=== PATIENT | male | born 1970 | race Two or more races ===

== ENCOUNTER 2018-10-17 11:40 | Inpatient (IN) | payer OTHER ==
[2018-10-17] VITALS (7 sets, daily range): BP systolic 90–131; BP diastolic 59–84
[~2018-10-17] VITALS: Ht 172.7 cm; Wt 62.2 kg
[2018-10-17] MEDS ORDERED: Cefepime HCl 2 GM in NS 110 ML IV SCH (11:45)
[2018-10-17] MEDS ORDERED: Vancomycin 1 GM in NS 275 ML IV ONE (11:45)
--- NOTE | 2018-10-17 11:46 | NUR ---
ED Nurse Note: Pt from home and was brought in by EMS due to SOB x 3 days. Hx of CHF and pt states he stopped taking his lasix for a week now. Pt is AAO x4, non ambulatory with SOB upon exertion. Noted LLE pitting edema +3 and RLE edema +1. Pt has colostomy in place.
--- NOTE | 2018-10-17 11:55 | Emergency Room Report ---
History of Present Illness General Chief Complaint: Dyspnea/Respdistress Source: Patient, Medical Record Present Illness HPI 47-year-old male history of metastatic colon cancer presents with shortness of breath that started 4 days while he denies any aggravating or relieving factors severity is severe, patient states that he has trouble getting a good breath in , he endorses a little chest tightness, no nausea no vomiting, no fever no chills, he does endorse a cough, patient denies any dysuria, patient is currently undergoing chemotherapy. He is full code Allergies: Coded Allergies: No Known Allergies (Unverified , 10/17/18) Patient History Past Medical History: see triage record Reviewed Nursing Documentation: PMH: Agreed; PSxH: Agreed Nursing Documentation-PMH Past Medical History: No History, Except For Hx Cardiac Problems: Yes - CHF Hx Cancer: Yes - Rectum Review of Systems All Other Systems: negative except mentioned in HPI Physical Exam Vital Signs Date Time Temp Pulse Resp B/P (MAP) Pulse Ox O2 Delivery O2 Flow Rate FiO2 10/17/18 11:36 97.5 85 20 89/59 (69) 94 Room Air Sp02 EP Interpretation: reviewed, normal General Appearance: alert, moderate distress, cachetic Head: normocephalic, atraumatic Eyes: bilateral eye PERRL, bilateral eye EOMI ENT: uvula midline, dry mucus membranes Neck: supple, thyroid normal, supple/symm/no masses Respiratory: respiratory distress, decreased breath sounds - left side, accessory muscle use Cardiovascular #1: normal peripheral pulses, regular rate, rhythm, no edema, no gallop, no murmur Gastrointestinal: non tender, soft, no guarding, no rebound, other - Ostomy bag present Musculoskeletal: normal inspection Neurologic: alert, oriented x3 Psychiatric: mood/affect normal Skin: warm/dry, other - Sacral ulcer stage I Procedures Critical Care Time Critical Care Time Given the critical condition in which the patient arrived, the patient was immediately assessed by myself and the nurse, and cardiac monitoring initiated due to the potential for rapid decompensation of the patient's clinical condition. During the course of the patient's stay, I spent a considerable amount of time at the bedside performing serial re-evaluations of the patient's hemodynamic and clinical status because of the recognized potential threat to life or limb in this condition. I then had a chance to review not only all of the available current laboratory and radiographic studies obtained today, but I also reviewed old records available to me at the time. Additionally, any ancillary information available including botany teacher records were reviewed. Sequential vital signs were obtained. Critical Care time of 34 minutes was performed exclusive of billable procedures. Patient at risk of respiratory compromise Medical Decision Making Diagnostic Impression: Primary Impression: Respiratory distress Additional Impressions: Pneumonia involving left lung Qualified Codes: J18.9 - Pneumonia, unspecified organism Sepsis Qualified Codes: A41.9 - Sepsis, unspecified organism ER Course 47-year-old male presents with acute shortness of breath, dyspnea, hypoxia, patient most likely septic. Possible pneumonia Emergently evaluated, patient given breathing treatments, bolus, antibiotics, sepsis work-up was started, Reeval 1:58 PM, patient required BiPAP due to desaturation and hypoxia Reevaluation 2:15 PM, patient improving with BiPAP Given 2 L of normal saline, with improvement in blood pressure from low 90s to low 100s, patient may go to stepdown Patient admitted to Dr. Rivera. Laboratory Tests Test 10/17/18 11:45 10/17/18 12:00 10/17/18 12:14 10/17/18 12:25 Prothrombin Time 13.4 SEC (9.30-11.50) H Prothrombin Time INR 1.3 (0.9-1.1) H PTT 31 SEC (23-33) Sodium Level 130 MMOL/L (136-145) L Potassium Level 4.0 MMOL/L (3.5-5.1) Chloride Level 96 MMOL/L (98-107) L Carbon Dioxide Level 28 MMOL/L (21-32) Anion Gap 6 mmol/L (5-15) Blood Urea Nitrogen 26 mg/dL (7-18) H Creatinine 0.9 MG/DL (0.55-1.30) Estimate Glomerular Filtration Rate > 60 mL/min (>60) Glucose Level 97 MG/DL (74-106) Lactic Acid Level 1.80 mmol/L (0.4-2.0) Calcium Level 9.4 MG/DL (8.5-10.1) Phosphorus Level 3.7 MG/DL (2.5-4.9) Magnesium Level 1.8 MG/DL (1.8-2.4) Total Bilirubin 0.9 MG/DL (0.2-1.0) Aspartate Amino Transferase (AST) 31 U/L (15-37) Alanine Aminotransferase (ALT) 14 U/L (12-78) Alkaline Phosphatase 324 U/L (46-116) H Total Creatine Kinase 34 U/L (26-308) Creatine Kinase MB 1.7 NG/ML (0.0-3.6) Creatine Kinase MB Relative Index 5.0 Troponin I 0.047 ng/mL (0.000-0.056) Pro-B-Type Natriuretic Peptide 48960 pg/mL (0-125) H Total Protein 6.5 G/DL (6.4-8.2) Albumin 2.3 G/DL (3.4-5.0) L Globulin 4.2 g/dL Albumin/Globulin Ratio 0.5 (1.0-2.7) L Lipase 41 U/L (73-393) L White Blood Count 13.9 K/UL (4.8-10.8) H Red Blood Count 2.44 M/UL (4.70-6.10) L Hemoglobin 7.2 G/DL (14.2-18.0) L Hematocrit 22.5 % (42.0-52.0) L Mean Corpuscular Volume 92 FL (80-99) Mean Corpuscular Hemoglobin 29.4 PG (27.0-31.0) Mean Corpuscular Hemoglobin Concent 31.9 G/DL (32.0-36.0) L Red Cell Distribution Width 18.3 % (11.6-14.8) H Platelet Count 18 K/UL (150-450) L Mean Platelet Volume 8.0 FL (6.5-10.1) Neutrophils (%) (Auto) % (45.0-75.0) Lymphocytes (%) (Auto) % (20.0-45.0) Monocytes (%) (Auto) % (1.0-10.0) Eosinophils (%) (Auto) % (0.0-3.0) Basophils (%) (Auto) % (0.0-2.0) Differential Total Cells Counted 100 Neutrophils % (Manual) 92 % (45-75) H Lymphocytes % (Manual) 3 % (20-45) L Monocytes % (Manual) 5 % (1-10) Eosinophils % (Manual) 0 % (0-3) Basophils % (Manual) 0 % (0-2) Band Neutrophils 0 % (0-8) Platelet Estimate Decreased L Platelet Morphology Normal Hypochromasia 2+ Anisocytosis 1+ Arterial Blood pH 7.479 (7.350-7.450) Arterial Blood Partial Pressure CO2 32.0 mmHg (35.0-45.0) L Arterial Blood Partial Pressure O2 198.9 mmHg (75.0-100.0) H Arterial Blood HCO3 23.2 mmol/L (22.0-26.0) Arterial Blood Oxygen Saturation 99.1 % (95-100) Arterial Blood Base Excess -0.1 (-2-2) William Test Positive Urine Color Yellow Urine Appearance Clear Urine pH 6 (4.5-8.0) Urine Specific [employer] [place] [employer] [place] 1.015 (1.005-1.035) Urine Protein Negative (NEGATIVE) Urine Glucose (UA) Negative (NEGATIVE) Urine Ketones Negative (NEGATIVE) Urine Blood 1+ (NEGATIVE) H Urine Nitrite Negative (NEGATIVE) Urine Bilirubin Negative (NEGATIVE) Urine Urobilinogen Normal MG/DL (0.0-1.0) Urine Leukocyte Esterase Negative (NEGATIVE) Urine RBC 0-2 /HPF (0 - 0) H Urine WBC 0 /HPF (0 - 0) Urine Squamous Epithelial Cells Occasional /LPF Urine Bacteria Occasional /HPF (NONE) EKG Diagnostic Results EKG Time: 11:54 EP Interpretation: NSR, rate 89, QTc 438, no acute ST elevations, normal axis Rate: normal Rhythm: NSR ST Segments: no acute changes Rhythm Strip Diag. Results Rhythm Strip Time: 13:17 EP Interpretation: yes Rate: 80 Rhythm: NSR, no PVC's Chest X-Ray Diagnostic Results Chest X-Ray Diagnostic Results : Chest X-Ray Ordered: Yes # of Views/Limited/Complete: 1 View Indication: Shortness of Breath Interpretation: other - Left lobe pneumonia Impression: Other - Left lobe pneumonia Electronically Signed by: Selvin Bustamante MD CT/MRI/US Diagnostic Results CT/MRI/US Diagnostic Results #1: Impression Procedure: CTA Chest w Contrast CTA CHEST With Contrast: No PE. Limited at the left lung base due to motion. Prominent main pulmonary artery may be pulmonary arterial hypertension. Small bilateral pleural effusions, greater on the left. Pleural effusion along the right major fissure. Septal thickening of the left lung and right lower lung. Hazy lung opacities of the left lung in a mosaic pattern, may be edema or infiltrate, consider alveolar proteinosis. Mild honeycombing of the lung and right lung peripheral opacities. Maybe fibrosis, consider eosinophilic pneumonia. Numerous small nodules of the right lung. Right anterior rib 4 permeative lesion with pathologic fracture may be subacute. Ascites in the upper abdomen. Hepatomegaly. Cachectic. Anasarca. Small mediastinal and left hilar lymphadenopathy. Dictated By: MICHELLE OCHOA M.D. Electronically Signed By: Signed Date/Time CT/MRI/US Diagnostic Results #2: Impression Procedure: CT Head no Contrast CT HEAD Without Contrast: Hypoattenuation in the right frontoparietal lobe white matter, may be subacute to old focus of ischemia, cannot exclude demyelinating or other white matter process. No acute intracranial hemorrhage. No mass effect or midline shift. Visualized paranasal sinuses and mastoid air cells are clear. Dictated By: MICHELLE OCHOA M.D. Electronically Signed By: Signed Date/Time CC: Last Vital Signs Date Time Temp Pulse Resp B/P (MAP) Pulse Ox O2 Delivery O2 Flow Rate FiO2 10/17/18 11:36 97.5 85 20 89/59 (69) 94 Room Air Disposition: ADMITTED INPATIENT Condition: Stable Selvin Bustamante MD Oct 17, 2018 11:55
[2018-10-17] MEDS ORDERED: Albuterol ud Inhalation HHN ONE (12:00)
[2018-10-17] MEDS ORDERED: Ipratropium 0.02% Inh Soln 2.5ml UD HHN ONE (12:00)
--- NOTE | 2018-10-17 12:10 | NUR ---
ED Nurse Note: RT at the bed side for breathing treatment.
[2018-10-17 12:14] LABS: HEMATOCRIT 22.5 % (42.0-52.0); HEMOGLOBIN 7.2 G/DL (14.2-18.0); MEAN CORPUSCULAR VOLUME 92 FL (80-99); PLATELET COUNT 18 K/UL (150-450); RED BLOOD COUNT 2.44 M/UL (4.70-6.10); RED CELL DISTRIBUTION WIDTH 18.3 % (11.6-14.8); WHITE BLOOD COUNT 13.9 K/UL (4.8-10.8)
[2018-10-17] MEDS ORDERED: Isovue-370 150ml vial INJ PRN (12:15)
--- NOTE | 2018-10-17 12:15 | Diagnostic Imaging Report ---
EXAM: XR Chest, 1 View CLINICAL HISTORY: DYSPNEA TECHNIQUE: Frontal view of the chest. COMPARISON: No relevant prior studies available. FINDINGS: Lungs: Infiltrative changes in the left lung. Hyperinflation of the right lung and some volume loss in the left. Pleural space: Blunting of the left costophrenic angle that could be from pleural effusion or pleural thickening. No pneumothorax. Heart: And probable mild cardiomegaly. Mediastinum: Unremarkable. Bones/joints: No acute fracture. IMPRESSION: Infiltrative changes in the left lung. Could be from pneumonia. Underlying lesion not excluded.
[2018-10-17 12:21] LABS: INR 1.3 (0.9-1.1)
[2018-10-17 12:29] LABS: ANION GAP 6 mmol/L (5-15); BLOOD UREA NITROGEN 26 mg/dL (7-18); CALCIUM 9.4 MG/DL (8.5-10.1); CARBON DIOXIDE 28 MMOL/L (21-32); CHLORIDE 96 MMOL/L (98-107); CREATININE 0.9 MG/DL (0.55-1.30); SODIUM 130 MMOL/L (136-145)
[2018-10-17 12:43] LABS: ALANINE AMINOTRANSFERASE 14 U/L (12-78); ALBUMIN 2.3 G/DL (3.4-5.0); ALBUMIN/GLOBULIN RATIO 0.5 (1.0-2.7); ALKALINE PHOSPHATASE 324 U/L (46-116); ASPARTATE AMINO TRANSFERASE 31 U/L (15-37); BILIRUBIN,TOTAL 0.9 MG/DL (0.2-1.0); CKMB 1.7 NG/ML (0.0-3.6); CREATINE KINASE 34 U/L (26-308); PHOSPHORUS 3.7 MG/DL (2.5-4.9)
[2018-10-17 13:06] LABS: APPEARANCE,URINE CLEAR; BILIRUBIN, URINE NEGATIVE (NEGATIVE); GLUCOSE, URINE (UA) NEGATIVE (NEGATIVE); KETONES,URINE NEGATIVE (NEGATIVE); LEUKOCYTE ESTERASE ,URINE NEGATIVE (NEGATIVE); NITRITE,URINE NEGATIVE (NEGATIVE); PH,URINE 6 (4.5-8.0); PROTEIN,URINE NEGATIVE (NEGATIVE); UROBILINOGEN,URINE NORMAL MG/DL (0.0-1.0)
[2018-10-17 13:12] LABS: COLOR,URINE YELLOW
--- NOTE | 2018-10-17 13:45 | NUR ---
ED Nurse Note: Pt o2 sat drops to 85 % ocassionally. Dr Bustamante notified.
--- NOTE | 2018-10-17 14:30 | NUR ---
ED Nurse Note: Pt consented for blood transfusion.
--- NOTE | 2018-10-17 14:40 | NUR ---
ED Nurse Note: RN and transporter assisted pt to come down to CT. VSS.
--- NOTE | 2018-10-17 14:51 | NUR ---
ED Nurse Note: Pt came back from CT.
--- NOTE | 2018-10-17 15:35 | Diagnostic Imaging Report ---
Indication: Headache Technique: Contiguous 5 mm thick transaxial imaging of the head obtained in a Siemens Sensation [address] scanner. Soft tissue and bone windows generated. Automatic Exposure Control was utilized. Total Dose length Product (DLP): 1410.[address] Dose Index Volume (CTDIvol): 70.38 mGy Comparison: none Findings: Somewhat ill-defined area of low attenuation measuring 1.3 x 1.1 cm noted in the right frontal de la garza radiata. This is consistent with a white matter infarct and may be subacute to chronic. Correlate clinically. Generalized atrophy of the cerebrum and cerebellum demonstrated. The basal cisterns and ventricles are symmetric and normal. There is no evidence of an acute intracranial bleed, subdural hematoma or other extra axial collections. There is an age-indeterminate fracture of the nasal bone. 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 Generalized atrophy of the brain Chronic small vessel disease involving periventricular white matter. Paranasal fracture may be old. Correlate clinically [facility] has communicated the preliminary results to the Emergency Department. Their findings are largely concordant with this report. The CT scanner at [facility] is accredited by the [employer] and the scans are performed using dose optimization techniques as appropriate to a performed exam including Automatic Exposure control.
--- NOTE | 2018-10-17 15:46 | Diagnostic Imaging Report ---
Indication: Chest pain Technique: Continuous helical transaxial imaging of the chest was obtained from the thoracic inlet to the upper abdomen during rapid intravenous contrast administration. Arterial phase of enhancement obtained. Coronal 2-D reformats were also obtained and maximum intensity projection images in multiple planes. Study obtained in a Siemens sensation [address] Automatic Exposure Control was utilized. Total Dose length Product (DLP): 778.[address] Dose Index Volume (CTDIvol): 20.91 mGy Comparison: None Findings: The pulmonary artery is well opacified and shows no definite filling defects. There is no aortic dissection or aneurysm identified within the chest. Aorta is ectatic and mildly calcified consistent with atherosclerotic disease. There is extensive groundglass opacification of the left upper lobe and part of the left lower lobe. Patchy reticular densities also demonstrated bilaterally nonspecific. The heart is enlarged. There is a small left pleural effusion. There are areas of pleural thickening and/or fluid in portions of the right major fissure. There is suggestion of confluent adenopathy in the mediastinum. The visualized part of the upper abdomen shows some mild ascites. There is an apparent fracture of the right fourth rib. Please correlate clinically. The fracture may be acute to subacute in age. IMPRESSION: No evidence of pulmonary embolus, aortic dissection or aneurysm. Mild atherosclerotic disease noted. Extensive pulmonary infiltrates with left groundglass opacification and patchy reticular densities bilaterally. Correlate for pneumonia. Small left pleural effusion. Ascites. Acute to subacute fracture of the right fourth rib. Suggestion of confluent adenopathy in the mediastinum. Consider follow-up CT chest with contrast. [facility] has communicated the preliminary results to the Emergency Department. Their findings are largely concordant with this report. The CT scanner at [facility] is accredited by the [employer] and the scans are performed using dose optimization techniques as appropriate to a performed exam including Automatic Exposure control.
--- NOTE | 2018-10-17 15:50 | NUR ---
ED Nurse Note: [phone] Sunshine pts sister.
--- NOTE | 2018-10-17 17:00 | Consultation ---
History of Present Illness General Date patient seen: Oct 17, 2018 Chief Complaint: Dyspnea/Respdistress Present Illness HPI 47 y/o M with hx of metastatic colon on chemotherapy, CHF presented to ED on 10/17 with 4 days of SOB, chest tightness, cough Denied nausea, vomiting, f/c, dysuria. Allergies: Coded Allergies: No Known Allergies (Unverified , 10/17/18) Patient History Healthcare decision maker Resuscitation status Advanced Directive on File Patient History Narrative Pmhx: as above Shx: reviewed Fhx: non contributory Review of Systems All Other Systems: negative except mentioned in HPI Physical Exam Physical Exam Narrative General Appearance: alert, moderate distress, cachetic Head: normocephalic, atraumatic Eyes: bilateral eye PERRL, bilateral eye EOMI ENT: uvula midline, dry mucus membranes Neck: supple, thyroid normal, supple/symm/no masses Respiratory: respiratory distress, decreased breath sounds - left side, accessory muscle use Cardiovascular #1: normal peripheral pulses, regular rate, rhythm, no edema, no gallop, no murmur Gastrointestinal: non tender, soft, no guarding, no rebound, other - Ostomy bag present Musculoskeletal: normal inspection Neurologic: alert, oriented x3 Psychiatric: mood/affect normal Skin: warm/dry, other - Sacral ulcer stage I Last 24 Hour Vital Signs Date Time Temp Pulse Resp B/P (MAP) Pulse Ox O2 Delivery O2 Flow Rate FiO2 10/17/18 14:58 107 26 97 Facial 30 10/17/18 14:00 98.0 110 26 102/65 100 Bi-pap 30 10/17/18 14:00 30 10/17/18 13:50 102 24 100 Facial 30 10/17/18 12:21 84 20 98 Room Air 21 10/17/18 12:05 83 20 93 Room Air 21 10/17/18 12:05 83 20 93 Room Air 21 10/17/18 12:00 97.5 78 20 90/59 94 Room Air 10/17/18 11:46 86 17 Room Air 10/17/18 11:36 97.5 85 20 89/59 (69) 94 Room Air Laboratory Tests Test 10/17/18 11:45 10/17/18 12:00 10/17/18 12:14 10/17/18 12:25 Prothrombin Time 13.4 SEC (9.30-11.50) H Prothromb Time International Ratio 1.3 (0.9-1.1) H Activated Partial Thromboplast Time 31 SEC (23-33) Sodium Level 130 MMOL/L (136-145) L Potassium Level 4.0 MMOL/L (3.5-5.1) Chloride Level 96 MMOL/L (98-107) L Carbon Dioxide Level 28 MMOL/L (21-32) Anion Gap 6 mmol/L (5-15) Blood Urea Nitrogen 26 mg/dL (7-18) H Creatinine 0.9 MG/DL (0.55-1.30) Estimat Glomerular Filtration Rate > 60 mL/min (>60) Glucose Level 97 MG/DL (74-106) Lactic Acid Level 1.80 mmol/L (0.4-2.0) Calcium Level 9.4 MG/DL (8.5-10.1) Phosphorus Level 3.7 MG/DL (2.5-4.9) Magnesium Level 1.8 MG/DL (1.8-2.4) Total Bilirubin 0.9 MG/DL (0.2-1.0) Aspartate Amino Transf (AST/SGOT) 31 U/L (15-37) Alanine Aminotransferase (ALT/SGPT) 14 U/L (12-78) Alkaline Phosphatase 324 U/L (46-116) H Total Creatine Kinase 34 U/L (26-308) Creatine Kinase MB 1.7 NG/ML (0.0-3.6) Creatine Kinase MB Relative Index 5.0 Troponin I 0.047 ng/mL (0.000-0.056) Pro-B-Type Natriuretic Peptide 50036 pg/mL (0-125) H Total Protein 6.5 G/DL (6.4-8.2) Albumin 2.3 G/DL (3.4-5.0) L Globulin 4.2 g/dL Albumin/Globulin Ratio 0.5 (1.0-2.7) L Lipase 41 U/L (73-393) L White Blood Count 13.9 K/UL (4.8-10.8) H Red Blood Count 2.44 M/UL (4.70-6.10) L Hemoglobin 7.2 G/DL (14.2-18.0) L Hematocrit 22.5 % (42.0-52.0) L Mean Corpuscular Volume 92 FL (80-99) Mean Corpuscular Hemoglobin 29.4 PG (27.0-31.0) Mean Corpuscular Hemoglobin Concent 31.9 G/DL (32.0-36.0) L Red Cell Distribution Width 18.3 % (11.6-14.8) H Platelet Count 18 K/UL (150-450) L Mean Platelet Volume 8.0 FL (6.5-10.1) Neutrophils (%) (Auto) % (45.0-75.0) Lymphocytes (%) (Auto) % (20.0-45.0) Monocytes (%) (Auto) % (1.0-10.0) Eosinophils (%) (Auto) % (0.0-3.0) Basophils (%) (Auto) % (0.0-2.0) Differential Total Cells Counted 100 Neutrophils % (Manual) 92 % (45-75) H Lymphocytes % (Manual) 3 % (20-45) L Monocytes % (Manual) 5 % (1-10) Eosinophils % (Manual) 0 % (0-3) Basophils % (Manual) 0 % (0-2) Band Neutrophils 0 % (0-8) Platelet Estimate Decreased L Platelet Morphology Normal Hypochromasia 2+ Anisocytosis 1+ Arterial Blood pH 7.479 (7.350-7.450) Arterial Blood Partial Pressure CO2 32.0 mmHg (35.0-45.0) L Arterial Blood Partial Pressure O2 198.9 mmHg (75.0-100.0) H Arterial Blood HCO3 23.2 mmol/L (22.0-26.0) Arterial Blood Oxygen Saturation 99.1 % (95-100) Arterial Blood Base Excess -0.1 (-2-2) William Test Positive Urine Color Yellow Urine Appearance Clear Urine pH 6 (4.5-8.0) Urine Specific [place] 1.015 (1.005-1.035) Urine Protein Negative (NEGATIVE) Urine Glucose (UA) Negative (NEGATIVE) Urine Ketones Negative (NEGATIVE) Urine Blood 1+ (NEGATIVE) H Urine Nitrite Negative (NEGATIVE) Urine Bilirubin Negative (NEGATIVE) Urine Urobilinogen Normal MG/DL (0.0-1.0) Urine Leukocyte Esterase Negative (NEGATIVE) Urine RBC 0-2 /HPF (0 - 0) H Urine WBC 0 /HPF (0 - 0) Urine Squamous Epithelial Cells Occasional /LPF Urine Bacteria Occasional /HPF (NONE) Height (Feet): 5 Height (Inches): 8.00 Weight (Pounds): 120 Medications Current Medications Medications (Trade) Dose Ordered Sig/Onelia Route PRN Reason Start Time Stop Time Status Last Admin Dose Admin Cefepime HCl 2 gm/ Sodium Chloride 110 ml @ 220 mls/hr Q12H IV 10/17/18 11:45 10/18/18 11:44 10/17/18 12:16 Iopamidol (Isovue-370 150ml) 150 ml NOW PRN INJ Radiology Procedure 10/17/18 12:15 10/19/18 12:04 Assessment/Plan Assessment/Plan: Abx: IV Vancomycin x1 10/17 Cefepime 10/17- Assessment: Sepsis - 2ry to PNA- r/o fungal, atypical Dyspnea-r/o interstitial lung disease -CTA chest: No PE. Limited at the left lung base due to motion. Prominent main pulmonary artery may be pulmonary arterial hypertension. Small bilateral pleural effusions, greater on the left. Pleural effusion along the right major fissure. Septal thickening of the left lung and right lower lung. Hazy lung opacities of the left lung in a mosaic pattern, may be edema or infiltrate, consider alveolar proteinosis. Mild honeycombing of the lung and right lung peripheral opacities. Maybe fibrosis, consider eosinophilic pneumonia. Numerous small nodules of the right lung. Right anterior rib 4 permeative lesion with pathologic fracture may be subacute. -CXR: Infiltrative changes in the left lung. Could be from pneumonia. Underlying lesion not excluded. Afebrile Mild leukocytosis metastatic colon on chemotherapy CHF Plan: -Continue empiric CEfepime #1 and IV Vancomycin #1 -Add azithromycin for atypicals -f/u cx -Monitor CBC/BMP, temperatures -sp cx, legionella ag urine -HIV ab, Cocci ab, CrAg am -EKG am- monitor qtc -aspiration precautions Thank you for this consultation. Will continue to follow along with you. Discussed with Kaye Mckeon M.D. Oct 17, 2018 17:00
--- NOTE | 2018-10-17 17:38 | NUR ---
ED Nurse Note: Report given to Yannick PUENTES of SDU.
[2018-10-17] MEDS ORDERED: Morphine Sulfate 2mg/ml Inj(IV/IM USE ONLY) IVP PRN (17:45)
[2018-10-17] MEDS ORDERED: Miralax 17gm pkt ORAL PRN (17:45)
--- NOTE | 2018-10-17 18:02 | NUR ---
CASE MANAGEMENT: REVIEW 47Y/M BIBA FROM HOME CC: SOB X3DAYS . HX METASTATIC COLON CA ON CHEMOTHERAPY SI: HYPOXIA . CHEST PAIN T 97.5 HR 110 RR 26 BP 90/59 SAT 97% BIPAP FIO2 30 WBC 13.9 H/H 7.2/22.[address] 19 NA 130 BNP 20182 IS: NS IVF BOLUS X1 CEFEPIME IV Q12HR VANCO IV X1 ATROVENT HHN X1 ALBUTEROL HHN X1 PATIENT ADMITTED TO STEP DOWN UNIT 10/17/2018 DCP: PATIENT IS FROM HOME
[2018-10-17] MEDS: Azithromycin 250mg tab ORAL SCH (19:00)
--- NOTE | 2018-10-17 19:00 | NUR ---
NURSE NOTES: Patient received from Yannick PUENTES, Patient is AAOX4, VSS, no acute distress. Patient is on Bipap saturating at 94%. IV patent, and skin issues noted. Bed at its lowest position, call light in reach and X3 bed rails are up.
[2018-10-17] MEDS ORDERED: Heparin 5000 units/ml inj SUBQ SCH (21:00)
[2018-10-17] MEDS: Cefepime HCl 2 GM in D5W 110 ML IV SCH (22:22)
[2018-10-17] MEDS: Albuterol/Ipratropium 3ml neb HHN PRN (22:30)
[2018-10-17] MEDS ORDERED: Vancomycin 1 GM in D5W 275 ML IV SCH (23:00)
[2018-10-18] VITALS (19 sets, daily range): BP systolic 80–125; BP diastolic 56–89
[2018-10-18] MEDS ORDERED: Vancomycin 750mg/D5W 275ml IVPB SCH ×2 (00:30)
[2018-10-18] MEDS: Albuterol/Ipratropium 3ml neb HHN PRN (05:06)
[2018-10-18 05:23] LABS: HEMATOCRIT 24.7 % (42.0-52.0); HEMOGLOBIN 7.8 G/DL (14.2-18.0); MEAN CORPUSCULAR VOLUME 95 FL (80-99); PLATELET COUNT 11 K/UL (150-450); RED CELL DISTRIBUTION WIDTH 17.1 % (11.6-14.8); WHITE BLOOD COUNT 11.6 K/UL (4.8-10.8)
[2018-10-18 05:33] LABS: ANION GAP 8 mmol/L (5-15); BLOOD UREA NITROGEN 33 mg/dL (7-18); CALCIUM 8.8 MG/DL (8.5-10.1); CARBON DIOXIDE 26 MMOL/L (21-32); CHLORIDE 98 MMOL/L (98-107); CREATININE 0.8 MG/DL (0.55-1.30); PHOSPHORUS 5.9 MG/DL (2.5-4.9); POTASSIUM 4.7 MMOL/L (3.5-5.1); SODIUM 132 MMOL/L (136-145)
--- NOTE | 2018-10-18 07:01 | NUR ---
NURSE NOTES: Left a message with Dr Victor at 0000 regarding diet and again at 0650. No reply yet. Left a message about medications to continue as well. No reply as of yet.
--- NOTE | 2018-10-18 07:22 | NUR ---
HAND-OFF: Report given to Binta Uribe RN.
[2018-10-18] MEDS: Cefepime HCl 2 GM in D5W 110 ML IV SCH ×2 (08:25→20:57)
[2018-10-18] MEDS: Azithromycin 250mg tab ORAL SCH (09:00)
--- NOTE | 2018-10-18 09:00 | NUR ---
NURSE NOTES: ABG done,ph 6.979, po2 87.4, pco2 136.6, bicarb 31.4, dr. KAUFMAN notified, at 0850 pt intubated as ordered by ER doctor Deric, and transferred to ICU.
--- NOTE | 2018-10-18 09:00 | Emergency Room Report ---
History of Present Illness General Chief Complaint: Dyspnea/Respdistress Source: Patient, Medical Record Present Illness Allergies: Coded Allergies: No Known Allergies (Unverified , 10/17/18) Nursing Documentation-[facility] Past Medical History: No History, Except For Hx Cardiac Problems: Yes - CHF Hx Cancer: Yes - Rectum Physical Exam Vital Signs Date Time Temp Pulse Resp B/P (MAP) Pulse Ox O2 Delivery O2 Flow Rate FiO2 10/17/18 11:36 97.5 85 20 89/59 (69) 94 Room Air 10/17/18 12:05 21 Procedures Intubation Intubation : Consent: Emergent Time of Intubation: 08:53 Medications: Etomidate, Rocuronium Breath Sounds after Intubation: equal Intubation Complications: no complications Post Intubation Xray: Yes Attempts: One Patient Tolerated: Well Complications: None Progress I was called to evaluate patient for respiratory failure. Patient was noted to have been on BiPAP. Patient was noted to be more tachypneic. He had arterial blood gas which showed elevated PCO2. Patient was intubated with MAC 4 blade direct laryngoscopy x1 ET tube at 24 cm. Patient be transferred to ICU. Medical Decision Making Diagnostic Impression: Primary Impression: Respiratory distress Additional Impressions: Pneumonia involving left lung Sepsis Last Vital Signs Date Time Temp Pulse Resp B/P (MAP) Pulse Ox O2 Delivery O2 Flow Rate FiO2 10/18/18 08:34 81 23 92 Facial 100 10/18/18 08:00 98.0 100/56 (71) Disposition: ADMITTED INPATIENT Condition: Stable Referrals: [facility],REFERRING (PCP) Mikal Leos MD Oct 18, 2018 09:00
--- NOTE | 2018-10-18 09:06 | NUR ---
NURSE NOTES: received pt in the bed, unresponsive, on Bipap 15/5, FIo2 30%, no co pain, vital signs stable, colostomy, condom , multiple decub, dressing dry and intact, NPO, hep lock on left wrist, patten, bed in low position, HOB elevated, dr. Elam saw pt, HGB 7.8, Plat 11, dr. Coon aware.
--- NOTE | 2018-10-18 09:07 | NUR ---
NURSE NOTES: Arrived pt to bed C via hospital bed. Report received from Lucas Judd RN. Pt was orally intubated and on ventilator right before transfer. ETT 8.0/24cm at right lip line. Post intubation ABG and CXR ordered. A-fib on cardiac exercise physiologist with HR 70's. Pt is still sedated from intubation. Colostomy and condom catheter in place and draining to gravity. Left FA G22 patent and asymptomatic. Bed in lowest position. Side rails up x3. Bed in lowest position. Side rails up xx3. Will resume plan of care.
--- NOTE | 2018-10-18 09:08 | NUR ---
NURSE NOTES: Small amount of bloody secretion from ETT noted. Sanctioned pt by RT. Dr Elam aware of low Platelet and Hgb. No new orders as per Binta Zavala RN. Will continue to monitor.
[2018-10-18] MEDS ORDERED: Miralax 17gm pkt ORAL PRN (09:30)
[2018-10-18] MEDS ORDERED: Morphine Sulfate 2mg/ml Inj(IV/IM USE ONLY) IVP PRN ×2 (09:45→20:00)
[2018-10-18] MEDS ORDERED: Albuterol/Ipratropium 3ml neb HHN PRN (09:45)
--- NOTE | 2018-10-18 10:41 | NUR ---
RD ASSESSMENT & RECOMMENDATIONS SEE CARE ACTIVITY FOR COMPLETE ASSESSMENT DAILY ESTIMATED NEEDS: Needs based on Critical care, mets ca, underweight 54kg 25-35 kcals/kg 9956-3157 total kcals 1.25-2 g protein/kg 68-108 g total protein 25-30 mL/kg 7932-1489 total fluid mLs NUTRITION DIAGNOSIS: 1) Increased kcal and pro needs r/t wound healing and underweight status as evidenced by pt w/ sacral/ groin wounds advanced per photo, eval pending, w/ mets colon cancer on chemo, pt is est 78% of [place] Body Weight, generalized moderate to severe wasting. 2) Swallowing difficulty r/t respiratory failure as evidenced by pt now intubated, NPO, ICU status. ENTERAL NUTRITION RECOMMENDATIONS: VITAL AF 1.2 GOAL OF 50ml/hr x24 hrs to provide 1200ml, 1440 kcal, 90g pro, 973ml free H2O - If pt remains hemodynamically stable, rec temporary non oral feeds - Obtain GI access, start Vital 1.2 @20ml for 6 hrs. Advance as tolerated 10ml/hr q4-6 hrs to goal. - Flush per MD/ HOB over 30 degrees - TF @goal meets 100% est needs-->> *If tolerated @50ml/hr, may advance to 60ml/hr to better meet est needs.* -------- ADDITIONAL RECOMMENDATIONS: 1) Maintain calibrated bed scale wts 2) TF recs as above if part of POC 3) Check lytes daily (phos 5.9, monitor need for formula change) 4) WOUND CARE: WITH GI ACCESS, rec GEREMIAS BID + VIT C 250mg daily F/up w/ WC eval
[2018-10-18] MEDS ORDERED: Morphine Sulfate 4mg/ml Inj (IV USE ONLY) IVP PRN ×2 (10:45→20:00)
[2018-10-18] MEDS ORDERED: LORazepam Inj 2mg/ml 1ml IV PRN (10:45)
--- NOTE | 2018-10-18 10:47 | NUR ---
NURSE NOTES: OGT placed as per order. CXR and KUB done at bedside. Dr Victor here to see the patient. Notified him regarding ABG and CXR result. Will continue to monitor.
--- NOTE | 2018-10-18 10:52 | NUR ---
*-* NO INSURANCE INFROMATION IN THE BAR UNABLE TO SEND CLINICALS OR REVIEWS *-*
--- NOTE | 2018-10-18 10:53 | Pulmonolgy Critical Care Note ---
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 Infectious Disease: check cultures Gastrointestinal: hold feedings Endocrine: monitor blood sugar, check TSH Hematologic: monitor H/H, transfuse if hgb<8.5 Neurologic: PRN Morphine, keep patient comfortable Affect: PRN ativan Time Spent (Minutes): 30 Notes Reviewed: human factors engineer, renal Discussed with: nurses, consultants, human services case managerstrategic planning manager - Objective Last 24 Hour Vital Signs Date Time Temp Pulse Resp B/P (MAP) Pulse Ox O2 Delivery O2 Flow Rate FiO2 10/18/18 10:00 86 21 124/89 (101) 100 10/18/18 09:00 Mechanical Ventilator 10/18/18 09:00 86 15 106/87 (93) 100 10/18/18 09:00 100 10/18/18 08:57 86 10/18/18 08:34 81 23 92 Facial 100 10/18/18 08:01 30 10/18/18 08:00 98.0 59 19 100/56 (71) 93 84 10/18/18 08:00 76 10/18/18 08:00 Bi-pap 10/18/18 07:15 76 25 92 Facial 100 10/18/18 05:14 56 26 93 Bi-Pap 100 10/18/18 05:10 100 10/18/18 05:06 73 23 90 Facial 100 10/18/18 05:06 73 18 90 Bi-Pap 100 10/18/18 04:00 Bi-pap 10/18/18 04:00 84 26 115/83 (94) 92 84 10/18/18 04:00 30 10/18/18 04:00 69 10/18/18 03:12 85 28 95 Facial 80 10/18/18 02:00 95.2 60 22 106/69 (81) 91 10/18/18 01:01 70 30 91 Facial 80 10/18/18 00:00 66 10/18/18 00:00 30 10/18/18 00:00 Bi-pap 10/18/18 00:00 92.8 55 22 125/76 (92) 95 10/17/18 22:48 61 31 95 Bi-Pap 60 10/17/18 22:39 57 32 90 Facial 60 10/17/18 22:37 60 10/17/18 22:30 63 18 90 Bi-Pap 60 10/17/18 22:00 97.2 95 27 122/80 (94) 93 10/17/18 21:07 71 29 94 Facial 60 10/17/18 20:00 72 27 96 Facial 60 10/17/18 20:00 30 10/17/18 20:00 Bi-pap 10/17/18 20:00 72 27 96 Bi-Pap 60 10/17/18 20:00 71 10/17/18 19:00 95.6 105 24 108/70 (83) 98 10/17/18 19:00 Bi-pap 10/17/18 18:42 77 10/17/18 18:20 95.9 76 20 131/73 (92) 95 10/17/18 18:15 97.6 110 20 135/76 100 60 10/17/18 17:59 98.0 105 17 123/70 100 60 10/17/18 17:39 60 10/17/18 17:22 102 24 99 Facial 60 10/17/18 17:15 97.7 107 20 10/17/18 17:00 96.5 119 17 10/17/18 16:00 98.0 102 20 125/84 98 Bi-pap 30 10/17/18 14:58 107 26 97 Facial 30 10/17/18 14:00 98.0 110 26 102/65 100 Bi-pap 30 10/17/18 14:00 30 10/17/18 13:50 102 24 100 Facial 30 10/17/18 12:21 84 20 98 Room Air 10/17/18 12:05 83 20 93 Room Air 21 10/17/18 12:05 83 20 93 Room Air 10/17/18 12:00 97.5 78 20 90/59 94 Room Air 10/17/18 11:46 86 17 Room Air 10/17/18 11:36 97.5 85 20 89/59 (69) 94 Room Air Status: awake Condition: critical Neck: full ROM Heart: HR/BP stable Abdomen: soft Extremities: no C/C/E Decubiti: location Critical Care - Subjective ROS Limited/Unobtainable: No Interval Events: 47 year old male with metastatic colon cancer, presented to [facility] with Dyspnea. Was diagnosed to have severe pneumonia. Condition: critical EKG Rhythm: Sinus Rhythm FI02: 100 Vent Support Breath Rate: 18 Vent Support Mode: AC Vent Tidal Volume: 400 Sputum Amount: None PEEP: 5.0 I&O: Intake and Output 10/17/18 10/18/18 18:59 06:59 Intake Total 2293.3 ml 385.333 ml Output Total 450 ml Balance 2293.3 ml -64.667 ml IV Total 2293.3 ml 385.333 ml Output Urine Total 350 ml Stool Total 100 ml # Voids 1 # Bowel Movements 4 CXR: extensive bilateral infiltrate ET-Tube: 8.0 ET Position: 24 Labs: Laboratory Tests Test 10/17/18 11:45 10/17/18 12:00 10/17/18 12:14 10/17/18 12:25 Prothrombin Time 13.4 SEC (9.30-11.50) H Prothromb Time International Ratio 1.3 (0.9-1.1) H Activated Partial Thromboplast Time 31 SEC (23-33) Sodium Level 130 MMOL/L (136-145) L Potassium Level 4.0 MMOL/L (3.5-5.1) Chloride Level 96 MMOL/L (98-107) L Carbon Dioxide Level 28 MMOL/L (21-32) Anion Gap 6 mmol/L (5-15) Blood Urea Nitrogen 26 mg/dL (7-18) H Creatinine 0.9 MG/DL (0.55-1.30) Estimat Glomerular Filtration Rate > 60 mL/min (>60) Glucose Level 97 MG/DL (74-106) Lactic Acid Level 1.80 mmol/L (0.4-2.0) Calcium Level 9.4 MG/DL (8.5-10.1) Phosphorus Level 3.7 MG/DL (2.5-4.9) Magnesium Level 1.8 MG/DL (1.8-2.4) Total Bilirubin 0.9 MG/DL (0.2-1.0) Aspartate Amino Transf (AST/SGOT) 31 U/L (15-37) Alanine Aminotransferase (ALT/SGPT) 14 U/L (12-78) Alkaline Phosphatase 324 U/L (46-116) H Total Creatine Kinase 34 U/L (26-308) Creatine Kinase MB 1.7 NG/ML (0.0-3.6) Creatine Kinase MB Relative Index 5.0 Troponin I 0.047 ng/mL (0.000-0.056) Pro-B-Type Natriuretic Peptide 23122 pg/mL (0-125) H Total Protein 6.5 G/DL (6.4-8.2) Albumin 2.3 G/DL (3.4-5.0) L Globulin 4.2 g/dL Albumin/Globulin Ratio 0.5 (1.0-2.7) L Lipase 41 U/L (73-393) L White Blood Count 13.9 K/UL (4.8-10.8) H Red Blood Count 2.44 M/UL (4.70-6.10) L Hemoglobin 7.2 G/DL (14.2-18.0) L Hematocrit 22.5 % (42.0-52.0) L Mean Corpuscular Volume 92 FL (80-99) Mean Corpuscular Hemoglobin 29.4 PG (27.0-31.0) Mean Corpuscular Hemoglobin Concent 31.9 G/DL (32.0-36.0) L Red Cell Distribution Width 18.3 % (11.6-14.8) H Platelet Count 18 K/UL (150-450) L Mean Platelet Volume 8.0 FL (6.5-10.1) Neutrophils (%) (Auto) % (45.0-75.0) Lymphocytes (%) (Auto) % (20.0-45.0) Monocytes (%) (Auto) % (1.0-10.0) Eosinophils (%) (Auto) % (0.0-3.0) Basophils (%) (Auto) % (0.0-2.0) Differential Total Cells Counted 100 Neutrophils % (Manual) 92 % (45-75) H Lymphocytes % (Manual) 3 % (20-45) L Monocytes % (Manual) 5 % (1-10) Eosinophils % (Manual) 0 % (0-3) Basophils % (Manual) 0 % (0-2) Band Neutrophils 0 % (0-8) Platelet Estimate Decreased L Platelet Morphology Normal Hypochromasia 2+ Anisocytosis 1+ Arterial Blood pH 7.479 (7.350-7.450) Arterial Blood Partial Pressure CO2 32.0 mmHg (35.0-45.0) L Arterial Blood Partial Pressure O2 198.9 mmHg (75.0-100.0) H Arterial Blood HCO3 23.2 mmol/L (22.0-26.0) Arterial Blood Oxygen Saturation 99.1 % (95-100) Arterial Blood Base Excess -0.1 (-2-2) William Test Positive Urine Color Yellow Urine Appearance Clear Urine pH 6 (4.5-8.0) Urine Specific [place] 1.015 (1.005-1.035) Urine Protein Negative (NEGATIVE) Urine Glucose (UA) Negative (NEGATIVE) Urine Ketones Negative (NEGATIVE) Urine Blood 1+ (NEGATIVE) H Urine Nitrite Negative (NEGATIVE) Urine Bilirubin Negative (NEGATIVE) Urine Urobilinogen Normal MG/DL (0.0-1.0) Urine Leukocyte Esterase Negative (NEGATIVE) Urine RBC 0-2 /HPF (0 - 0) H Urine WBC 0 /HPF (0 - 0) Urine Squamous Epithelial Cells Occasional /LPF Urine Bacteria Occasional /HPF (NONE) Urine Legionella Antigen Pending Test 10/18/18 03:00 10/18/18 08:14 10/18/18 10:17 White Blood Count 11.6 K/UL (4.8-10.8) H Red Blood Count 2.60 M/UL (4.70-6.10) L Hemoglobin 7.8 G/DL (14.2-18.0) L Hematocrit 24.7 % (42.0-52.0) L Mean Corpuscular Volume 95 FL (80-99) Mean Corpuscular Hemoglobin 30.0 PG (27.0-31.0) Mean Corpuscular Hemoglobin Concent 31.6 G/DL (32.0-36.0) L Red Cell Distribution Width 17.1 % (11.6-14.8) H Platelet Count 11 K/UL (150-450) L Mean Platelet Volume 7.8 FL (6.5-10.1) Neutrophils (%) (Auto) % (45.0-75.0) Lymphocytes (%) (Auto) % (20.0-45.0) Monocytes (%) (Auto) % (1.0-10.0) Eosinophils (%) (Auto) % (0.0-3.0) Basophils (%) (Auto) % (0.0-2.0) Sodium Level 132 MMOL/L (136-145) L Potassium Level 4.7 MMOL/L (3.5-5.1) Chloride Level 98 MMOL/L (98-107) Carbon Dioxide Level 26 MMOL/L (21-32) Anion Gap 8 mmol/L (5-15) Blood Urea Nitrogen 33 mg/dL (7-18) H Creatinine 0.8 MG/DL (0.55-1.30) Estimat Glomerular Filtration Rate > 60 mL/min (>60) Glucose Level 119 MG/DL (74-106) H Calcium Level 8.8 MG/DL (8.5-10.1) Phosphorus Level 5.9 MG/DL (2.5-4.9) H Albumin 2.0 G/DL (3.4-5.0) L Coccidioides Antibody (Comp Fix) Pending HIV (1&2) Antibody Rapid Negative (NEGATIVE) Arterial Blood pH 6.979 (7.350-7.450) 7.136 (7.350-7.450) Arterial Blood Partial Pressure CO2 136.6 mmHg (35.0-45.0) *H 74.9 mmHg (35.0-45.0) *H Arterial Blood Partial Pressure O2 87.4 mmHg (75.0-100.0) 115.9 mmHg (75.0-100.0) H Arterial Blood HCO3 31.4 mmol/L (22.0-26.0) H 24.7 mmol/L (22.0-26.0) Arterial Blood Oxygen Saturation 89.6 % (95-100) *L 96.9 % (95-100) Arterial Blood Base Excess -1.7 (-2-2) -4.8 (-2-2) L William Test Positive Positive Sasha Victor MD Oct 18, 2018 10:52
--- NOTE | 2018-10-18 11:29 | NUR ---
RADIOLOGY DEPT, CHEST AND ABDOMEN X-RAYS COMPLETED.-P.DYE
--- NOTE | 2018-10-18 12:00 | NUR ---
NURSE NOTES: Pt awake and a bit restless. Reoriented pt that pt is now intubated and insisted that he should note pull pull out ETT. Will closely monitor pt.
--- NOTE | 2018-10-18 12:11 | NUR ---
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 98.0 HR 56 RR 25 B/P 100/86 BIPAP FIO2 100% PH 7.13 PCO2 74.9 PO2 115.9 HCO3 24.7 O2 SAT 96.9 WBC 11.6 H/H 7.8/24.7 NA 132 BUN 32 IS: CEFEPIME IV VANCO IV ZITHROMAX NGT ALB INH ICU STATUS
--- NOTE | 2018-10-18 12:14 | Diagnostic Imaging Report ---
Indication: NG tube placement. Comparison: None Single view of the abdomen obtained Findings: NG tube tip is projected over the stomach in good position. Bowel gas pattern is nonspecific. The bladder is distended. IMPRESSION: NG tube in good position.
[2018-10-18] MEDS ORDERED: Isovue-370 150ml vial INJ PRN (12:15)
--- NOTE | 2018-10-18 12:15 | Diagnostic Imaging Report ---
Indication: Intubation Comparison: 10/17/2018 A single view chest radiograph was obtained. Findings: Endotracheal tube is in good position about 4 cm above the izabel. NG tube is also good position. Extensive bilateral infiltrate demonstrated now with worsening disease in the right lung. Heart size remains borderline enlarged. IMPRESSION: Endotracheal tube and nasogastric tube in good position. Worsening bilateral infiltrates currently extensive
--- NOTE | 2018-10-18 12:17 | Cardiology Report ---
APPROVED REPORT EKG Measurement Heart [id number] Sinus rhythm with 1st degree AV block Possible Left atrial enlargement Nonspecific T wave abnormality Abnormal ECG
[2018-10-18] MEDS: Vancomycin 750 MG in D5W 275 ML IVPB SCH (12:25)
--- NOTE | 2018-10-18 12:49 | GI Initial Consult Note ---
History of Present Illness General Date patient seen: Oct 18, 2018 Time patient seen: 12:44 Reason for Hospitalization: Dyspnea/Respdistress Referring physician: CHRISTINE DAVE Reason for Consultation: COLON CA Present Illness HPI 47-year-old male history of metastatic colon cancer presents with shortness of breath that started 4 days while he denies any aggravating or relieving factors severity is severe, patient states that he has trouble getting a good breath in , he endorses a little chest tightness, no nausea no vomiting, no fever no chills, he does endorse a cough, patient denies any dysuria, patient is currently undergoing chemotherapy. He is full code GI consulted for reported colon CA. ROS limited, patient intubated in ICU after having SOB. All information obtained from medical record. Patient presents today with WBC 11.6, Hgb 7.8. No known history of endoscopy or colonoscopy at this time. Med list reviewed/reconciled: Yes Allergies: Coded Allergies: No Known Allergies (Unverified , 10/17/18) Patient History Limited by: medical condition History Provided By: Medical Record PMH Narrative Past Medical History: see triage record Reviewed Nursing Documentation: PMH: Agreed; PSxH: Agreed Nursing Documentation-PMH Past Medical History: No History, Except For Hx Cardiac Problems: Yes - CHF Hx Cancer: Yes - Rectum Social History: Denies: smoking, alcohol use, drug use, other Review of Systems All Other Systems: limited Physical Exam Vital Signs Date Time Temp Pulse Resp B/P (MAP) Pulse Ox O2 Delivery O2 Flow Rate FiO2 10/17/18 11:36 97.5 85 20 89/59 (69) 94 Room Air 10/17/18 12:05 21 Labs Laboratory Tests Test 10/18/18 03:00 10/18/18 08:14 10/18/18 10:17 White Blood Count 11.6 K/UL (4.8-10.8) H Red Blood Count 2.60 M/UL (4.70-6.10) L Hemoglobin 7.8 G/DL (14.2-18.0) L Hematocrit 24.7 % (42.0-52.0) L Mean Corpuscular Volume 95 FL (80-99) Mean Corpuscular Hemoglobin 30.0 PG (27.0-31.0) Mean Corpuscular Hemoglobin Concent 31.6 G/DL (32.0-36.0) L Red Cell Distribution Width 17.1 % (11.6-14.8) H Platelet Count 11 K/UL (150-450) L Mean Platelet Volume 7.8 FL (6.5-10.1) Neutrophils (%) (Auto) % (45.0-75.0) Lymphocytes (%) (Auto) % (20.0-45.0) Monocytes (%) (Auto) % (1.0-10.0) Eosinophils (%) (Auto) % (0.0-3.0) Basophils (%) (Auto) % (0.0-2.0) Sodium Level 132 MMOL/L (136-145) L Potassium Level 4.7 MMOL/L (3.5-5.1) Chloride Level 98 MMOL/L (98-107) Carbon Dioxide Level 26 MMOL/L (21-32) Anion Gap 8 mmol/L (5-15) Blood Urea Nitrogen 33 mg/dL (7-18) H Creatinine 0.8 MG/DL (0.55-1.30) Estimat Glomerular Filtration Rate > 60 mL/min (>60) Glucose Level 119 MG/DL (74-106) H Calcium Level 8.8 MG/DL (8.5-10.1) Phosphorus Level 5.9 MG/DL (2.5-4.9) H Albumin 2.0 G/DL (3.4-5.0) L Coccidioides Antibody (Comp Fix) Pending HIV (1&2) Antibody Rapid Negative (NEGATIVE) Arterial Blood pH 6.979 (7.350-7.450) 7.136 (7.350-7.450) Arterial Blood Partial Pressure CO2 136.6 mmHg (35.0-45.0) *H 74.9 mmHg (35.0-45.0) *H Arterial Blood Partial Pressure O2 87.4 mmHg (75.0-100.0) 115.9 mmHg (75.0-100.0) H Arterial Blood HCO3 31.4 mmol/L (22.0-26.0) H 24.7 mmol/L (22.0-26.0) Arterial Blood Oxygen Saturation 89.6 % (95-100) *L 96.9 % (95-100) Arterial Blood Base Excess -1.7 (-2-2) -4.8 (-2-2) L William Test Positive Positive General Appearance: no apparent distress Head: normocephalic EENT: normal ENT inspection Neck: supple Respiratory: normal breath sounds, no respiratory distress, other - mech vent Gastrointestinal: ngt Current Medications Current Medications Medications (Trade) Dose Ordered Sig/Onelia Route PRN Reason Start Time Stop Time Status Last Admin Dose Admin Acetaminophen (Tylenol) 650 mg Q4H PRN ORAL FEVER 10/18/18 09:45 11/16/18 17:44 Albuterol/ Ipratropium (Albuterol/ Ipratropium) 3 ml Q4H PRN HHN Shortness of Breath 10/18/18 09:45 10/22/18 17:44 Azithromycin (Zithromax) 500 mg DAILY ORAL 10/19/18 09:00 10/24/18 16:59 Cefepime HCl 2 gm/ Dextrose 110 ml @ 220 mls/hr EVERY 12 HOURS IV 10/18/18 21:00 10/24/18 20:59 Dextrose (Dextrose 50%) 25 ml Q30M PRN IV Hypoglycemia 10/18/18 09:45 11/16/18 17:44 Dextrose (Dextrose 50%) 50 ml Q30M PRN IV Hypoglycemia 10/18/18 09:45 11/16/18 17:44 Lorazepam (Ativan 2mg/ml 1ml) 2 mg Q4H PRN IV For Anxiety 10/18/18 10:45 10/25/18 10:44 Morphine Sulfate (Morphine Sulfate) 2 mg Q4H PRN IVP Severe Pain (Pain Scale 7-10) 10/18/18 09:45 10/24/18 17:44 10/18/18 11:25 Morphine Sulfate (Morphine Sulfate) 4 mg Q4H PRN IVP For Pain 10/18/18 10:45 10/25/18 10:44 Ondansetron HCl (Zofran) 4 mg Q6H PRN IVP Nausea & Vomiting 10/18/18 09:45 11/16/18 09:44 Pantoprazole (Protonix) 40 mg DAILY IV 10/19/18 09:00 11/18/18 08:59 Polyethylene Glycol (Miralax) 17 gm DAILYPRN PRN ORAL Constipation 10/18/18 09:30 11/16/18 09:29 Vancomycin HCl (Vanco rx to dose) 1 ea DAILY PRN MISC Per rx protocol 10/19/18 09:00 11/16/18 16:59 Vancomycin HCl 750 mg/Dextrose 275 ml @ 183.333 mls/hr Q12H IVPB 10/18/18 12:30 10/23/18 00:29 10/18/18 12:25 GI: Plan Problems: (1) Metastatic cancer (2) Respiratory distress (3) Pneumonia involving left lung (4) Chest pain Plan maintain NPO + IVFs respiratory support obtain AP CT anemia work up OB stool r/o GI bleed monitor H&H, prn transfusions bowel regimen ppi fu labs needs oncology/surgical consults Discussed with Dr. Arellano. Thank you for this patient referral, we will follow. The patient was seen and examined at bedside and all new and available data was reviewed in the patients chart. I agree with the above findings, impression and plan. (Patient seen earlier today. Signature stamp does not reflect patient encounter time.). - MD Maureen CottrellHonorhealth [facility] [employer] [employer] Oct 18, 2018 12:49
[2018-10-18] MEDS ORDERED: Isovue-300 100ml vial INJ PRN (13:00)
[2018-10-18] MEDS ORDERED: Gastrograffin 30ml RECTAL PRN (13:00)
--- NOTE | 2018-10-18 13:45 | Infectious Diseases Prog Note ---
Assessment/Plan Assessment/Plan Abx: IV Vancomycin x1 10/17 Cefepime 10/17- Assessment: Acute hypercapnic respiratory failure s/p intubation 10/18 Sepsis - 2ry to PNA- r/o fungal, atypical Dyspnea-r/o interstitial lung disease -10/18 CXR; Endotracheal tube and nasogastric tube in good position.Worsening bilateral infiltrates currently extensive -CTA chest: No PE. Limited at the left lung base due to motion. Prominent main pulmonary artery may be pulmonary arterial hypertension. Small bilateral pleural effusions, greater on the left. Pleural effusion along the right major fissure. Septal thickening of the left lung and right lower lung. Hazy lung opacities of the left lung in a mosaic pattern, may be edema or infiltrate, consider alveolar proteinosis. Mild honeycombing of the lung and right lung peripheral opacities. Maybe fibrosis, consider eosinophilic pneumonia. Numerous small nodules of the right lung. Right anterior rib 4 permeative lesion with pathologic fracture may be subacute. -CXR: Infiltrative changes in the left lung. Could be from pneumonia. Underlying lesion not excluded. 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 Generalized atrophy of the brain. Chronic small vessel disease involving periventricular white matter. Paranasal fracture may be old. Correlate clinically -HIV ab screen neg metastatic colon on chemotherapy CHF Plan: -Continue empiric CEfepime #2 and IV Vancomycin #2 -Cont azithromycin #2 for atypicals -Add Voriconazole for fungal coverage -monitor Qtc, Lfts -f/u cx -Monitor CBC/BMP, temperatures -f/u sp cx, legionella ag urine, Cocci ab, CrAg am -Aspergillus ag serum -aspiration precautions Thank you for this consultation. Will continue to follow along with you. Discussed with RN. Subjective Allergies: Coded Allergies: No Known Allergies (Unverified , 10/17/18) Subjective unresponsive this am pCO2 in the 100s on bipap- patient was intubated and transferred to ICU afebrile leukocytosis improving cx p worsening CXR Objective Vital Signs Last 24 Hour Vital Signs Date Time Temp Pulse Resp B/P (MAP) Pulse Ox O2 Delivery O2 Flow Rate FiO2 10/18/18 12:40 86 30 65 10/18/18 12:00 82 28 98/74 (82) 93 10/18/18 12:00 82 10/18/18 11:02 72 30 65 10/18/18 11:00 85 27 107/83 (91) 94 10/18/18 10:00 86 21 124/89 (101) 100 10/18/18 09:05 69 18 100 10/18/18 09:00 Mechanical Ventilator 10/18/18 09:00 86 15 106/87 (93) 100 10/18/18 09:00 100 10/18/18 08:57 86 10/18/18 08:34 81 23 92 Facial 100 10/18/18 08:01 30 10/18/18 08:00 98.0 59 19 100/56 (71) 93 84 10/18/18 08:00 76 10/18/18 08:00 Bi-pap 10/18/18 07:15 76 25 92 Facial 100 10/18/18 05:14 56 26 93 Bi-Pap 100 10/18/18 05:10 100 10/18/18 05:06 73 23 90 Facial 100 10/18/18 05:06 73 18 90 Bi-Pap 100 10/18/18 04:00 Bi-pap 10/18/18 04:00 84 26 115/83 (94) 92 84 10/18/18 04:00 30 10/18/18 04:00 69 10/18/18 03:12 85 28 95 Facial 80 10/18/18 02:00 95.2 60 22 106/69 (81) 91 10/18/18 01:01 70 30 91 Facial 80 10/18/18 00:00 66 10/18/18 00:00 30 10/18/18 00:00 Bi-pap 10/18/18 00:00 92.8 55 22 125/76 (92) 95 10/17/18 22:48 61 31 95 Bi-Pap 60 10/17/18 22:39 57 32 90 Facial 60 10/17/18 22:37 60 10/17/18 22:30 63 18 90 Bi-Pap 60 10/17/18 22:00 97.2 95 27 122/80 (94) 93 10/17/18 21:07 71 29 94 Facial 60 10/17/18 20:00 72 27 96 Facial 60 10/17/18 20:00 30 10/17/18 20:00 Bi-pap 10/17/18 20:00 72 27 96 Bi-Pap 60 10/17/18 20:00 71 10/17/18 19:00 95.6 105 24 108/70 (83) 98 10/17/18 19:00 Bi-pap 10/17/18 18:42 77 10/17/18 18:20 95.9 76 20 131/73 (92) 95 10/17/18 18:15 97.6 110 20 135/76 100 60 10/17/18 17:59 98.0 105 17 123/70 100 60 10/17/18 17:39 60 10/17/18 17:22 102 24 99 Facial 60 10/17/18 17:15 97.7 107 20 10/17/18 17:00 96.5 119 17 10/17/18 16:00 98.0 102 20 125/84 98 Bi-pap 30 10/17/18 14:58 107 26 97 Facial 30 10/17/18 14:00 98.0 110 26 102/65 100 Bi-pap 30 10/17/18 14:00 30 10/17/18 13:50 102 24 100 Facial 30 Height (Feet): 5 Height (Inches): 8.00 Weight (Pounds): 120 Objective General Appearance: alert, moderate distress, cachetic Head: normocephalic, atraumatic Eyes: bilateral eye PERRL, bilateral eye EOMI ENT: uvula midline, dry mucus membranes Neck: supple, thyroid normal, supple/symm/no masses Respiratory: respiratory distress, decreased breath sounds - left side, accessory muscle use Cardiovascular #1: normal peripheral pulses, regular rate, rhythm, no edema, no gallop, no murmur Gastrointestinal: non tender, soft, no guarding, no rebound, other - Ostomy bag present Musculoskeletal: normal inspection Neurologic: alert, oriented x3 Psychiatric: mood/affect normal Skin: warm/dry, other - Sacral ulcer stage I Laboratory Tests Test 10/18/18 03:00 10/18/18 08:14 10/18/18 10:17 White Blood Count 11.6 K/UL (4.8-10.8) H Red Blood Count 2.60 M/UL (4.70-6.10) L Hemoglobin 7.8 G/DL (14.2-18.0) L Hematocrit 24.7 % (42.0-52.0) L Mean Corpuscular Volume 95 FL (80-99) Mean Corpuscular Hemoglobin 30.0 PG (27.0-31.0) Mean Corpuscular Hemoglobin Concent 31.6 G/DL (32.0-36.0) L Red Cell Distribution Width 17.1 % (11.6-14.8) H Platelet Count 11 K/UL (150-450) L Mean Platelet Volume 7.8 FL (6.5-10.1) Neutrophils (%) (Auto) % (45.0-75.0) Lymphocytes (%) (Auto) % (20.0-45.0) Monocytes (%) (Auto) % (1.0-10.0) Eosinophils (%) (Auto) % (0.0-3.0) Basophils (%) (Auto) % (0.0-2.0) Sodium Level 132 MMOL/L (136-145) L Potassium Level 4.7 MMOL/L (3.5-5.1) Chloride Level 98 MMOL/L (98-107) Carbon Dioxide Level 26 MMOL/L (21-32) Anion Gap 8 mmol/L (5-15) Blood Urea Nitrogen 33 mg/dL (7-18) H Creatinine 0.8 MG/DL (0.55-1.30) Estimat Glomerular Filtration Rate > 60 mL/min (>60) Glucose Level 119 MG/DL (74-106) H Calcium Level 8.8 MG/DL (8.5-10.1) Phosphorus Level 5.9 MG/DL (2.5-4.9) H Albumin 2.0 G/DL (3.4-5.0) L Coccidioides Antibody (Comp Fix) Pending HIV (1&2) Antibody Rapid Negative (NEGATIVE) Arterial Blood pH 6.979 (7.350-7.450) 7.136 (7.350-7.450) Arterial Blood Partial Pressure CO2 136.6 mmHg (35.0-45.0) *H 74.9 mmHg (35.0-45.0) *H Arterial Blood Partial Pressure O2 87.4 mmHg (75.0-100.0) 115.9 mmHg (75.0-100.0) H Arterial Blood HCO3 31.4 mmol/L (22.0-26.0) H 24.7 mmol/L (22.0-26.0) Arterial Blood Oxygen Saturation 89.6 % (95-100) *L 96.9 % (95-100) Arterial Blood Base Excess -1.7 (-2-2) -4.8 (-2-2) L William Test Positive Positive Current Medications Medications (Trade) Dose Ordered Sig/Onelia Route PRN Reason Start Time Stop Time Status Last Admin Dose Admin Acetaminophen (Tylenol) 650 mg Q4H PRN ORAL FEVER 10/18/18 09:45 11/16/18 17:44 Albuterol/ Ipratropium (Albuterol/ Ipratropium) 3 ml Q4H PRN HHN Shortness of Breath 10/18/18 09:45 10/22/18 17:44 Azithromycin (Zithromax) 500 mg DAILY ORAL 10/19/18 09:00 10/24/18 16:59 Cefepime HCl 2 gm/ Dextrose 110 ml @ 220 mls/hr EVERY 12 HOURS IV 10/18/18 21:00 10/24/18 20:59 Dextrose (Dextrose 50%) 25 ml Q30M PRN IV Hypoglycemia 10/18/18 09:45 11/16/18 17:44 Dextrose (Dextrose 50%) 50 ml Q30M PRN IV Hypoglycemia 10/18/18 09:45 11/16/18 17:44 Diatrizoate Meglum/ Diatrizoate Sod (Gastrografin) 60 ml NOW PRN RECTAL Radiology Procedure 10/18/18 13:00 10/20/18 12:49 Iopamidol (Isovue-300 100ml) 100 ml NOW PRN INJ Radiology Procedure 10/18/18 13:00 10/20/18 12:59 Lorazepam (Ativan 2mg/ml 1ml) 2 mg Q4H PRN IV For Anxiety 10/18/18 10:45 10/25/18 10:44 Morphine Sulfate (Morphine Sulfate) 2 mg Q4H PRN IVP Severe Pain (Pain Scale 7-10) 10/18/18 09:45 10/24/18 17:44 10/18/18 11:25 Morphine Sulfate (Morphine Sulfate) 4 mg Q4H PRN IVP For Pain 10/18/18 10:45 10/25/18 10:44 Ondansetron HCl (Zofran) 4 mg Q6H PRN IVP Nausea & Vomiting 10/18/18 09:45 11/16/18 09:44 Pantoprazole (Protonix) 40 mg DAILY IV 10/19/18 09:00 11/18/18 08:59 Polyethylene Glycol (Miralax) 17 gm DAILYPRN PRN ORAL Constipation 10/18/18 09:30 11/16/18 09:29 Vancomycin HCl (Vanco rx to dose) 1 ea DAILY PRN MISC Per rx protocol 10/19/18 09:00 11/16/18 16:59 Vancomycin HCl 750 mg/Dextrose 275 ml @ 183.333 mls/hr Q12H IVPB 10/18/18 12:30 10/23/18 00:29 10/18/18 12:25 Kaye Butcher M.D. Oct 18, 2018 13:45
--- NOTE | 2018-10-18 14:45 | NUR ---
NURSE NOTES: Dr Medeiros here assessed the wound. Order received and noted. Addendum: 10/18/18 at 1502 by MORIAH OWENS RN RN NURSE NOTES: Dr Medeiros here assessed the wound. Order received and noted. Sister at bedside. Dr Medeiros spoke with sister at bedside.
[2018-10-18] MEDS ORDERED: Etomidate 40mg/20ml Inj IV ONE (15:19)
--- NOTE | 2018-10-18 15:28 | Consultation ---
History of Present Illness General Date patient seen: Oct 18, 2018 Reason for Hospitalization: Dyspnea/Respdistress Present Illness HPI This is a very unfortunate 47-year-old male with history of metastatic colorectal cancer that has had chemotherapy and radiation in the past but per report unsuccessful with progressive tumor burden that presented to the emergency department [facility] complaining of worsening shortness of breath. Patient at home and caregiver/nurse identified patient is being short of breath as he complained of and called EMS which brought him to [facility] for evaluation. As per family patient's majority of his care has been performed [facility]. Patient severely hypoxic requiring intubation and intensive care unit admission. Patient identified to have abnormal wound on his buttock area as well as abdominal distention and tenderness. Surgery called to evaluate and assist with care. Patient seen, patient evaluate, chart reviewed. Patient's family at bedside. Allergies: Coded Allergies: No Known Allergies (Unverified , 10/17/18) Patient History Limited by: medical condition History Provided By: Medical Record, PMD Healthcare decision maker Resuscitation status Full Code Advanced Directive on File Past Medical/Surgical History Past Medical/Surgical History: (1) Chest pain (2) Pneumonia involving left lung (3) Respiratory distress (4) Sepsis (5) Acute respiratory failure (6) Metastatic cancer Review of Systems Review of Symptoms General ROS: no weight loss or fever Psychological ROS: no depression or mood changes, no memory loss Ophthalmic ROS: no visual changes or eye irritation ENT ROS: no nasal congestion, hearing loss, dizziness Allergy and Immunology ROS: no allergic symptoms or urticaria Hematological and Lymphatic ROS: no swollen glands, unusual bleeding or bruising Endocrine ROS: no polyuria, polydipsia, weight changes, temperature intolerance Respiratory ROS: no cough, shortness of breath, or wheezing Cardiovascular ROS: no chest pain or dyspnea on exertion Gastrointestinal ROS: denies abdominal pain,no bright red blood in stool. Musculoskeletal ROS: no myalgias or arthralgias Neurological ROS: no TIA or stroke symptoms Dermatological ROS: no new or changing skin lesions, rashes or pruritis Physical Exam Physical Exam General appearance: alert, cooperative, no distress, appears stated age Head: Normocephalic, without obvious abnormality, atraumatic Eyes: conjunctivae/corneas clear. PERRL, EOM's intact. Fundi benign Throat: Lips, mucosa, and tongue normal. Teeth and gums normal Neck: supple, symmetrical, trachea midline, no adenopathy, thyroid: not enlarged, symmetric, no tenderness/mass/nodules, no carotid bruit and no JVD Lungs: clear to auscultation bilaterally Heart: regular rate and rhythm, S1, S2 normal, no murmur, click, rub or gallop Abdomen: soft, non-tender. Bowel sounds normal. No masses, no organomegaly Extremities: extremities normal, atraumatic, no cyanosis or edema Pulses: 2+ and symmetric Skin: Skin color, texture, turgor normal. tumor burden in perirectal area Neurologic: Grossly normal Last 24 Hour Vital Signs Date Time Temp Pulse Resp B/P (MAP) Pulse Ox O2 Delivery O2 Flow Rate FiO2 10/18/18 15:19 94 37 65 10/18/18 14:01 89 31 92/60 (71) 88 10/18/18 13:00 93.5 87 33 83/69 (74) 91 10/18/18 12:40 86 30 65 10/18/18 12:00 82 28 98/74 (82) 93 10/18/18 12:00 Mechanical Ventilator 10/18/18 12:00 82 10/18/18 11:02 72 30 65 10/18/18 11:00 85 27 107/83 (91) 94 10/18/18 10:00 86 21 124/89 (101) 100 10/18/18 09:05 69 18 100 10/18/18 09:00 Mechanical Ventilator 10/18/18 09:00 86 15 106/87 (93) 100 10/18/18 09:00 100 10/18/18 08:57 86 10/18/18 08:34 81 23 92 Facial 100 10/18/18 08:01 30 10/18/18 08:00 98.0 59 19 100/56 (71) 93 84 10/18/18 08:00 76 10/18/18 08:00 Bi-pap 10/18/18 07:15 76 25 92 Facial 100 10/18/18 05:14 56 26 93 Bi-Pap 100 10/18/18 05:10 100 10/18/18 05:06 73 23 90 Facial 100 10/18/18 05:06 73 18 90 Bi-Pap 100 10/18/18 04:00 Bi-pap 10/18/18 04:00 84 26 115/83 (94) 92 84 10/18/18 04:00 30 10/18/18 04:00 69 10/18/18 03:12 85 28 95 Facial 80 10/18/18 02:00 95.2 60 22 106/69 (81) 91 10/18/18 01:01 70 30 91 Facial 80 10/18/18 00:00 66 10/18/18 00:00 30 10/18/18 00:00 Bi-pap 10/18/18 00:00 92.8 55 22 125/76 (92) 95 10/17/18 22:48 61 31 95 Bi-Pap 60 10/17/18 22:39 57 32 90 Facial 60 10/17/18 22:37 60 10/17/18 22:30 63 18 90 Bi-Pap 60 10/17/18 22:00 97.2 95 27 122/80 (94) 93 10/17/18 21:07 71 29 94 Facial 60 10/17/18 20:00 72 27 96 Facial 60 10/17/18 20:00 30 10/17/18 20:00 Bi-pap 10/17/18 20:00 72 27 96 Bi-Pap 60 10/17/18 20:00 71 10/17/18 19:00 95.6 105 24 108/70 (83) 98 10/17/18 19:00 Bi-pap 10/17/18 18:42 77 10/17/18 18:20 95.9 76 20 131/73 (92) 95 10/17/18 18:15 97.6 110 20 135/76 100 60 10/17/18 17:59 98.0 105 17 123/70 100 60 10/17/18 17:39 60 10/17/18 17:22 102 24 99 Facial 60 10/17/18 17:15 97.7 107 20 10/17/18 17:00 96.5 119 17 10/17/18 16:00 98.0 102 20 125/84 98 Bi-pap 30 Intake and Output 10/17/18 10/18/18 18:59 06:59 Intake Total 2293.3 ml 385.333 ml Output Total 450 ml Balance 2293.3 ml -64.667 ml IV Total 2293.3 ml 385.333 ml Output Urine Total 350 ml Stool Total 100 ml # Voids 1 # Bowel Movements 4 Laboratory Tests Test 10/18/18 03:00 10/18/18 08:14 10/18/18 10:17 White Blood Count 11.6 K/UL (4.8-10.8) H Red Blood Count 2.60 M/UL (4.70-6.10) L Hemoglobin 7.8 G/DL (14.2-18.0) L Hematocrit 24.7 % (42.0-52.0) L Mean Corpuscular Volume 95 FL (80-99) Mean Corpuscular Hemoglobin 30.0 PG (27.0-31.0) Mean Corpuscular Hemoglobin Concent 31.6 G/DL (32.0-36.0) L Red Cell Distribution Width 17.1 % (11.6-14.8) H Platelet Count 11 K/UL (150-450) L Mean Platelet Volume 7.8 FL (6.5-10.1) Neutrophils (%) (Auto) % (45.0-75.0) Lymphocytes (%) (Auto) % (20.0-45.0) Monocytes (%) (Auto) % (1.0-10.0) Eosinophils (%) (Auto) % (0.0-3.0) Basophils (%) (Auto) % (0.0-2.0) Sodium Level 132 MMOL/L (136-145) L Potassium Level 4.7 MMOL/L (3.5-5.1) Chloride Level 98 MMOL/L (98-107) Carbon Dioxide Level 26 MMOL/L (21-32) Anion Gap 8 mmol/L (5-15) Blood Urea Nitrogen 33 mg/dL (7-18) H Creatinine 0.8 MG/DL (0.55-1.30) Estimat Glomerular Filtration Rate > 60 mL/min (>60) Glucose Level 119 MG/DL (74-106) H Calcium Level 8.8 MG/DL (8.5-10.1) Phosphorus Level 5.9 MG/DL (2.5-4.9) H Albumin 2.0 G/DL (3.4-5.0) L Coccidioides Antibody (Comp Fix) Pending HIV (1&2) Antibody Rapid Negative (NEGATIVE) Arterial Blood pH 6.979 (7.350-7.450) 7.136 (7.350-7.450) Arterial Blood Partial Pressure CO2 136.6 mmHg (35.0-45.0) *H 74.9 mmHg (35.0-45.0) *H Arterial Blood Partial Pressure O2 87.4 mmHg (75.0-100.0) 115.9 mmHg (75.0-100.0) H Arterial Blood HCO3 31.4 mmol/L (22.0-26.0) H 24.7 mmol/L (22.0-26.0) Arterial Blood Oxygen Saturation 89.6 % (95-100) *L 96.9 % (95-100) Arterial Blood Base Excess -1.7 (-2-2) -4.8 (-2-2) L William Test Positive Positive Height (Feet): 5 Height (Inches): 8.00 Weight (Pounds): 120 Medications Current Medications Medications (Trade) Dose Ordered Sig/Onelia Route PRN Reason Start Time Stop Time Status Last Admin Dose Admin Acetaminophen (Tylenol) 650 mg Q4H PRN ORAL FEVER 10/18/18 09:45 11/16/18 17:44 Albuterol/ Ipratropium (Albuterol/ Ipratropium) 3 ml Q4H PRN HHN Shortness of Breath 10/18/18 09:45 10/22/18 17:44 Azithromycin (Zithromax) 500 mg DAILY ORAL 10/19/18 09:00 10/24/18 16:59 Cefepime HCl 2 gm/ Dextrose 110 ml @ 220 mls/hr EVERY 12 HOURS IV 10/18/18 21:00 10/24/18 20:59 Dextrose (Dextrose 50%) 25 ml Q30M PRN IV Hypoglycemia 10/18/18 09:45 11/16/18 17:44 Dextrose (Dextrose 50%) 50 ml Q30M PRN IV Hypoglycemia 10/18/18 09:45 11/16/18 17:44 Diatrizoate Meglum/ Diatrizoate Sod (Gastrografin) 60 ml NOW PRN RECTAL Radiology Procedure 10/18/18 13:00 10/20/18 12:49 Iopamidol (Isovue-300 100ml) 100 ml NOW PRN INJ Radiology Procedure 10/18/18 13:00 10/20/18 12:59 Lorazepam (Ativan 2mg/ml 1ml) 2 mg Q4H PRN IV For Anxiety 10/18/18 10:45 10/25/18 10:44 Morphine Sulfate (Morphine Sulfate) 2 mg Q4H PRN IVP Severe Pain (Pain Scale 7-10) 10/18/18 09:45 10/24/18 17:44 10/18/18 11:25 Morphine Sulfate (Morphine Sulfate) 4 mg Q4H PRN IVP For Pain 10/18/18 10:45 10/25/18 10:44 Ondansetron HCl (Zofran) 4 mg Q6H PRN IVP Nausea & Vomiting 10/18/18 09:45 11/16/18 09:44 Pantoprazole (Protonix) 40 mg DAILY IV 10/19/18 09:00 11/18/18 08:59 Polyethylene Glycol (Miralax) 17 gm DAILYPRN PRN ORAL Constipation 10/18/18 09:30 11/16/18 09:29 Vancomycin HCl (Vanco rx to dose) 1 ea DAILY PRN MISC Per rx protocol 10/19/18 09:00 11/16/18 16:59 Vancomycin HCl 750 mg/Dextrose 275 ml @ 183.333 mls/hr Q12H IVPB 10/18/18 12:30 10/23/18 00:29 10/18/18 12:25 Voriconazole (Vfend) 200 mg EVERY 12 HOURS ORAL 10/18/18 13:45 10/25/18 13:44 10/18/18 15:22 Assessment/Plan Problem List: (1) Chest pain ICD Codes: R07.9 - Chest pain, unspecified SNOMED: 96536767 (2) Pneumonia involving left lung ICD Codes: J18.9 - Pneumonia, unspecified organism SNOMED: 318569000 Qualifiers: Qualified Codes: J18.9 - Pneumonia, unspecified organism (3) Respiratory distress ICD Codes: R06.03 - Acute respiratory distress SNOMED: 361327374 (4) Sepsis Assessment & Plan: This is a cachectic unfortunate 47-year-old male with metastatic colorectal cancer who presented with shortness of breath. Patient noted to have a leukocytosis, abnormal labs, dehydration, respiratory distress. Patient currently intubated in intensive care unit. Patient alert awake and responsive. States that pain improved but still with respiratory discomfort on ventilatory support. Labs noted. Abdominal exam with fullness in the lower abdomen pelvic region and soft in the upper regions. The fullness that appears to be tumor burden. Patient has a diverting colostomy on the left side of his abdomen which appears to be a loop colostomy. There is gas and stool in the colostomy bag. No acute surgical intervention recommended at this time. NG tube is been placed. Okay to start feeds via NG tube patient is very cachectic and requires significant nutritional improvement. Continue with IV fluid resuscitation. Antibiotics as per infectious disease. Trend labs. Follow-up will follow with serial examinations and recommendations. Thank you for allowing me to participate in patient's care ICD Codes: A41.9 - Sepsis, unspecified organism SNOMED: 03644310 Qualifiers: Qualified Codes: A41.9 - Sepsis, unspecified organism (5) Acute respiratory failure ICD Codes: J96.00 - Acute respiratory failure, unspecified whether with hypoxia or hypercapnia SNOMED: 75271974 (6) Metastatic cancer Assessment & Plan: Patient with metastatic colorectal cancer. Patient identified to have abnormal wounds in the perirectal area. On examination was identified to be tumor burden is the tumors extending from the colorectal region out. Multiple open areas with tumor burden but no active infection identified. Patient has diverting colostomy. Will continue with local wound care Xeroform and ABD dressing for now. ICD Codes: C79.9 - Secondary malignant neoplasm of unspecified site SNOMED: 762374037 Brent Medeiros Oct 18, 2018 15:27
--- NOTE | 2018-10-18 16:25 | Consultation ---
History of Present Illness General Chief Complaint: Dyspnea/Respdistress Referring physician: CHRISTINE DAVE Reason for Consultation: COLON CA Present Illness Allergies: Coded Allergies: No Known Allergies (Unverified , 10/17/18) Patient History Healthcare decision maker Resuscitation status Full Code Advanced Directive on File Physical Exam Last 24 Hour Vital Signs Date Time Temp Pulse Resp B/P (MAP) Pulse Ox O2 Delivery O2 Flow Rate FiO2 10/18/18 15:19 94 37 65 10/18/18 15:00 96.5 93 32 83/61 (68) 92 10/18/18 14:01 89 31 92/60 (71) 88 10/18/18 13:00 93.5 87 33 83/69 (74) 91 10/18/18 12:40 86 30 65 10/18/18 12:00 82 28 98/74 (82) 93 10/18/18 12:00 Mechanical Ventilator 10/18/18 12:00 82 10/18/18 11:02 72 30 65 10/18/18 11:00 85 27 107/83 (91) 94 10/18/18 10:00 86 21 124/89 (101) 100 10/18/18 09:05 69 18 100 10/18/18 09:00 Mechanical Ventilator 10/18/18 09:00 86 15 106/87 (93) 100 10/18/18 09:00 100 10/18/18 08:57 86 10/18/18 08:34 81 23 92 Facial 100 10/18/18 08:01 30 10/18/18 08:00 98.0 59 19 100/56 (71) 93 84 10/18/18 08:00 76 10/18/18 08:00 Bi-pap 10/18/18 07:15 76 25 92 Facial 100 10/18/18 05:14 56 26 93 Bi-Pap 100 10/18/18 05:10 100 10/18/18 05:06 73 23 90 Facial 100 10/18/18 05:06 73 18 90 Bi-Pap 100 10/18/18 04:00 Bi-pap 10/18/18 04:00 84 26 115/83 (94) 92 84 10/18/18 04:00 30 10/18/18 04:00 69 10/18/18 03:12 85 28 95 Facial 80 10/18/18 02:00 95.2 60 22 106/69 (81) 91 10/18/18 01:01 70 30 91 Facial 80 10/18/18 00:00 66 10/18/18 00:00 30 10/18/18 00:00 Bi-pap 10/18/18 00:00 92.8 55 22 125/76 (92) 95 10/17/18 22:48 61 31 95 Bi-Pap 60 10/17/18 22:39 57 32 90 Facial 60 10/17/18 22:37 60 10/17/18 22:30 63 18 90 Bi-Pap 60 10/17/18 22:00 97.2 95 27 122/80 (94) 93 10/17/18 21:07 71 29 94 Facial 60 10/17/18 20:00 72 27 96 Facial 60 10/17/18 20:00 30 10/17/18 20:00 Bi-pap 10/17/18 20:00 72 27 96 Bi-Pap 60 10/17/18 20:00 71 10/17/18 19:00 95.6 105 24 108/70 (83) 98 10/17/18 19:00 Bi-pap 10/17/18 18:42 77 10/17/18 18:20 95.9 76 20 131/73 (92) 95 10/17/18 18:15 97.6 110 20 135/76 100 60 10/17/18 17:59 98.0 105 17 123/70 100 60 10/17/18 17:39 60 10/17/18 17:22 102 24 99 Facial 60 10/17/18 17:15 97.7 107 20 10/17/18 17:00 96.5 119 17 Intake and Output 10/17/18 10/18/18 19:00 07:00 Intake Total 2293.3 ml 385.333 ml Output Total 450 ml Balance 2293.3 ml -64.667 ml IV Total 2293.3 ml 385.333 ml Output Urine Total 350 ml Stool Total 100 ml # Voids 1 # Bowel Movements 1 3 Laboratory Tests Test 10/18/18 03:00 10/18/18 08:14 10/18/18 10:17 White Blood Count 11.6 K/UL (4.8-10.8) H Red Blood Count 2.60 M/UL (4.70-6.10) L Hemoglobin 7.8 G/DL (14.2-18.0) L Hematocrit 24.7 % (42.0-52.0) L Mean Corpuscular Volume 95 FL (80-99) Mean Corpuscular Hemoglobin 30.0 PG (27.0-31.0) Mean Corpuscular Hemoglobin Concent 31.6 G/DL (32.0-36.0) L Red Cell Distribution Width 17.1 % (11.6-14.8) H Platelet Count 11 K/UL (150-450) L Mean Platelet Volume 7.8 FL (6.5-10.1) Neutrophils (%) (Auto) % (45.0-75.0) Lymphocytes (%) (Auto) % (20.0-45.0) Monocytes (%) (Auto) % (1.0-10.0) Eosinophils (%) (Auto) % (0.0-3.0) Basophils (%) (Auto) % (0.0-2.0) Sodium Level 132 MMOL/L (136-145) L Potassium Level 4.7 MMOL/L (3.5-5.1) Chloride Level 98 MMOL/L (98-107) Carbon Dioxide Level 26 MMOL/L (21-32) Anion Gap 8 mmol/L (5-15) Blood Urea Nitrogen 33 mg/dL (7-18) H Creatinine 0.8 MG/DL (0.55-1.30) Estimat Glomerular Filtration Rate > 60 mL/min (>60) Glucose Level 119 MG/DL (74-106) H Calcium Level 8.8 MG/DL (8.5-10.1) Phosphorus Level 5.9 MG/DL (2.5-4.9) H Albumin 2.0 G/DL (3.4-5.0) L Coccidioides Antibody (Comp Fix) Pending HIV (1&2) Antibody Rapid Negative (NEGATIVE) Arterial Blood pH 6.979 (7.350-7.450) 7.136 (7.350-7.450) Arterial Blood Partial Pressure CO2 136.6 mmHg (35.0-45.0) *H 74.9 mmHg (35.0-45.0) *H Arterial Blood Partial Pressure O2 87.4 mmHg (75.0-100.0) 115.9 mmHg (75.0-100.0) H Arterial Blood HCO3 31.4 mmol/L (22.0-26.0) H 24.7 mmol/L (22.0-26.0) Arterial Blood Oxygen Saturation 89.6 % (95-100) *L 96.9 % (95-100) Arterial Blood Base Excess -1.7 (-2-2) -4.8 (-2-2) L William Test Positive Positive Height (Feet): 5 Height (Inches): 8.00 Weight (Pounds): 120 Medications Current Medications Medications (Trade) Dose Ordered Sig/Onelia Route PRN Reason Start Time Stop Time Status Last Admin Dose Admin Acetaminophen (Tylenol) 650 mg Q4H PRN ORAL FEVER 10/18/18 09:45 11/16/18 17:44 Albuterol/ Ipratropium (Albuterol/ Ipratropium) 3 ml Q4H PRN HHN Shortness of Breath 10/18/18 09:45 10/22/18 17:44 Azithromycin (Zithromax) 500 mg DAILY ORAL 10/19/18 09:00 10/24/18 16:59 Cefepime HCl 2 gm/ Dextrose 110 ml @ 220 mls/hr EVERY 12 HOURS IV 10/18/18 21:00 10/24/18 20:59 Dextrose (Dextrose 50%) 25 ml Q30M PRN IV Hypoglycemia 10/18/18 09:45 11/16/18 17:44 Dextrose (Dextrose 50%) 50 ml Q30M PRN IV Hypoglycemia 10/18/18 09:45 11/16/18 17:44 Diatrizoate Meglum/ Diatrizoate Sod (Gastrografin) 60 ml NOW PRN RECTAL Radiology Procedure 10/18/18 13:00 10/20/18 12:49 Iopamidol (Isovue-300 100ml) 100 ml NOW PRN INJ Radiology Procedure 10/18/18 13:00 10/20/18 12:59 Lorazepam (Ativan 2mg/ml 1ml) 2 mg Q4H PRN IV For Anxiety 10/18/18 10:45 10/25/18 10:44 Morphine Sulfate (Morphine Sulfate) 2 mg Q4H PRN IVP Severe Pain (Pain Scale 7-10) 10/18/18 09:45 10/24/18 17:44 10/18/18 11:25 Morphine Sulfate (Morphine Sulfate) 4 mg Q4H PRN IVP For Pain 10/18/18 10:45 10/25/18 10:44 Ondansetron HCl (Zofran) 4 mg Q6H PRN IVP Nausea & Vomiting 10/18/18 09:45 11/16/18 09:44 Pantoprazole (Protonix) 40 mg DAILY IV 10/19/18 09:00 11/18/18 08:59 Polyethylene Glycol (Miralax) 17 gm DAILYPRN PRN ORAL Constipation 10/18/18 09:30 11/16/18 09:29 Vancomycin HCl (Vanco rx to dose) 1 ea DAILY PRN MISC Per rx protocol 10/19/18 09:00 11/16/18 16:59 Vancomycin HCl 750 mg/Dextrose 275 ml @ 183.333 mls/hr Q12H IVPB 10/18/18 12:30 10/23/18 00:29 10/18/18 12:25 Voriconazole (Vfend) 200 mg EVERY 12 HOURS ORAL 10/18/18 13:45 10/25/18 13:44 10/18/18 15:22 Assessment/Plan Assessment/Plan: Oncology Consultation Date patient seen: Oct 18, 2018 Reason for Hospitalization: Dyspnea/Respdistress Referring physician: CHRISTINE DAVE Reason for Consultation: COLON CA ID This is a very unfortunate 47-year-old male with history of metastatic colorectal cancer that has had chemotherapy and radiation in the past but per report unsuccessful with progressive tumor burden that presented to the emergency department [facility] complaining of worsening shortness of breath. Patient at home and caregiver/nurse identified patient is being short of breath as he complained of and called EMS which brought him to [facility] for evaluation. As per family patient's majority of his care has been performed [facility]. Patient severely hypoxic requiring intubation and intensive care unit admission. Patient identified to have abnormal wound on his buttock area as well as abdominal distention and tenderness. Surgery called to evaluate and assist with care. Patient seen, patient evaluate, chart reviewed. I did see him this am, there was no family by bedside and I talked to Binta, the Rn. Allergies: nkda Med list reviewed/reconciled: Yes Patient History Limited by: medical condition History Provided By: Medical Record PMH Narrative Past Medical History: see triage record Reviewed Nursing Documentation: PMH: Agreed; PSxH: Agreed Nursing Documentation-PMH Past Medical History: No History, Except For Hx Cardiac Problems: Yes - CHF Hx Cancer: Yes - Rectum Social History: Denies: smoking, alcohol use, drug use, other Review of Systems limited Physical Exam Vital Signs reviewed General: no apparent distress Head: normocephalic HEENT: normal ENT inspection Respiratory: normal breath sounds, no respiratory distress, other - mech vent Gastrointestinal: ngt Meds: reviewed Labs: noted Assessment and Recs: # Metastatic colon cancer - per initial record review, has been getting in the past radiation and now [place] [facility] will obtain records, appears tumor has been getting worse with worsening burden --> imaging was reviewed on admission Ct shows mediastinal adenopathy, with extensive pulmonary infiltrate, with left groundglass opacification, and patchy reticular densities bilaterally --> gi and surgery have both evaluated him --> will dw family in regards to plan of care, but if malignant effusion or severe pulm involvement, would be difficult to treat, discuss goals of care # Thrombocytopenia - potential causes multifactorial, in this case is most likely related to the use of chemotherapeutic agents --> Hep panel and HIV ordered --> US abd to evaluate for cirrhosis and hsm ordered --> Peripheral smear ordered to evaluate for blasts /schistocytes --> abx and other meds have been reviewed --> ok for ppx if plt >50k w/ either heparin or lovenox --> Transfuse if Plt < 20k and fever, or if Plt < 10k without fever --> plt trend 18k-->11k # Respiratory distress with severe tumor burden --> is s/p intubation on 10/18 --> per pulm/cc recs # Pneumonia involving left lung --> on abx iv # Chest pain due to malignancy and reps failure --> trop neg The timing of this note does not necessarily reflect the time of the patient was seen. GREATLY APPRECIATE CONSULTATION. Robert Elam MD Oct 18, 2018 16:25
--- NOTE | 2018-10-18 16:48 | NUR ---
NURSE NOTES: Notified Dr Victor that sister is coming to speak with him tomorrow AM around 10AM to discuss code status and terminal extubation. Corinne, family preservation caseworker and pt himself will be in that meeting as well as per Maribell.
--- NOTE | 2018-10-18 18:17 | NUR ---
NURSE NOTES: US abdomen done at bedside. BP 86/62. Will hold Morphine for now.
--- NOTE | 2018-10-18 19:20 | NUR ---
HAND-OFF: Report given to DELORIS Webb.
--- NOTE | 2018-10-18 19:21 | NUR ---
NURSE NOTES: Endorsement received from Kay Tripp RN. Patient opens eyes spontaneously, follows commands. Able to communicate needs per writing on a paper. Orally intubated with ET 8.0, 24 lipline. AC 16, 500, PEEP 5, 60% FiO2. With OGT on NPO. Right abdomen colostomy, no output noted at this time. Left forearm g 22, right wrist g 22. Head of bed elevated. Bed locked and in low position. Bed alarm on. Call light within reach. Reminded to use call light.
--- NOTE | 2018-10-18 21:15 | History and Physical Report ---
DATE OF ADMISSION: 10/17/2018 CONSULTANTS: 1. Sasha Victor M.D. 2. Oleg Carson M.D. 3. Indio Reis M.D. 4. Dr. Elam. 5. Brent Medeiros M.D. 6. Myles Arellano M.D. CHIEF COMPLAINT: Shortness of breath, respiratory failure, metastatic colon cancer, pneumonia, sepsis, and decubitus ulcer. BRIEF HISTORY: This is a 47-year-old male with history of metastatic colon cancer presented yesterday, was really short of breath shortly after, he was intubated and admitted to ICU. Currently, intubated, sedated, and lethargic in ICU. REVIEW OF SYSTEMS: Unavailable. PAST MEDICAL HISTORY: Metastatic colon cancer and decubitus ulcers. PAST SURGICAL HISTORY: Unknown. MEDICATIONS: Include azithromycin, vancomycin, pantoprazole, cefepime, lorazepam, morphine, Tylenol, IV fluids, albuterol, and Zofran. ALLERGIES: Denies. SOCIAL HISTORY: Unable to obtain secondary to the patient's condition. OBJECTIVE: GENERAL: Intubated, sedated, lethargic in bed, and nonverbal. VITAL SIGNS: Temperature is not given, pulse 72, respirations 30, and blood pressure 107/83. CARDIOVASCULAR: No murmurs. LUNGS: Poor air exchange. ABDOMEN: Bowel sounds distant. EXTREMITIES: Show no cyanosis, clubbing, or edema. NEUROLOGIC: The patient moves extremities, but very weak. LABORATORY AND DIAGNOSTIC DATA: Labs at this time, show white count 11.6, H and H are 10.8 and 24, and platelets 11,000, thrombocytopenia. INR is 1.3. PTT is 31. BMP shows sodium 132, BUN 33, and glucose 119. Albumin 2.0. Urinalysis is negative. ASSESSMENT: 1. Respiratory failure. 2. Pneumonia. 3. Sepsis. 4. Metastatic colon cancer. 5. Shock. 6. Decubitus ulcer. 7. Anemia. 8. Thrombocytopenia. 9. Malnutrition. PLAN: 1. Vent per Pulmonary. 2. Antibiotics per Infectious Disease. 3. Blood pressure control. 4. Dietary followup. 5. Pain control. 6. Wound care. 7. CBC and BMP in the morning. Hans Rivera D.O. DR: NEVA JOB#: [id number] CC:
[2018-10-18] MEDS: HYDROcodone/Acetamin 10/325 tab ORAL PRN (22:28)
--- NOTE | 2018-10-18 22:30 | NUR ---
NURSE NOTES: MONTRELL bernal given. As per patient, he doesn't want to be woken up later for sponge bath. Offered patient to do sponge bath before he sleep, patient also refused. As per him he just want to rest for now. Patient's wish respected.
--- NOTE | 2018-10-18 23:00 | NUR ---
NURSE NOTES: Placed patient on P200 mattress.
--- NOTE | 2018-10-18 23:30 | NUR ---
NURSE NOTES: Television Engineering Teacher at bedside for [facility].
[2018-10-19] VITALS (25 sets, daily range): BP systolic 81–100; BP diastolic 48–64
--- NOTE | 2018-10-19 | NUR ---
NURSE NOTES: Received a call from Maritza. As per her to continue same dose of vancomycin
[2018-10-19] MEDS: Vancomycin 750 MG in D5W 275 ML IVPB SCH ×2 (00:21→12:04)
--- NOTE | 2018-10-19 02:00 | NUR ---
NURSE NOTES: Patient calm and comfortable at this time.
--- NOTE | 2018-10-19 04:30 | NUR ---
NURSE NOTES: Patient awake. Offered again for sponge bath and change of dressing, informed him that a male nurse will help during the care. Patient agreed.
--- NOTE | 2018-10-19 05:00 | NUR ---
NURSE NOTES: Bed bath, change of linens, change of dressings done.
[2018-10-19 05:07] LABS: INR 1.7 (0.9-1.1)
[2018-10-19 05:11] LABS: MEAN CORPUSCULAR VOLUME 93 FL (80-99); PLATELET COUNT 11 K/UL (150-450); RED BLOOD COUNT 2.15 M/UL (4.70-6.10); RED CELL DISTRIBUTION WIDTH 17.4 % (11.6-14.8)
[2018-10-19 05:41] LABS: HEMOGLOBIN 6.4 G/DL (14.2-18.0)
[2018-10-19] MEDS: HYDROcodone/Acetamin 10/325 tab ORAL PRN (05:41)
[2018-10-19 05:54] LABS: % IRON SATURATION 19 % (15-50); IRON 21 ug/dL (50-175); TOTAL IRON BINDING CAPACITY 109 ug/dL (250-450)
--- NOTE | 2018-10-19 06:00 | NUR ---
NURSE NOTES: Hgb 6.4, Hct 20, platelet still 11. Informed Dr. Elam, received new order for 2 PRBC and 1 unit Platelet.
[2018-10-19 06:01] LABS: ALANINE AMINOTRANSFERASE 74 U/L (12-78); ALBUMIN 1.9 G/DL (3.4-5.0); ALBUMIN/GLOBULIN RATIO 0.5 (1.0-2.7); ALKALINE PHOSPHATASE 255 U/L (46-116); ANION GAP 7 mmol/L (5-15); ASPARTATE AMINO TRANSFERASE 158 U/L (15-37); BLOOD UREA NITROGEN 52 mg/dL (7-18); CALCIUM 8.2 MG/DL (8.5-10.1); CARBON DIOXIDE 25 MMOL/L (21-32); CHLORIDE 99 MMOL/L (98-107); CREATININE 1.1 MG/DL (0.55-1.30); FERRITIN 1254 NG/ML (8-388); PHOSPHORUS 4.9 MG/DL (2.5-4.9); POTASSIUM 5.1 MMOL/L (3.5-5.1); SODIUM 131 MMOL/L (136-145)
--- NOTE | 2018-10-19 07:00 | NUR ---
RESPIRATORY NOTES: Received patient on ACVC RR 16, VT 500, FIO2 60%, PEEP +5. Intubated with 8.0 ETT at 24cm at the lip, secured with anchorfast. Bilateral breath sounds reveal rhonchi. Suctioned minimal amount of gaines secretions through the ETT and thin clear secretions orally. Patient is currently sleeping. Alarms are on and audible. Vent plugged into red outlet. Will continue to monitor throughout the day.
--- NOTE | 2018-10-19 07:04 | NUR ---
HAND-OFF: Report given to Kay Swan RN
--- NOTE | 2018-10-19 07:05 | NUR ---
NURSE NOTES: Report received from DELORIS Webb. Pt is sleeping in bed. Alert and oriented x4. Sinus rhythm with 1 AVB on metal flow coordinator. ETT 8.0/24cm at right lip line. AC16, AC 16, TV 500, FiO 60%. O2 sat 99%. No respiratory distress noted. OGT in place and clamped. Colostomy in place. Left FA G22 and right wrist G22 patent and asymptomatic. Bed in lowest position. Side rails up x3. Bed in lowest position. Side rails up x3. Call light within reach. Will resume plan of care. Addendum: 10/19/18 at 0728 by MORIAH OWENS RN RN NURSE NOTES: Report received from DELORIS Webb. Pt is sleeping in bed. Alert and oriented x4. Sinus rhythm with 1 AVB on metal flow coordinator. ETT 8.0/24cm at right lip line. AC16, AC 16, TV 500, FiO 60%. O2 sat 99%. No respiratory distress noted. OGT in place and clamped. Colostomy in place. Abdominal to perineal area full and hard to touch. Left FA G22 and right wrist G22 patent and asymptomatic. Bed in lowest position. Side rails up x3. Bed in lowest position. Side rails up x3. Call light within reach. Will resume plan of care.
--- NOTE | 2018-10-19 08:14 | NUR ---
RADIOLOGY DEPT., CHEST X-RAY DONE.-P.DYE
--- NOTE | 2018-10-19 08:26 | NUR ---
NURSE NOTES: New IV G20 inserted to right FA for blood transfusion. Pt tolerated well. Dr Elam here to see the patient. Will hold blood transfusion for now as per his order. RT is drawing ABG at bedside.
--- NOTE | 2018-10-19 08:39 | NUR ---
NURSE NOTES: EKG done and shows Sinus rhythm with 1 degree AVB.
[2018-10-19] MEDS: Azithromycin 250mg tab ORAL SCH (08:47)
[2018-10-19] MEDS: Pantoprazole Inj IV SCH (08:47)
[2018-10-19] MEDS: Cefepime HCl 2 GM in D5W 110 ML IV SCH ×2 (08:47→23:25)
--- NOTE | 2018-10-19 08:58 | General Progress Note ---
Assessment/Plan Assessment/Plan: (1) Metastatic cancer (2) Respiratory failure (3) Pneumonia involving left lung (4) Chest pain (5) Anemia intubated over night pending possible terminal extubation family meeting pending for today will adjust care based of patient and family wishes Subjective ROS Limited/Unobtainable: No Allergies: Coded Allergies: No Known Allergies (Unverified , 10/17/18) Objective Last 24 Hour Vital Signs Date Time Temp Pulse Resp B/P (MAP) Pulse Ox O2 Delivery O2 Flow Rate FiO2 10/19/18 08:00 93 19 96/64 (75) 98 10/19/18 08:00 Mechanical Ventilator 10/19/18 08:00 60 10/19/18 07:10 91 19 60 10/19/18 07:00 90 18 89/61 (70) 99 10/19/18 06:11 97.4 10/19/18 06:00 92 19 92/59 (70) 98 10/19/18 05:29 94 25 60 65 10/19/18 05:00 95 22 100/61 (74) 96 10/19/18 04:00 60 10/19/18 04:00 Mechanical Ventilator 10/19/18 04:00 97.2 95 20 99/58 (72) 88 10/19/18 03:47 95 10/19/18 03:18 95 25 60 65 10/19/18 03:00 94 22 94/55 (68) 96 10/19/18 02:00 94 22 98/58 (71) 96 10/19/18 01:15 93 23 60 65 10/19/18 01:00 94 26 84/60 (68) 95 10/19/18 00:00 Mechanical Ventilator 10/19/18 00:00 96 10/19/18 00:00 60 10/19/18 00:00 97.3 96 27 81/64 (70) 93 10/18/18 23:18 95 33 60 65 10/18/18 23:00 96 28 89/67 (74) 94 10/18/18 22:00 96 32 90/72 (78) 94 10/18/18 21:20 98 31 60 65 10/18/18 21:00 99 33 90/68 (75) 96 10/18/18 20:00 60 10/18/18 20:00 97.5 96 33 90/68 (75) 98 10/18/18 20:00 Mechanical Ventilator 10/18/18 20:00 95 10/18/18 19:25 93 35 60 65 10/18/18 19:00 92 29 89/69 (76) 94 10/18/18 18:00 97.3 97 33 86/62 (70) 96 10/18/18 17:03 96 34 80/62 (68) 96 10/18/18 17:01 98 34 65 10/18/18 16:00 65 10/18/18 16:00 95 10/18/18 16:00 Mechanical Ventilator 10/18/18 16:00 93 32 91/65 (74) 92 10/18/18 15:19 94 37 65 10/18/18 15:00 96.5 93 32 83/61 (68) 92 10/18/18 14:01 89 31 92/60 (71) 88 10/18/18 13:00 93.5 87 33 83/69 (74) 91 10/18/18 12:40 86 30 65 10/18/18 12:00 65 10/18/18 12:00 82 28 98/74 (82) 93 10/18/18 12:00 Mechanical Ventilator 10/18/18 12:00 82 10/18/18 11:02 72 30 65 10/18/18 11:00 85 27 107/83 (91) 94 10/18/18 10:00 86 21 124/89 (101) 100 10/18/18 09:05 69 18 100 10/18/18 09:00 Mechanical Ventilator 10/18/18 09:00 86 15 106/87 (93) 100 10/18/18 09:00 100 10/18/18 08:57 86 Intake and Output 10/18/18 10/19/18 19:00 07:00 Intake Total 435.00 ml 0 ml Output Total 250 ml Balance 185.00 ml 0 ml Intake Oral 0 ml 0 ml IV Total 385.00 ml Other 50 ml Output Urine Total 250 ml Stool Total 0 ml # Voids 4 # Bowel Movements 2 Laboratory Tests 10/18/18 10:17: Arterial Blood pH 7.136*L, Arterial Blood Partial Pressure CO2 74.9*H, Arterial Blood Partial Pressure O2 115.9H, Arterial Blood HCO3 24.7, Arterial Blood Oxygen Saturation 96.9, Arterial Blood Base Excess -4.8L, William Test Positive 10/18/18 23:30: Vancomycin Level Trough 18.7H 10/19/18 04:20: White Blood Count 5.0#, Red Blood Count 2.15L, Hemoglobin 6.4*L, Hematocrit 20.0L, Mean Corpuscular Volume 93, Mean Corpuscular Hemoglobin 29.8, Mean Corpuscular Hemoglobin Concent 32.0, Red Cell Distribution Width 17.4H, Platelet Count 11L, Mean Platelet Volume 10.4H, Neutrophils (%) (Auto) , Lymphocytes (%) (Auto) , Monocytes (%) (Auto) , Eosinophils (%) (Auto) , Basophils (%) (Auto) , Differential Total Cells Counted 100, Neutrophils % ( Manual) 84H, Lymphocytes % (Manual) 4L, Monocytes % (Manual) 3, Eosinophils % ( Manual) 1, Basophils % (Manual) 0, Band Neutrophils 8, Nucleated Red Blood Cells 1, Platelet Estimate DecreasedL, Platelet Morphology Normal, Hypochromasia 4+, Anisocytosis 1+, Reticulocyte Count 4.4H, Prothrombin Time 17.2H, Prothromb Time International Ratio 1.7H, Activated Partial Thromboplast Time 35H, Sodium Level 131L, Potassium Level 5.1, Chloride Level 99, Carbon Dioxide Level 25, Anion Gap 7, Blood Urea Nitrogen 52H, Creatinine 1.1, Estimat Glomerular Filtration Rate > 60, Glucose Level 75, Calcium Level 8.2L, Phosphorus Level 4.9, Magnesium Level 1.7L, Iron Level 21L, Total Iron Binding Capacity 109L, Percent Iron Saturation 19, Unsaturated Iron Binding 88L, Ferritin 1254H, Total Bilirubin 1.0, Aspartate Amino Transf (AST/SGOT) 158H, Alanine Aminotransferase (ALT/SGPT) 74, Alkaline Phosphatase 255H, Total Protein 5.5L, Albumin 1.9L, Globulin 3.6, Albumin/Globulin Ratio 0.5L, Vitamin B12 Level > 2000H, Folate 17.8, Thyroid Stimulating Hormone (TSH) 76.987H, Free Thyroxine 0.30L, Aspergillus flavus Antibody [Pending], Aspergillus fumigatus Antibody [Pending], Aspergillus niger Antibody [Pending] 10/19/18 08:40: Arterial Blood pH 7.288L, Arterial Blood Partial Pressure CO2 49.2H, Arterial Blood Partial Pressure O2 76.0, Arterial Blood HCO3 23.0, Arterial Blood Oxygen Saturation 91.1L, Arterial Blood Base Excess -3.4L, William Test Positive Height (Feet): 5 Height (Inches): 8.00 Weight (Pounds): 120 General Appearance: alert EENT: normal ENT inspection Neck: normal alignment Cardiovascular: normal rate Respiratory/Chest: decreased breath sounds Abdomen: normal bowel sounds, non tender, soft Extremities: non-tender Myles Arellano MD Oct 19, 2018 08:58
--- NOTE | 2018-10-19 10:17 | Surgery Progress Note ---
Surgery Progress Note Subjective Additional Comments no acute events awake, alert, on vent support responsive and nods he is okay labs noted discussed with family at length yesterday about care plan, quality of life, and goals possible comfort measures will await family decision Objective Last 24 Hour Vital Signs Date Time Temp Pulse Resp B/P (MAP) Pulse Ox O2 Delivery O2 Flow Rate FiO2 10/19/18 08:58 93 18 60 10/19/18 08:00 93 19 96/64 (75) 98 10/19/18 08:00 Mechanical Ventilator 10/19/18 08:00 60 10/19/18 07:10 91 19 60 10/19/18 07:00 90 18 89/61 (70) 99 10/19/18 06:11 97.4 10/19/18 06:00 92 19 92/59 (70) 98 10/19/18 05:29 94 25 60 65 10/19/18 05:00 95 22 100/61 (74) 96 10/19/18 04:00 60 10/19/18 04:00 Mechanical Ventilator 10/19/18 04:00 97.2 95 20 99/58 (72) 88 10/19/18 03:47 95 10/19/18 03:18 95 25 60 65 10/19/18 03:00 94 22 94/55 (68) 96 10/19/18 02:00 94 22 98/58 (71) 96 10/19/18 01:15 93 23 60 65 10/19/18 01:00 94 26 84/60 (68) 95 10/19/18 00:00 Mechanical Ventilator 10/19/18 00:00 96 10/19/18 00:00 60 10/19/18 00:00 97.3 96 27 81/64 (70) 93 10/18/18 23:18 95 33 60 65 10/18/18 23:00 96 28 89/67 (74) 94 10/18/18 22:00 96 32 90/72 (78) 94 10/18/18 21:20 98 31 60 65 10/18/18 21:00 99 33 90/68 (75) 96 10/18/18 20:00 60 10/18/18 20:00 97.5 96 33 90/68 (75) 98 10/18/18 20:00 Mechanical Ventilator 10/18/18 20:00 95 10/18/18 19:25 93 35 60 65 10/18/18 19:00 92 29 89/69 (76) 94 10/18/18 18:00 97.3 97 33 86/62 (70) 96 10/18/18 17:03 96 34 80/62 (68) 96 10/18/18 17:01 98 34 65 10/18/18 16:00 65 10/18/18 16:00 95 10/18/18 16:00 Mechanical Ventilator 10/18/18 16:00 93 32 91/65 (74) 92 10/18/18 15:19 94 37 65 10/18/18 15:00 96.5 93 32 83/61 (68) 92 10/18/18 14:01 89 31 92/60 (71) 88 10/18/18 13:00 93.5 87 33 83/69 (74) 91 10/18/18 12:40 86 30 65 10/18/18 12:00 65 10/18/18 12:00 82 28 98/74 (82) 93 10/18/18 12:00 Mechanical Ventilator 10/18/18 12:00 82 10/18/18 11:02 72 30 65 10/18/18 11:00 85 27 107/83 (91) 94 I&O Intake and Output 10/18/18 10/19/18 19:00 07:00 Intake Total 435.00 ml 0 ml Output Total 250 ml Balance 185.00 ml 0 ml Intake Oral 0 ml 0 ml IV Total 385.00 ml Other 50 ml Output Urine Total 250 ml Stool Total 0 ml # Voids 4 # Bowel Movements 2 Laboratory Tests Test 10/18/18 10:17 10/18/18 23:30 10/19/18 04:20 10/19/18 08:40 Arterial Blood pH 7.136 (7.350-7.450) 7.288 (7.350-7.450) Arterial Blood Partial Pressure CO2 74.9 mmHg (35.0-45.0) *H 49.2 mmHg (35.0-45.0) H Arterial Blood Partial Pressure O2 115.9 mmHg (75.0-100.0) H 76.0 mmHg (75.0-100.0) Arterial Blood HCO3 24.7 mmol/L (22.0-26.0) 23.0 mmol/L (22.0-26.0) Arterial Blood Oxygen Saturation 96.9 % (95-100) 91.1 % (95-100) L Arterial Blood Base Excess -4.8 (-2-2) L -3.4 (-2-2) L William Test Positive Positive Vancomycin Level Trough 18.7 ug/mL (5.0-12.0) H White Blood Count 5.0 K/UL (4.8-10.8) # Red Blood Count 2.15 M/UL (4.70-6.10) L Hemoglobin 6.4 G/DL (14.2-18.0) *L Hematocrit 20.0 % (42.0-52.0) L Mean Corpuscular Volume 93 FL (80-99) Mean Corpuscular Hemoglobin 29.8 PG (27.0-31.0) Mean Corpuscular Hemoglobin Concent 32.0 G/DL (32.0-36.0) Red Cell Distribution Width 17.4 % (11.6-14.8) H Platelet Count 11 K/UL (150-450) L Mean Platelet Volume 10.4 FL (6.5-10.1) H Neutrophils (%) (Auto) % (45.0-75.0) Lymphocytes (%) (Auto) % (20.0-45.0) Monocytes (%) (Auto) % (1.0-10.0) Eosinophils (%) (Auto) % (0.0-3.0) Basophils (%) (Auto) % (0.0-2.0) Differential Total Cells Counted 100 Neutrophils % (Manual) 84 % (45-75) H Lymphocytes % (Manual) 4 % (20-45) L Monocytes % (Manual) 3 % (1-10) Eosinophils % (Manual) 1 % (0-3) Basophils % (Manual) 0 % (0-2) Band Neutrophils 8 % (0-8) Nucleated Red Blood Cells 1 /100 WBC Platelet Estimate Decreased L Platelet Morphology Normal Hypochromasia 4+ Anisocytosis 1+ Reticulocyte Count 4.4 % (0.5-2.0) H Prothrombin Time 17.2 SEC (9.30-11.50) H Prothromb Time International Ratio 1.7 (0.9-1.1) H Activated Partial Thromboplast Time 35 SEC (23-33) H Sodium Level 131 MMOL/L (136-145) L Potassium Level 5.1 MMOL/L (3.5-5.1) Chloride Level 99 MMOL/L (98-107) Carbon Dioxide Level 25 MMOL/L (21-32) Anion Gap 7 mmol/L (5-15) Blood Urea Nitrogen 52 mg/dL (7-18) H Creatinine 1.1 MG/DL (0.55-1.30) Estimat Glomerular Filtration Rate > 60 mL/min (>60) Glucose Level 75 MG/DL (74-106) Calcium Level 8.2 MG/DL (8.5-10.1) L Phosphorus Level 4.9 MG/DL (2.5-4.9) Magnesium Level 1.7 MG/DL (1.8-2.4) L Iron Level 21 ug/dL (50-175) L Total Iron Binding Capacity 109 ug/dL (250-450) L Percent Iron Saturation 19 % (15-50) Unsaturated Iron Binding 88 ug/dL (112-346) L Ferritin 1254 NG/ML (8-388) H Total Bilirubin 1.0 MG/DL (0.2-1.0) Aspartate Amino Transf (AST/SGOT) 158 U/L (15-37) H Alanine Aminotransferase (ALT/SGPT) 74 U/L (12-78) Alkaline Phosphatase 255 U/L (46-116) H Total Protein 5.5 G/DL (6.4-8.2) L Albumin 1.9 G/DL (3.4-5.0) L Globulin 3.6 g/dL Albumin/Globulin Ratio 0.5 (1.0-2.7) L Vitamin B12 Level > 2000 PG/ML (193-986) H Folate 17.8 NG/ML (8.6-58.9) Thyroid Stimulating Hormone (TSH) 76.987 uiU/mL (0.358-3.740) Free Thyroxine 0.30 NG/DL (0.76-1.46) L Aspergillus flavus Antibody Pending Aspergillus fumigatus Antibody Pending Aspergillus niger Antibody Pending Plan Problems: (1) Chest pain (2) Pneumonia involving left lung (3) Respiratory distress (4) Sepsis Assessment & Plan: This is a cachectic unfortunate 47-year-old male with metastatic colorectal cancer who presented with shortness of breath. Patient noted to have a leukocytosis, abnormal labs, dehydration, respiratory distress. Patient currently intubated in intensive care unit. Patient alert awake and responsive. States that pain improved but still with respiratory discomfort on ventilatory support. Labs noted. Abdominal exam with fullness in the lower abdomen pelvic region and soft in the upper regions. The fullness that appears to be tumor burden. Patient has a diverting colostomy on the left side of his abdomen which appears to be a loop colostomy. There is gas and stool in the colostomy bag. No acute surgical intervention recommended at this time. NG tube is been placed. Okay to start feeds via NG tube patient is very cachectic and requires significant nutritional improvement. Continue with IV fluid resuscitation. Antibiotics as per infectious disease. Trend labs. Follow-up will follow with serial examinations and recommendations. Thank you for allowing me to participate in patient's care (5) Acute respiratory failure (6) Metastatic cancer Assessment & Plan: Patient with metastatic colorectal cancer. Patient identified to have abnormal wounds in the perirectal area. On examination was identified to be tumor burden is the tumors extending from the colorectal region out. Multiple open areas with tumor burden but no active infection identified. Patient has diverting colostomy. Will continue with local wound care Xeroform and ABD dressing for now. Brent Medeiros Oct 19, 2018 10:17
--- NOTE | 2018-10-19 10:45 | Diagnostic Imaging Report ---
Indication: Dyspnea Comparison: 10/18/2018 A single view chest radiograph was obtained. Findings: Patchy consolidation demonstrated within the lungs bilaterally. No significant change appreciated accounting for differences in technique. Heart size is within normal limits. Endotracheal tube and nasogastric tube appear stable. IMPRESSION: Heterogeneous extensive consolidative opacities bilaterally presumably due to pneumonia. Correlate clinically
--- NOTE | 2018-10-19 10:47 | Pulmonolgy Critical Care Note ---
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 Discussed with: nurses, consultants, other Critical Care - Objective Last 24 Hour Vital Signs Date Time Temp Pulse Resp B/P (MAP) Pulse Ox O2 Delivery O2 Flow Rate FiO2 10/19/18 10:00 92 19 84/48 (60) 94 10/19/18 09:00 96.0 93 18 82/53 (63) 97 10/19/18 08:58 93 18 60 10/19/18 08:00 93 19 96/64 (75) 98 10/19/18 08:00 Mechanical Ventilator 10/19/18 08:00 60 10/19/18 07:10 91 19 60 10/19/18 07:00 90 18 89/61 (70) 99 10/19/18 06:11 97.4 10/19/18 06:00 92 19 92/59 (70) 98 10/19/18 05:29 94 25 60 65 10/19/18 05:00 95 22 100/61 (74) 96 10/19/18 04:00 60 10/19/18 04:00 Mechanical Ventilator 10/19/18 04:00 97.2 95 20 99/58 (72) 88 10/19/18 03:47 95 10/19/18 03:18 95 25 60 65 10/19/18 03:00 94 22 94/55 (68) 96 10/19/18 02:00 94 22 98/58 (71) 96 10/19/18 01:15 93 23 60 65 10/19/18 01:00 94 26 84/60 (68) 95 10/19/18 00:00 Mechanical Ventilator 10/19/18 00:00 96 10/19/18 00:00 60 10/19/18 00:00 97.3 96 27 81/64 (70) 93 10/18/18 23:18 95 33 60 65 10/18/18 23:00 96 28 89/67 (74) 94 10/18/18 22:00 96 32 90/72 (78) 94 10/18/18 21:20 98 31 60 65 10/18/18 21:00 99 33 90/68 (75) 96 10/18/18 20:00 60 10/18/18 20:00 97.5 96 33 90/68 (75) 98 10/18/18 20:00 Mechanical Ventilator 10/18/18 20:00 95 10/18/18 19:25 93 35 60 65 10/18/18 19:00 92 29 89/69 (76) 94 10/18/18 18:00 97.3 97 33 86/62 (70) 96 10/18/18 17:03 96 34 80/62 (68) 96 10/18/18 17:01 98 34 65 10/18/18 16:00 65 10/18/18 16:00 95 10/18/18 16:00 Mechanical Ventilator 10/18/18 16:00 93 32 91/65 (74) 92 10/18/18 15:19 94 37 65 10/18/18 15:00 96.5 93 32 83/61 (68) 92 10/18/18 14:01 89 31 92/60 (71) 88 10/18/18 13:00 93.5 87 33 83/69 (74) 91 10/18/18 12:40 86 30 65 10/18/18 12:00 65 10/18/18 12:00 82 28 98/74 (82) 93 10/18/18 12:00 Mechanical Ventilator 10/18/18 12:00 82 10/18/18 11:02 72 30 65 10/18/18 11:00 85 27 107/83 (91) 94 Status: awake Condition: critical Neck: full ROM Heart: HR/BP stable, HR/BP unstable Abdomen: non-tender Extremities: no C/C/E Decubiti: location, stage Micro: Microbiology Date/Time Source Procedure Growth Status 10/17/18 11:55 Blood Blood Culture - Preliminary NO GROWTH AFTER 24 HOURS Resulted 10/17/18 11:40 Blood Blood Culture - Preliminary NO GROWTH AFTER 24 HOURS Resulted Critical Care - Subjective ROS Limited/Unobtainable: Yes Condition: critical EKG Rhythm: Sinus Rhythm FI02: 60 Vent Support Breath Rate: 16 Vent Support Mode: AC Vent Tidal Volume: 500 Sputum Amount: Scant PEEP: 5.0 PIP: 19 I&O: Intake and Output 10/18/18 10/19/18 19:00 07:00 Intake Total 435.00 ml 0 ml Output Total 250 ml Balance 185.00 ml 0 ml Intake Oral 0 ml 0 ml IV Total 385.00 ml Other 50 ml Output Urine Total 250 ml Stool Total 0 ml # Voids 4 # Bowel Movements 2 ET-Tube: 8.0 ET Position: 24 Labs: Laboratory Tests Test 10/18/18 23:30 10/19/18 04:20 10/19/18 08:40 Vancomycin Level Trough 18.7 ug/mL (5.0-12.0) H White Blood Count 5.0 K/UL (4.8-10.8) # Red Blood Count 2.15 M/UL (4.70-6.10) L Hemoglobin 6.4 G/DL (14.2-18.0) *L Hematocrit 20.0 % (42.0-52.0) L Mean Corpuscular Volume 93 FL (80-99) Mean Corpuscular Hemoglobin 29.8 PG (27.0-31.0) Mean Corpuscular Hemoglobin Concent 32.0 G/DL (32.0-36.0) Red Cell Distribution Width 17.4 % (11.6-14.8) H Platelet Count 11 K/UL (150-450) L Mean Platelet Volume 10.4 FL (6.5-10.1) H Neutrophils (%) (Auto) % (45.0-75.0) Lymphocytes (%) (Auto) % (20.0-45.0) Monocytes (%) (Auto) % (1.0-10.0) Eosinophils (%) (Auto) % (0.0-3.0) Basophils (%) (Auto) % (0.0-2.0) Differential Total Cells Counted 100 Neutrophils % (Manual) 84 % (45-75) H Lymphocytes % (Manual) 4 % (20-45) L Monocytes % (Manual) 3 % (1-10) Eosinophils % (Manual) 1 % (0-3) Basophils % (Manual) 0 % (0-2) Band Neutrophils 8 % (0-8) Nucleated Red Blood Cells 1 /100 WBC Platelet Estimate Decreased L Platelet Morphology Normal Hypochromasia 4+ Anisocytosis 1+ Reticulocyte Count 4.4 % (0.5-2.0) H Prothrombin Time 17.2 SEC (9.30-11.50) H Prothromb Time International Ratio 1.7 (0.9-1.1) H Activated Partial Thromboplast Time 35 SEC (23-33) H Sodium Level 131 MMOL/L (136-145) L Potassium Level 5.1 MMOL/L (3.5-5.1) Chloride Level 99 MMOL/L (98-107) Carbon Dioxide Level 25 MMOL/L (21-32) Anion Gap 7 mmol/L (5-15) Blood Urea Nitrogen 52 mg/dL (7-18) H Creatinine 1.1 MG/DL (0.55-1.30) Estimat Glomerular Filtration Rate > 60 mL/min (>60) Glucose Level 75 MG/DL (74-106) Calcium Level 8.2 MG/DL (8.5-10.1) L Phosphorus Level 4.9 MG/DL (2.5-4.9) Magnesium Level 1.7 MG/DL (1.8-2.4) L Iron Level 21 ug/dL (50-175) L Total Iron Binding Capacity 109 ug/dL (250-450) L Percent Iron Saturation 19 % (15-50) Unsaturated Iron Binding 88 ug/dL (112-346) L Ferritin 1254 NG/ML (8-388) H Total Bilirubin 1.0 MG/DL (0.2-1.0) Aspartate Amino Transf (AST/SGOT) 158 U/L (15-37) H Alanine Aminotransferase (ALT/SGPT) 74 U/L (12-78) Alkaline Phosphatase 255 U/L (46-116) H Total Protein 5.5 G/DL (6.4-8.2) L Albumin 1.9 G/DL (3.4-5.0) L Globulin 3.6 g/dL Albumin/Globulin Ratio 0.5 (1.0-2.7) L Vitamin B12 Level > 2000 PG/ML (193-986) H Folate 17.8 NG/ML (8.6-58.9) Thyroid Stimulating Hormone (TSH) 76.987 uiU/mL (0.358-3.740) Free Thyroxine 0.30 NG/DL (0.76-1.46) L Aspergillus flavus Antibody Pending Aspergillus fumigatus Antibody Pending Aspergillus niger Antibody Pending Arterial Blood pH 7.288 (7.350-7.450) Arterial Blood Partial Pressure CO2 49.2 mmHg (35.0-45.0) H Arterial Blood Partial Pressure O2 76.0 mmHg (75.0-100.0) Arterial Blood HCO3 23.0 mmol/L (22.0-26.0) Arterial Blood Oxygen Saturation 91.1 % (95-100) L Arterial Blood Base Excess -3.4 (-2-2) L William Test Positive Sasha Victor MD Oct 19, 2018 10:47
--- NOTE | 2018-10-19 10:59 | Diagnostic Imaging Report ---
Indication: Elevated liver function tests. Elevated BUN/creatinine Technique: Grayscale and duplex Doppler imaging of the abdomen performed. Comparison: None Findings: Liver is echogenic consistent with fatty infiltration. There is a echogenic lesion in the dome of the left lobe measuring approximately 1.8 x 1.2 cm. This may be a hemangioma. Other possibilities are not excluded. Aorta is calcified. There is mild ascites. Trace bilateral pleural effusions are present. The portal vein is patent by Doppler examination. Both kidneys are echogenic with minimal pelvocaliectasis. Demonstrated part of the pancreas is unremarkable. Shadowing focus adjacent to the spleen may be part of the splenic flexure of the colon, not well evaluated on this exam. The CBD is 3.5 mm. There is no intrahepatic biliary ductal dilatation. Spleen is normal in size. IMPRESSION: Echogenic liver consistent with fatty infiltration. Mild ascites. Probable hemangioma in the left lobe of the liver. Suggest follow-up and/or contrast CT evaluation. Medical renal disease. Small bilateral pleural effusions. IMPRESSION: No acute findings identified.
--- NOTE | 2018-10-19 11:00 | NUR ---
NURSE NOTES: Dr Victor here to speak with Family members and the patient. Sister in the [facility] also on the phone, talking to Dr Victor regarding pt's current condition. They decided to wait for the sister to come from the [facility] on and to keep the patient in ICU meanwhile.
--- NOTE | 2018-10-19 12:19 | NUR ---
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 96.0 HR 92 RR 18 B/P 82/53 AC 12 TV 500 FIO2 60% PEEP 5 H/H 6.4/20.0 RETIC 4.4 NA 131 BUN 52 IS: CEFEPIME IV VANCO IV ALB INLINE TX ICU STATUS
--- NOTE | 2018-10-19 12:30 | Cardiac Electrophysiology PN ---
Subjective Subjective [id number] Objective Last 24 Hour Vital Signs Date Time Temp Pulse Resp B/P (MAP) Pulse Ox O2 Delivery O2 Flow Rate FiO2 10/19/18 12:00 91 10/19/18 12:00 60 10/19/18 11:12 93 18 60 10/19/18 11:00 92 19 84/48 (60) 94 10/19/18 11:00 92 19 85/52 (63) 92 10/19/18 10:00 92 19 84/48 (60) 94 10/19/18 09:00 96.0 93 18 82/53 (63) 97 10/19/18 08:58 93 18 60 10/19/18 08:00 93 19 96/64 (75) 98 10/19/18 08:00 Mechanical Ventilator 10/19/18 08:00 60 10/19/18 07:51 83 10/19/18 07:10 91 19 60 10/19/18 07:00 90 18 89/61 (70) 99 10/19/18 06:11 97.4 10/19/18 06:00 92 19 92/59 (70) 98 10/19/18 05:29 94 25 60 65 10/19/18 05:00 95 22 100/61 (74) 96 10/19/18 04:00 60 10/19/18 04:00 Mechanical Ventilator 10/19/18 04:00 97.2 95 20 99/58 (72) 88 10/19/18 03:47 95 10/19/18 03:18 95 25 60 65 10/19/18 03:00 94 22 94/55 (68) 96 10/19/18 02:00 94 22 98/58 (71) 96 10/19/18 01:15 93 23 60 65 10/19/18 01:00 94 26 84/60 (68) 95 10/19/18 00:00 Mechanical Ventilator 10/19/18 00:00 96 10/19/18 00:00 60 10/19/18 00:00 97.3 96 27 81/64 (70) 93 10/18/18 23:18 95 33 60 65 10/18/18 23:00 96 28 89/67 (74) 94 10/18/18 22:00 96 32 90/72 (78) 94 10/18/18 21:20 98 31 60 65 10/18/18 21:00 99 33 90/68 (75) 96 10/18/18 20:00 60 10/18/18 20:00 97.5 96 33 90/68 (75) 98 10/18/18 20:00 Mechanical Ventilator 10/18/18 20:00 95 10/18/18 19:25 93 35 60 65 10/18/18 19:00 92 29 89/69 (76) 94 10/18/18 18:00 97.3 97 33 86/62 (70) 96 10/18/18 17:03 96 34 80/62 (68) 96 10/18/18 17:01 98 34 65 10/18/18 16:00 65 10/18/18 16:00 95 10/18/18 16:00 Mechanical Ventilator 10/18/18 16:00 93 32 91/65 (74) 92 10/18/18 15:19 94 37 65 10/18/18 15:00 96.5 93 32 83/61 (68) 92 10/18/18 14:01 89 31 92/60 (71) 88 10/18/18 13:00 93.5 87 33 83/69 (74) 91 10/18/18 12:40 86 30 65 Intake and Output 10/18/18 10/19/18 19:00 07:00 Intake Total 435.00 ml 0 ml Output Total 250 ml Balance 185.00 ml 0 ml Intake Oral 0 ml 0 ml IV Total 385.00 ml Other 50 ml Output Urine Total 250 ml Stool Total 0 ml # Voids 4 # Bowel Movements 2 Laboratory Tests Test 10/18/18 23:30 10/19/18 04:20 10/19/18 08:40 Vancomycin Level Trough 18.7 ug/mL (5.0-12.0) H White Blood Count 5.0 K/UL (4.8-10.8) # Red Blood Count 2.15 M/UL (4.70-6.10) L Hemoglobin 6.4 G/DL (14.2-18.0) *L Hematocrit 20.0 % (42.0-52.0) L Mean Corpuscular Volume 93 FL (80-99) Mean Corpuscular Hemoglobin 29.8 PG (27.0-31.0) Mean Corpuscular Hemoglobin Concent 32.0 G/DL (32.0-36.0) Red Cell Distribution Width 17.4 % (11.6-14.8) H Platelet Count 11 K/UL (150-450) L Mean Platelet Volume 10.4 FL (6.5-10.1) H Neutrophils (%) (Auto) % (45.0-75.0) Lymphocytes (%) (Auto) % (20.0-45.0) Monocytes (%) (Auto) % (1.0-10.0) Eosinophils (%) (Auto) % (0.0-3.0) Basophils (%) (Auto) % (0.0-2.0) Differential Total Cells Counted 100 Neutrophils % (Manual) 84 % (45-75) H Lymphocytes % (Manual) 4 % (20-45) L Monocytes % (Manual) 3 % (1-10) Eosinophils % (Manual) 1 % (0-3) Basophils % (Manual) 0 % (0-2) Band Neutrophils 8 % (0-8) Nucleated Red Blood Cells 1 /100 WBC Platelet Estimate Decreased L Platelet Morphology Normal Hypochromasia 4+ Anisocytosis 1+ Reticulocyte Count 4.4 % (0.5-2.0) H Prothrombin Time 17.2 SEC (9.30-11.50) H Prothromb Time International Ratio 1.7 (0.9-1.1) H Activated Partial Thromboplast Time 35 SEC (23-33) H Sodium Level 131 MMOL/L (136-145) L Potassium Level 5.1 MMOL/L (3.5-5.1) Chloride Level 99 MMOL/L (98-107) Carbon Dioxide Level 25 MMOL/L (21-32) Anion Gap 7 mmol/L (5-15) Blood Urea Nitrogen 52 mg/dL (7-18) H Creatinine 1.1 MG/DL (0.55-1.30) Estimat Glomerular Filtration Rate > 60 mL/min (>60) Glucose Level 75 MG/DL (74-106) Calcium Level 8.2 MG/DL (8.5-10.1) L Phosphorus Level 4.9 MG/DL (2.5-4.9) Magnesium Level 1.7 MG/DL (1.8-2.4) L Iron Level 21 ug/dL (50-175) L Total Iron Binding Capacity 109 ug/dL (250-450) L Percent Iron Saturation 19 % (15-50) Unsaturated Iron Binding 88 ug/dL (112-346) L Ferritin 1254 NG/ML (8-388) H Total Bilirubin 1.0 MG/DL (0.2-1.0) Aspartate Amino Transf (AST/SGOT) 158 U/L (15-37) H Alanine Aminotransferase (ALT/SGPT) 74 U/L (12-78) Alkaline Phosphatase 255 U/L (46-116) H Total Protein 5.5 G/DL (6.4-8.2) L Albumin 1.9 G/DL (3.4-5.0) L Globulin 3.6 g/dL Albumin/Globulin Ratio 0.5 (1.0-2.7) L Vitamin B12 Level > 2000 PG/ML (193-986) H Folate 17.8 NG/ML (8.6-58.9) Thyroid Stimulating Hormone (TSH) 76.987 uiU/mL (0.358-3.740) Free Thyroxine 0.30 NG/DL (0.76-1.46) L Aspergillus flavus Antibody Pending Aspergillus fumigatus Antibody Pending Aspergillus niger Antibody Pending Arterial Blood pH 7.288 (7.350-7.450) Arterial Blood Partial Pressure CO2 49.2 mmHg (35.0-45.0) H Arterial Blood Partial Pressure O2 76.0 mmHg (75.0-100.0) Arterial Blood HCO3 23.0 mmol/L (22.0-26.0) Arterial Blood Oxygen Saturation 91.1 % (95-100) L Arterial Blood Base Excess -3.4 (-2-2) L William Test Positive Microbiology Date/Time Source Procedure Growth Status 10/17/18 11:55 Blood Blood Culture - Preliminary NO GROWTH AFTER 24 HOURS Resulted 10/17/18 11:40 Blood Blood Culture - Preliminary NO GROWTH AFTER 24 HOURS Resulted Indio Reis MD Oct 19, 2018 12:30
--- NOTE | 2018-10-19 13:09 | General Progress Note ---
Assessment/Plan Problem List: (1) Malnutrition ICD Codes: E46 - Unspecified protein-calorie malnutrition SNOMED: 04834779 (2) Decubital ulcer ICD Codes: L89.90 - Pressure ulcer of unspecified site, unspecified stage SNOMED: 458164903 (3) Anemia ICD Codes: D64.9 - Anemia, unspecified SNOMED: 876252792 (4) Acute respiratory failure ICD Codes: J96.00 - Acute respiratory failure, unspecified whether with hypoxia or hypercapnia SNOMED: 83389192 (5) Sepsis ICD Codes: A41.9 - Sepsis, unspecified organism SNOMED: 48361712 Qualifiers: Qualified Codes: A41.9 - Sepsis, unspecified organism (6) Pneumonia involving left lung ICD Codes: J18.9 - Pneumonia, unspecified organism SNOMED: 694565997 Qualifiers: Qualified Codes: J18.9 - Pneumonia, unspecified organism (7) Metastatic cancer ICD Codes: C79.9 - Secondary malignant neoplasm of unspecified site SNOMED: 107376690 Status: unchanged Assessment/Plan: vent abx pain control cbc bmp am Subjective Constitutional: Reports: weakness Allergies: Coded Allergies: No Known Allergies (Unverified , 10/17/18) All Systems: reviewed and negative except above Subjective intubated awake in icu Objective Last 24 Hour Vital Signs Date Time Temp Pulse Resp B/P (MAP) Pulse Ox O2 Delivery O2 Flow Rate FiO2 10/19/18 12:00 91 10/19/18 12:00 60 10/19/18 11:12 93 18 60 10/19/18 11:00 92 19 84/48 (60) 94 10/19/18 11:00 92 19 85/52 (63) 92 10/19/18 10:00 92 19 84/48 (60) 94 10/19/18 09:00 96.0 93 18 82/53 (63) 97 10/19/18 08:58 93 18 60 10/19/18 08:00 93 19 96/64 (75) 98 10/19/18 08:00 Mechanical Ventilator 10/19/18 08:00 60 10/19/18 07:51 83 10/19/18 07:10 91 19 60 10/19/18 07:00 90 18 89/61 (70) 99 10/19/18 06:11 97.4 10/19/18 06:00 92 19 92/59 (70) 98 10/19/18 05:29 94 25 60 65 10/19/18 05:00 95 22 100/61 (74) 96 10/19/18 04:00 60 10/19/18 04:00 Mechanical Ventilator 10/19/18 04:00 97.2 95 20 99/58 (72) 88 10/19/18 03:47 95 10/19/18 03:18 95 25 60 65 10/19/18 03:00 94 22 94/55 (68) 96 10/19/18 02:00 94 22 98/58 (71) 96 10/19/18 01:15 93 23 60 65 10/19/18 01:00 94 26 84/60 (68) 95 10/19/18 00:00 Mechanical Ventilator 10/19/18 00:00 96 10/19/18 00:00 60 10/19/18 00:00 97.3 96 27 81/64 (70) 93 10/18/18 23:18 95 33 60 65 10/18/18 23:00 96 28 89/67 (74) 94 10/18/18 22:00 96 32 90/72 (78) 94 10/18/18 21:20 98 31 60 65 10/18/18 21:00 99 33 90/68 (75) 96 10/18/18 20:00 60 10/18/18 20:00 97.5 96 33 90/68 (75) 98 10/18/18 20:00 Mechanical Ventilator 10/18/18 20:00 95 10/18/18 19:25 93 35 60 65 10/18/18 19:00 92 29 89/69 (76) 94 10/18/18 18:00 97.3 97 33 86/62 (70) 96 10/18/18 17:03 96 34 80/62 (68) 96 10/18/18 17:01 98 34 65 10/18/18 16:00 65 10/18/18 16:00 95 10/18/18 16:00 Mechanical Ventilator 10/18/18 16:00 93 32 91/65 (74) 92 10/18/18 15:19 94 37 65 10/18/18 15:00 96.5 93 32 83/61 (68) 92 10/18/18 14:01 89 31 92/60 (71) 88 Intake and Output 10/18/18 10/19/18 19:00 07:00 Intake Total 435.00 ml 0 ml Output Total 250 ml Balance 185.00 ml 0 ml Intake Oral 0 ml 0 ml IV Total 385.00 ml Other 50 ml Output Urine Total 250 ml Stool Total 0 ml # Voids 4 # Bowel Movements 2 Laboratory Tests 10/18/18 23:30: Vancomycin Level Trough 18.7H 10/19/18 04:20: White Blood Count 5.0#, Red Blood Count 2.15L, Hemoglobin 6.4*L, Hematocrit 20.0L, Mean Corpuscular Volume 93, Mean Corpuscular Hemoglobin 29.8, Mean Corpuscular Hemoglobin Concent 32.0, Red Cell Distribution Width 17.4H, Platelet Count 11L, Mean Platelet Volume 10.4H, Neutrophils (%) (Auto) , Lymphocytes (%) (Auto) , Monocytes (%) (Auto) , Eosinophils (%) (Auto) , Basophils (%) (Auto) , Differential Total Cells Counted 100, Neutrophils % ( Manual) 84H, Lymphocytes % (Manual) 4L, Monocytes % (Manual) 3, Eosinophils % ( Manual) 1, Basophils % (Manual) 0, Band Neutrophils 8, Nucleated Red Blood Cells 1, Platelet Estimate DecreasedL, Platelet Morphology Normal, Hypochromasia 4+, Anisocytosis 1+, Reticulocyte Count 4.4H, Prothrombin Time 17.2H, Prothromb Time International Ratio 1.7H, Activated Partial Thromboplast Time 35H, Sodium Level 131L, Potassium Level 5.1, Chloride Level 99, Carbon Dioxide Level 25, Anion Gap 7, Blood Urea Nitrogen 52H, Creatinine 1.1, Estimat Glomerular Filtration Rate > 60, Glucose Level 75, Calcium Level 8.2L, Phosphorus Level 4.9, Magnesium Level 1.7L, Iron Level 21L, Total Iron Binding Capacity 109L, Percent Iron Saturation 19, Unsaturated Iron Binding 88L, Ferritin 1254H, Total Bilirubin 1.0, Aspartate Amino Transf (AST/SGOT) 158H, Alanine Aminotransferase (ALT/SGPT) 74, Alkaline Phosphatase 255H, Total Protein 5.5L, Albumin 1.9L, Globulin 3.6, Albumin/Globulin Ratio 0.5L, Vitamin B12 Level > 2000H, Folate 17.8, Thyroid Stimulating Hormone (TSH) 76.987H, Free Thyroxine 0.30L, Aspergillus flavus Antibody [Pending], Aspergillus fumigatus Antibody [Pending], Aspergillus niger Antibody [Pending] 10/19/18 08:40: Arterial Blood pH 7.288L, Arterial Blood Partial Pressure CO2 49.2H, Arterial Blood Partial Pressure O2 76.0, Arterial Blood HCO3 23.0, Arterial Blood Oxygen Saturation 91.1L, Arterial Blood Base Excess -3.4L, William Test Positive Height (Feet): 5 Height (Inches): 8.00 Weight (Pounds): 120 General Appearance: lethargic EENT: normal ENT inspection Neck: normal alignment Cardiovascular: normal peripheral pulses, normal rate, regular rhythm Respiratory/Chest: chest wall non-tender, lungs clear, normal breath sounds Abdomen: normal bowel sounds, non tender, soft Extremities: normal inspection Edema: no edema noted Arm (L), no edema noted Arm (R), no edema noted Leg (L), no edema noted Leg (R), no edema noted Pedal (L), no edema noted Pedal (R), no edema noted Generalized Neurologic: motor weakness Skin: normal pigmentation, warm/dry Hans Rivera DO Oct 19, 2018 13:09
--- NOTE | 2018-10-19 13:13 | Infectious Diseases Prog Note ---
Assessment/Plan Assessment/Plan Abx: IV Vancomycin x1 10/17 Cefepime 10/17- Assessment: Acute hypercapnic respiratory failure s/p intubation 10/18 Sepsis - 2ry to PNA- r/o fungal, atypical -sp cx p Dyspnea-r/o interstitial lung disease -10/19 CXR: Heterogeneous extensive consolidative opacities bilaterally presumably due to pneumonia. Correlate clinically -10/18 CXR; Endotracheal tube and nasogastric tube in good position.Worsening bilateral infiltrates currently extensive -CTA chest: No PE. Limited at the left lung base due to motion. Prominent main pulmonary artery may be pulmonary arterial hypertension. Small bilateral pleural effusions, greater on the left. Pleural effusion along the right major fissure. Septal thickening of the left lung and right lower lung. Hazy lung opacities of the left lung in a mosaic pattern, may be edema or infiltrate, consider alveolar proteinosis. Mild honeycombing of the lung and right lung peripheral opacities. Maybe fibrosis, consider eosinophilic pneumonia. Numerous small nodules of the right lung. Right anterior rib 4 permeative lesion with pathologic fracture may be subacute. -CXR: Infiltrative changes in the left lung. Could be from pneumonia. Underlying lesion not excluded. 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 Generalized atrophy of the brain. Chronic small vessel disease involving periventricular white matter. Paranasal fracture may be old. Correlate clinically -HIV ab screen neg Elevated LFts -Abd US: No acute findings identified. metastatic colon on chemotherapy CHF Plan: -Continue empiric CEfepime #3 and IV Vancomycin #3 -Cont azithromycin #3 for atypicals -Cont Voriconazole #2 for fungal coverage -monitor Qtc, Lfts -f/u cx -Monitor CBC/BMP, temperatures -f/u sp cx, legionella ag urine, Cocci ab, CrAg am, Aspergillus ag serum -aspiration precautions -fungus sp cx Thank you for this consultation. Will continue to follow along with you. Discussed with RN. Subjective Allergies: Coded Allergies: No Known Allergies (Unverified , 10/17/18) Subjective afebrile leukocytosis resolved Bcx NTD sp cx p remains intubated Objective Vital Signs Last 24 Hour Vital Signs Date Time Temp Pulse Resp B/P (MAP) Pulse Ox O2 Delivery O2 Flow Rate FiO2 10/19/18 12:00 91 10/19/18 12:00 60 10/19/18 11:12 93 18 60 10/19/18 11:00 92 19 84/48 (60) 94 10/19/18 11:00 92 19 85/52 (63) 92 10/19/18 10:00 92 19 84/48 (60) 94 10/19/18 09:00 96.0 93 18 82/53 (63) 97 10/19/18 08:58 93 18 60 10/19/18 08:00 93 19 96/64 (75) 98 10/19/18 08:00 Mechanical Ventilator 10/19/18 08:00 60 10/19/18 07:51 83 10/19/18 07:10 91 19 60 10/19/18 07:00 90 18 89/61 (70) 99 10/19/18 06:11 97.4 10/19/18 06:00 92 19 92/59 (70) 98 10/19/18 05:29 94 25 60 65 10/19/18 05:00 95 22 100/61 (74) 96 10/19/18 04:00 60 10/19/18 04:00 Mechanical Ventilator 10/19/18 04:00 97.2 95 20 99/58 (72) 88 10/19/18 03:47 95 10/19/18 03:18 95 25 60 65 10/19/18 03:00 94 22 94/55 (68) 96 10/19/18 02:00 94 22 98/58 (71) 96 10/19/18 01:15 93 23 60 65 10/19/18 01:00 94 26 84/60 (68) 95 10/19/18 00:00 Mechanical Ventilator 10/19/18 00:00 96 10/19/18 00:00 60 10/19/18 00:00 97.3 96 27 81/64 (70) 93 10/18/18 23:18 95 33 60 65 10/18/18 23:00 96 28 89/67 (74) 94 10/18/18 22:00 96 32 90/72 (78) 94 10/18/18 21:20 98 31 60 65 10/18/18 21:00 99 33 90/68 (75) 96 10/18/18 20:00 60 10/18/18 20:00 97.5 96 33 90/68 (75) 98 10/18/18 20:00 Mechanical Ventilator 10/18/18 20:00 95 10/18/18 19:25 93 35 60 65 10/18/18 19:00 92 29 89/69 (76) 94 10/18/18 18:00 97.3 97 33 86/62 (70) 96 10/18/18 17:03 96 34 80/62 (68) 96 10/18/18 17:01 98 34 65 10/18/18 16:00 65 10/18/18 16:00 95 10/18/18 16:00 Mechanical Ventilator 10/18/18 16:00 93 32 91/65 (74) 92 10/18/18 15:19 94 37 65 10/18/18 15:00 96.5 93 32 83/61 (68) 92 10/18/18 14:01 89 31 92/60 (71) 88 Height (Feet): 5 Height (Inches): 8.00 Weight (Pounds): 120 Objective General Appearance: alert, moderate distress, cachetic Head: normocephalic, atraumatic Eyes: bilateral eye PERRL, bilateral eye EOMI ENT: uvula midline, dry mucus membranes Neck: supple, thyroid normal, supple/symm/no masses Respiratory: respiratory distress, decreased breath sounds - left side, accessory muscle use Cardiovascular #1: normal peripheral pulses, regular rate, rhythm, no edema, no gallop, no murmur Gastrointestinal: non tender, soft, no guarding, no rebound, other - Ostomy bag present Musculoskeletal: normal inspection Neurologic: alert, oriented x3 Psychiatric: mood/affect normal Skin: warm/dry, other - Sacral ulcer stage I Microbiology Date/Time Source Procedure Growth Status 10/17/18 11:55 Blood Blood Culture - Preliminary NO GROWTH AFTER 24 HOURS Resulted 10/17/18 11:40 Blood Blood Culture - Preliminary NO GROWTH AFTER 24 HOURS Resulted Laboratory Tests Test 10/18/18 23:30 10/19/18 04:20 10/19/18 08:40 Vancomycin Level Trough 18.7 ug/mL (5.0-12.0) H White Blood Count 5.0 K/UL (4.8-10.8) # Red Blood Count 2.15 M/UL (4.70-6.10) L Hemoglobin 6.4 G/DL (14.2-18.0) *L Hematocrit 20.0 % (42.0-52.0) L Mean Corpuscular Volume 93 FL (80-99) Mean Corpuscular Hemoglobin 29.8 PG (27.0-31.0) Mean Corpuscular Hemoglobin Concent 32.0 G/DL (32.0-36.0) Red Cell Distribution Width 17.4 % (11.6-14.8) H Platelet Count 11 K/UL (150-450) L Mean Platelet Volume 10.4 FL (6.5-10.1) H Neutrophils (%) (Auto) % (45.0-75.0) Lymphocytes (%) (Auto) % (20.0-45.0) Monocytes (%) (Auto) % (1.0-10.0) Eosinophils (%) (Auto) % (0.0-3.0) Basophils (%) (Auto) % (0.0-2.0) Differential Total Cells Counted 100 Neutrophils % (Manual) 84 % (45-75) H Lymphocytes % (Manual) 4 % (20-45) L Monocytes % (Manual) 3 % (1-10) Eosinophils % (Manual) 1 % (0-3) Basophils % (Manual) 0 % (0-2) Band Neutrophils 8 % (0-8) Nucleated Red Blood Cells 1 /100 WBC Platelet Estimate Decreased L Platelet Morphology Normal Hypochromasia 4+ Anisocytosis 1+ Reticulocyte Count 4.4 % (0.5-2.0) H Prothrombin Time 17.2 SEC (9.30-11.50) H Prothromb Time International Ratio 1.7 (0.9-1.1) H Activated Partial Thromboplast Time 35 SEC (23-33) H Sodium Level 131 MMOL/L (136-145) L Potassium Level 5.1 MMOL/L (3.5-5.1) Chloride Level 99 MMOL/L (98-107) Carbon Dioxide Level 25 MMOL/L (21-32) Anion Gap 7 mmol/L (5-15) Blood Urea Nitrogen 52 mg/dL (7-18) H Creatinine 1.1 MG/DL (0.55-1.30) Estimat Glomerular Filtration Rate > 60 mL/min (>60) Glucose Level 75 MG/DL (74-106) Calcium Level 8.2 MG/DL (8.5-10.1) L Phosphorus Level 4.9 MG/DL (2.5-4.9) Magnesium Level 1.7 MG/DL (1.8-2.4) L Iron Level 21 ug/dL (50-175) L Total Iron Binding Capacity 109 ug/dL (250-450) L Percent Iron Saturation 19 % (15-50) Unsaturated Iron Binding 88 ug/dL (112-346) L Ferritin 1254 NG/ML (8-388) H Total Bilirubin 1.0 MG/DL (0.2-1.0) Aspartate Amino Transf (AST/SGOT) 158 U/L (15-37) H Alanine Aminotransferase (ALT/SGPT) 74 U/L (12-78) Alkaline Phosphatase 255 U/L (46-116) H Total Protein 5.5 G/DL (6.4-8.2) L Albumin 1.9 G/DL (3.4-5.0) L Globulin 3.6 g/dL Albumin/Globulin Ratio 0.5 (1.0-2.7) L Vitamin B12 Level > 2000 PG/ML (193-986) H Folate 17.8 NG/ML (8.6-58.9) Thyroid Stimulating Hormone (TSH) 76.987 uiU/mL (0.358-3.740) Free Thyroxine 0.30 NG/DL (0.76-1.46) L Aspergillus flavus Antibody Pending Aspergillus fumigatus Antibody Pending Aspergillus niger Antibody Pending Arterial Blood pH 7.288 (7.350-7.450) Arterial Blood Partial Pressure CO2 49.2 mmHg (35.0-45.0) H Arterial Blood Partial Pressure O2 76.0 mmHg (75.0-100.0) Arterial Blood HCO3 23.0 mmol/L (22.0-26.0) Arterial Blood Oxygen Saturation 91.1 % (95-100) L Arterial Blood Base Excess -3.4 (-2-2) L William Test Positive Current Medications Medications (Trade) Dose Ordered Sig/Onelia Route PRN Reason Start Time Stop Time Status Last Admin Dose Admin Acetaminophen (Tylenol) 650 mg Q4H PRN ORAL FEVER 10/18/18 09:45 11/16/18 17:44 Acetaminophen/ Hydrocodone Bitart ([place] ) 1 tab Q6H PRN ORAL For Pain 10/18/18 19:45 10/25/18 19:44 10/19/18 05:41 Albuterol/ Ipratropium (Albuterol/ Ipratropium) 3 ml Q4H PRN HHN Shortness of Breath 10/18/18 09:45 10/22/18 17:44 Azithromycin (Zithromax) 500 mg DAILY ORAL 10/19/18 09:00 10/24/18 16:59 10/19/18 08:47 Cefepime HCl 2 gm/ Dextrose 110 ml @ 220 mls/hr EVERY 12 HOURS IV 10/18/18 21:00 10/24/18 20:59 10/19/18 08:47 Dextrose (Dextrose 50%) 25 ml Q30M PRN IV Hypoglycemia 10/18/18 09:45 11/16/18 17:44 Dextrose (Dextrose 50%) 50 ml Q30M PRN IV Hypoglycemia 10/18/18 09:45 11/16/18 17:44 Diatrizoate Meglum/ Diatrizoate Sod (Gastrografin) 60 ml NOW PRN RECTAL Radiology Procedure 10/18/18 13:00 10/20/18 12:49 Iopamidol (Isovue-300 100ml) 100 ml NOW PRN INJ Radiology Procedure 10/18/18 13:00 10/20/18 12:59 Lorazepam (Ativan 2mg/ml 1ml) 2 mg Q4H PRN IV For Anxiety 10/18/18 10:45 10/25/18 10:44 Ondansetron HCl (Zofran) 4 mg Q6H PRN IVP Nausea & Vomiting 10/18/18 09:45 11/16/18 09:44 Pantoprazole (Protonix) 40 mg DAILY IV 10/19/18 09:00 11/18/18 08:59 10/19/18 08:47 Polyethylene Glycol (Miralax) 17 gm DAILYPRN PRN ORAL Constipation 10/18/18 09:30 11/16/18 09:29 Vancomycin HCl (Vanco rx to dose) 1 ea DAILY PRN MISC Per rx protocol 10/19/18 09:00 11/16/18 16:59 Vancomycin HCl 750 mg/Dextrose 275 ml @ 183.333 mls/hr Q12H IVPB 10/18/18 12:30 10/23/18 00:29 10/19/18 12:04 Voriconazole (Vfend) 200 mg EVERY 12 HOURS ORAL 10/18/18 13:45 10/25/18 13:44 10/19/18 08:47 Kaye Butcher M.D. Oct 19, 2018 13:13
--- NOTE | 2018-10-19 13:14 | NUR ---
NURSE NOTES: Sister and family friend still at bedside. Cleaned pt for wet sheet with urine. Turned and repositioned pt. Pt helps to turn but weak. Alert and oriented x4. Dr Rivera came to assess the patient. Updated him with pt's current condition. No new orders. Will continue to monitor.
--- NOTE | 2018-10-19 13:15 | NUR ---
NURSE NOTES: Dr Elam ordered to start blood transfusion that he ordered earlier today. Will carry out the orders.
--- NOTE | 2018-10-19 14:20 | NUR ---
NURSE NOTES: Platelet transfusion started. Co-signed with Emelyn Pacheco RN. Pre-transfusion temp 96.2. BP 90/49, HR 90. Friend at bedside. Will continue to monitor.
--- NOTE | 2018-10-19 15:54 | NUR ---
Social Work This SW met with patient who is currently intubated, while also appears alert/oriented (responding with facial gestures). Friend at bedside providing support, who explains patients sister, Sunshine ([phone]), primary decision maker for patient is out of town and planning to be here by tomorrow. Patient was living alone and performed most of his own ADLs, ambulatory with cane. Patient does not drive and has support from family (sisters). Patient was receiving wound care daily with home health care (unsure which one). Pending progress; patient is currently full code, full treatment. Prognosis is poor, per reports from nursing and Physician, with comfort measures recommended. Pending progress and further recommendations at this time. Emotional support provided to patient.
--- NOTE | 2018-10-19 16:27 | NUR ---
NURSE NOTES: Platelet transfusion ended. Post transfusion temp 96.1, HR 90, BP 89/55. No adverse transfusion reaction noted. Pt is sleeping in bed.
--- NOTE | 2018-10-19 16:40 | Hematology/Onc Progress Note ---
Assessment/Plan Assessment/Plan Assessment and Recs: # Metastatic colon cancer - per initial record review, has been getting in the past radiation and now on chemo at [facility] [place] --> outside records were reviewed --> imaging was reviewed on admission Ct shows mediastinal adenopathy, with extensive pulmonary infiltrate, with left groundglass opacification, and patchy reticular densities bilaterally --> gi and surgery have both evaluated him --> poor prognosis and family is aware, pending potential extubation after family sees him # Thrombocytopenia - potential causes multifactorial, in this case is most likely related to the use of chemotherapeutic agents --> Hep panel and HIV and results is negative --> US abd does show e/o fatty liver --> Peripheral smear ordered to evaluate for blasts /schistocytes and none noted --> abx and other meds have been reviewed --> ok for ppx if plt >50k w/ either heparin or lovenox --> Transfuse if Plt < 20k and fever, or if Plt < 10k without fever --> plt trend 18k-->11k-->11k # Respiratory distress with severe tumor burden --> is s/p intubation on 10/18 --> per pulm/cc recs # Pneumonia involving left lung --> on abx iv # Chest pain due to malignancy and reps failure --> trop neg The timing of this note does not necessarily reflect the time of the patient was seen. GREATLY APPRECIATE CONSULTATION. Subjective Allergies: Coded Allergies: No Known Allergies (Unverified , 10/17/18) Subjective 10/19: intubated, awaiting arrival of sister, goals of care were dw family per rn Objective Objective Current Medications Medications (Trade) Dose Ordered Sig/Onelia Route PRN Reason Start Time Stop Time Status Last Admin Dose Admin Acetaminophen (Tylenol) 650 mg Q4H PRN ORAL FEVER 10/18/18 09:45 11/16/18 17:44 Acetaminophen/ Hydrocodone Bitart ([place] 10/325) 1 tab Q6H PRN ORAL For Pain 10/18/18 19:45 10/25/18 19:44 10/19/18 05:41 Albuterol/ Ipratropium (Albuterol/ Ipratropium) 3 ml Q4H PRN HHN Shortness of Breath 10/18/18 09:45 10/22/18 17:44 Azithromycin (Zithromax) 500 mg DAILY ORAL 10/19/18 09:00 10/24/18 16:59 10/19/18 08:47 Cefepime HCl 2 gm/ Dextrose 110 ml @ 220 mls/hr EVERY 12 HOURS IV 10/18/18 21:00 10/24/18 20:59 10/19/18 08:47 Dextrose (Dextrose 50%) 25 ml Q30M PRN IV Hypoglycemia 10/18/18 09:45 11/16/18 17:44 Dextrose (Dextrose 50%) 50 ml Q30M PRN IV Hypoglycemia 10/18/18 09:45 11/16/18 17:44 Diatrizoate Meglum/ Diatrizoate Sod (Gastrografin) 60 ml NOW PRN RECTAL Radiology Procedure 10/18/18 13:00 10/20/18 12:49 Iopamidol (Isovue-300 100ml) 100 ml NOW PRN INJ Radiology Procedure 10/18/18 13:00 10/20/18 12:59 Lorazepam (Ativan 2mg/ml 1ml) 2 mg Q4H PRN IV For Anxiety 10/18/18 10:45 10/25/18 10:44 Ondansetron HCl (Zofran) 4 mg Q6H PRN IVP Nausea & Vomiting 10/18/18 09:45 11/16/18 09:44 Pantoprazole (Protonix) 40 mg DAILY IV 10/19/18 09:00 11/18/18 08:59 10/19/18 08:47 Polyethylene Glycol (Miralax) 17 gm DAILYPRN PRN ORAL Constipation 10/18/18 09:30 11/16/18 09:29 Vancomycin HCl (Vanco rx to dose) 1 ea DAILY PRN MISC Per rx protocol 10/19/18 09:00 11/16/18 16:59 Vancomycin HCl 750 mg/Dextrose 275 ml @ 183.333 mls/hr Q12H IVPB 10/18/18 12:30 10/23/18 00:29 10/19/18 12:04 Voriconazole (Vfend) 200 mg EVERY 12 HOURS ORAL 10/18/18 13:45 10/25/18 13:44 10/19/18 08:47 Last 24 Hour Vital Signs Date Time Temp Pulse Resp B/P (MAP) Pulse Ox O2 Delivery O2 Flow Rate FiO2 10/19/18 15:07 89 20 60 10/19/18 15:00 90 20 95/54 (68) 77 10/19/18 14:00 89 19 90/49 (63) 99 10/19/18 13:02 89 21 60 10/19/18 13:00 89 17 83/53 (63) 97 10/19/18 12:00 Mechanical Ventilator 10/19/18 12:00 96.6 91 19 85/61 (69) 94 10/19/18 12:00 91 10/19/18 12:00 60 10/19/18 11:12 93 18 60 10/19/18 11:00 92 19 84/48 (60) 94 10/19/18 11:00 92 19 85/52 (63) 92 10/19/18 10:00 92 19 84/48 (60) 94 10/19/18 09:00 96.0 93 18 82/53 (63) 97 10/19/18 08:58 93 18 60 10/19/18 08:00 93 19 96/64 (75) 98 10/19/18 08:00 Mechanical Ventilator 10/19/18 08:00 60 10/19/18 07:51 83 10/19/18 07:10 91 19 60 10/19/18 07:00 90 18 89/61 (70) 99 10/19/18 06:11 97.4 10/19/18 06:00 92 19 92/59 (70) 98 10/19/18 05:29 94 25 60 65 10/19/18 05:00 95 22 100/61 (74) 96 10/19/18 04:00 60 10/19/18 04:00 Mechanical Ventilator 10/19/18 04:00 97.2 95 20 99/58 (72) 88 10/19/18 03:47 95 10/19/18 03:18 95 25 60 65 10/19/18 03:00 94 22 94/55 (68) 96 10/19/18 02:00 94 22 98/58 (71) 96 10/19/18 01:15 93 23 60 65 10/19/18 01:00 94 26 84/60 (68) 95 10/19/18 00:00 Mechanical Ventilator 10/19/18 00:00 96 10/19/18 00:00 60 10/19/18 00:00 97.3 96 27 81/64 (70) 93 10/18/18 23:18 95 33 60 65 10/18/18 23:00 96 28 89/67 (74) 94 10/18/18 22:00 96 32 90/72 (78) 94 10/18/18 21:20 98 31 60 65 10/18/18 21:00 99 33 90/68 (75) 96 10/18/18 20:00 60 10/18/18 20:00 97.5 96 33 90/68 (75) 98 10/18/18 20:00 Mechanical Ventilator 10/18/18 20:00 95 10/18/18 19:25 93 35 60 65 10/18/18 19:00 92 29 89/69 (76) 94 10/18/18 18:00 97.3 97 33 86/62 (70) 96 10/18/18 17:03 96 34 80/62 (68) 96 10/18/18 17:01 98 34 65 10/18/18 16:00 65 10/18/18 16:00 95 10/18/18 16:00 Mechanical Ventilator 10/18/18 16:00 93 32 91/65 (74) 92 10/18/18 15:19 94 37 65 10/18/18 15:00 96.5 93 32 83/61 (68) 92 10/18/18 14:01 89 31 92/60 (71) 88 10/18/18 13:00 93.5 87 33 83/69 (74) 91 10/18/18 12:40 86 30 65 10/18/18 12:00 65 10/18/18 12:00 82 28 98/74 (82) 93 10/18/18 12:00 Mechanical Ventilator 10/18/18 12:00 82 10/18/18 11:02 72 30 65 10/18/18 11:00 85 27 107/83 (91) 94 10/18/18 10:00 86 21 124/89 (101) 100 10/18/18 09:05 69 18 100 10/18/18 09:00 Mechanical Ventilator 10/18/18 09:00 86 15 106/87 (93) 100 10/18/18 09:00 100 10/18/18 08:57 86 8/5/19 08:34 81 23 92 Facial 100 10/18/18 08:01 30 10/18/18 08:00 98.0 59 19 100/56 (71) 93 84 10/18/18 08:00 76 10/18/18 08:00 Bi-pap 10/18/18 07:15 76 25 92 Facial 100 10/18/18 05:14 56 26 93 Bi-Pap 100 10/18/18 05:10 100 10/18/18 05:06 73 23 90 Facial 100 10/18/18 05:06 73 18 90 Bi-Pap 100 10/18/18 04:00 Bi-pap 10/18/18 04:00 84 26 115/83 (94) 92 84 10/18/18 04:00 30 10/18/18 04:00 69 10/18/18 03:12 85 28 95 Facial 80 10/18/18 02:00 95.2 60 22 106/69 (81) 91 10/18/18 01:01 70 30 91 Facial 80 10/18/18 00:00 66 10/18/18 00:00 30 10/18/18 00:00 Bi-pap 10/18/18 00:00 92.8 55 22 125/76 (92) 95 10/17/18 22:48 61 31 95 Bi-Pap 60 10/17/18 22:39 57 32 90 Facial 60 10/17/18 22:37 60 10/17/18 22:30 63 18 90 Bi-Pap 60 10/17/18 22:00 97.2 95 27 122/80 (94) 93 10/17/18 21:07 71 29 94 Facial 60 10/17/18 20:00 72 27 96 Facial 60 10/17/18 20:00 30 10/17/18 20:00 Bi-pap 10/17/18 20:00 72 27 96 Bi-Pap 60 10/17/18 20:00 71 10/17/18 19:00 95.6 105 24 108/70 (83) 98 10/17/18 19:00 Bi-pap 10/17/18 18:42 77 10/17/18 18:20 95.9 76 20 131/73 (92) 95 10/17/18 18:15 97.6 110 20 135/76 100 60 10/17/18 17:59 98.0 105 17 123/70 100 60 10/17/18 17:39 60 10/17/18 17:22 102 24 99 Facial 60 10/17/18 17:15 97.7 107 20 10/17/18 17:00 96.5 119 17 Intake and Output 10/18/18 10/19/18 18:59 06:59 Intake Total 435.00 ml 0 ml Output Total 250 ml 0 ml Balance 185.00 ml 0 ml Intake Oral 0 ml 0 ml IV Total 385.00 ml Other 50 ml Output Urine Total 250 ml Stool Total 0 ml # Voids 4 # Bowel Movements 2 Labs Test 10/17/18 11:45 10/17/18 12:00 10/17/18 12:14 10/17/18 12:25 Prothrombin Time 13.4 SEC (9.30-11.50) Prothromb Time International Ratio 1.3 (0.9-1.1) Activated Partial Thromboplast Time 31 SEC (23-33) Sodium Level 130 MMOL/L (136-145) Potassium Level 4.0 MMOL/L (3.5-5.1) Chloride Level 96 MMOL/L (98-107) Carbon Dioxide Level 28 MMOL/L (21-32) Anion Gap 6 mmol/L (5-15) Blood Urea Nitrogen 26 mg/dL (7-18) Creatinine 0.9 MG/DL (0.55-1.30) Estimat Glomerular Filtration Rate > 60 mL/min (>60) Glucose Level 97 MG/DL (74-106) Lactic Acid Level 1.80 mmol/L (0.4-2.0) Calcium Level 9.4 MG/DL (8.5-10.1) Phosphorus Level 3.7 MG/DL (2.5-4.9) Magnesium Level 1.8 MG/DL (1.8-2.4) Total Bilirubin 0.9 MG/DL (0.2-1.0) Aspartate Amino Transf (AST/SGOT) 31 U/L (15-37) Alanine Aminotransferase (ALT/SGPT) 14 U/L (12-78) Alkaline Phosphatase 324 U/L (46-116) Total Creatine Kinase 34 U/L (26-308) Creatine Kinase MB 1.7 NG/ML (0.0-3.6) Creatine Kinase MB Relative Index 5.0 Troponin I 0.047 ng/mL (0.000-0.056) Pro-B-Type Natriuretic Peptide 47271 pg/mL (0-125) Total Protein 6.5 G/DL (6.4-8.2) Albumin 2.3 G/DL (3.4-5.0) Globulin 4.2 g/dL Albumin/Globulin Ratio 0.5 (1.0-2.7) Lipase 41 U/L (73-393) White Blood Count 13.9 K/UL (4.8-10.8) Red Blood Count 2.44 M/UL (4.70-6.10) Hemoglobin 7.2 G/DL (14.2-18.0) Hematocrit 22.5 % (42.0-52.0) Mean Corpuscular Volume 92 FL (80-99) Mean Corpuscular Hemoglobin 29.4 PG (27.0-31.0) Mean Corpuscular Hemoglobin Concent 31.9 G/DL (32.0-36.0) Red Cell Distribution Width 18.3 % (11.6-14.8) Platelet Count 18 K/UL (150-450) Mean Platelet Volume 8.0 FL (6.5-10.1) Neutrophils (%) (Auto) % (45.0-75.0) Lymphocytes (%) (Auto) % (20.0-45.0) Monocytes (%) (Auto) % (1.0-10.0) Eosinophils (%) (Auto) % (0.0-3.0) Basophils (%) (Auto) % (0.0-2.0) Differential Total Cells Counted 100 Neutrophils % (Manual) 92 % (45-75) Lymphocytes % (Manual) 3 % (20-45) Monocytes % (Manual) 5 % (1-10) Eosinophils % (Manual) 0 % (0-3) Basophils % (Manual) 0 % (0-2) Band Neutrophils 0 % (0-8) Platelet Estimate Decreased Platelet Morphology Normal Hypochromasia 2+ Anisocytosis 1+ Arterial Blood pH 7.479 (7.350-7.450) Arterial Blood Partial Pressure CO2 32.0 mmHg (35.0-45.0) Arterial Blood Partial Pressure O2 198.9 mmHg (75.0-100.0) Arterial Blood HCO3 23.2 mmol/L (22.0-26.0) Arterial Blood Oxygen Saturation 99.1 % (95-100) Arterial Blood Base Excess -0.1 (-2-2) William Test Positive Urine Color Yellow Urine Appearance Clear Urine pH 6 (4.5-8.0) Urine Specific [place] 1.015 (1.005-1.035) Urine Protein Negative (NEGATIVE) Urine Glucose (UA) Negative (NEGATIVE) Urine Ketones Negative (NEGATIVE) Urine Blood 1+ (NEGATIVE) Urine Nitrite Negative (NEGATIVE) Urine Bilirubin Negative (NEGATIVE) Urine Urobilinogen Normal MG/DL (0.0-1.0) Urine Leukocyte Esterase Negative (NEGATIVE) Urine RBC 0-2 /HPF (0 - 0) Urine WBC 0 /HPF (0 - 0) Urine Squamous Epithelial Cells Occasional /LPF Urine Bacteria Occasional /HPF (NONE) Test 10/18/18 03:00 10/18/18 03:02 10/18/18 08:14 10/18/18 10:17 White Blood Count 11.6 K/UL (4.8-10.8) Red Blood Count 2.60 M/UL (4.70-6.10) Hemoglobin 7.8 G/DL (14.2-18.0) Hematocrit 24.7 % (42.0-52.0) Mean Corpuscular Volume 95 FL (80-99) Mean Corpuscular Hemoglobin 30.0 PG (27.0-31.0) Mean Corpuscular Hemoglobin Concent 31.6 G/DL (32.0-36.0) Red Cell Distribution Width 17.1 % (11.6-14.8) Platelet Count 11 K/UL (150-450) Mean Platelet Volume 7.8 FL (6.5-10.1) Neutrophils (%) (Auto) % (45.0-75.0) Lymphocytes (%) (Auto) % (20.0-45.0) Monocytes (%) (Auto) % (1.0-10.0) Eosinophils (%) (Auto) % (0.0-3.0) Basophils (%) (Auto) % (0.0-2.0) Sodium Level 132 MMOL/L (136-145) Potassium Level 4.7 MMOL/L (3.5-5.1) Chloride Level 98 MMOL/L (98-107) Carbon Dioxide Level 26 MMOL/L (21-32) Anion Gap 8 mmol/L (5-15) Blood Urea Nitrogen 33 mg/dL (7-18) Creatinine 0.8 MG/DL (0.55-1.30) Estimat Glomerular Filtration Rate > 60 mL/min (>60) Glucose Level 119 MG/DL (74-106) Calcium Level 8.8 MG/DL (8.5-10.1) Phosphorus Level 5.9 MG/DL (2.5-4.9) Albumin 2.0 G/DL (3.4-5.0) HIV (1&2) Antibody Rapid Negative (NEGATIVE) Hepatitis A IgM Antibody Negative (Negative) Hepatitis B Surface Antigen Negative (Negative) Hepatitis B Core IgM Antibody Negative (Negative) Hepatitis C Antibody <0.1 s/co ratio Arterial Blood pH 6.979 (7.350-7.450) 7.136 (7.350-7.450) Arterial Blood Partial Pressure CO2 136.6 mmHg (35.0-45.0) 74.9 mmHg (35.0-45.0) Arterial Blood Partial Pressure O2 87.4 mmHg (75.0-100.0) 115.9 mmHg (75.0-100.0) Arterial Blood HCO3 31.4 mmol/L (22.0-26.0) 24.7 mmol/L (22.0-26.0) Arterial Blood Oxygen Saturation 89.6 % (95-100) 96.9 % (95-100) Arterial Blood Base Excess -1.7 (-2-2) -4.8 (-2-2) William Test Positive Positive Test 10/18/18 23:30 10/19/18 04:20 10/19/18 08:40 Vancomycin Level Trough 18.7 ug/mL (5.0-12.0) White Blood Count 5.0 K/UL (4.8-10.8) Red Blood Count 2.15 M/UL (4.70-6.10) Hemoglobin 6.4 G/DL (14.2-18.0) Hematocrit 20.0 % (42.0-52.0) Mean Corpuscular Volume 93 FL (80-99) Mean Corpuscular Hemoglobin 29.8 PG (27.0-31.0) Mean Corpuscular Hemoglobin Concent 32.0 G/DL (32.0-36.0) Red Cell Distribution Width 17.4 % (11.6-14.8) Platelet Count 11 K/UL (150-450) Mean Platelet Volume 10.4 FL (6.5-10.1) Neutrophils (%) (Auto) % (45.0-75.0) Lymphocytes (%) (Auto) % (20.0-45.0) Monocytes (%) (Auto) % (1.0-10.0) Eosinophils (%) (Auto) % (0.0-3.0) Basophils (%) (Auto) % (0.0-2.0) Differential Total Cells Counted 100 Neutrophils % (Manual) 84 % (45-75) Lymphocytes % (Manual) 4 % (20-45) Monocytes % (Manual) 3 % (1-10) Eosinophils % (Manual) 1 % (0-3) Basophils % (Manual) 0 % (0-2) Band Neutrophils 8 % (0-8) Nucleated Red Blood Cells 1 /100 WBC Platelet Estimate Decreased Platelet Morphology Normal Hypochromasia 4+ Anisocytosis 1+ Reticulocyte Count 4.4 % (0.5-2.0) Prothrombin Time 17.2 SEC (9.30-11.50) Prothromb Time International Ratio 1.7 (0.9-1.1) Activated Partial Thromboplast Time 35 SEC (23-33) Sodium Level 131 MMOL/L (136-145) Potassium Level 5.1 MMOL/L (3.5-5.1) Chloride Level 99 MMOL/L (98-107) Carbon Dioxide Level 25 MMOL/L (21-32) Anion Gap 7 mmol/L (5-15) Blood Urea Nitrogen 52 mg/dL (7-18) Creatinine 1.1 MG/DL (0.55-1.30) Estimat Glomerular Filtration Rate > 60 mL/min (>60) Glucose Level 75 MG/DL (74-106) Calcium Level 8.2 MG/DL (8.5-10.1) Phosphorus Level 4.9 MG/DL (2.5-4.9) Magnesium Level 1.7 MG/DL (1.8-2.4) Iron Level 21 ug/dL (50-175) Total Iron Binding Capacity 109 ug/dL (250-450) Percent Iron Saturation 19 % (15-50) Unsaturated Iron Binding 88 ug/dL (112-346) Ferritin 1254 NG/ML (8-388) Total Bilirubin 1.0 MG/DL (0.2-1.0) Aspartate Amino Transf (AST/SGOT) 158 U/L (15-37) Alanine Aminotransferase (ALT/SGPT) 74 U/L (12-78) Alkaline Phosphatase 255 U/L (46-116) Total Protein 5.5 G/DL (6.4-8.2) Albumin 1.9 G/DL (3.4-5.0) Globulin 3.6 g/dL Albumin/Globulin Ratio 0.5 (1.0-2.7) Vitamin B12 Level > 2000 PG/ML (193-986) Folate 17.8 NG/ML (8.6-58.9) Thyroid Stimulating Hormone (TSH) 76.987 uiU/mL (0.358-3.740) Free Thyroxine 0.30 NG/DL (0.76-1.46) Arterial Blood pH 7.288 (7.350-7.450) Arterial Blood Partial Pressure CO2 49.2 mmHg (35.0-45.0) Arterial Blood Partial Pressure O2 76.0 mmHg (75.0-100.0) Arterial Blood HCO3 23.0 mmol/L (22.0-26.0) Arterial Blood Oxygen Saturation 91.1 % (95-100) Arterial Blood Base Excess -3.4 (-2-2) William Test Positive Height (Feet): 5 Height (Inches): 8.00 Weight (Pounds): 120 Objective Vital Signs reviewed General: no apparent distress Chest: intubated, normocephalic HEENT: normal ENT inspection Respiratory: on vent, decreased bss Gastrointestinal: ngt Robert Elam MD Oct 19, 2018 16:40
--- NOTE | 2018-10-19 16:50 | NUR ---
NURSE NOTES: 1st unit of pRBC started. Co-signed with DELORIS Cardenas. Pre-transfusion temp 96.1, HR 87, BP 86/53. Will continue to monitor.
--- NOTE | 2018-10-19 18:57 | Cardiology Report ---
APPROVED REPORT EXAM: Two-dimensional and M-mode echocardiogram with Doppler and color Doppler. INDICATION ATRIOVENTRICULAR BLOCK M-Mode DIMENSIONS IVSd1.2 (0.7-1.1cm)Left Atrium (MM)2.4 (1.6-4.0cm) LVDd4.6 (3.5-5.6cm)Aortic Root4.2 (2.0-3.7cm) PWd1.0 (0.7-1.1cm)Aortic Cusp Exc.2.0 (1.5-2.0cm) IVSs1.5 cm LVDs3.0 (2.5-4.0cm) PWs1.0 cm Technically difficult study due to pt's postion . Normal left ventricular chamber size, systolic function Systolic and diastolic flattening of the septum relted to RV pressure overload Left ventricular ejection fraction estimated to be 55-60%. No evidence of left ventricular hypertrophy. RV hypokinetic and dilated No evidence of pericardial effusion. All other cardiac chamber sizes are within normal limits. Aortic valve calcification with normal cusp excursion . Mildly thickened mitral valve leaflets with normal excursion. Mild mitral annulus and aortic root calcification. Pulmonic valve not well visualized. IVC at normal size without physiologic collapse. A color flow and spectral Doppler study was performed and revealed: No aortic insufficiency . Mitral inflow velocities indicates possible pseudo normalization pattern implying moderately elevated left atrial pressure (Grade II ) Trace mitral regurgitation. Mild to moderate tricuspid regurgitation. Tricuspid systolic velocities suggests peak right ventricular systolic pressure of 74mmHg,cosistent with severe pulomonary HTN . Mild pulominc regurgitation message sent to ordering physician 18:55 10/19/2018.
--- NOTE | 2018-10-19 19:05 | NUR ---
HAND-OFF: Report given to Duarte aGrcia RN.
--- NOTE | 2018-10-19 19:05 | NUR ---
RESPIRATORY NOTE: Received pt on AC 16, 500VT, 60%, PEEP +5. Pt intubated w/ ETT 8.0 @ 24cm lipline, secured by anchorfast. Pt alert/awake, follows commands. No hands restraints as pt is cooperive, knows not to touch tubings. B/S carlos eduardo. rhonchi-diminished, sxn minimal amounts of thin, bloody secretions. Vent plugged into red outlet, ambubag at bedside. Pt resting comfortably, in no apparent distress at this time. Will continue to monitor pt.
--- NOTE | 2018-10-19 19:50 | NUR ---
NURSE NOTES: PATIENT RESPONSE TO NAME, ALERT, ORIENTED, ON ETT TO VENT, AC16/ TV 500/ FIO2 60%/ PEEP 5, O2 SATURATION OVER 96% NOTED, OGT INTACT AND PATENT, KEPT NPO, ABDOMEN FLAT AND NON TENDER, COLOSTOMY TO LLQ, PERIPHERAL LINE TO LEFT FA, RIGHT FA AND RIGHT WRIST, INTACT AND PATENT, ONGOING PRBC BLOOD TRANSFUSION VIA RT FA SITE, NO SIDE REACTION NOTED, MADE LOWER BED POSITION, ON P200 BED WITH ON BED ALARM, PROVIDED CALL LIGHT WITHIN REACH, WILL CONTINUE TO MONITOR.
--- NOTE | 2018-10-19 20:03 | NUR ---
NURSE NOTES: FINISHED 2-1, 1 UNIT PRBC ([id number]) BLOOD TRANSFUSION, NO SIDE REACTION NOTED AT THIS TIME.
--- NOTE | 2018-10-19 20:20 | NUR ---
NURSE NOTES: STARTED 2-2, 1 UNIT PRBC ([id number]) BLOOD TRANSFUSION AFTER VERIFIED 2 NURSES, WILL CONTINUE TO MONITOR.
--- NOTE | 2018-10-19 20:30 | Consultation ---
DATE OF CONSULTATION: 10/19/2018 CARDIOLOGY CONSULTATION CONSULTING PHYSICIAN: Indio Reis M.D. REFERRING PHYSICIAN: Hans Rivera D.O. REASON FOR CONSULTATION: Cardiac arrhythmia in a patient with respiratory failure. HISTORY OF PRESENT ILLNESS: The patient is a very unfortunate 47-year-old gentleman with history of metastatic colorectal cancer with chemotherapy and radiation in the past without any success. It progressed to tumor burden. The patient presented to emergency room at [facility] with concern of increasing shortness of breath. The patient was brought in by paramedics and subsequently the patient was intubated and brought to intensive care unit. At the time of my evaluation, the patient is in intensive care unit. He is alert and responsive, but has had frequent arrhythmias, mostly in the form of bigeminal PACs and PVCs. REVIEW OF SYSTEMS: Cannot be obtained. PAST MEDICAL HISTORY: As mentioned above as well as congestive heart failure. FAMILY HISTORY: Noncontributory. SOCIAL HISTORY: He lives at home. Does not smoke or drink alcohol. PHYSICAL EXAMINATION: VITAL SIGNS: Blood pressure of 85/42, pulse 93, respirations 18, and he is afebrile. HEAD AND NECK: Positive JVD. He is orally intubated. LUNGS: Coarse rhonchi. CARDIOVASCULAR: Regular S1 and S2 with no gallop. ABDOMEN: Soft. EXTREMITIES: He has 1+ pitting edema. LABORATORY AND DIAGNOSTIC DATA: EKG shows sinus rhythm with frequent PACs. His labs show white count of 5, hemoglobin of 6.5, hematocrit of 20, and platelet count of only 11,000. His sodium is 131, potassium 5.1, BUN of 52, and creatinine 1.1, and glucose of 75. Troponin is negative. BNP is 26,000. ASSESSMENT AND PLAN: 1. BNP of more than 26,000 in the patient with congestive heart failure. His echocardiogram showed ejection fraction of 55% to 60%, likely due to diastolic dysfunction. The patient is already azotemic. Hold off on Lasix at this time. 2. Respiratory failure, on ventilator. 3. Sepsis and pneumonia, on IV antibiotics. 4. Metastatic colorectal cancer, status post chemotherapy and radiation at [facility]. The patient also has mediastinal adenopathy and extensive pulmonary infiltrates. 5. Pancytopenia with severe anemia, hemoglobin of 6 as well as severe thrombocytopenia, likely related to chemotherapeutic agents. Ultrasound of abdomen to evaluate for cirrhosis was performed. Further evaluation by Dr. Elam. 6. Left lung pneumonia. 7. Chest pain due to malignancy and respiratory failure. Thank you very much for allowing me to participate in the care of this critically ill man. Please do not hesitate to contact me for any questions regarding my evaluation. Indio Reis M.D. DR: Rosanna JOB#: [id number] CC:
--- NOTE | 2018-10-19 20:35 | NUR ---
NURSE NOTES: NO SIDE REACTION NOTED AT THIS TIME.
--- NOTE | 2018-10-19 23:20 | NUR ---
NURSE NOTES: FINISHED BLOOD TRANSFUSION, NO SIDE REACTION NOTED AT THIS TIME.
[2018-10-20] VITALS (24 sets, daily range): BP systolic 66–119; BP diastolic 48–84
[2018-10-20] MEDS: Vancomycin 750 MG in D5W 275 ML IVPB SCH ×2
--- NOTE | 2018-10-20 | NUR ---
NURSE NOTES: PATIENT AWOKE, WANTED PAIN MED THAT GIVEN NORCO 10/325MG VIA OGT PRN ORDERED, WILL CONTINUE TO MONITOR.
--- NOTE | 2018-10-20 01:50 | NUR ---
NURSE NOTES: PATIENT LOOKS COMFORT, SLEEPING STATUS, WILL CONTINUE TO MONITOR.
--- NOTE | 2018-10-20 04:30 | NUR ---
NURSE NOTES: MORNING CARE WAS DONE, NO BOWEL MOVEMENT STATUS, COLOSTOMY BAG INTACT STATUS.
[2018-10-20 05:00] LABS: HEMATOCRIT 27.3 % (42.0-52.0); MEAN CORPUSCULAR VOLUME 91 FL (80-99); PLATELET COUNT 56 K/UL (150-450); RED BLOOD COUNT 2.99 M/UL (4.70-6.10); RED CELL DISTRIBUTION WIDTH 15.9 % (11.6-14.8); WHITE BLOOD COUNT 7.7 K/UL (4.8-10.8)
[2018-10-20 05:11] LABS: ANION GAP 9 mmol/L (5-15); BLOOD UREA NITROGEN 64 mg/dL (7-18); CALCIUM 7.6 MG/DL (8.5-10.1); CARBON DIOXIDE 26 MMOL/L (21-32); CHLORIDE 100 MMOL/L (98-107); CREATININE 1.4 MG/DL (0.55-1.30); POTASSIUM 5.1 MMOL/L (3.5-5.1); SODIUM 134 MMOL/L (136-145)
--- NOTE | 2018-10-20 06:30 | NUR ---
NURSE NOTES: NO ACUTE DISTRESS NOTED AT THIS SHIFT.
--- NOTE | 2018-10-20 07:15 | NUR ---
HAND-OFF: Report given to DELORIS VENTURA.
--- NOTE | 2018-10-20 07:29 | NUR ---
RESPIRATORY NOTE: Received pt on AC 16, 500VT, 60%, PEEP +5. Pt orally intubated with ETT 8.0 @ 24cm lipline, secured by anchor fast. Pt alert, awake, and follows commands.Ken. rales/rhonchi-diminished breath sounds heard upon auscultation, sxn small amounts of thin brown gaines secretions. Vent plugged into red outlet, alarms are set and audible, ambu bag at bedside. Vent circuits and sxn tubing are secured and out of the way. Pt resting comfortably, in no apparent distress at this time. Will continue to monitor pt.
--- NOTE | 2018-10-20 07:53 | NUR ---
RESPIRATORY NOTE: Increased FiO2 up to 80% due to desaturation (down to 88%). Pt saturates at 90% on 80%FiO2, RN Fabricio made aware.
--- NOTE | 2018-10-20 08:15 | NUR ---
NURSE NOTES: Dr. Arellano updated on patient to remains NPO, awaiting for family to come and decide of code status,.
--- NOTE | 2018-10-20 08:31 | General Progress Note ---
Assessment/Plan Status: unchanged Assessment/Plan: (1) Metastatic cancer (2) Respiratory failure (3) Pneumonia involving left lung (4) Chest pain (5) Anemia intubated s/p blood transfusion pending possible terminal extubation NGTF on hold given above family meeting pending will adjust care based of patient and family wishes Subjective ROS Limited/Unobtainable: No Allergies: Coded Allergies: No Known Allergies (Unverified , 10/17/18) Objective Last 24 Hour Vital Signs Date Time Temp Pulse Resp B/P (MAP) Pulse Ox O2 Delivery O2 Flow Rate FiO2 10/20/18 07:53 80 10/20/18 07:29 86 23 60 10/20/18 07:00 87 20 119/69 (86) 96 10/20/18 06:00 75 20 96/56 (69) 98 10/20/18 05:06 76 16 60 10/20/18 05:00 86 19 100/54 (69) 96 10/20/18 04:00 97.2 73 23 93/57 (69) 100 10/20/18 04:00 Mechanical Ventilator 10/20/18 04:00 60 10/20/18 03:05 75 16 60 10/20/18 03:04 74 10/20/18 03:00 69 16 86/49 (61) 100 10/20/18 02:00 73 22 75/49 (58) 100 10/20/18 01:03 76 17 60 10/20/18 01:00 80 16 84/48 (60) 98 10/20/18 00:00 60 10/20/18 00:00 97.3 80 20 86/54 (65) 100 10/20/18 00:00 Mechanical Ventilator 10/19/18 23:04 87 10/19/18 23:00 86 16 95/60 (72) 99 10/19/18 22:59 88 20 60 10/19/18 22:00 86 15 88/60 (69) 98 10/19/18 21:00 86 18 88/63 (71) 99 10/19/18 20:52 86 18 60 10/19/18 20:00 Mechanical Ventilator 10/19/18 20:00 97.2 88 18 91/55 (67) 96 10/19/18 20:00 60 10/19/18 19:34 87 8/6/19 19:03 86 17 60 10/19/18 19:00 86 16 89/54 (66) 96 10/19/18 18:00 87 18 89/59 (69) 91 10/19/18 17:10 91 19 60 10/19/18 17:00 89 19 94/53 (67) 98 10/19/18 16:30 88 16 87/56 (66) 98 10/19/18 16:00 96.1 87 16 86/61 (69) 98 10/19/18 16:00 60 10/19/18 16:00 Mechanical Ventilator 10/19/18 15:45 87 10/19/18 15:07 89 20 60 10/19/18 15:00 90 20 95/54 (68) 97 10/19/18 14:00 89 19 90/49 (63) 99 10/19/18 13:02 89 21 60 10/19/18 13:00 89 17 83/53 (63) 97 10/19/18 12:00 Mechanical Ventilator 10/19/18 12:00 96.6 91 19 85/61 (69) 94 10/19/18 12:00 91 10/19/18 12:00 60 10/19/18 11:12 93 18 60 10/19/18 11:00 92 19 84/48 (60) 94 10/19/18 11:00 92 19 85/52 (63) 92 10/19/18 10:00 92 19 84/48 (60) 94 10/19/18 09:00 96.0 93 18 82/53 (63) 97 10/19/18 08:58 93 18 60 Intake and Output 10/19/18 10/20/18 19:00 07:00 Intake Total 1286.000 ml 975 ml Output Total 0 ml 0 ml Balance 1286.000 ml 975 ml Intake Oral 0 ml 0 ml IV Total 385.000 ml 385 ml Blood Product 851 ml 500 ml Other 50 ml 90 ml Stool Total 0 ml 0 ml # Voids 3 3 Laboratory Tests 10/19/18 08:40: Arterial Blood pH 7.288L, Arterial Blood Partial Pressure CO2 49.2H, Arterial Blood Partial Pressure O2 76.0, Arterial Blood HCO3 23.0, Arterial Blood Oxygen Saturation 91.1L, Arterial Blood Base Excess -3.4L, William Test Positive 10/20/18 04:10: White Blood Count 7.7#, Red Blood Count 2.99L, Hemoglobin 9.0#L, Hematocrit 27.3 #L, Mean Corpuscular Volume 91, Mean Corpuscular Hemoglobin 30.2, Mean Corpuscular Hemoglobin Concent 33.2, Red Cell Distribution Width 15.9H, Platelet Count 56#L, Mean Platelet Volume 6.8, Neutrophils (%) (Auto) , Lymphocytes (%) (Auto) , Monocytes (%) (Auto) , Eosinophils (%) (Auto) , Basophils (%) (Auto) , Differential Total Cells Counted 100, Neutrophils % ( Manual) 93H, Lymphocytes % (Manual) 5L, Monocytes % (Manual) 2, Eosinophils % ( Manual) 0, Basophils % (Manual) 0, Band Neutrophils 0, Platelet Estimate DecreasedL, Platelet Morphology Normal, Hypochromasia 1+, Anisocytosis 1+, Sodium Level 134L, Potassium Level 5.1, Chloride Level 100, Carbon Dioxide Level 26, Anion Gap 9, Blood Urea Nitrogen 64H, Creatinine 1.4H, Estimat Glomerular Filtration Rate 54.6, Glucose Level 91, Calcium Level 7.6L, Troponin I 0.113H, Cryptococcus Antigen [Pending], Aspergillus flavus Antibody [Pending] , Aspergillus fumigatus Antibody [Pending], Aspergillus niger Antibody [Pending] Height (Feet): 5 Height (Inches): 8.00 Weight (Pounds): 108 General Appearance: lethargic EENT: normal ENT inspection Neck: supple Cardiovascular: tachycardia Respiratory/Chest: decreased breath sounds Abdomen: soft, hypoactive bowel sounds Extremities: non-tender Myles Arellano MD Oct 20, 2018 08:31
[2018-10-20] MEDS: Azithromycin 250mg tab ORAL SCH (08:40)
[2018-10-20] MEDS: Cefepime HCl 2 GM in D5W 110 ML IV SCH ×2 (08:40→21:03)
[2018-10-20] MEDS: Pantoprazole Inj IV SCH ×2 (08:41→21:01)
--- NOTE | 2018-10-20 08:45 | NUR ---
NURSE NOTES: Dr. Coon updated at the bedside of patient condition and hgb of 9.0 this morning. no verbal orders given at this time.
--- NOTE | 2018-10-20 08:54 | NUR ---
RESPIRATORY NOTE: Placed pt on CPAP PS 8- peep 5- 60% FiO2 per weaning protocol to see if pt can be wean. Pt passed the weaning criteria but unable to continue weaning due to pt using abdominal muscle to breathe and still in high FiO2 ( 94% saturation on 60% FiO2). DELORIS Regalado at bedside and aware. Will continue to monitor pt.
--- NOTE | 2018-10-20 09:30 | NUR ---
NURSE NOTES: Dr. Devi updated on patient urinary status and BUN/creatinine level increasing. no verbal orders given at this time.
--- NOTE | 2018-10-20 09:58 | Pulmonolgy Critical Care Note ---
Critical Care - Asmt/Plan Problems: (1) Acute respiratory failure (2) Metastatic cancer (3) Pneumonia involving left lung Respiratory: monitor respiratory rate, adjust FIO2, CXR Cardiac: continue to monitor HR/BP Renal: F/U I&O Infectious Disease: check cultures Gastrointestinal: hold feedings Hematologic: monitor H/H Neurologic: PRN Ativan Prophylaxis: Protonix Time Spent (Minutes): 40 Notes Reviewed: cardio, renal Discussed with: consultants Critical Care - Objective Last 24 Hour Vital Signs Date Time Temp Pulse Resp B/P (MAP) Pulse Ox O2 Delivery O2 Flow Rate FiO2 10/20/18 09:00 83 17 111/66 (81) 100 10/20/18 08:45 90 23 60 10/20/18 08:00 97.1 74 18 114/62 (79) 96 10/20/18 08:00 60 10/20/18 07:53 80 10/20/18 07:29 86 23 60 10/20/18 07:00 87 20 119/69 (86) 96 10/20/18 06:00 75 20 96/56 (69) 98 10/20/18 05:06 76 16 60 10/20/18 05:00 86 19 100/54 (69) 96 10/20/18 04:00 97.2 73 23 93/57 (69) 100 10/20/18 04:00 Mechanical Ventilator 10/20/18 04:00 60 10/20/18 03:05 75 16 60 10/20/18 03:04 74 10/20/18 03:00 69 16 86/49 (61) 100 10/20/18 02:00 73 22 75/49 (58) 100 10/20/18 01:03 76 17 60 10/20/18 01:00 80 16 84/48 (60) 98 10/20/18 00:00 60 10/20/18 00:00 97.3 80 20 86/54 (65) 100 10/20/18 00:00 Mechanical Ventilator 10/19/18 23:04 87 10/19/18 23:00 86 16 95/60 (72) 99 10/19/18 22:59 88 20 60 10/19/18 22:00 86 15 88/60 (69) 98 10/19/18 21:00 86 18 88/63 (71) 99 10/19/18 20:52 86 18 60 8/6/19 20:00 Mechanical Ventilator 10/19/18 20:00 97.2 88 18 91/55 (67) 96 10/19/18 20:00 60 10/19/18 19:34 87 10/19/18 19:03 86 17 60 10/19/18 19:00 86 16 89/54 (66) 96 10/19/18 18:00 87 18 89/59 (69) 91 10/19/18 17:10 91 19 60 10/19/18 17:00 89 19 94/53 (67) 98 10/19/18 16:30 88 16 87/56 (66) 98 10/19/18 16:00 96.1 87 16 86/61 (69) 98 10/19/18 16:00 60 10/19/18 16:00 Mechanical Ventilator 10/19/18 15:45 87 10/19/18 15:07 89 20 60 10/19/18 15:00 90 20 95/54 (68) 97 10/19/18 14:00 89 19 90/49 (63) 99 10/19/18 13:02 89 21 60 10/19/18 13:00 89 17 83/53 (63) 97 10/19/18 12:00 Mechanical Ventilator 10/19/18 12:00 96.6 91 19 85/61 (69) 94 10/19/18 12:00 91 10/19/18 12:00 60 10/19/18 11:12 93 18 60 10/19/18 11:00 92 19 84/48 (60) 94 10/19/18 11:00 92 19 85/52 (63) 92 10/19/18 10:00 92 19 84/48 (60) 94 Status: awake Condition: critical Lungs: clear Heart: HR/BP stable Abdomen: active bowel sounds Micro: Microbiology Date/Time Source Procedure Growth Status 10/17/18 11:55 Blood Blood Culture - Preliminary NO GROWTH AFTER 48 HOURS Resulted 10/17/18 11:40 Blood Blood Culture - Preliminary NO GROWTH AFTER 48 HOURS Resulted Critical Care - Subjective ROS Limited/Unobtainable: No EKG Rhythm: Sinus Rhythm FI02: 60 Vent Support Breath Rate: 16 Vent Support Mode: AC Vent Tidal Volume: 500 Sputum Amount: Moderate PEEP: 5.0 PIP: 16 I&O: Intake and Output 10/19/18 10/20/18 19:00 07:00 Intake Total 1286.000 ml 975 ml Output Total 0 ml 0 ml Balance 1286.000 ml 975 ml Intake Oral 0 ml 0 ml IV Total 385.000 ml 385 ml Blood Product 851 ml 500 ml Other 50 ml 90 ml Stool Total 0 ml 0 ml # Voids 3 3 CXR: extensive infiltrate ET-Tube: 8.0 ET Position: 24 Labs: Laboratory Tests Test 10/20/18 04:10 White Blood Count 7.7 K/UL (4.8-10.8) # Red Blood Count 2.99 M/UL (4.70-6.10) L Hemoglobin 9.0 G/DL (14.2-18.0) #L Hematocrit 27.3 % (42.0-52.0) #L Mean Corpuscular Volume 91 FL (80-99) Mean Corpuscular Hemoglobin 30.2 PG (27.0-31.0) Mean Corpuscular Hemoglobin Concent 33.2 G/DL (32.0-36.0) Red Cell Distribution Width 15.9 % (11.6-14.8) H Platelet Count 56 K/UL (150-450) #L Mean Platelet Volume 6.8 FL (6.5-10.1) Neutrophils (%) (Auto) % (45.0-75.0) Lymphocytes (%) (Auto) % (20.0-45.0) Monocytes (%) (Auto) % (1.0-10.0) Eosinophils (%) (Auto) % (0.0-3.0) Basophils (%) (Auto) % (0.0-2.0) Differential Total Cells Counted 100 Neutrophils % (Manual) 93 % (45-75) H Lymphocytes % (Manual) 5 % (20-45) L Monocytes % (Manual) 2 % (1-10) Eosinophils % (Manual) 0 % (0-3) Basophils % (Manual) 0 % (0-2) Band Neutrophils 0 % (0-8) Platelet Estimate Decreased L Platelet Morphology Normal Hypochromasia 1+ Anisocytosis 1+ Sodium Level 134 MMOL/L (136-145) L Potassium Level 5.1 MMOL/L (3.5-5.1) Chloride Level 100 MMOL/L (98-107) Carbon Dioxide Level 26 MMOL/L (21-32) Anion Gap 9 mmol/L (5-15) Blood Urea Nitrogen 64 mg/dL (7-18) H Creatinine 1.4 MG/DL (0.55-1.30) H Estimat Glomerular Filtration Rate 54.6 mL/min (>60) Glucose Level 91 MG/DL (74-106) Calcium Level 7.6 MG/DL (8.5-10.1) L Troponin I 0.113 ng/mL (0.000-0.056) Cryptococcus Antigen Pending Aspergillus flavus Antibody Pending Aspergillus fumigatus Antibody Pending Aspergillus niger Antibody Pending Sasha Victor MD Oct 20, 2018 09:58
--- NOTE | 2018-10-20 10:15 | NUR ---
NURSE NOTES: Dr. Victor informed of patient is awaiting for sister to arrive to decide on code status of terminally extubation or to continue treatment, no verbal orders given at this time.
--- NOTE | 2018-10-20 10:29 | Consultation ---
Consult Note Consult Note asked to eval for rising Cr and electrolyte imbalance and fluid management 47-year-old male history of metastatic colon cancer presents with shortness of breath that started 4 days while he denies any aggravating or relieving factors severity is severe, patient states that he has trouble getting a good breath in , he endorses a little chest tightness, no nausea no vomiting, no fever no chills, he does endorse a cough, patient denies any dysuria, patient is currently undergoing chemotherapy. He is full code Allergies: Coded Allergies: No Known Allergies (Unverified , 10/17/18) in ICU Intubated Examined Data reviewed Assessment/Plan Acute respiratory Failure Renal failure- Cr up 1.4 HypoNatremia HypoThyroid: TSH 76 Anemia Metastatic Ca Pneumonia left lung Severe Malnutrition rising troponin I IV fluid- IV Synthroid Keep lytes and bP in check Avoid Nephrotoxics monitor LFTs per orders Jamar Byrd MD Oct 20, 2018 10:29
--- NOTE | 2018-10-20 11:45 | NUR ---
[employer] INST[employer]ER SI: RESP FAILURE ETT/VENT SUPPORT T. 97.1 HR 74 RR 23 B/P 100/60 AC 16 TV 500 FIO2 60% PEEP 5 IS: IVF D5NS @ 75ML/HR CEFEPIME IV PROTONIX IV VORICONAZOLE NGT ICU STATUS
[2018-10-20] MEDS: D5NS 1,000 ML IV SCH ×2 (12:05→23:41)
--- NOTE | 2018-10-20 12:11 | Surgery Progress Note ---
Surgery Progress Note Subjective Additional Comments still tachypneic on vent labs noted. h/h responded cr elevated US noted not able to wean exam unchanged ill appearing in ICU Objective Last 24 Hour Vital Signs Date Time Temp Pulse Resp B/P (MAP) Pulse Ox O2 Delivery O2 Flow Rate FiO2 10/20/18 12:00 60 10/20/18 11:00 75 18 114/84 (94) 97 10/20/18 10:37 86 16 60 10/20/18 10:00 70 17 100/60 (73) 99 10/20/18 09:00 83 17 111/66 (81) 100 10/20/18 08:45 90 23 60 10/20/18 08:00 97.1 74 18 114/62 (79) 96 10/20/18 08:00 60 10/20/18 08:00 86 10/20/18 08:00 Mechanical Ventilator 10/20/18 07:53 80 10/20/18 07:29 86 23 60 10/20/18 07:00 87 20 119/69 (86) 96 10/20/18 06:00 75 20 96/56 (69) 98 10/20/18 05:06 76 16 60 10/20/18 05:00 86 19 100/54 (69) 96 10/20/18 04:00 97.2 73 23 93/57 (69) 100 10/20/18 04:00 Mechanical Ventilator 10/20/18 04:00 60 10/20/18 03:05 75 16 60 10/20/18 03:04 74 10/20/18 03:00 69 16 86/49 (61) 100 10/20/18 02:00 73 22 75/49 (58) 100 10/20/18 01:03 76 17 60 10/20/18 01:00 80 16 84/48 (60) 98 10/20/18 00:00 60 10/20/18 00:00 97.3 80 20 86/54 (65) 100 10/20/18 00:00 Mechanical Ventilator 10/19/18 23:04 87 10/19/18 23:00 86 16 95/60 (72) 99 10/19/18 22:59 88 20 60 10/19/18 22:00 86 15 88/60 (69) 98 10/19/18 21:00 86 18 88/63 (71) 99 10/19/18 20:52 86 18 60 10/19/18 20:00 Mechanical Ventilator 10/19/18 20:00 97.2 88 18 91/55 (67) 96 10/19/18 20:00 60 10/19/18 19:34 87 10/19/18 19:03 86 17 60 10/19/18 19:00 86 16 89/54 (66) 96 10/19/18 18:00 87 18 89/59 (69) 91 10/19/18 17:10 91 19 60 10/19/18 17:00 89 19 94/53 (67) 98 10/19/18 16:30 88 16 87/56 (66) 98 10/19/18 16:00 96.1 87 16 86/61 (69) 98 10/19/18 16:00 60 10/19/18 16:00 Mechanical Ventilator 10/19/18 15:45 87 10/19/18 15:07 89 20 60 10/19/18 15:00 90 20 95/54 (68) 97 10/19/18 14:00 89 19 90/49 (63) 99 10/19/18 13:02 89 21 60 10/19/18 13:00 89 17 83/53 (63) 97 I&O Intake and Output 10/19/18 10/20/18 19:00 07:00 Intake Total 1286.000 ml 975 ml Output Total 0 ml 0 ml Balance 1286.000 ml 975 ml Intake Oral 0 ml 0 ml IV Total 385.000 ml 385 ml Blood Product 851 ml 500 ml Other 50 ml 90 ml Stool Total 0 ml 0 ml # Voids 3 3 Dressing: saturated Wound: clean, other Cardiovascular: RSR Respiratory: clear Abdomen: soft, flat, present bowel sounds Extremities: no tenderness, no cyanosis Laboratory Tests Test 10/20/18 04:10 10/20/18 11:55 White Blood Count 7.7 K/UL (4.8-10.8) # Red Blood Count 2.99 M/UL (4.70-6.10) L Hemoglobin 9.0 G/DL (14.2-18.0) #L Hematocrit 27.3 % (42.0-52.0) #L Mean Corpuscular Volume 91 FL (80-99) Mean Corpuscular Hemoglobin 30.2 PG (27.0-31.0) Mean Corpuscular Hemoglobin Concent 33.2 G/DL (32.0-36.0) Red Cell Distribution Width 15.9 % (11.6-14.8) H Platelet Count 56 K/UL (150-450) #L Mean Platelet Volume 6.8 FL (6.5-10.1) Neutrophils (%) (Auto) % (45.0-75.0) Lymphocytes (%) (Auto) % (20.0-45.0) Monocytes (%) (Auto) % (1.0-10.0) Eosinophils (%) (Auto) % (0.0-3.0) Basophils (%) (Auto) % (0.0-2.0) Differential Total Cells Counted 100 Neutrophils % (Manual) 93 % (45-75) H Lymphocytes % (Manual) 5 % (20-45) L Monocytes % (Manual) 2 % (1-10) Eosinophils % (Manual) 0 % (0-3) Basophils % (Manual) 0 % (0-2) Band Neutrophils 0 % (0-8) Platelet Estimate Decreased L Platelet Morphology Normal Hypochromasia 1+ Anisocytosis 1+ Sodium Level 134 MMOL/L (136-145) L Potassium Level 5.1 MMOL/L (3.5-5.1) Chloride Level 100 MMOL/L (98-107) Carbon Dioxide Level 26 MMOL/L (21-32) Anion Gap 9 mmol/L (5-15) Blood Urea Nitrogen 64 mg/dL (7-18) H Creatinine 1.4 MG/DL (0.55-1.30) H Estimat Glomerular Filtration Rate 54.6 mL/min (>60) Glucose Level 91 MG/DL (74-106) Calcium Level 7.6 MG/DL (8.5-10.1) L Troponin I 0.113 ng/mL (0.000-0.056) Cryptococcus Antigen Pending Aspergillus flavus Antibody Pending Aspergillus fumigatus Antibody Pending Aspergillus niger Antibody Pending Vancomycin Level Trough Pending Plan Problems: (1) Chest pain (2) Pneumonia involving left lung (3) Respiratory distress (4) Sepsis Assessment & Plan: This is a cachectic unfortunate 47-year-old male with metastatic colorectal cancer who presented with shortness of breath. Patient noted to have a leukocytosis, abnormal labs, dehydration, respiratory distress. Patient currently intubated in intensive care unit. Patient alert awake and responsive. States that pain improved but still with respiratory discomfort on ventilatory support. Labs noted. Abdominal exam with fullness in the lower abdomen pelvic region and soft in the upper regions. The fullness that appears to be tumor burden. Patient has a diverting colostomy on the left side of his abdomen which appears to be a loop colostomy. There is gas and stool in the colostomy bag. No acute surgical intervention recommended at this time. NG tube is been placed. Okay to start feeds via NG tube patient is very cachectic and requires significant nutritional improvement. Continue with IV fluid resuscitation. Antibiotics as per infectious disease. Trend labs. Follow-up will follow with serial examinations and recommendations. Thank you for allowing me to participate in patient's care (5) Acute respiratory failure (6) Metastatic cancer Assessment & Plan: Patient with metastatic colorectal cancer. Patient identified to have abnormal wounds in the perirectal area. On examination was identified to be tumor burden is the tumors extending from the colorectal region out. Multiple open areas with tumor burden but no active infection identified. Patient has diverting colostomy. Will continue with local wound care Xeroform and ABD dressing for now. Brent Medeiros Oct 20, 2018 12:11
--- NOTE | 2018-10-20 12:15 | Cardiac Electrophysiology PN ---
Assessment/Plan Assessment/Plan 1. BNP of more than 26,000 in the patient with congestive heart failure. His echocardiogram showed ejection fraction of 55% to 60%, likely due to diastolic dysfunction. The patient is already azotemic. Hold off on Lasix at this time. 2. Respiratory failure, on ventilator. 3. Sepsis and pneumonia, on IV antibiotics. 4. Metastatic colorectal cancer, status post chemotherapy and radiation at [facility]. The patient also has mediastinal adenopathy and extensive pulmonary infiltrates. 5. Pancytopenia with severe anemia, hemoglobin of 6 as well as severe thrombocytopenia, likely related to chemotherapeutic agents. Ultrasound of abdomen to evaluate for cirrhosis was performed. Further evaluation by Dr. Elam. 6. Left lung pneumonia. 7. Chest pain due to malignancy and respiratory failure. ALEXIS RN Subjective Subjective In ICU alert on the vent. Objective Last 24 Hour Vital Signs Date Time Temp Pulse Resp B/P (MAP) Pulse Ox O2 Delivery O2 Flow Rate FiO2 10/20/18 12:00 60 10/20/18 11:00 75 18 114/84 (94) 97 10/20/18 10:37 86 16 60 10/20/18 10:00 70 17 100/60 (73) 99 10/20/18 09:00 83 17 111/66 (81) 100 10/20/18 08:45 90 23 60 10/20/18 08:00 97.1 74 18 114/62 (79) 96 10/20/18 08:00 60 10/20/18 08:00 86 10/20/18 08:00 Mechanical Ventilator 10/20/18 07:53 80 10/20/18 07:29 86 23 60 10/20/18 07:00 87 20 119/69 (86) 96 10/20/18 06:00 75 20 96/56 (69) 98 10/20/18 05:06 76 16 60 10/20/18 05:00 86 19 100/54 (69) 96 10/20/18 04:00 97.2 73 23 93/57 (69) 100 10/20/18 04:00 Mechanical Ventilator 10/20/18 04:00 60 10/20/18 03:05 75 16 60 10/20/18 03:04 74 10/20/18 03:00 69 16 86/49 (61) 100 10/20/18 02:00 73 22 75/49 (58) 100 10/20/18 01:03 76 17 60 10/20/18 01:00 80 16 84/48 (60) 98 10/20/18 00:00 60 10/20/18 00:00 97.3 80 20 86/54 (65) 100 10/20/18 00:00 Mechanical Ventilator 10/19/18 23:04 87 10/19/18 23:00 86 16 95/60 (72) 99 10/19/18 22:59 88 20 60 10/19/18 22:00 86 15 88/60 (69) 98 10/19/18 21:00 86 18 88/63 (71) 99 10/19/18 20:52 86 18 60 10/19/18 20:00 Mechanical Ventilator 10/19/18 20:00 97.2 88 18 91/55 (67) 96 10/19/18 20:00 60 10/19/18 19:34 87 10/19/18 19:03 86 17 60 10/19/18 19:00 86 16 89/54 (66) 96 10/19/18 18:00 87 18 89/59 (69) 91 10/19/18 17:10 91 19 60 10/19/18 17:00 89 19 94/53 (67) 98 10/19/18 16:30 88 16 87/56 (66) 98 10/19/18 16:00 96.1 87 16 86/61 (69) 98 10/19/18 16:00 60 10/19/18 16:00 Mechanical Ventilator 10/19/18 15:45 87 10/19/18 15:07 89 20 60 10/19/18 15:00 90 20 95/54 (68) 97 10/19/18 14:00 89 19 90/49 (63) 99 10/19/18 13:02 89 21 60 10/19/18 13:00 89 17 83/53 (63) 97 Intake and Output 10/19/18 10/20/18 19:00 07:00 Intake Total 1286.000 ml 975 ml Output Total 0 ml 0 ml Balance 1286.000 ml 975 ml Intake Oral 0 ml 0 ml IV Total 385.000 ml 385 ml Blood Product 851 ml 500 ml Other 50 ml 90 ml Stool Total 0 ml 0 ml # Voids 3 3 Laboratory Tests Test 10/20/18 04:10 10/20/18 11:55 White Blood Count 7.7 K/UL (4.8-10.8) # Red Blood Count 2.99 M/UL (4.70-6.10) L Hemoglobin 9.0 G/DL (14.2-18.0) #L Hematocrit 27.3 % (42.0-52.0) #L Mean Corpuscular Volume 91 FL (80-99) Mean Corpuscular Hemoglobin 30.2 PG (27.0-31.0) Mean Corpuscular Hemoglobin Concent 33.2 G/DL (32.0-36.0) Red Cell Distribution Width 15.9 % (11.6-14.8) H Platelet Count 56 K/UL (150-450) #L Mean Platelet Volume 6.8 FL (6.5-10.1) Neutrophils (%) (Auto) % (45.0-75.0) Lymphocytes (%) (Auto) % (20.0-45.0) Monocytes (%) (Auto) % (1.0-10.0) Eosinophils (%) (Auto) % (0.0-3.0) Basophils (%) (Auto) % (0.0-2.0) Differential Total Cells Counted 100 Neutrophils % (Manual) 93 % (45-75) H Lymphocytes % (Manual) 5 % (20-45) L Monocytes % (Manual) 2 % (1-10) Eosinophils % (Manual) 0 % (0-3) Basophils % (Manual) 0 % (0-2) Band Neutrophils 0 % (0-8) Platelet Estimate Decreased L Platelet Morphology Normal Hypochromasia 1+ Anisocytosis 1+ Sodium Level 134 MMOL/L (136-145) L Potassium Level 5.1 MMOL/L (3.5-5.1) Chloride Level 100 MMOL/L (98-107) Carbon Dioxide Level 26 MMOL/L (21-32) Anion Gap 9 mmol/L (5-15) Blood Urea Nitrogen 64 mg/dL (7-18) H Creatinine 1.4 MG/DL (0.55-1.30) H Estimat Glomerular Filtration Rate 54.6 mL/min (>60) Glucose Level 91 MG/DL (74-106) Calcium Level 7.6 MG/DL (8.5-10.1) L Troponin I 0.113 ng/mL (0.000-0.056) Cryptococcus Antigen Pending Aspergillus flavus Antibody Pending Aspergillus fumigatus Antibody Pending Aspergillus niger Antibody Pending Vancomycin Level Trough Pending Objective HEAD AND NECK: Positive JVD. He is orally intubated. LUNGS: Coarse rhonchi. CARDIOVASCULAR: Regular S1 and S2 with no gallop. ABDOMEN: Soft. EXTREMITIES: He has 1+ pitting edema. Indio Reis MD Oct 20, 2018 12:15
--- NOTE | 2018-10-20 12:30 | NUR ---
NURSE NOTES: Dr. Reis updated on patient cardiac status and remains at sinus rhythm with 1st avb with no arrhythmias, no verbal orders given at this time.
[2018-10-20] MEDS: HYDROcodone/Acetamin 10/325 tab ORAL PRN ×3 (13:11→21:01)
--- NOTE | 2018-10-20 13:41 | Diagnostic Imaging Report ---
APPROVED REPORT CPT Code: 14768 Present Symptoms Comments: BILATERAL LEGS PAIN. BILATERAL: Imaging reveals a patent deep venous system bilaterally. There is no evidence of thrombus within the femoral, popliteal or tibial segments. The greater saphenous veins are also within normal limits. Doppler indicates normal spontaneous flow within these segments.
--- NOTE | 2018-10-20 14:36 | General Progress Note ---
Assessment/Plan Problem List: (1) Malnutrition ICD Codes: E46 - Unspecified protein-calorie malnutrition SNOMED: 38136864 (2) Decubital ulcer ICD Codes: L89.90 - Pressure ulcer of unspecified site, unspecified stage SNOMED: 653282214 (3) Anemia ICD Codes: D64.9 - Anemia, unspecified SNOMED: 949427179 (4) Acute respiratory failure ICD Codes: J96.00 - Acute respiratory failure, unspecified whether with hypoxia or hypercapnia SNOMED: 66392075 (5) Sepsis ICD Codes: A41.9 - Sepsis, unspecified organism SNOMED: 56180143 Qualifiers: Qualified Codes: A41.9 - Sepsis, unspecified organism (6) Pneumonia involving left lung ICD Codes: J18.9 - Pneumonia, unspecified organism SNOMED: 456619101 Qualifiers: Qualified Codes: J18.9 - Pneumonia, unspecified organism (7) Metastatic cancer ICD Codes: C79.9 - Secondary malignant neoplasm of unspecified site SNOMED: 494944898 Status: stable, progressing, unchanged Assessment/Plan: vent abx pain control cbc bmp am Subjective Allergies: Coded Allergies: No Known Allergies (Unverified , 10/17/18) All Systems: reviewed and negative except above Subjective intubated sedated in icu Objective Last 24 Hour Vital Signs Date Time Temp Pulse Resp B/P (MAP) Pulse Ox O2 Delivery O2 Flow Rate FiO2 10/20/18 13:08 81 20 60 10/20/18 12:00 60 10/20/18 12:00 97.0 76 17 104/63 (77) 99 10/20/18 11:00 75 18 114/84 (94) 97 10/20/18 10:37 86 16 60 10/20/18 10:00 70 17 100/60 (73) 99 10/20/18 09:00 83 17 111/66 (81) 100 10/20/18 08:45 90 23 60 10/20/18 08:00 97.1 74 18 114/62 (79) 96 10/20/18 08:00 60 10/20/18 08:00 86 10/20/18 08:00 Mechanical Ventilator 10/20/18 07:53 80 10/20/18 07:29 86 23 60 10/20/18 07:00 87 20 119/69 (86) 96 10/20/18 06:00 75 20 96/56 (69) 98 10/20/18 05:06 76 16 60 10/20/18 05:00 86 19 100/54 (69) 96 10/20/18 04:00 97.2 73 23 93/57 (69) 100 10/20/18 04:00 Mechanical Ventilator 10/20/18 04:00 60 10/20/18 03:05 75 16 60 10/20/18 03:04 74 10/20/18 03:00 69 16 86/49 (61) 100 10/20/18 02:00 73 22 75/49 (58) 100 10/20/18 01:03 76 17 60 10/20/18 01:00 80 16 84/48 (60) 98 10/20/18 00:00 60 10/20/18 00:00 97.3 80 20 86/54 (65) 100 10/20/18 00:00 Mechanical Ventilator 10/19/18 23:04 87 10/19/18 23:00 86 16 95/60 (72) 99 10/19/18 22:59 88 20 60 10/19/18 22:00 86 15 88/60 (69) 98 10/19/18 21:00 86 18 88/63 (71) 99 10/19/18 20:52 86 18 60 10/19/18 20:00 Mechanical Ventilator 10/19/18 20:00 97.2 88 18 91/55 (67) 96 10/19/18 20:00 60 10/19/18 19:34 87 10/19/18 19:03 86 17 60 10/19/18 19:00 86 16 89/54 (66) 96 10/19/18 18:00 87 18 89/59 (69) 91 10/19/18 17:10 91 19 60 10/19/18 17:00 89 19 94/53 (67) 98 10/19/18 16:30 88 16 87/56 (66) 98 10/19/18 16:00 96.1 87 16 86/61 (69) 98 10/19/18 16:00 60 10/19/18 16:00 Mechanical Ventilator 10/19/18 15:45 87 10/19/18 15:07 89 20 60 10/19/18 15:00 90 20 95/54 (68) 97 Intake and Output 10/19/18 10/20/18 18:59 06:59 Intake Total 1286.000 ml 975 ml Output Total 0 ml 0 ml Balance 1286.000 ml 975 ml Intake Oral 0 ml 0 ml IV Total 385.000 ml 385 ml Blood Product 851 ml 500 ml Other 50 ml 90 ml Stool Total 0 ml 0 ml # Voids 2 4 Laboratory Tests 10/20/18 04:10: White Blood Count 7.7#, Red Blood Count 2.99L, Hemoglobin 9.0#L, Hematocrit 27.3 #L, Mean Corpuscular Volume 91, Mean Corpuscular Hemoglobin 30.2, Mean Corpuscular Hemoglobin Concent 33.2, Red Cell Distribution Width 15.9H, Platelet Count 56#L, Mean Platelet Volume 6.8, Neutrophils (%) (Auto) , Lymphocytes (%) (Auto) , Monocytes (%) (Auto) , Eosinophils (%) (Auto) , Basophils (%) (Auto) , Differential Total Cells Counted 100, Neutrophils % ( Manual) 93H, Lymphocytes % (Manual) 5L, Monocytes % (Manual) 2, Eosinophils % ( Manual) 0, Basophils % (Manual) 0, Band Neutrophils 0, Platelet Estimate DecreasedL, Platelet Morphology Normal, Hypochromasia 1+, Anisocytosis 1+, Sodium Level 134L, Potassium Level 5.1, Chloride Level 100, Carbon Dioxide Level 26, Anion Gap 9, Blood Urea Nitrogen 64H, Creatinine 1.4H, Estimat Glomerular Filtration Rate 54.6, Glucose Level 91, Calcium Level 7.6L, Troponin I 0.113H, Cryptococcus Antigen [Pending], Aspergillus flavus Antibody [Pending] , Aspergillus fumigatus Antibody [Pending], Aspergillus niger Antibody [Pending] 10/20/18 11:55: Vancomycin Level Trough 27.3H Height (Feet): 5 Height (Inches): 8.00 Weight (Pounds): 108 General Appearance: lethargic EENT: normal ENT inspection Neck: normal alignment Cardiovascular: normal peripheral pulses, normal rate, regular rhythm Respiratory/Chest: chest wall non-tender, lungs clear, normal breath sounds Abdomen: normal bowel sounds, non tender, soft Extremities: normal inspection Edema: no edema noted Arm (L), no edema noted Arm (R), no edema noted Leg (L), no edema noted Leg (R), no edema noted Pedal (L), no edema noted Pedal (R), no edema noted Generalized Neurologic: motor weakness Skin: normal pigmentation, warm/dry Hans Rivera Oct 20, 2018 14:36
--- NOTE | 2018-10-20 14:45 | NUR ---
NURSE NOTES: Mother and sister is at the bedside with patient and updated on care plan, sister will be arriving from the [facility] tomorrow to make decision on patient code status. updated on patient and decreasing in activity range of motion and cognitive stamina, his dexterity writing on a noted pad is similar to a 2-3 grade with scribbles but can make out writing. no further questions at this time by family.
[2018-10-20] MEDS ORDERED: NS 275ml ONE (16:56)
[2018-10-20] MEDS ORDERED: Tubing Blood Filter IV ONE (16:56)
[2018-10-20] MEDS ORDERED: NS 500ML ONE (16:56)
--- NOTE | 2018-10-20 17:12 | NUR ---
RESPIRATORY NOTE: Pt back to AC mode. No SOB or resp distress noted. Hemodialysis in process. Will continue to monitor. DELORIS Cardenas made aware. Addendum: 10/20/18 at 1817 by Sadaf Chávez Roberson RT Wrong pt's chart. DELORIS Regalado aware.
--- NOTE | 2018-10-20 17:59 | Hematology/Onc Progress Note ---
Assessment/Plan Assessment/Plan Assessment and Recs: # Metastatic colon cancer - per initial record review, has been getting in the past radiation and now on chemo at [facility] [place] [facility] --> outside records were reviewed --> imaging was reviewed on admission Ct shows mediastinal adenopathy, with extensive pulmonary infiltrate, with left groundglass opacification, and patchy reticular densities bilaterally --> gi and surgery have both evaluated him --> poor prognosis and family is aware, pending potential extubation after family sees him # Thrombocytopenia - potential causes multifactorial, in this case is most likely related to the use of chemotherapeutic agents --> Hep panel and HIV and results is negative --> US abd does show e/o fatty liver --> Peripheral smear ordered to evaluate for blasts /schistocytes and none noted --> abx and other meds have been reviewed --> ok for ppx if plt >50k w/ either heparin or lovenox --> Transfuse if Plt < 20k and fever, or if Plt < 10k without fever --> plt trend 18k-->11k-->11k->56k # Anemia due to underlying malignancy, chronic disease --> hgb trend 7.2-->6.4-->9 --> sp blood leung 10/19 # Respiratory distress with severe tumor burden --> is s/p intubation on 10/18 --> per pulm/cc recs # Pneumonia involving left lung --> on abx iv # Chest pain due to malignancy and reps failure --> trop neg The timing of this note does not necessarily reflect the time of the patient was seen. GREATLY APPRECIATE CONSULTATION. Subjective Constitutional: Denies: no symptoms, chills, fever, malaise, weakness, other HEENT: Denies: no symptoms, eye pain, blurred vision, tearing, double vision, ear pain, ear discharge, nose pain, nose congestion, throat pain, throat swelling, mouth pain, mouth swelling, other Cardiovascular: Denies: no symptoms, chest pain, edema, irregular heart rate, lightheadedness, palpitations, syncope, other Respiratory: Denies: no symptoms, cough, shortness of breath, SOB with excertion, SOB at rest, sputum, wheezing, other Gastrointestinal/Abdominal: Denies: no symptoms, abdomen distended, abdominal pain, black stools, tarry stools, blood in stool, constipated, diarrhea, difficulty swallowing, nausea, poor appetite, poor fluid intake, rectal bleeding , vomiting, other Genitourinary: Denies: no symptoms, burning, discharge, frequency, flank pain, hematuria, incontinence, pain, urgency, other Neurologic/Psychiatric: Denies: no symptoms, anxiety, depressed, emotional problems, headache, numbness, paresthesia, pre-existing deficit, seizure, tingling, tremors, weakness, other Allergies: Coded Allergies: No Known Allergies (Unverified , 10/17/18) Subjective 10/19: intubated, awaiting arrival of sister, goals of care were dw family per rn 10/20: dalia Regalado rn, on hd, potential extubation in next few days, labs noted Objective Objective Current Medications Medications (Trade) Dose Ordered Sig/Onelia Route PRN Reason Start Time Stop Time Status Last Admin Dose Admin Acetaminophen (Tylenol) 650 mg Q4H PRN ORAL FEVER 10/18/18 09:45 11/16/18 17:44 Acetaminophen/ Hydrocodone Bitart (Cade 10/325) 1 tab Q6H PRN ORAL For Pain 10/20/18 13:00 10/27/18 12:59 10/20/18 13:11 Albuterol/ Ipratropium (Albuterol/ Ipratropium) 3 ml Q4H PRN HHN Shortness of Breath 10/18/18 09:45 10/22/18 17:44 Azithromycin (Zithromax) 500 mg DAILY ORAL 10/19/18 09:00 10/24/18 16:59 10/20/18 08:40 Cefepime HCl 2 gm/ Dextrose 110 ml @ 220 mls/hr EVERY 12 HOURS IV 10/18/18 21:00 10/24/18 20:59 10/20/18 08:40 Dextrose (Dextrose 50%) 25 ml Q30M PRN IV Hypoglycemia 10/18/18 09:45 11/16/18 17:44 Dextrose (Dextrose 50%) 50 ml Q30M PRN IV Hypoglycemia 10/18/18 09:45 11/16/18 17:44 Dextrose/Sodium Chloride 1,000 ml @ 75 mls/hr [id number] IV 10/20/18 10:45 11/19/18 10:44 10/20/18 12:05 Levothyroxine Sodium (Synthroid) 100 mcg DAILY IV 10/20/18 11:30 11/19/18 11:29 10/20/18 12:05 Lorazepam (Ativan 2mg/ml 1ml) 2 mg Q4H PRN IV For Anxiety 10/18/18 10:45 10/25/18 10:44 Ondansetron HCl (Zofran) 4 mg Q6H PRN IVP Nausea & Vomiting 10/18/18 09:45 11/16/18 09:44 Pantoprazole (Protonix) 40 mg Q12HR IV 10/20/18 21:00 11/18/18 08:59 Polyethylene Glycol (Miralax) 17 gm DAILYPRN PRN ORAL Constipation 10/18/18 09:30 11/16/18 09:29 Vancomycin HCl (Vanco rx to dose) 1 ea DAILY PRN MISC Per rx protocol 10/19/18 09:00 11/16/18 16:59 Voriconazole (Vfend) 200 mg EVERY 12 HOURS ORAL 10/18/18 13:45 10/25/18 13:44 10/20/18 08:40 Last 24 Hour Vital Signs Date Time Temp Pulse Resp B/P (MAP) Pulse Ox O2 Delivery O2 Flow Rate FiO2 10/20/18 17:00 79 17 66/61 (63) 95 10/20/18 16:54 82 16 60 10/20/18 16:00 60 10/20/18 16:00 Mechanical Ventilator 10/20/18 16:00 81 10/20/18 16:00 96.9 78 17 97/65 (76) 98 10/20/18 15:05 70 17 60 10/20/18 15:00 71 16 97/61 (73) 97 10/20/18 14:00 75 17 103/58 (73) 95 10/20/18 13:08 81 20 60 10/20/18 13:00 81 19 115/68 (84) 97 10/20/18 12:00 Mechanical Ventilator 10/20/18 12:00 60 10/20/18 12:00 84 10/20/18 12:00 97.0 76 17 104/63 (77) 99 10/20/18 11:00 75 18 114/84 (94) 97 10/20/18 10:37 86 16 60 10/20/18 10:00 70 17 100/60 (73) 99 10/20/18 09:00 83 17 111/66 (81) 100 10/20/18 08:45 90 23 60 10/20/18 08:00 97.1 74 18 114/62 (79) 96 10/20/18 08:00 60 10/20/18 08:00 86 10/20/18 08:00 Mechanical Ventilator 10/20/18 07:53 80 10/20/18 07:29 86 23 60 10/20/18 07:00 87 20 119/69 (86) 96 10/20/18 06:00 75 20 96/56 (69) 98 10/20/18 05:06 76 16 60 10/20/18 05:00 86 19 100/54 (69) 96 10/20/18 04:00 97.2 73 23 93/57 (69) 100 10/20/18 04:00 Mechanical Ventilator 10/20/18 04:00 60 10/20/18 03:05 75 16 60 10/20/18 03:04 74 10/20/18 03:00 69 16 86/49 (61) 100 10/20/18 02:00 73 22 75/49 (58) 100 10/20/18 01:03 76 17 60 10/20/18 01:00 80 16 84/48 (60) 98 10/20/18 00:00 60 10/20/18 00:00 97.3 80 20 86/54 (65) 100 10/20/18 00:00 Mechanical Ventilator 10/19/18 23:04 87 10/19/18 23:00 86 16 95/60 (72) 99 10/19/18 22:59 88 20 60 10/19/18 22:00 86 15 88/60 (69) 98 10/19/18 21:00 86 18 88/63 (71) 99 10/19/18 20:52 86 18 60 10/19/18 20:00 Mechanical Ventilator 10/19/18 20:00 97.2 88 18 91/55 (67) 96 10/19/18 20:00 60 10/19/18 19:34 87 10/19/18 19:03 86 17 60 10/19/18 19:00 86 16 89/54 (66) 96 10/19/18 18:00 87 18 89/59 (69) 91 8/6/19 17:10 91 19 60 10/19/18 17:00 89 19 94/53 (67) 98 10/19/18 16:30 88 16 87/56 (66) 98 10/19/18 16:00 96.1 87 16 86/61 (69) 98 10/19/18 16:00 60 10/19/18 16:00 Mechanical Ventilator 10/19/18 15:45 87 10/19/18 15:07 89 20 60 10/19/18 15:00 90 20 95/54 (68) 97 10/19/18 14:00 89 19 90/49 (63) 99 10/19/18 13:02 89 21 60 10/19/18 13:00 89 17 83/53 (63) 97 10/19/18 12:00 Mechanical Ventilator 10/19/18 12:00 96.6 91 19 85/61 (69) 94 10/19/18 12:00 91 10/19/18 12:00 60 10/19/18 11:12 93 18 60 10/19/18 11:00 92 19 84/48 (60) 94 10/19/18 11:00 92 19 85/52 (63) 92 10/19/18 10:00 92 19 84/48 (60) 94 10/19/18 09:00 96.0 93 18 82/53 (63) 97 10/19/18 08:58 93 18 60 10/19/18 08:00 93 19 96/64 (75) 98 10/19/18 08:00 Mechanical Ventilator 10/19/18 08:00 60 10/19/18 07:51 83 10/19/18 07:10 91 19 60 10/19/18 07:00 90 18 89/61 (70) 99 10/19/18 06:11 97.4 10/19/18 06:00 92 19 92/59 (70) 98 10/19/18 05:29 94 25 60 65 10/19/18 05:00 95 22 100/61 (74) 96 10/19/18 04:00 60 10/19/18 04:00 Mechanical Ventilator 10/19/18 04:00 97.2 95 20 99/58 (72) 88 10/19/18 03:47 95 10/19/18 03:18 95 25 60 65 10/19/18 03:00 94 22 94/55 (68) 96 10/19/18 02:00 94 22 98/58 (71) 96 10/19/18 01:15 93 23 60 65 10/19/18 01:00 94 26 84/60 (68) 95 10/19/18 00:00 Mechanical Ventilator 10/19/18 00:00 96 10/19/18 00:00 60 10/19/18 00:00 97.3 96 27 81/64 (70) 93 10/18/18 23:18 95 33 60 65 10/18/18 23:00 96 28 89/67 (74) 94 10/18/18 22:00 96 32 90/72 (78) 94 10/18/18 21:20 98 31 60 65 10/18/18 21:00 99 33 90/68 (75) 96 10/18/18 20:00 60 10/18/18 20:00 97.5 96 33 90/68 (75) 98 10/18/18 20:00 Mechanical Ventilator 10/18/18 20:00 95 10/18/18 19:25 93 35 60 65 10/18/18 19:00 92 29 89/69 (76) 94 10/18/18 18:00 97.3 97 33 86/62 (70) 96 Intake and Output 10/19/18 10/20/18 18:59 06:59 Intake Total 1286.000 ml 975 ml Output Total 0 ml 0 ml Balance 1286.000 ml 975 ml Intake Oral 0 ml 0 ml IV Total 385.000 ml 385 ml Blood Product 851 ml 500 ml Other 50 ml 90 ml Stool Total 0 ml 0 ml # Voids 2 4 Labs Test 10/18/18 03:00 10/18/18 03:02 10/18/18 08:14 10/18/18 10:17 White Blood Count 11.6 K/UL (4.8-10.8) Red Blood Count 2.60 M/UL (4.70-6.10) Hemoglobin 7.8 G/DL (14.2-18.0) Hematocrit 24.7 % (42.0-52.0) Mean Corpuscular Volume 95 FL (80-99) Mean Corpuscular Hemoglobin 30.0 PG (27.0-31.0) Mean Corpuscular Hemoglobin Concent 31.6 G/DL (32.0-36.0) Red Cell Distribution Width 17.1 % (11.6-14.8) Platelet Count 11 K/UL (150-450) Mean Platelet Volume 7.8 FL (6.5-10.1) Neutrophils (%) (Auto) % (45.0-75.0) Lymphocytes (%) (Auto) % (20.0-45.0) Monocytes (%) (Auto) % (1.0-10.0) Eosinophils (%) (Auto) % (0.0-3.0) Basophils (%) (Auto) % (0.0-2.0) Sodium Level 132 MMOL/L (136-145) Potassium Level 4.7 MMOL/L (3.5-5.1) Chloride Level 98 MMOL/L (98-107) Carbon Dioxide Level 26 MMOL/L (21-32) Anion Gap 8 mmol/L (5-15) Blood Urea Nitrogen 33 mg/dL (7-18) Creatinine 0.8 MG/DL (0.55-1.30) Estimat Glomerular Filtration Rate > 60 mL/min (>60) Glucose Level 119 MG/DL (74-106) Calcium Level 8.8 MG/DL (8.5-10.1) Phosphorus Level 5.9 MG/DL (2.5-4.9) Albumin 2.0 G/DL (3.4-5.0) HIV (1&2) Antibody Rapid Negative (NEGATIVE) Hepatitis A IgM Antibody Negative (Negative) Hepatitis B Surface Antigen Negative (Negative) Hepatitis B Core IgM Antibody Negative (Negative) Hepatitis C Antibody <0.1 s/co ratio Arterial Blood pH 6.979 (7.350-7.450) 7.136 (7.350-7.450) Arterial Blood Partial Pressure CO2 136.6 mmHg (35.0-45.0) 74.9 mmHg (35.0-45.0) Arterial Blood Partial Pressure O2 87.4 mmHg (75.0-100.0) 115.9 mmHg (75.0-100.0) Arterial Blood HCO3 31.4 mmol/L (22.0-26.0) 24.7 mmol/L (22.0-26.0) Arterial Blood Oxygen Saturation 89.6 % (95-100) 96.9 % (95-100) Arterial Blood Base Excess -1.7 (-2-2) -4.8 (-2-2) William Test Positive Positive Test 10/18/18 23:30 10/19/18 04:20 10/19/18 08:40 10/20/18 04:10 Vancomycin Level Trough 18.7 ug/mL (5.0-12.0) White Blood Count 5.0 K/UL (4.8-10.8) 7.7 K/UL (4.8-10.8) Red Blood Count 2.15 M/UL (4.70-6.10) 2.99 M/UL (4.70-6.10) Hemoglobin 6.4 G/DL (14.2-18.0) 9.0 G/DL (14.2-18.0) Hematocrit 20.0 % (42.0-52.0) 27.3 % (42.0-52.0) Mean Corpuscular Volume 93 FL (80-99) 91 FL (80-99) Mean Corpuscular Hemoglobin 29.8 PG (27.0-31.0) 30.2 PG (27.0-31.0) Mean Corpuscular Hemoglobin Concent 32.0 G/DL (32.0-36.0) 33.2 G/DL (32.0-36.0) Red Cell Distribution Width 17.4 % (11.6-14.8) 15.9 % (11.6-14.8) Platelet Count 11 K/UL (150-450) 56 K/UL (150-450) Mean Platelet Volume 10.4 FL (6.5-10.1) 6.8 FL (6.5-10.1) Neutrophils (%) (Auto) % (45.0-75.0) % (45.0-75.0) Lymphocytes (%) (Auto) % (20.0-45.0) % (20.0-45.0) Monocytes (%) (Auto) % (1.0-10.0) % (1.0-10.0) Eosinophils (%) (Auto) % (0.0-3.0) % (0.0-3.0) Basophils (%) (Auto) % (0.0-2.0) % (0.0-2.0) Differential Total Cells Counted 100 100 Neutrophils % (Manual) 84 % (45-75) 93 % (45-75) Lymphocytes % (Manual) 4 % (20-45) 5 % (20-45) Monocytes % (Manual) 3 % (1-10) 2 % (1-10) Eosinophils % (Manual) 1 % (0-3) 0 % (0-3) Basophils % (Manual) 0 % (0-2) 0 % (0-2) Band Neutrophils 8 % (0-8) 0 % (0-8) Nucleated Red Blood Cells 1 /100 WBC Platelet Estimate Decreased Decreased Platelet Morphology Normal Normal Hypochromasia 4+ 1+ Anisocytosis 1+ 1+ Reticulocyte Count 4.4 % (0.5-2.0) Prothrombin Time 17.2 SEC (9.30-11.50) Prothromb Time International Ratio 1.7 (0.9-1.1) Activated Partial Thromboplast Time 35 SEC (23-33) Sodium Level 131 MMOL/L (136-145) 134 MMOL/L (136-145) Potassium Level 5.1 MMOL/L (3.5-5.1) 5.1 MMOL/L (3.5-5.1) Chloride Level 99 MMOL/L (98-107) 100 MMOL/L (98-107) Carbon Dioxide Level 25 MMOL/L (21-32) 26 MMOL/L (21-32) Anion Gap 7 mmol/L (5-15) 9 mmol/L (5-15) Blood Urea Nitrogen 52 mg/dL (7-18) 64 mg/dL (7-18) Creatinine 1.1 MG/DL (0.55-1.30) 1.4 MG/DL (0.55-1.30) Estimat Glomerular Filtration Rate > 60 mL/min (>60) 54.6 mL/min (>60) Glucose Level 75 MG/DL (74-106) 91 MG/DL (74-106) Calcium Level 8.2 MG/DL (8.5-10.1) 7.6 MG/DL (8.5-10.1) Phosphorus Level 4.9 MG/DL (2.5-4.9) Magnesium Level 1.7 MG/DL (1.8-2.4) Iron Level 21 ug/dL (50-175) Total Iron Binding Capacity 109 ug/dL (250-450) Percent Iron Saturation 19 % (15-50) Unsaturated Iron Binding 88 ug/dL (112-346) Ferritin 1254 NG/ML (8-388) Total Bilirubin 1.0 MG/DL (0.2-1.0) Aspartate Amino Transf (AST/SGOT) 158 U/L (15-37) Alanine Aminotransferase (ALT/SGPT) 74 U/L (12-78) Alkaline Phosphatase 255 U/L (46-116) Total Protein 5.5 G/DL (6.4-8.2) Albumin 1.9 G/DL (3.4-5.0) Globulin 3.6 g/dL Albumin/Globulin Ratio 0.5 (1.0-2.7) Vitamin B12 Level > 2000 PG/ML (193-986) Folate 17.8 NG/ML (8.6-58.9) Thyroid Stimulating Hormone (TSH) 76.987 uiU/mL (0.358-3.740) Free Thyroxine 0.30 NG/DL (0.76-1.46) Arterial Blood pH 7.288 (7.350-7.450) Arterial Blood Partial Pressure CO2 49.2 mmHg (35.0-45.0) Arterial Blood Partial Pressure O2 76.0 mmHg (75.0-100.0) Arterial Blood HCO3 23.0 mmol/L (22.0-26.0) Arterial Blood Oxygen Saturation 91.1 % (95-100) Arterial Blood Base Excess -3.4 (-2-2) William Test Positive Troponin I 0.113 ng/mL (0.000-0.056) Test 10/20/18 11:55 Vancomycin Level Trough 27.3 ug/mL (5.0-12.0) Height (Feet): 5 Height (Inches): 8.00 Weight (Pounds): 108 Objective Vital Signs reviewed General: no apparent distress Chest: intubated, normocephalic HEENT: normal ENT inspection Respiratory: on vent, decreased bss Gastrointestinal: ngt Robert Elam MD Oct 20, 2018 17:59
--- NOTE | 2018-10-20 18:13 | Cardiology Report ---
APPROVED REPORT EKG Measurement Heart [id number] VT [id number] Sinus rhythm with 1st degree AV block Possible Left atrial enlargement Incomplete right bundle branch block Possible Lateral infarct, age undetermined Abnormal ECG
--- NOTE | 2018-10-20 18:15 | Cardiology Report ---
APPROVED REPORT EKG Measurement Heart [id number] ND [id number] Sinus rhythm with 1st degree AV block Possible Left atrial enlargement Incomplete right bundle branch block Possible Lateral infarct, age undetermined Abnormal ECG
--- NOTE | 2018-10-20 18:17 | NUR ---
NURSE NOTES: Family friend at the bedside. friend is at the nedisde updated on patient status, remains resting, he is able to open eyes when shaken or with light pain is applied when he is in a light sleep, otherwise he is able to spontaneously have his eyes open and write on a notepad.
--- NOTE | 2018-10-20 18:25 | Cardiology Report ---
APPROVED REPORT EKG Measurement Heart [id number] IA [id number] [id number] Sinus rhythm with 1st degree AV block Incomplete right bundle branch block Borderline ECG
--- NOTE | 2018-10-20 18:45 | NUR ---
RESPIRATORY NOTE: Received pt orally intubated on vent setting of AC/VC RR 16, VT 500, FIO2 60%, Peep +5. Pt is intubated with size 8 ett at 24 at the lip secured by anchor fast. Sxn thin gaines, brown secretions and will sxn as needed. Vent is plugged into red outlet. Will monitor pt's progress throughout the night.
--- NOTE | 2018-10-20 19:21 | Infectious Diseases Prog Note ---
Assessment/Plan Assessment/Plan Assessment: Acute hypercapnic respiratory failure s/p intubation 10/18 Sepsis - 2ry to PNA- r/o fungal, atypical -sp cx p; ?collected Dyspnea-r/o interstitial lung disease -10/19 CXR: Heterogeneous extensive consolidative opacities bilaterally presumably due to pneumonia. Correlate clinically -10/18 CXR; Endotracheal tube and nasogastric tube in good position.Worsening bilateral infiltrates currently extensive -CTA chest: No PE. Limited at the left lung base due to motion. Prominent main pulmonary artery may be pulmonary arterial hypertension. Small bilateral pleural effusions, greater on the left. Pleural effusion along the right major fissure. Septal thickening of the left lung and right lower lung. Hazy lung opacities of the left lung in a mosaic pattern, may be edema or infiltrate, consider alveolar proteinosis. Mild honeycombing of the lung and right lung peripheral opacities. Maybe fibrosis, consider eosinophilic pneumonia. Numerous small nodules of the right lung. Right anterior rib 4 permeative lesion with pathologic fracture may be subacute. -CXR: Infiltrative changes in the left lung. Could be from pneumonia. Underlying lesion not excluded. 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 Generalized atrophy of the brain. Chronic small vessel disease involving periventricular white matter. Paranasal fracture may be old. Correlate clinically -HIV ab screen neg Elevated LFts -Abd US: No acute findings identified. -Acute hep panel metastatic colon on chemotherapy CHF -HIV ab screen neg Plan: -Continue empiric CEfepime #4 and IV Vancomycin #4 (Vanco currently on hold due to supratherapeutic leves) -Cont azithromycin #4 for atypicals -Cont Voriconazole #3 for fungal coverage -monitor Qtc, Lfts -f/u cx -Monitor CBC/BMP, temperatures -f/u sp cx, legionella ag urine, Cocci ab, CrAg am, Aspergillus ag serum -aspiration precautions -f/u fungus sp cx Thank you for this consultation. Will continue to follow along with you. Discussed with RN. Subjective Allergies: Coded Allergies: No Known Allergies (Unverified , 10/17/18) Subjective afebrile no leukocytosis Bcx NTD sp cx p; collected? remains intubated Objective Vital Signs Last 24 Hour Vital Signs Date Time Temp Pulse Resp B/P (MAP) Pulse Ox O2 Delivery O2 Flow Rate FiO2 10/20/18 18:45 82 15 60 10/20/18 18:00 82 16 103/67 (79) 93 10/20/18 17:00 79 17 66/61 (63) 95 10/20/18 16:54 82 16 60 10/20/18 16:00 60 10/20/18 16:00 Mechanical Ventilator 10/20/18 16:00 81 10/20/18 16:00 96.9 78 17 97/65 (76) 98 10/20/18 15:05 70 17 60 10/20/18 15:00 71 16 97/61 (73) 97 10/20/18 14:00 75 17 103/58 (73) 95 10/20/18 13:08 81 20 60 10/20/18 13:00 81 19 115/68 (84) 97 10/20/18 12:00 Mechanical Ventilator 10/20/18 12:00 60 10/20/18 12:00 84 10/20/18 12:00 97.0 76 17 104/63 (77) 99 10/20/18 11:00 75 18 114/84 (94) 97 10/20/18 10:37 86 16 60 10/20/18 10:00 70 17 100/60 (73) 99 10/20/18 09:00 83 17 111/66 (81) 100 10/20/18 08:45 90 23 60 10/20/18 08:00 97.1 74 18 114/62 (79) 96 10/20/18 08:00 60 10/20/18 08:00 86 10/20/18 08:00 Mechanical Ventilator 10/20/18 07:53 80 10/20/18 07:29 86 23 60 10/20/18 07:00 87 20 119/69 (86) 96 10/20/18 06:00 75 20 96/56 (69) 98 10/20/18 05:06 76 16 60 10/20/18 05:00 86 19 100/54 (69) 96 10/20/18 04:00 97.2 73 23 93/57 (69) 100 10/20/18 04:00 Mechanical Ventilator 10/20/18 04:00 60 10/20/18 03:05 75 16 60 10/20/18 03:04 74 10/20/18 03:00 69 16 86/49 (61) 100 10/20/18 02:00 73 22 75/49 (58) 100 10/20/18 01:03 76 17 60 10/20/18 01:00 80 16 84/48 (60) 98 10/20/18 00:00 60 10/20/18 00:00 97.3 80 20 86/54 (65) 100 10/20/18 00:00 Mechanical Ventilator 10/19/18 23:04 87 10/19/18 23:00 86 16 95/60 (72) 99 10/19/18 22:59 88 20 60 10/19/18 22:00 86 15 88/60 (69) 98 10/19/18 21:00 86 18 88/63 (71) 99 10/19/18 20:52 86 18 60 10/19/18 20:00 Mechanical Ventilator 10/19/18 20:00 97.2 88 18 91/55 (67) 96 10/19/18 20:00 60 10/19/18 19:34 87 Height (Feet): 5 Height (Inches): 8.00 Weight (Pounds): 108 Objective General Appearance: alert, moderate distress, cachetic Head: normocephalic, atraumatic Eyes: bilateral eye PERRL, bilateral eye EOMI ENT: uvula midline, dry mucus membranes Neck: supple, thyroid normal, supple/symm/no masses Respiratory: respiratory distress, decreased breath sounds - left side, accessory muscle use Cardiovascular #1: normal peripheral pulses, regular rate, rhythm, no edema, no gallop, no murmur Gastrointestinal: non tender, soft, no guarding, no rebound, other - Ostomy bag present Musculoskeletal: normal inspection Neurologic: alert, oriented x3 Psychiatric: mood/affect normal Skin: warm/dry, other - Sacral ulcer stage I Laboratory Tests Test 10/20/18 04:10 10/20/18 11:55 White Blood Count 7.7 K/UL (4.8-10.8) # Red Blood Count 2.99 M/UL (4.70-6.10) L Hemoglobin 9.0 G/DL (14.2-18.0) #L Hematocrit 27.3 % (42.0-52.0) #L Mean Corpuscular Volume 91 FL (80-99) Mean Corpuscular Hemoglobin 30.2 PG (27.0-31.0) Mean Corpuscular Hemoglobin Concent 33.2 G/DL (32.0-36.0) Red Cell Distribution Width 15.9 % (11.6-14.8) H Platelet Count 56 K/UL (150-450) #L Mean Platelet Volume 6.8 FL (6.5-10.1) Neutrophils (%) (Auto) % (45.0-75.0) Lymphocytes (%) (Auto) % (20.0-45.0) Monocytes (%) (Auto) % (1.0-10.0) Eosinophils (%) (Auto) % (0.0-3.0) Basophils (%) (Auto) % (0.0-2.0) Differential Total Cells Counted 100 Neutrophils % (Manual) 93 % (45-75) H Lymphocytes % (Manual) 5 % (20-45) L Monocytes % (Manual) 2 % (1-10) Eosinophils % (Manual) 0 % (0-3) Basophils % (Manual) 0 % (0-2) Band Neutrophils 0 % (0-8) Platelet Estimate Decreased L Platelet Morphology Normal Hypochromasia 1+ Anisocytosis 1+ Sodium Level 134 MMOL/L (136-145) L Potassium Level 5.1 MMOL/L (3.5-5.1) Chloride Level 100 MMOL/L (98-107) Carbon Dioxide Level 26 MMOL/L (21-32) Anion Gap 9 mmol/L (5-15) Blood Urea Nitrogen 64 mg/dL (7-18) H Creatinine 1.4 MG/DL (0.55-1.30) H Estimat Glomerular Filtration Rate 54.6 mL/min (>60) Glucose Level 91 MG/DL (74-106) Calcium Level 7.6 MG/DL (8.5-10.1) L Troponin I 0.113 ng/mL (0.000-0.056) Cryptococcus Antigen Pending Aspergillus flavus Antibody Pending Aspergillus fumigatus Antibody Pending Aspergillus niger Antibody Pending Vancomycin Level Trough 27.3 ug/mL (5.0-12.0) H Current Medications Medications (Trade) Dose Ordered Sig/[place] Route PRN Reason Start Time Stop Time Status Last Admin Dose Admin Acetaminophen (Tylenol) 650 mg Q4H PRN ORAL FEVER 10/18/18 09:45 11/16/18 17:44 Acetaminophen/ Hydrocodone Bitart ([place] 103[address]) 1 tab Q6H PRN ORAL For Pain 10/20/18 13:00 10/27/18 12:59 10/20/18 13:11 Albuterol/ Ipratropium (Albuterol/ Ipratropium) 3 ml Q4H PRN HHN Shortness of Breath 10/18/18 09:45 10/22/18 17:44 Azithromycin (Zithromax) 500 mg DAILY ORAL 10/19/18 09:00 10/24/18 16:59 10/20/18 08:40 Cefepime HCl 2 gm/ Dextrose 110 ml @ 220 mls/hr EVERY 12 HOURS IV 10/18/18 21:00 10/24/18 20:59 10/20/18 08:40 Dextrose (Dextrose 50%) 25 ml Q30M PRN IV Hypoglycemia 10/18/18 09:45 11/16/18 17:44 Dextrose (Dextrose 50%) 50 ml Q30M PRN IV Hypoglycemia 10/18/18 09:45 11/16/18 17:44 Dextrose/Sodium Chloride 1,000 ml @ 75 mls/hr [id number] IV 10/20/18 10:45 11/19/18 10:44 10/20/18 12:05 Levothyroxine Sodium (Synthroid) 100 mcg DAILY IV 10/20/18 11:30 11/19/18 11:29 10/20/18 12:05 Lorazepam (Ativan 2mg/ml 1ml) 2 mg Q4H PRN IV For Anxiety 10/18/18 10:45 10/25/18 10:44 Ondansetron HCl (Zofran) 4 mg Q6H PRN IVP Nausea & Vomiting 10/18/18 09:45 11/16/18 09:44 Pantoprazole (Protonix) 40 mg Q12HR IV 10/20/18 21:00 11/18/18 08:59 Polyethylene Glycol (Miralax) 17 gm DAILYPRN PRN ORAL Constipation 10/18/18 09:30 11/16/18 09:29 Vancomycin HCl (Vanco rx to dose) 1 ea DAILY PRN MISC Per rx protocol 10/19/18 09:00 11/16/18 16:59 Voriconazole (Vfend) 200 mg EVERY 12 HOURS ORAL 10/18/18 13:45 10/25/18 13:44 10/20/18 08:40 Kaye Butcher M.D. Oct 20, 2018 19:21
--- NOTE | 2018-10-20 19:45 | NUR ---
HAND-OFF: Report given to DELORIS Mccallum.
--- NOTE | 2018-10-20 19:50 | NUR ---
NURSE NOTES: Report received from DELORIS Regalado. Observed pt sleeping in the bed, arousable by shaking. SR with polytechnic teacher. On ETT size 8.0, 24 at left lip, AC 16, TV 500, FIO2 60%, Peep 5, saturating at 96%. OGT noted, kept NPO. ABD, soft, flat, and non-tender. Colostomy noted on LLQ. IV on L FA 22, asymptomatic, SL. L FA 20, SL. R FA 22 running D5 NS at 75cc/hr. Bed in the lowest position. Side rails up x3. Will continue to monitor.
--- NOTE | 2018-10-20 22:00 | NUR ---
NURSE NOTES: No acute distress noted at this time. Observed pt sleeping in the bed. Briana care done and condom cath applied. OGT no residual noted and flushing well. Bed in the lowest position. Side rails up x3. Will continue to monitor.
[2018-10-21] VITALS (25 sets, daily range): BP systolic 86–120; BP diastolic 53–83
--- NOTE | 2018-10-21 | NUR ---
NURSE NOTES: Observed pt sleeping in the bed. Sputum culture collected. Reposition done with pillow support. SR w/ 1st av block noted with rn cardiac rehab. VS WNL. Will continue to monitor.
--- NOTE | 2018-10-21 01:47 | NUR ---
NURSE NOTES: Noted no urine output. Bladder scan done and noted 225ml. VS WNL. Pt sleeping in the bed. Will continue to monitor.
--- NOTE | 2018-10-21 04:00 | NUR ---
NURSE NOTES: Observed pt sleeping in the bed. SR with monitor car operator. No acute distress noted at this time. Bed bath given. Oral care done. Reposition with pillow support. Wound dressing changed. Will continue to monitor.
[2018-10-21 05:20] LABS: HEMOGLOBIN 9.2 G/DL (14.2-18.0); MEAN CORPUSCULAR VOLUME 93 FL (80-99); PLATELET COUNT 27 K/UL (150-450); RED BLOOD COUNT 3.12 M/UL (4.70-6.10); RED CELL DISTRIBUTION WIDTH 16.8 % (11.6-14.8)
[2018-10-21 05:30] LABS: AMMONIA 85 umol/L (11-32)
[2018-10-21 05:51] LABS: ALANINE AMINOTRANSFERASE 98 U/L (12-78); ALBUMIN 1.8 G/DL (3.4-5.0); ALBUMIN/GLOBULIN RATIO 0.5 (1.0-2.7); ALKALINE PHOSPHATASE 279 U/L (46-116); ANION GAP 8 mmol/L (5-15); ASPARTATE AMINO TRANSFERASE 196 U/L (15-37); BLOOD UREA NITROGEN 85 mg/dL (7-18); CALCIUM 7.7 MG/DL (8.5-10.1); CARBON DIOXIDE 25 MMOL/L (21-32); CHLORIDE 104 MMOL/L (98-107); CHOLESTEROL 78 MG/DL (< 200); CREATINE KINASE 39 U/L (26-308); CREATININE 1.6 MG/DL (0.55-1.30); GAMMA GLUTAMYL TRANSPEPTIDASE 79 U/L (5-85); HDL CHOLESTEROL 33 MG/DL (40-60); PHOSPHORUS 6.5 MG/DL (2.5-4.9); POTASSIUM 5.6 MMOL/L (3.5-5.1); SODIUM 137 MMOL/L (136-145); TRIGLYCERIDES 21 MG/DL (30-150)
--- NOTE | 2018-10-21 06:00 | NUR ---
NURSE NOTES: No urine output noted for whole shift. Bladder scan done, resulting 382ml. Notified and awaiting call back.
--- NOTE | 2018-10-21 06:30 | NUR ---
NURSE NOTES: Left a message to regarding K 5.2 and Troponin 0.136. Awaiting for call back.
--- NOTE | 2018-10-21 07:25 | NUR ---
HAND-OFF: Report given to DELORIS Regalado. No acute distress noetd at this time.
--- NOTE | 2018-10-21 08:30 | NUR ---
NURSE NOTES: Dr. Elam notified of patient PLT level of 27 and notified of hgb of 9.2, advised to monitor for bleeding and notify if PLT level decrease below 20K. No verbal further orders given at this time.
--- NOTE | 2018-10-21 08:40 | NUR ---
RESPIRATORY NOTE: Received pt on AC 16, 500VT, 60%, PEEP +5. Pt orally intubated with ETT 8.0 @ 24cm lipline, secured by anchor fast. Pt alert, awake, and follows commands.Ken.diminished breath sounds heard upon auscultation, sxn small amounts of thin gaines secretions. Vent plugged into red outlet, alarms are set and audible, ambu bag at bedside. Vent circuits and sxn tubing are secured and out of the way. Pt resting comfortably, in no apparent distress at this time. Will continue to monitor pt.
--- NOTE | 2018-10-21 08:45 | NUR ---
RESPIRATORY NOTE: Placed pt on CPAP PS 8- peep 5- 60% FiO2 per weaning protocol to see if pt can be wean. Pt passed the weaning criteria but unable to continue weaning due to pt using abdominal muscle to breathe and still in high FiO2 ( 96% saturation on 60% FiO2). DELORIS Regalado made aware. Will continue to monitor pt.
[2018-10-21] MEDS: Azithromycin 250mg tab ORAL SCH (09:37)
[2018-10-21] MEDS: Pantoprazole Inj IV SCH ×2 (09:37→20:44)
[2018-10-21] MEDS: Cefepime HCl 2 GM in D5W 110 ML IV SCH (09:37)
--- NOTE | 2018-10-21 09:45 | NUR ---
NURSE NOTES: Dr. thomson notified of potassium level of 5.6 and phosphorus of 6.5, ordered to 30mg of Kayexalate to be given once, will review labs and change fluids to increase fluids.
[2018-10-21] MEDS ORDERED: Sodium Polystyrene Sulfon/Sorb 15gm/60ml Susp ORAL SCH (10:15)
--- NOTE | 2018-10-21 10:28 | NUR ---
RD ASSESSMENT & RECOMMENDATIONS SEE CARE ACTIVITY FOR COMPLETE ASSESSMENT DAILY ESTIMATED NEEDS: Needs based on Critical care, mets ca, underweight 49kg 25-35 kcals/kg 8871-5485 total kcals 1.25-2 g protein/kg 61-98 g total protein 25-30 mL/kg 8505-0047 total fluid mLs NUTRITION DIAGNOSIS: 1) Increased kcal and pro needs r/t wound healing and underweight status as evidenced by pt w/ sacral/ groin wounds advanced per photo, eval pending, w/ mets colon cancer on chemo, pt is est 70% of [place] Body Weight, generalized moderate to severe wasting. 2) Swallowing difficulty r/t respiratory failure as evidenced by pt now intubated, NPO, ICU status. ENTERAL NUTRITION RECOMMENDATIONS: VITAL AF 1.2 GOAL OF 50ml/hr x24 hrs to provide 1200ml, 1440 kcal, 90g pro, 973ml free H2O - If pt remains hemodynamically stable, rec temporary non oral feeds - Rec VITAL 1.2 for critical care, elemental formula for GI tolerance r/t colon ca. - Obtain GI access, start Vital 1.2 @20ml for 6 hrs. Advance as tolerated 10ml/hr q4-6 hrs to goal. - Flush per MD/ HOB over 30 degrees - TF @goal meets 100% est needs-->> If tolerated @50ml/hr, may advance to 60ml/hr to better meet est needs. ------- ADDITIONAL RECOMMENDATIONS: 1) Maintain calibrated bed scale wts 2) TF recs as above if part of POC 3) Check lytes daily (phos 6.5, K 5.6 monitor need for formula change) 4) WOUND CARE: WITH GI ACCESS, rec GEREMIAS BID + VIT C 250mg BID 5) Monitor renal labs w/ feeds, need for renal formula
--- NOTE | 2018-10-21 10:30 | Pulmonolgy Critical Care Note ---
Critical Care - Asmt/Plan Problems: (1) Acute respiratory failure (2) Metastatic cancer (3) Pneumonia involving left lung (4) ATN (acute tubular necrosis) Respiratory: monitor respiratory rate, adjust FIO2, CXR Cardiac: continue pressors, continue to monitor HR/BP Renal: F/U I&O, check electrolytes Infectious Disease: check cultures Gastrointestinal: continue feedings/current rate Endocrine: monitor blood sugar, check HgA1C, continue sliding scale insulin Hematologic: monitor H/H, transfuse if hgb<8.5 Neurologic: PRN Morphine, keep patient comfortable Prophylaxis: Protonix, Heparin Time Spent (Minutes): 40 Notes Reviewed: cardio, renal Critical Care - Objective Last 24 Hour Vital Signs Date Time Temp Pulse Resp B/P (MAP) Pulse Ox O2 Delivery O2 Flow Rate FiO2 10/21/18 10:00 77 17 97/56 (70) 98 10/21/18 09:00 80 16 92/59 (70) 95 10/21/18 08:45 82 19 60 10/21/18 08:00 60 10/21/18 08:00 97.1 78 15 91/56 (68) 99 10/21/18 08:00 82 10/21/18 07:18 84 20 60 10/21/18 07:00 81 15 93/63 (73) 99 10/21/18 06:00 75 17 92/53 (66) 99 10/21/18 05:14 79 16 60 10/21/18 05:11 81 18 94/53 (67) 98 10/21/18 04:00 83 10/21/18 04:00 97.5 82 18 94/60 (71) 99 10/21/18 04:00 60 10/21/18 04:00 Mechanical Ventilator 10/21/18 03:00 79 16 98/55 (69) 96 10/21/18 02:55 85 16 60 10/21/18 02:00 82 16 94/58 (70) 96 10/21/18 01:00 97.3 82 18 95/59 (71) 95 10/21/18 00:38 84 16 60 10/21/18 00:00 60 10/21/18 00:00 Mechanical Ventilator 10/21/18 00:00 85 16 93/58 (70) 94 10/21/18 00:00 83 10/20/18 23:00 85 22 100/61 (74) 94 10/20/18 22:31 82 16 60 10/20/18 22:00 84 16 102/62 (75) 94 10/20/18 21:00 85 17 114/63 (80) 96 10/20/18 20:49 84 18 60 10/20/18 20:00 84 10/20/18 20:00 97.3 84 16 111/62 (78) 95 10/20/18 20:00 60 10/20/18 20:00 Mechanical Ventilator 10/20/18 19:00 85 17 109/66 (80) 94 10/20/18 18:45 82 15 60 10/20/18 18:00 82 16 103/67 (79) 93 10/20/18 17:00 79 17 66/61 (63) 95 10/20/18 16:54 82 16 60 10/20/18 16:00 60 10/20/18 16:00 Mechanical Ventilator 10/20/18 16:00 81 10/20/18 16:00 96.9 78 17 97/65 (76) 98 10/20/18 15:05 70 17 60 10/20/18 15:00 71 16 97/61 (73) 97 10/20/18 14:00 75 17 103/58 (73) 95 10/20/18 13:08 81 20 60 10/20/18 13:00 81 19 115/68 (84) 97 10/20/18 12:00 Mechanical Ventilator 10/20/18 12:00 60 10/20/18 12:00 84 10/20/18 12:00 97.0 76 17 104/63 (77) 99 10/20/18 11:00 75 18 114/84 (94) 97 10/20/18 10:37 86 16 60 Status: awake Condition: critical Neck: full ROM Lungs: rhonchi Heart: HR/BP stable Abdomen: soft, non-tender, feeding tube Extremities: edema Critical Care - Subjective ROS Limited/Unobtainable: No EKG Rhythm: Sinus Rhythm FI02: 60 Vent Support Breath Rate: 16 Vent Support Mode: AC Vent Tidal Volume: 500 Sputum Amount: Moderate PEEP: 5.0 PIP: 26 I&O: Intake and Output 10/20/18 10/21/18 18:59 06:59 Intake Total 270 ml 1090 ml Output Total 0 ml 700 ml Balance 270 ml 390 ml Intake Oral 0 ml Free Water 100 ml IV Total 110 ml 1010 ml Other 60 ml 80 ml Output Urine Total 700 ml Stool Total 0 ml 0 ml # Voids 1 ET-Tube: 8.0 ET Position: 24 Labs: Laboratory Tests Test 10/20/18 11:55 10/21/18 04:00 Vancomycin Level Trough 27.3 ug/mL (5.0-12.0) H White Blood Count 3.0 K/UL (4.8-10.8) #L Red Blood Count 3.12 M/UL (4.70-6.10) L Hemoglobin 9.2 G/DL (14.2-18.0) L Hematocrit 29.0 % (42.0-52.0) L Mean Corpuscular Volume 93 FL (80-99) Mean Corpuscular Hemoglobin 29.7 PG (27.0-31.0) Mean Corpuscular Hemoglobin Concent 31.9 G/DL (32.0-36.0) L Red Cell Distribution Width 16.8 % (11.6-14.8) H Platelet Count 27 K/UL (150-450) #L Mean Platelet Volume 8.5 FL (6.5-10.1) Neutrophils (%) (Auto) % (45.0-75.0) Lymphocytes (%) (Auto) % (20.0-45.0) Monocytes (%) (Auto) % (1.0-10.0) Eosinophils (%) (Auto) % (0.0-3.0) Basophils (%) (Auto) % (0.0-2.0) Differential Total Cells Counted 100 Neutrophils % (Manual) 80 % (45-75) H Lymphocytes % (Manual) 5 % (20-45) L Monocytes % (Manual) 6 % (1-10) Eosinophils % (Manual) 0 % (0-3) Basophils % (Manual) 0 % (0-2) Band Neutrophils 9 % (0-8) H Platelet Estimate Decreased L Platelet Morphology Normal Hypochromasia 2+ Anisocytosis 1+ Sodium Level 137 MMOL/L (136-145) Potassium Level 5.6 MMOL/L (3.5-5.1) H Chloride Level 104 MMOL/L (98-107) Carbon Dioxide Level 25 MMOL/L (21-32) Anion Gap 8 mmol/L (5-15) Blood Urea Nitrogen 85 mg/dL (7-18) H Creatinine 1.6 MG/DL (0.55-1.30) H Estimat Glomerular Filtration Rate 46.8 mL/min (>60) Glucose Level 78 MG/DL (74-106) Uric Acid 7.3 MG/DL (2.6-7.2) H Calcium Level 7.7 MG/DL (8.5-10.1) L Phosphorus Level 6.5 MG/DL (2.5-4.9) H Magnesium Level 2.3 MG/DL (1.8-2.4) Total Bilirubin 1.0 MG/DL (0.2-1.0) Gamma Glutamyl Transpeptidase 79 U/L (5-85) Aspartate Amino Transf (AST/SGOT) 196 U/L (15-37) H Alanine Aminotransferase (ALT/SGPT) 98 U/L (12-78) H Alkaline Phosphatase 279 U/L (46-116) H Ammonia 85 umol/L (11-32) H Total Creatine Kinase 39 U/L (26-308) Troponin I 0.136 ng/mL (0.000-0.056) C-Reactive Protein, Quantitative 22.4 mg/dL (0.00-0.90) H Pro-B-Type Natriuretic Peptide > 84537 pg/mL (0-125) H Total Protein 5.5 G/DL (6.4-8.2) L Albumin 1.8 G/DL (3.4-5.0) L Globulin 3.7 g/dL Albumin/Globulin Ratio 0.5 (1.0-2.7) L Triglycerides Level 21 MG/DL (30-150) L Cholesterol Level 78 MG/DL (< 200) LDL Cholesterol 39 mg/dL (<100) HDL Cholesterol 33 MG/DL (40-60) L Cholesterol/HDL Ratio 2.4 (3.3-4.4) L Lipase 26 U/L (73-393) L Cortisol AM Sample Pending Random Vancomycin Level 21.7 ug/mL Sasha Victor MD Oct 21, 2018 10:30
--- NOTE | 2018-10-21 10:31 | Pulmonolgy Critical Care Note ---
Critical Care - Asmt/Plan Problems: (1) Acute respiratory failure (2) Metastatic cancer (3) Pneumonia involving left lung (4) ATN (acute tubular necrosis) Respiratory: monitor respiratory rate, adjust FIO2, CXR Cardiac: continue to monitor HR/BP Renal: F/U I&O Infectious Disease: check cultures, continue antibiotics Gastrointestinal: hold feedings Endocrine: monitor blood sugar, check TSH Hematologic: monitor H/H Neurologic: PRN Morphine Prophylaxis: Heparin Disposition: keep in ICU Time Spent (Minutes): 40 Notes Reviewed: school admissions representative, renal Discussed with: nurses, consultants Critical Care - Objective Last 24 Hour Vital Signs Date Time Temp Pulse Resp B/P (MAP) Pulse Ox O2 Delivery O2 Flow Rate FiO2 10/21/18 10:00 77 17 97/56 (70) 98 10/21/18 09:00 80 16 92/59 (70) 95 10/21/18 08:45 82 19 60 10/21/18 08:00 60 10/21/18 08:00 97.1 78 15 91/56 (68) 99 10/21/18 08:00 82 10/21/18 07:18 84 20 60 10/21/18 07:00 81 15 93/63 (73) 99 10/21/18 06:00 75 17 92/53 (66) 99 10/21/18 05:14 79 16 60 10/21/18 05:11 81 18 94/53 (67) 98 10/21/18 04:00 83 10/21/18 04:00 97.5 82 18 94/60 (71) 99 10/21/18 04:00 60 10/21/18 04:00 Mechanical Ventilator 10/21/18 03:00 79 16 98/55 (69) 96 10/21/18 02:55 85 16 60 10/21/18 02:00 82 16 94/58 (70) 96 10/21/18 01:00 97.3 82 18 95/59 (71) 95 10/21/18 00:38 84 16 60 10/21/18 00:00 60 10/21/18 00:00 Mechanical Ventilator 10/21/18 00:00 85 16 93/58 (70) 94 10/21/18 00:00 83 10/20/18 23:00 85 22 100/61 (74) 94 8/7/19 22:31 82 16 60 10/20/18 22:00 84 16 102/62 (75) 94 10/20/18 21:00 85 17 114/63 (80) 96 10/20/18 20:49 84 18 60 10/20/18 20:00 84 10/20/18 20:00 97.3 84 16 111/62 (78) 95 10/20/18 20:00 60 10/20/18 20:00 Mechanical Ventilator 10/20/18 19:00 85 17 109/66 (80) 94 10/20/18 18:45 82 15 60 10/20/18 18:00 82 16 103/67 (79) 93 10/20/18 17:00 79 17 66/61 (63) 95 10/20/18 16:54 82 16 60 10/20/18 16:00 60 10/20/18 16:00 Mechanical Ventilator 10/20/18 16:00 81 10/20/18 16:00 96.9 78 17 97/65 (76) 98 10/20/18 15:05 70 17 60 10/20/18 15:00 71 16 97/61 (73) 97 10/20/18 14:00 75 17 103/58 (73) 95 10/20/18 13:08 81 20 60 10/20/18 13:00 81 19 115/68 (84) 97 10/20/18 12:00 Mechanical Ventilator 10/20/18 12:00 60 10/20/18 12:00 84 10/20/18 12:00 97.0 76 17 104/63 (77) 99 10/20/18 11:00 75 18 114/84 (94) 97 10/20/18 10:37 86 16 60 Status: awake Condition: critical Neck: full ROM Lungs: chest wall tender Heart: HR/BP unstable Abdomen: soft, active bowel sounds Extremities: no C/C/E Decubiti: location Critical Care - Subjective ROS Limited/Unobtainable: Yes Condition: critical EKG Rhythm: Sinus Rhythm FI02: 60 Vent Support Breath Rate: 16 Vent Support Mode: AC Vent Tidal Volume: 500 Sputum Amount: Moderate PEEP: 5.0 PIP: 26 I&O: Intake and Output 10/20/18 10/21/18 18:59 06:59 Intake Total 270 ml 1090 ml Output Total 0 ml 700 ml Balance 270 ml 390 ml Intake Oral 0 ml Free Water 100 ml IV Total 110 ml 1010 ml Other 60 ml 80 ml Output Urine Total 700 ml Stool Total 0 ml 0 ml # Voids 1 ET-Tube: 8.0 ET Position: 24 Labs: Laboratory Tests Test 10/20/18 11:55 10/21/18 04:00 Vancomycin Level Trough 27.3 ug/mL (5.0-12.0) H White Blood Count 3.0 K/UL (4.8-10.8) #L Red Blood Count 3.12 M/UL (4.70-6.10) L Hemoglobin 9.2 G/DL (14.2-18.0) L Hematocrit 29.0 % (42.0-52.0) L Mean Corpuscular Volume 93 FL (80-99) Mean Corpuscular Hemoglobin 29.7 PG (27.0-31.0) Mean Corpuscular Hemoglobin Concent 31.9 G/DL (32.0-36.0) L Red Cell Distribution Width 16.8 % (11.6-14.8) H Platelet Count 27 K/UL (150-450) #L Mean Platelet Volume 8.5 FL (6.5-10.1) Neutrophils (%) (Auto) % (45.0-75.0) Lymphocytes (%) (Auto) % (20.0-45.0) Monocytes (%) (Auto) % (1.0-10.0) Eosinophils (%) (Auto) % (0.0-3.0) Basophils (%) (Auto) % (0.0-2.0) Differential Total Cells Counted 100 Neutrophils % (Manual) 80 % (45-75) H Lymphocytes % (Manual) 5 % (20-45) L Monocytes % (Manual) 6 % (1-10) Eosinophils % (Manual) 0 % (0-3) Basophils % (Manual) 0 % (0-2) Band Neutrophils 9 % (0-8) H Platelet Estimate Decreased L Platelet Morphology Normal Hypochromasia 2+ Anisocytosis 1+ Sodium Level 137 MMOL/L (136-145) Potassium Level 5.6 MMOL/L (3.5-5.1) H Chloride Level 104 MMOL/L (98-107) Carbon Dioxide Level 25 MMOL/L (21-32) Anion Gap 8 mmol/L (5-15) Blood Urea Nitrogen 85 mg/dL (7-18) H Creatinine 1.6 MG/DL (0.55-1.30) H Estimat Glomerular Filtration Rate 46.8 mL/min (>60) Glucose Level 78 MG/DL (74-106) Uric Acid 7.3 MG/DL (2.6-7.2) H Calcium Level 7.7 MG/DL (8.5-10.1) L Phosphorus Level 6.5 MG/DL (2.5-4.9) H Magnesium Level 2.3 MG/DL (1.8-2.4) Total Bilirubin 1.0 MG/DL (0.2-1.0) Gamma Glutamyl Transpeptidase 79 U/L (5-85) Aspartate Amino Transf (AST/SGOT) 196 U/L (15-37) H Alanine Aminotransferase (ALT/SGPT) 98 U/L (12-78) H Alkaline Phosphatase 279 U/L (46-116) H Ammonia 85 umol/L (11-32) H Total Creatine Kinase 39 U/L (26-308) Troponin I 0.136 ng/mL (0.000-0.056) C-Reactive Protein, Quantitative 22.4 mg/dL (0.00-0.90) H Pro-B-Type Natriuretic Peptide > 56206 pg/mL (0-125) H Total Protein 5.5 G/DL (6.4-8.2) L Albumin 1.8 G/DL (3.4-5.0) L Globulin 3.7 g/dL Albumin/Globulin Ratio 0.5 (1.0-2.7) L Triglycerides Level 21 MG/DL (30-150) L Cholesterol Level 78 MG/DL (< 200) LDL Cholesterol 39 mg/dL (<100) HDL Cholesterol 33 MG/DL (40-60) L Cholesterol/HDL Ratio 2.4 (3.3-4.4) L Lipase 26 U/L (73-393) L Cortisol AM Sample Pending Random Vancomycin Level 21.7 ug/mL Sasha Victor MD Oct 21, 2018 10:31
--- NOTE | 2018-10-21 11:13 | Cardiac Electrophysiology PN ---
Assessment/Plan Assessment/Plan 1. BNP of more than 26,000 in the patient with congestive heart failure. His echocardiogram showed ejection fraction of 55% to 60%, likely due to diastolic dysfunction. Already azotemic. Hold off on Lasix at this time. 2. Respiratory failure, on ventilator. 3. Troponin leak nonspecific 4. Metastatic colorectal cancer, status post chemotherapy and radiation at [facility] [place]. The patient also has mediastinal adenopathy and extensive pulmonary infiltrates. 5. Pancytopenia with severe anemia, hemoglobin of 6 as well as severe thrombocytopenia, likely related to chemotherapeutic agents. Ultrasound of abdomen to evaluate for cirrhosis was performed. Further evaluation by Dr. Elam. 6. Left lung pneumonia. 7. Chest pain due to malignancy and respiratory failure. 8. Sepsis and pneumonia, on IV antibiotics. ALEXIS RN Awaiting family to decide on comfort care Subjective Subjective In ICU on the vent. Objective Last 24 Hour Vital Signs Date Time Temp Pulse Resp B/P (MAP) Pulse Ox O2 Delivery O2 Flow Rate FiO2 10/21/18 10:00 77 17 97/56 (70) 98 10/21/18 09:00 80 16 92/59 (70) 95 10/21/18 08:45 82 19 60 10/21/18 08:00 60 10/21/18 08:00 97.1 78 15 91/56 (68) 99 10/21/18 08:00 82 10/21/18 07:18 84 20 60 10/21/18 07:00 81 15 93/63 (73) 99 10/21/18 06:00 75 17 92/53 (66) 99 10/21/18 05:14 79 16 60 10/21/18 05:11 81 18 94/53 (67) 98 10/21/18 04:00 83 10/21/18 04:00 97.5 82 18 94/60 (71) 99 10/21/18 04:00 60 10/21/18 04:00 Mechanical Ventilator 10/21/18 03:00 79 16 98/55 (69) 96 10/21/18 02:55 85 16 60 10/21/18 02:00 82 16 94/58 (70) 96 10/21/18 01:00 97.3 82 18 95/59 (71) 95 10/21/18 00:38 84 16 60 10/21/18 00:00 60 10/21/18 00:00 Mechanical Ventilator 10/21/18 00:00 85 16 93/58 (70) 94 10/21/18 00:00 83 10/20/18 23:00 85 22 100/61 (74) 94 10/20/18 22:31 82 16 60 10/20/18 22:00 84 16 102/62 (75) 94 10/20/18 21:00 85 17 114/63 (80) 96 10/20/18 20:49 84 18 60 10/20/18 20:00 84 10/20/18 20:00 97.3 84 16 111/62 (78) 95 10/20/18 20:00 60 10/20/18 20:00 Mechanical Ventilator 10/20/18 19:00 85 17 109/66 (80) 94 10/20/18 18:45 82 15 60 10/20/18 18:00 82 16 103/67 (79) 93 10/20/18 17:00 79 17 66/61 (63) 95 10/20/18 16:54 82 16 60 10/20/18 16:00 60 10/20/18 16:00 Mechanical Ventilator 10/20/18 16:00 81 10/20/18 16:00 96.9 78 17 97/65 (76) 98 10/20/18 15:05 70 17 60 10/20/18 15:00 71 16 97/61 (73) 97 10/20/18 14:00 75 17 103/58 (73) 95 10/20/18 13:08 81 20 60 10/20/18 13:00 81 19 115/68 (84) 97 10/20/18 12:00 Mechanical Ventilator 10/20/18 12:00 60 10/20/18 12:00 84 10/20/18 12:00 97.0 76 17 104/63 (77) 99 Intake and Output 10/20/18 10/21/18 19:00 07:00 Intake Total 345 ml 1015 ml Output Total 700 ml 400 ml Balance -355 ml 615 ml Free Water 100 ml IV Total 185 ml 935 ml Other 60 ml 80 ml Output Urine Total 700 ml 400 ml Stool Total 0 ml 0 ml # Voids 1 Laboratory Tests Test 10/20/18 11:55 10/21/18 04:00 Vancomycin Level Trough 27.3 ug/mL (5.0-12.0) H White Blood Count 3.0 K/UL (4.8-10.8) #L Red Blood Count 3.12 M/UL (4.70-6.10) L Hemoglobin 9.2 G/DL (14.2-18.0) L Hematocrit 29.0 % (42.0-52.0) L Mean Corpuscular Volume 93 FL (80-99) Mean Corpuscular Hemoglobin 29.7 PG (27.0-31.0) Mean Corpuscular Hemoglobin Concent 31.9 G/DL (32.0-36.0) L Red Cell Distribution Width 16.8 % (11.6-14.8) H Platelet Count 27 K/UL (150-450) #L Mean Platelet Volume 8.5 FL (6.5-10.1) Neutrophils (%) (Auto) % (45.0-75.0) Lymphocytes (%) (Auto) % (20.0-45.0) Monocytes (%) (Auto) % (1.0-10.0) Eosinophils (%) (Auto) % (0.0-3.0) Basophils (%) (Auto) % (0.0-2.0) Differential Total Cells Counted 100 Neutrophils % (Manual) 80 % (45-75) H Lymphocytes % (Manual) 5 % (20-45) L Monocytes % (Manual) 6 % (1-10) Eosinophils % (Manual) 0 % (0-3) Basophils % (Manual) 0 % (0-2) Band Neutrophils 9 % (0-8) H Platelet Estimate Decreased L Platelet Morphology Normal Hypochromasia 2+ Anisocytosis 1+ Sodium Level 137 MMOL/L (136-145) Potassium Level 5.6 MMOL/L (3.5-5.1) H Chloride Level 104 MMOL/L (98-107) Carbon Dioxide Level 25 MMOL/L (21-32) Anion Gap 8 mmol/L (5-15) Blood Urea Nitrogen 85 mg/dL (7-18) H Creatinine 1.6 MG/DL (0.55-1.30) H Estimat Glomerular Filtration Rate 46.8 mL/min (>60) Glucose Level 78 MG/DL (74-106) Uric Acid 7.3 MG/DL (2.6-7.2) H Calcium Level 7.7 MG/DL (8.5-10.1) L Phosphorus Level 6.5 MG/DL (2.5-4.9) H Magnesium Level 2.3 MG/DL (1.8-2.4) Total Bilirubin 1.0 MG/DL (0.2-1.0) Gamma Glutamyl Transpeptidase 79 U/L (5-85) Aspartate Amino Transf (AST/SGOT) 196 U/L (15-37) H Alanine Aminotransferase (ALT/SGPT) 98 U/L (12-78) H Alkaline Phosphatase 279 U/L (46-116) H Ammonia 85 umol/L (11-32) H Total Creatine Kinase 39 U/L (26-308) Troponin I 0.136 ng/mL (0.000-0.056) C-Reactive Protein, Quantitative 22.4 mg/dL (0.00-0.90) H Pro-B-Type Natriuretic Peptide > 33078 pg/mL (0-125) H Total Protein 5.5 G/DL (6.4-8.2) L Albumin 1.8 G/DL (3.4-5.0) L Globulin 3.7 g/dL Albumin/Globulin Ratio 0.5 (1.0-2.7) L Triglycerides Level 21 MG/DL (30-150) L Cholesterol Level 78 MG/DL (< 200) LDL Cholesterol 39 mg/dL (<100) HDL Cholesterol 33 MG/DL (40-60) L Cholesterol/HDL Ratio 2.4 (3.3-4.4) L Lipase 26 U/L (73-393) L Cortisol AM Sample Pending Random Vancomycin Level 21.7 ug/mL Objective HEAD AND NECK: Positive JVD. He is orally intubated. LUNGS: Coarse rhonchi. CARDIOVASCULAR: Regular S1 and S2 with no gallop. ABDOMEN: Soft. EXTREMITIES: He has 1+ pitting edema. Indio Reis MD Oct 21, 2018 11:13
--- NOTE | 2018-10-21 11:20 | NUR ---
NURSE NOTES: Dr. Victor inform family will be arriving to inform of patient code status tomorrow 10/22/18 in the afternoon. no verbal orders given at this time.
--- NOTE | 2018-10-21 11:55 | General Progress Note ---
Assessment/Plan Problem List: (1) Malnutrition ICD Codes: E46 - Unspecified protein-calorie malnutrition SNOMED: 79862471 (2) Decubital ulcer ICD Codes: L89.90 - Pressure ulcer of unspecified site, unspecified stage SNOMED: 115974955 (3) Anemia ICD Codes: D64.9 - Anemia, unspecified SNOMED: 509727229 (4) Acute respiratory failure ICD Codes: J96.00 - Acute respiratory failure, unspecified whether with hypoxia or hypercapnia SNOMED: 13424642 (5) Sepsis ICD Codes: A41.9 - Sepsis, unspecified organism SNOMED: 79092613 Qualifiers: Qualified Codes: A41.9 - Sepsis, unspecified organism (6) Pneumonia involving left lung ICD Codes: J18.9 - Pneumonia, unspecified organism SNOMED: 782558194 Qualifiers: Qualified Codes: J18.9 - Pneumonia, unspecified organism (7) Metastatic cancer ICD Codes: C79.9 - Secondary malignant neoplasm of unspecified site SNOMED: 525735779 Status: stable, progressing, unchanged Assessment/Plan: vent abx pain control cbc bmp am Subjective Constitutional: Reports: weakness Allergies: Coded Allergies: No Known Allergies (Unverified , 10/17/18) All Systems: reviewed and negative except above Subjective intubated sedated in icu Objective Last 24 Hour Vital Signs Date Time Temp Pulse Resp B/P (MAP) Pulse Ox O2 Delivery O2 Flow Rate FiO2 10/21/18 10:00 77 17 97/56 (70) 98 10/21/18 09:00 80 16 92/59 (70) 95 10/21/18 08:45 82 19 60 10/21/18 08:00 60 10/21/18 08:00 97.1 78 15 91/56 (68) 99 10/21/18 08:00 82 10/21/18 07:18 84 20 60 10/21/18 07:00 81 15 93/63 (73) 99 10/21/18 06:00 75 17 92/53 (66) 99 10/21/18 05:14 79 16 60 10/21/18 05:11 81 18 94/53 (67) 98 10/21/18 04:00 83 10/21/18 04:00 97.5 82 18 94/60 (71) 99 10/21/18 04:00 60 10/21/18 04:00 Mechanical Ventilator 10/21/18 03:00 79 16 98/55 (69) 96 10/21/18 02:55 85 16 60 10/21/18 02:00 82 16 94/58 (70) 96 10/21/18 01:00 97.3 82 18 95/59 (71) 95 10/21/18 00:38 84 16 60 10/21/18 00:00 60 10/21/18 00:00 Mechanical Ventilator 10/21/18 00:00 85 16 93/58 (70) 94 10/21/18 00:00 83 10/20/18 23:00 85 22 100/61 (74) 94 10/20/18 22:31 82 16 60 10/20/18 22:00 84 16 102/62 (75) 94 10/20/18 21:00 85 17 114/63 (80) 96 10/20/18 20:49 84 18 60 10/20/18 20:00 84 10/20/18 20:00 97.3 84 16 111/62 (78) 95 10/20/18 20:00 60 10/20/18 20:00 Mechanical Ventilator 10/20/18 19:00 85 17 109/66 (80) 94 10/20/18 18:45 82 15 60 10/20/18 18:00 82 16 103/67 (79) 93 10/20/18 17:00 79 17 66/61 (63) 95 10/20/18 16:54 82 16 60 10/20/18 16:00 60 10/20/18 16:00 Mechanical Ventilator 10/20/18 16:00 81 10/20/18 16:00 96.9 78 17 97/65 (76) 98 10/20/18 15:05 70 17 60 10/20/18 15:00 71 16 97/61 (73) 97 10/20/18 14:00 75 17 103/58 (73) 95 10/20/18 13:08 81 20 60 10/20/18 13:00 81 19 115/68 (84) 97 10/20/18 12:00 Mechanical Ventilator 10/20/18 12:00 60 10/20/18 12:00 84 10/20/18 12:00 97.0 76 17 104/63 (77) 99 Intake and Output 10/20/18 10/21/18 19:00 07:00 Intake Total 345 ml 1015 ml Output Total 700 ml 400 ml Balance -355 ml 615 ml Free Water 100 ml IV Total 185 ml 935 ml Other 60 ml 80 ml Output Urine Total 700 ml 400 ml Stool Total 0 ml 0 ml # Voids 1 Laboratory Tests 10/21/18 04:00: White Blood Count 3.0#L, Red Blood Count 3.12L, Hemoglobin 9.2L, Hematocrit 29.0L, Mean Corpuscular Volume 93, Mean Corpuscular Hemoglobin 29.7, Mean Corpuscular Hemoglobin Concent 31.9L, Red Cell Distribution Width 16.8H, Platelet Count 27#L, Mean Platelet Volume 8.5, Neutrophils (%) (Auto) , Lymphocytes (%) (Auto) , Monocytes (%) (Auto) , Eosinophils (%) (Auto) , Basophils (%) (Auto) , Differential Total Cells Counted 100, Neutrophils % ( Manual) 80H, Lymphocytes % (Manual) 5L, Monocytes % (Manual) 6, Eosinophils % ( Manual) 0, Basophils % (Manual) 0, Band Neutrophils 9H, Platelet Estimate DecreasedL, Platelet Morphology Normal, Hypochromasia 2+, Anisocytosis 1+, Sodium Level 137, Potassium Level 5.6H, Chloride Level 104, Carbon Dioxide Level 25, Anion Gap 8, Blood Urea Nitrogen 85H, Creatinine 1.6H, Estimat Glomerular Filtration Rate 46.8, Glucose Level 78, Uric Acid 7.3H, Calcium Level 7.7L, Phosphorus Level 6.5H, Magnesium Level 2.3, Total Bilirubin 1.0, Gamma Glutamyl Transpeptidase 79, Aspartate Amino Transf (AST/SGOT) 196H, Alanine Aminotransferase (ALT/SGPT) 98H, Alkaline Phosphatase 279H, Ammonia 85H , Total Creatine Kinase 39, Troponin I 0.136H, C-Reactive Protein, Quantitative 22.4H, Pro-B-Type Natriuretic Peptide > 22531X, Total Protein 5.5L, Albumin 1.8L , Globulin 3.7, Albumin/Globulin Ratio 0.5L, Triglycerides Level 21L, Cholesterol Level 78, LDL Cholesterol 39, HDL Cholesterol 33L, Cholesterol/HDL Ratio 2.4L, Lipase 26L, Cortisol AM Sample [Pending], Random Vancomycin Level 21.7 Height (Feet): 5 Height (Inches): 8.00 Weight (Pounds): 108 General Appearance: lethargic EENT: normal ENT inspection Neck: normal alignment Cardiovascular: normal peripheral pulses, normal rate, regular rhythm Respiratory/Chest: chest wall non-tender, lungs clear, normal breath sounds Abdomen: normal bowel sounds, non tender, soft Extremities: normal inspection Edema: no edema noted Arm (L), no edema noted Arm (R), no edema noted Leg (L), no edema noted Leg (R), no edema noted Pedal (L), no edema noted Pedal (R), no edema noted Generalized Neurologic: motor weakness Skin: normal pigmentation, warm/dry Hans Rivera DO Oct 21, 2018 11:55
--- NOTE | 2018-10-21 11:55 | General Progress Note ---
Assessment/Plan Status: stable, progressing, unchanged Assessment/Plan: (1) Metastatic cancer (2) Respiratory failure (3) Pneumonia involving left lung (4) Chest pain (5) Anemia intubated s/p blood transfusion pending possible terminal extubation NGTF will start family meeting pending will adjust care based of patient and family wishes Subjective ROS Limited/Unobtainable: No Allergies: Coded Allergies: No Known Allergies (Unverified , 10/17/18) Objective Last 24 Hour Vital Signs Date Time Temp Pulse Resp B/P (MAP) Pulse Ox O2 Delivery O2 Flow Rate FiO2 10/21/18 10:00 77 17 97/56 (70) 98 10/21/18 09:00 80 16 92/59 (70) 95 10/21/18 08:45 82 19 60 10/21/18 08:00 60 10/21/18 08:00 97.1 78 15 91/56 (68) 99 10/21/18 08:00 82 10/21/18 07:18 84 20 60 10/21/18 07:00 81 15 93/63 (73) 99 10/21/18 06:00 75 17 92/53 (66) 99 10/21/18 05:14 79 16 60 10/21/18 05:11 81 18 94/53 (67) 98 10/21/18 04:00 83 10/21/18 04:00 97.5 82 18 94/60 (71) 99 10/21/18 04:00 60 10/21/18 04:00 Mechanical Ventilator 10/21/18 03:00 79 16 98/55 (69) 96 10/21/18 02:55 85 16 60 10/21/18 02:00 82 16 94/58 (70) 96 10/21/18 01:00 97.3 82 18 95/59 (71) 95 10/21/18 00:38 84 16 60 10/21/18 00:00 60 10/21/18 00:00 Mechanical Ventilator 10/21/18 00:00 85 16 93/58 (70) 94 10/21/18 00:00 83 10/20/18 23:00 85 22 100/61 (74) 94 10/20/18 22:31 82 16 60 10/20/18 22:00 84 16 102/62 (75) 94 10/20/18 21:00 85 17 114/63 (80) 96 10/20/18 20:49 84 18 60 10/20/18 20:00 84 10/20/18 20:00 97.3 84 16 111/62 (78) 95 10/20/18 20:00 60 10/20/18 20:00 Mechanical Ventilator 10/20/18 19:00 85 17 109/66 (80) 94 10/20/18 18:45 82 15 60 10/20/18 18:00 82 16 103/67 (79) 93 10/20/18 17:00 79 17 66/61 (63) 95 10/20/18 16:54 82 16 60 10/20/18 16:00 60 10/20/18 16:00 Mechanical Ventilator 10/20/18 16:00 81 10/20/18 16:00 96.9 78 17 97/65 (76) 98 10/20/18 15:05 70 17 60 10/20/18 15:00 71 16 97/61 (73) 97 10/20/18 14:00 75 17 103/58 (73) 95 10/20/18 13:08 81 20 60 10/20/18 13:00 81 19 115/68 (84) 97 10/20/18 12:00 Mechanical Ventilator 10/20/18 12:00 60 10/20/18 12:00 84 10/20/18 12:00 97.0 76 17 104/63 (77) 99 Intake and Output 10/20/18 10/21/18 19:00 07:00 Intake Total 345 ml 1015 ml Output Total 700 ml 400 ml Balance -355 ml 615 ml Free Water 100 ml IV Total 185 ml 935 ml Other 60 ml 80 ml Output Urine Total 700 ml 400 ml Stool Total 0 ml 0 ml # Voids 1 Laboratory Tests 10/20/18 11:55: Vancomycin Level Trough 27.3H 10/21/18 04:00: White Blood Count 3.0#L, Red Blood Count 3.12L, Hemoglobin 9.2L, Hematocrit 29.0L, Mean Corpuscular Volume 93, Mean Corpuscular Hemoglobin 29.7, Mean Corpuscular Hemoglobin Concent 31.9L, Red Cell Distribution Width 16.8H, Platelet Count 27#L, Mean Platelet Volume 8.5, Neutrophils (%) (Auto) , Lymphocytes (%) (Auto) , Monocytes (%) (Auto) , Eosinophils (%) (Auto) , Basophils (%) (Auto) , Differential Total Cells Counted 100, Neutrophils % ( Manual) 80H, Lymphocytes % (Manual) 5L, Monocytes % (Manual) 6, Eosinophils % ( Manual) 0, Basophils % (Manual) 0, Band Neutrophils 9H, Platelet Estimate DecreasedL, Platelet Morphology Normal, Hypochromasia 2+, Anisocytosis 1+, Sodium Level 137, Potassium Level 5.6H, Chloride Level 104, Carbon Dioxide Level 25, Anion Gap 8, Blood Urea Nitrogen 85H, Creatinine 1.6H, Estimat Glomerular Filtration Rate 46.8, Glucose Level 78, Uric Acid 7.3H, Calcium Level 7.7L, Phosphorus Level 6.5H, Magnesium Level 2.3, Total Bilirubin 1.0, Gamma Glutamyl Transpeptidase 79, Aspartate Amino Transf (AST/SGOT) 196H, Alanine Aminotransferase (ALT/SGPT) 98H, Alkaline Phosphatase 279H, Ammonia 85H , Total Creatine Kinase 39, Troponin I 0.136H, C-Reactive Protein, Quantitative 22.4H, Pro-B-Type Natriuretic Peptide > 94019K, Total Protein 5.5L, Albumin 1.8L , Globulin 3.7, Albumin/Globulin Ratio 0.5L, Triglycerides Level 21L, Cholesterol Level 78, LDL Cholesterol 39, HDL Cholesterol 33L, Cholesterol/HDL Ratio 2.4L, Lipase 26L, Cortisol AM Sample [Pending], Random Vancomycin Level 21.7 Height (Feet): 5 Height (Inches): 8.00 Weight (Pounds): 108 General Appearance: no apparent distress EENT: normal ENT inspection Neck: supple Cardiovascular: normal rate Respiratory/Chest: decreased breath sounds Abdomen: normal bowel sounds, non tender, soft Extremities: non-tender Myles Arellano MD Oct 21, 2018 11:55
--- NOTE | 2018-10-21 12:15 | NUR ---
NURSE NOTES: Dr. Arellano informed of patient family will arrive to review code status, ordered to have tube feeding stated by nutritional consult, also ordered to discontinue abdomen ct scan.
--- NOTE | 2018-10-21 13:13 | Nephrology Progress Note ---
Assessment/Plan Problem List: (1) ATN (acute tubular necrosis) (2) Pneumonia involving left lung (3) Acute respiratory failure (4) Sepsis Assessment: shock (5) Metastatic cancer (6) Hypothyroidism Assessment Acute respiratory Failure Acute Renal failure- Cr up 1.6 HypoThyroid: TSH 76 Anemia Metastatic Ca Pneumonia left lung Severe Malnutrition rising troponin I Plan IV fluid- IV Synthroid Keep lytes and BP in check Avoid Nephrotoxics monitor LFTs remains full code kayexelate OG IV Hydrocortisone trial Subjective ROS Limited/Unobtainable: Yes Objective Objective Last 24 Hour Vital Signs Date Time Temp Pulse Resp B/P (MAP) Pulse Ox O2 Delivery O2 Flow Rate FiO2 10/21/18 13:07 80 18 60 10/21/18 12:00 60 10/21/18 12:00 96.0 74 16 93/59 (70) 99 10/21/18 11:00 74 16 87/53 (64) 99 10/21/18 10:00 77 17 97/56 (70) 98 10/21/18 09:00 80 16 92/59 (70) 95 10/21/18 08:45 82 19 60 10/21/18 08:00 60 10/21/18 08:00 97.1 78 15 91/56 (68) 99 10/21/18 08:00 82 10/21/18 07:18 84 20 60 10/21/18 07:00 81 15 93/63 (73) 99 10/21/18 06:00 75 17 92/53 (66) 99 10/21/18 05:14 79 16 60 10/21/18 05:11 81 18 94/53 (67) 98 10/21/18 04:00 83 10/21/18 04:00 97.5 82 18 94/60 (71) 99 10/21/18 04:00 60 10/21/18 04:00 Mechanical Ventilator 10/21/18 03:00 79 16 98/55 (69) 96 10/21/18 02:55 85 16 60 10/21/18 02:00 82 16 94/58 (70) 96 10/21/18 01:00 97.3 82 18 95/59 (71) 95 10/21/18 00:38 84 16 60 10/21/18 00:00 60 10/21/18 00:00 Mechanical Ventilator 10/21/18 00:00 85 16 93/58 (70) 94 10/21/18 00:00 83 10/20/18 23:00 85 22 100/61 (74) 94 10/20/18 22:31 82 16 60 10/20/18 22:00 84 16 102/62 (75) 94 10/20/18 21:00 85 17 114/63 (80) 96 10/20/18 20:49 84 18 60 10/20/18 20:00 84 10/20/18 20:00 97.3 84 16 111/62 (78) 95 10/20/18 20:00 60 10/20/18 20:00 Mechanical Ventilator 10/20/18 19:00 85 17 109/66 (80) 94 10/20/18 18:45 82 15 60 10/20/18 18:00 82 16 103/67 (79) 93 10/20/18 17:00 79 17 66/61 (63) 95 10/20/18 16:54 82 16 60 10/20/18 16:00 60 10/20/18 16:00 Mechanical Ventilator 10/20/18 16:00 81 10/20/18 16:00 96.9 78 17 97/65 (76) 98 10/20/18 15:05 70 17 60 10/20/18 15:00 71 16 97/61 (73) 97 10/20/18 14:00 75 17 103/58 (73) 95 Intake and Output 10/20/18 10/21/18 19:00 07:00 Intake Total 345 ml 1015 ml Output Total 700 ml 400 ml Balance -355 ml 615 ml Free Water 100 ml IV Total 185 ml 935 ml Other 60 ml 80 ml Output Urine Total 700 ml 400 ml Stool Total 0 ml 0 ml # Voids 1 Laboratory Tests 10/21/18 04:00: White Blood Count 3.0#L, Red Blood Count 3.12L, Hemoglobin 9.2L, Hematocrit 29.0L, Mean Corpuscular Volume 93, Mean Corpuscular Hemoglobin 29.7, Mean Corpuscular Hemoglobin Concent 31.9L, Red Cell Distribution Width 16.8H, Platelet Count 27#L, Mean Platelet Volume 8.5, Neutrophils (%) (Auto) , Lymphocytes (%) (Auto) , Monocytes (%) (Auto) , Eosinophils (%) (Auto) , Basophils (%) (Auto) , Differential Total Cells Counted 100, Neutrophils % ( Manual) 80H, Lymphocytes % (Manual) 5L, Monocytes % (Manual) 6, Eosinophils % ( Manual) 0, Basophils % (Manual) 0, Band Neutrophils 9H, Platelet Estimate DecreasedL, Platelet Morphology Normal, Hypochromasia 2+, Anisocytosis 1+, Sodium Level 137, Potassium Level 5.6H, Chloride Level 104, Carbon Dioxide Level 25, Anion Gap 8, Blood Urea Nitrogen 85H, Creatinine 1.6H, Estimat Glomerular Filtration Rate 46.8, Glucose Level 78, Uric Acid 7.3H, Calcium Level 7.7L, Phosphorus Level 6.5H, Magnesium Level 2.3, Total Bilirubin 1.0, Gamma Glutamyl Transpeptidase 79, Aspartate Amino Transf (AST/SGOT) 196H, Alanine Aminotransferase (ALT/SGPT) 98H, Alkaline Phosphatase 279H, Ammonia 85H , Total Creatine Kinase 39, Troponin I 0.136H, C-Reactive Protein, Quantitative 22.4H, Pro-B-Type Natriuretic Peptide > 51655E, Total Protein 5.5L, Albumin 1.8L , Globulin 3.7, Albumin/Globulin Ratio 0.5L, Triglycerides Level 21L, Cholesterol Level 78, LDL Cholesterol 39, HDL Cholesterol 33L, Cholesterol/HDL Ratio 2.4L, Lipase 26L, Cortisol AM Sample [Pending], Random Vancomycin Level 21.7 Height (Feet): 5 Height (Inches): 8.00 Weight (Pounds): 108 General Appearance: no apparent distress EENT: other - vented Cardiovascular: tachycardia Respiratory/Chest: decreased breath sounds Abdomen: distended Jamar Byrd MD Oct 21, 2018 13:13
[2018-10-21] MEDS ORDERED: Hydrocortisone 100mg Inj IV SCH ×2 (13:15→14:00)
--- NOTE | 2018-10-21 13:30 | NUR ---
NURSE NOTES: Dr. Byrd ordered to have patient started on d5NS at 100ml/hr.
--- NOTE | 2018-10-21 14:05 | NUR ---
INSURANCE UPDATED CLINICALS and REVIEW HAVE BEEN FAXED PLEASE FAX THE REVIEW AND CLINICAL TO: [facility] PLEASE FAX THE REVIEW/CLINICAL P- [phone] - [phone]...REVIEW/CLINICAL Addendum: 10/21/18 at 1528 by ANAMARIA MANN CM REVIEW ONLY
[2018-10-21] MEDS: D5NS 1,000 ML IV SCH ×2 (14:13→23:40)
--- NOTE | 2018-10-21 14:24 | NUR ---
NURSE NOTES: Dr. Byrd called to clarify order of hydrocortisone, one dose is ordered for now then at 8 hrs later, awaiting for call back.
--- NOTE | 2018-10-21 15:13 | NUR ---
[employer] SI: RESP FAILURE ETT/VENT SUPPORT T. 96.0 HR 74 RR 16 B/P 91/59 AC 16 TV 500 FIO2 60% PEEP 5 WBC 3.0 BANDS 9 K 5.6 BUN 85 CR 1.6 TROP 0.136 BNP>[id number] IS: SOLU CORTEF IV CEFEPIME IV VANCO IV IVF D5NS @ 100ML/HR PROTONIX IV ZITHROMAX NGT ICU STATUS
--- NOTE | 2018-10-21 15:28 | NUR ---
*-* INSURANCE *-* ALL CLINICALS AND REVIEW HAVE BEEN FAXED TO: [facility] NO CUSTOMER AGENT ASSIGNED AT THIS TIME PLEASE FAX THE REVIEW/CLINICAL P- [phone] F- [phone]...REVIEW/CLINICAL
--- NOTE | 2018-10-21 16:16 | Surgery Progress Note ---
Surgery Progress Note Subjective Additional Comments ill appearing in ICU labs noted still requiring vent support declining Objective Last 24 Hour Vital Signs Date Time Temp Pulse Resp B/P (MAP) Pulse Ox O2 Delivery O2 Flow Rate FiO2 10/21/18 14:46 79 21 60 10/21/18 14:00 96.8 77 16 91/59 (70) 99 10/21/18 13:07 80 18 60 10/21/18 13:00 73 15 97/62 (74) 99 10/21/18 12:00 73 10/21/18 12:00 60 10/21/18 12:00 96.0 74 16 93/59 (70) 99 10/21/18 11:00 74 16 87/53 (64) 99 10/21/18 10:00 77 17 97/56 (70) 98 10/21/18 09:00 80 16 92/59 (70) 95 10/21/18 08:45 82 19 60 10/21/18 08:00 60 10/21/18 08:00 97.1 78 15 91/56 (68) 99 10/21/18 08:00 82 10/21/18 07:18 84 20 60 10/21/18 07:00 81 15 93/63 (73) 99 10/21/18 06:00 75 17 92/53 (66) 99 10/21/18 05:14 79 16 60 10/21/18 05:11 81 18 94/53 (67) 98 10/21/18 04:00 83 10/21/18 04:00 97.5 82 18 94/60 (71) 99 10/21/18 04:00 60 10/21/18 04:00 Mechanical Ventilator 10/21/18 03:00 79 16 98/55 (69) 96 10/21/18 02:55 85 16 60 10/21/18 02:00 82 16 94/58 (70) 96 10/21/18 01:00 97.3 82 18 95/59 (71) 95 10/21/18 00:38 84 16 60 10/21/18 00:00 60 10/21/18 00:00 Mechanical Ventilator 10/21/18 00:00 85 16 93/58 (70) 94 10/21/18 00:00 83 10/20/18 23:00 85 22 100/61 (74) 94 10/20/18 22:31 82 16 60 10/20/18 22:00 84 16 102/62 (75) 94 10/20/18 21:00 85 17 114/63 (80) 96 10/20/18 20:49 84 18 60 10/20/18 20:00 84 10/20/18 20:00 97.3 84 16 111/62 (78) 95 10/20/18 20:00 60 10/20/18 20:00 Mechanical Ventilator 10/20/18 19:00 85 17 109/66 (80) 94 10/20/18 18:45 82 15 60 10/20/18 18:00 82 16 103/67 (79) 93 10/20/18 17:00 79 17 66/61 (63) 95 10/20/18 16:54 82 16 60 I&O Intake and Output 10/20/18 10/21/18 19:00 07:00 Intake Total 345 ml 1015 ml Output Total 700 ml 400 ml Balance -355 ml 615 ml Free Water 100 ml IV Total 185 ml 935 ml Other 60 ml 80 ml Output Urine Total 700 ml 400 ml Stool Total 0 ml 0 ml # Voids 1 Dressing: saturated Wound: other Drains: other Cardiovascular: RSR Respiratory: decreased breath sounds Abdomen: soft, present bowel sounds Extremities: no cyanosis Laboratory Tests Test 10/21/18 04:00 White Blood Count 3.0 K/UL (4.8-10.8) #L Red Blood Count 3.12 M/UL (4.70-6.10) L Hemoglobin 9.2 G/DL (14.2-18.0) L Hematocrit 29.0 % (42.0-52.0) L Mean Corpuscular Volume 93 FL (80-99) Mean Corpuscular Hemoglobin 29.7 PG (27.0-31.0) Mean Corpuscular Hemoglobin Concent 31.9 G/DL (32.0-36.0) L Red Cell Distribution Width 16.8 % (11.6-14.8) H Platelet Count 27 K/UL (150-450) #L Mean Platelet Volume 8.5 FL (6.5-10.1) Neutrophils (%) (Auto) % (45.0-75.0) Lymphocytes (%) (Auto) % (20.0-45.0) Monocytes (%) (Auto) % (1.0-10.0) Eosinophils (%) (Auto) % (0.0-3.0) Basophils (%) (Auto) % (0.0-2.0) Differential Total Cells Counted 100 Neutrophils % (Manual) 80 % (45-75) H Lymphocytes % (Manual) 5 % (20-45) L Monocytes % (Manual) 6 % (1-10) Eosinophils % (Manual) 0 % (0-3) Basophils % (Manual) 0 % (0-2) Band Neutrophils 9 % (0-8) H Platelet Estimate Decreased L Platelet Morphology Normal Hypochromasia 2+ Anisocytosis 1+ Sodium Level 137 MMOL/L (136-145) Potassium Level 5.6 MMOL/L (3.5-5.1) H Chloride Level 104 MMOL/L (98-107) Carbon Dioxide Level 25 MMOL/L (21-32) Anion Gap 8 mmol/L (5-15) Blood Urea Nitrogen 85 mg/dL (7-18) H Creatinine 1.6 MG/DL (0.55-1.30) H Estimat Glomerular Filtration Rate 46.8 mL/min (>60) Glucose Level 78 MG/DL (74-106) Uric Acid 7.3 MG/DL (2.6-7.2) H Calcium Level 7.7 MG/DL (8.5-10.1) L Phosphorus Level 6.5 MG/DL (2.5-4.9) H Magnesium Level 2.3 MG/DL (1.8-2.4) Total Bilirubin 1.0 MG/DL (0.2-1.0) Gamma Glutamyl Transpeptidase 79 U/L (5-85) Aspartate Amino Transf (AST/SGOT) 196 U/L (15-37) H Alanine Aminotransferase (ALT/SGPT) 98 U/L (12-78) H Alkaline Phosphatase 279 U/L (46-116) H Ammonia 85 umol/L (11-32) H Total Creatine Kinase 39 U/L (26-308) Troponin I 0.136 ng/mL (0.000-0.056) C-Reactive Protein, Quantitative 22.4 mg/dL (0.00-0.90) H Pro-B-Type Natriuretic Peptide > 17040 pg/mL (0-125) H Total Protein 5.5 G/DL (6.4-8.2) L Albumin 1.8 G/DL (3.4-5.0) L Globulin 3.7 g/dL Albumin/Globulin Ratio 0.5 (1.0-2.7) L Triglycerides Level 21 MG/DL (30-150) L Cholesterol Level 78 MG/DL (< 200) LDL Cholesterol 39 mg/dL (<100) HDL Cholesterol 33 MG/DL (40-60) L Cholesterol/HDL Ratio 2.4 (3.3-4.4) L Lipase 26 U/L (73-393) L Cortisol AM Sample 37.4 UG/DL Random Vancomycin Level 21.7 ug/mL Plan Problems: (1) Chest pain (2) Pneumonia involving left lung (3) Respiratory distress (4) Sepsis Assessment & Plan: This is a cachectic unfortunate 47-year-old male with metastatic colorectal cancer who presented with shortness of breath. Patient noted to have a leukocytosis, abnormal labs, dehydration, respiratory distress. Patient currently intubated in intensive care unit. Patient alert awake and responsive. States that pain improved but still with respiratory discomfort on ventilatory support. Labs noted. Abdominal exam with fullness in the lower abdomen pelvic region and soft in the upper regions. The fullness that appears to be tumor burden. Patient has a diverting colostomy on the left side of his abdomen which appears to be a loop colostomy. There is gas and stool in the colostomy bag. No acute surgical intervention recommended at this time. NG tube is been placed. Okay to start feeds via NG tube patient is very cachectic and requires significant nutritional improvement. Continue with IV fluid resuscitation. Antibiotics as per infectious disease. Trend labs. Follow-up will follow with serial examinations and recommendations. Thank you for allowing me to participate in patient's care (5) Acute respiratory failure (6) Metastatic cancer Assessment & Plan: Patient with metastatic colorectal cancer. Patient identified to have abnormal wounds in the perirectal area. On examination was identified to be tumor burden is the tumors extending from the colorectal region out. Multiple open areas with tumor burden but no active infection identified. Patient has diverting colostomy. Will continue with local wound care Xeroform and ABD dressing for now. Brent Medeiros Oct 21, 2018 16:16
--- NOTE | 2018-10-21 17:00 | NUR ---
NURSE NOTES: Tube feeding placed on hold with 200ml/ of residual in light brown slimy fluid, patient remains able to respond to light tactile stimuli, open eyes and is able to use gestures to make needs known,
--- NOTE | 2018-10-21 17:28 | Hematology/Onc Progress Note ---
Assessment/Plan Assessment/Plan Assessment and Recs: # Metastatic colon cancer - per initial record review, has been getting in the past radiation and now on chemo at [facility] [place] --> outside records were reviewed --> imaging was reviewed on admission Ct shows mediastinal adenopathy, with extensive pulmonary infiltrate, with left groundglass opacification, and patchy reticular densities bilaterally --> gi and surgery have both evaluated him --> poor prognosis and family is aware, pending potential extubation after family sees him # Thrombocytopenia - potential causes multifactorial, in this case is most likely related to the use of chemotherapeutic agents --> Hep panel and HIV and results is negative --> US abd does show e/o fatty liver --> Peripheral smear ordered to evaluate for blasts /schistocytes and none noted --> abx and other meds have been reviewed --> ok for ppx if plt >50k w/ either heparin or lovenox --> Transfuse if Plt < 20k and fever, or if Plt < 10k without fever --> plt trend 18k-->11k-->11k->56k->27k # Anemia due to underlying malignancy, chronic disease --> hgb trend 7.2-->6.4-->9->9.2 --> sp blood leung 10/19 # Respiratory distress with severe tumor burden --> is s/p intubation on 10/18 --> per pulm/cc recs # Pneumonia involving left lung --> on abx iv # Chest pain due to malignancy and reps failure --> trop neg # Low bp --> hydrocort ordered by renal The timing of this note does not necessarily reflect the time of the patient was seen. GREATLY APPRECIATE CONSULTATION. Subjective Respiratory: Denies: no symptoms, cough, shortness of breath, SOB with excertion, SOB at rest, sputum, wheezing, other Gastrointestinal/Abdominal: Denies: no symptoms, abdomen distended, abdominal pain, black stools, tarry stools, blood in stool, constipated, diarrhea, difficulty swallowing, nausea, poor appetite, poor fluid intake, rectal bleeding , vomiting, other Genitourinary: Denies: no symptoms, burning, discharge, frequency, flank pain, hematuria, incontinence, pain, urgency, other Endocrine: Denies: no symptoms, excessive sweating, flushing, intolerance to cold, intolerance to heat, increased hunger, increased thirst, increased urine, unexplained weight gain, unexplained weight loss, other Allergies: Coded Allergies: No Known Allergies (Unverified , 10/17/18) Subjective 10/19: intubated, awaiting arrival of sister, goals of care were dw family per rn 10/20: dalia Regalado rn, on hd, potential extubation in next few days, labs noted 10/21: labs reviewed, Fabricio paredes rn, plts are 27k, hydrocort ordered Objective Objective Current Medications Medications (Trade) Dose Ordered Sig/Onelia Route PRN Reason Start Time Stop Time Status Last Admin Dose Admin Acetaminophen (Tylenol) 650 mg Q4H PRN ORAL FEVER 10/18/18 09:45 11/16/18 17:44 Acetaminophen/ Hydrocodone Bitart ([place] 10/325) 1 tab Q6H PRN ORAL For Pain 10/20/18 13:00 10/27/18 12:59 10/20/18 21:01 Albuterol/ Ipratropium (Albuterol/ Ipratropium) 3 ml Q4H PRN HHN Shortness of Breath 10/18/18 09:45 10/22/18 17:44 Azithromycin (Zithromax) 500 mg DAILY ORAL 10/19/18 09:00 10/24/18 16:59 10/21/18 09:37 Cefepime HCl 2 gm/ Dextrose 110 ml @ 220 mls/hr QHS IV 10/21/18 21:00 10/24/18 23:00 Dextrose (Dextrose 50%) 25 ml Q30M PRN IV Hypoglycemia 10/18/18 09:45 11/16/18 17:44 Dextrose (Dextrose 50%) 50 ml Q30M PRN IV Hypoglycemia 10/18/18 09:45 11/16/18 17:44 Dextrose/Sodium Chloride 1,000 ml @ 100 mls/hr Q10H IV 10/21/18 13:30 11/20/18 13:29 10/21/18 14:13 Hydrocortisone (Solu-CORTEF) 100 mg EVERY 8 HOURS IV 10/21/18 22:00 11/20/18 13:59 Levothyroxine Sodium (Synthroid) 100 mcg DAILY IV 10/20/18 11:30 11/19/18 11:29 10/21/18 09:37 Lorazepam (Ativan 2mg/ml 1ml) 2 mg Q4H PRN IV For Anxiety 10/18/18 10:45 10/25/18 10:44 Ondansetron HCl (Zofran) 4 mg Q6H PRN IVP Nausea & Vomiting 10/18/18 09:45 11/16/18 09:44 Pantoprazole (Protonix) 40 mg Q12HR IV 10/20/18 21:00 11/18/18 08:59 10/21/18 09:37 Polyethylene Glycol (Miralax) 17 gm DAILYPRN PRN ORAL Constipation 10/18/18 09:30 11/16/18 09:29 Vancomycin HCl (Vanco rx to dose) 1 ea DAILY PRN MISC Per rx protocol 10/19/18 09:00 11/16/18 16:59 Vancomycin HCl 750 mg/Dextrose 275 ml @ 183.333 mls/hr ONCE IVPB 10/21/18 18:00 10/21/18 20:00 Voriconazole (Vfend) 200 mg EVERY 12 HOURS ORAL 10/18/18 13:45 10/25/18 13:44 10/21/18 09:37 Last 24 Hour Vital Signs Date Time Temp Pulse Resp B/P (MAP) Pulse Ox O2 Delivery O2 Flow Rate FiO2 10/21/18 17:00 82 17 96/63 (74) 99 10/21/18 16:45 82 20 60 10/21/18 16:00 96.8 81 16 100/67 (78) 100 10/21/18 16:00 81 10/21/18 16:00 60 10/21/18 16:00 Mechanical Ventilator Mechanical Ventilator 10/21/18 15:00 79 16 86/58 (67) 100 10/21/18 14:46 79 21 60 10/21/18 14:00 96.8 77 16 91/59 (70) 99 10/21/18 13:07 80 18 60 10/21/18 13:00 73 15 97/62 (74) 99 10/21/18 12:00 73 10/21/18 12:00 60 10/21/18 12:00 96.0 74 16 93/59 (70) 99 10/21/18 11:00 74 16 87/53 (64) 99 10/21/18 10:00 77 17 97/56 (70) 98 10/21/18 09:00 80 16 92/59 (70) 95 10/21/18 08:45 82 19 60 10/21/18 08:00 Mechanical Ventilator Mechanical Ventilator 10/21/18 08:00 60 10/21/18 08:00 97.1 78 15 91/56 (68) 99 10/21/18 08:00 Mechanical Ventilator Mechanical Ventilator 10/21/18 08:00 82 10/21/18 07:18 84 20 60 10/21/18 07:00 81 15 93/63 (73) 99 10/21/18 06:00 75 17 92/53 (66) 99 10/21/18 05:14 79 16 60 10/21/18 05:11 81 18 94/53 (67) 98 10/21/18 04:00 83 10/21/18 04:00 97.5 82 18 94/60 (71) 99 10/21/18 04:00 60 10/21/18 04:00 Mechanical Ventilator 10/21/18 03:00 79 16 98/55 (69) 96 10/21/18 02:55 85 16 60 10/21/18 02:00 82 16 94/58 (70) 96 10/21/18 01:00 97.3 82 18 95/59 (71) 95 10/21/18 00:38 84 16 60 10/21/18 00:00 60 10/21/18 00:00 Mechanical Ventilator 10/21/18 00:00 85 16 93/58 (70) 94 10/21/18 00:00 83 10/20/18 23:00 85 22 100/61 (74) 94 10/20/18 22:31 82 16 60 10/20/18 22:00 84 16 102/62 (75) 94 10/20/18 21:00 85 17 114/63 (80) 96 10/20/18 20:49 84 18 60 10/20/18 20:00 84 10/20/18 20:00 97.3 84 16 111/62 (78) 95 10/20/18 20:00 60 10/20/18 20:00 Mechanical Ventilator 10/20/18 19:00 85 17 109/66 (80) 94 10/20/18 18:45 82 15 60 10/20/18 18:00 82 16 103/67 (79) 93 10/20/18 17:00 79 17 66/61 (63) 95 10/20/18 16:54 82 16 60 10/20/18 16:00 60 10/20/18 16:00 Mechanical Ventilator 10/20/18 16:00 81 10/20/18 16:00 96.9 78 17 97/65 (76) 98 10/20/18 15:05 70 17 60 10/20/18 15:00 71 16 97/61 (73) 97 10/20/18 14:00 75 17 103/58 (73) 95 10/20/18 13:08 81 20 60 10/20/18 13:00 81 19 115/68 (84) 97 10/20/18 12:00 Mechanical Ventilator 10/20/18 12:00 60 10/20/18 12:00 84 10/20/18 12:00 97.0 76 17 104/63 (77) 99 10/20/18 11:00 75 18 114/84 (94) 97 10/20/18 10:37 86 16 60 10/20/18 10:00 70 17 100/60 (73) 99 10/20/18 09:00 83 17 111/66 (81) 100 10/20/18 08:45 90 23 60 10/20/18 08:00 97.1 74 18 114/62 (79) 96 10/20/18 08:00 60 10/20/18 08:00 86 10/20/18 08:00 Mechanical Ventilator 10/20/18 07:53 80 10/20/18 07:29 86 23 60 10/20/18 07:00 87 20 119/69 (86) 96 10/20/18 06:00 75 20 96/56 (69) 98 10/20/18 05:06 76 16 60 10/20/18 05:00 86 19 100/54 (69) 96 10/20/18 04:00 97.2 73 23 93/57 (69) 100 10/20/18 04:00 Mechanical Ventilator 10/20/18 04:00 60 10/20/18 03:05 75 16 60 10/20/18 03:04 74 10/20/18 03:00 69 16 86/49 (61) 100 10/20/18 02:00 73 22 75/49 (58) 100 10/20/18 01:03 76 17 60 10/20/18 01:00 80 16 84/48 (60) 98 10/20/18 00:00 60 10/20/18 00:00 97.3 80 20 86/54 (65) 100 10/20/18 00:00 Mechanical Ventilator 10/19/18 23:04 87 10/19/18 23:00 86 16 95/60 (72) 99 10/19/18 22:59 88 20 60 10/19/18 22:00 86 15 88/60 (69) 98 10/19/18 21:00 86 18 88/63 (71) 99 10/19/18 20:52 86 18 60 10/19/18 20:00 Mechanical Ventilator 10/19/18 20:00 97.2 88 18 91/55 (67) 96 10/19/18 20:00 60 10/19/18 19:34 87 10/19/18 19:03 86 17 60 10/19/18 19:00 86 16 89/54 (66) 96 10/19/18 18:00 87 18 89/59 (69) 91 Intake and Output 10/20/18 10/21/18 19:00 07:00 Intake Total 345 ml 1090 ml Output Total 700 ml 400 ml Balance -355 ml 690 ml Free Water 100 ml IV Total 185 ml 1010 ml Other 60 ml 80 ml Output Urine Total 700 ml 400 ml Stool Total 0 ml 0 ml # Voids 1 Labs Test 10/18/18 23:30 10/19/18 04:20 10/19/18 08:40 10/20/18 04:10 Vancomycin Level Trough 18.7 ug/mL (5.0-12.0) White Blood Count 5.0 K/UL (4.8-10.8) 7.7 K/UL (4.8-10.8) Red Blood Count 2.15 M/UL (4.70-6.10) 2.99 M/UL (4.70-6.10) Hemoglobin 6.4 G/DL (14.2-18.0) 9.0 G/DL (14.2-18.0) Hematocrit 20.0 % (42.0-52.0) 27.3 % (42.0-52.0) Mean Corpuscular Volume 93 FL (80-99) 91 FL (80-99) Mean Corpuscular Hemoglobin 29.8 PG (27.0-31.0) 30.2 PG (27.0-31.0) Mean Corpuscular Hemoglobin Concent 32.0 G/DL (32.0-36.0) 33.2 G/DL (32.0-36.0) Red Cell Distribution Width 17.4 % (11.6-14.8) 15.9 % (11.6-14.8) Platelet Count 11 K/UL (150-450) 56 K/UL (150-450) Mean Platelet Volume 10.4 FL (6.5-10.1) 6.8 FL (6.5-10.1) Neutrophils (%) (Auto) % (45.0-75.0) % (45.0-75.0) Lymphocytes (%) (Auto) % (20.0-45.0) % (20.0-45.0) Monocytes (%) (Auto) % (1.0-10.0) % (1.0-10.0) Eosinophils (%) (Auto) % (0.0-3.0) % (0.0-3.0) Basophils (%) (Auto) % (0.0-2.0) % (0.0-2.0) Differential Total Cells Counted 100 100 Neutrophils % (Manual) 84 % (45-75) 93 % (45-75) Lymphocytes % (Manual) 4 % (20-45) 5 % (20-45) Monocytes % (Manual) 3 % (1-10) 2 % (1-10) Eosinophils % (Manual) 1 % (0-3) 0 % (0-3) Basophils % (Manual) 0 % (0-2) 0 % (0-2) Band Neutrophils 8 % (0-8) 0 % (0-8) Nucleated Red Blood Cells 1 /100 WBC Platelet Estimate Decreased Decreased Platelet Morphology Normal Normal Hypochromasia 4+ 1+ Anisocytosis 1+ 1+ Reticulocyte Count 4.4 % (0.5-2.0) Prothrombin Time 17.2 SEC (9.30-11.50) Prothromb Time International Ratio 1.7 (0.9-1.1) Activated Partial Thromboplast Time 35 SEC (23-33) Sodium Level 131 MMOL/L (136-145) 134 MMOL/L (136-145) Potassium Level 5.1 MMOL/L (3.5-5.1) 5.1 MMOL/L (3.5-5.1) Chloride Level 99 MMOL/L (98-107) 100 MMOL/L (98-107) Carbon Dioxide Level 25 MMOL/L (21-32) 26 MMOL/L (21-32) Anion Gap 7 mmol/L (5-15) 9 mmol/L (5-15) Blood Urea Nitrogen 52 mg/dL (7-18) 64 mg/dL (7-18) Creatinine 1.1 MG/DL (0.55-1.30) 1.4 MG/DL (0.55-1.30) Estimat Glomerular Filtration Rate > 60 mL/min (>60) 54.6 mL/min (>60) Glucose Level 75 MG/DL (74-106) 91 MG/DL (74-106) Calcium Level 8.2 MG/DL (8.5-10.1) 7.6 MG/DL (8.5-10.1) Phosphorus Level 4.9 MG/DL (2.5-4.9) Magnesium Level 1.7 MG/DL (1.8-2.4) Iron Level 21 ug/dL (50-175) Total Iron Binding Capacity 109 ug/dL (250-450) Percent Iron Saturation 19 % (15-50) Unsaturated Iron Binding 88 ug/dL (112-346) Ferritin 1254 NG/ML (8-388) Total Bilirubin 1.0 MG/DL (0.2-1.0) Aspartate Amino Transf (AST/SGOT) 158 U/L (15-37) Alanine Aminotransferase (ALT/SGPT) 74 U/L (12-78) Alkaline Phosphatase 255 U/L (46-116) Total Protein 5.5 G/DL (6.4-8.2) Albumin 1.9 G/DL (3.4-5.0) Globulin 3.6 g/dL Albumin/Globulin Ratio 0.5 (1.0-2.7) Vitamin B12 Level > 2000 PG/ML (193-986) Folate 17.8 NG/ML (8.6-58.9) Thyroid Stimulating Hormone (TSH) 76.987 uiU/mL (0.358-3.740) Free Thyroxine 0.30 NG/DL (0.76-1.46) Arterial Blood pH 7.288 (7.350-7.450) Arterial Blood Partial Pressure CO2 49.2 mmHg (35.0-45.0) Arterial Blood Partial Pressure O2 76.0 mmHg (75.0-100.0) Arterial Blood HCO3 23.0 mmol/L (22.0-26.0) Arterial Blood Oxygen Saturation 91.1 % (95-100) Arterial Blood Base Excess -3.4 (-2-2) William Test Positive Troponin I 0.113 ng/mL (0.000-0.056) Test 10/20/18 11:55 10/21/18 04:00 Vancomycin Level Trough 27.3 ug/mL (5.0-12.0) White Blood Count 3.0 K/UL (4.8-10.8) Red Blood Count 3.12 M/UL (4.70-6.10) Hemoglobin 9.2 G/DL (14.2-18.0) Hematocrit 29.0 % (42.0-52.0) Mean Corpuscular Volume 93 FL (80-99) Mean Corpuscular Hemoglobin 29.7 PG (27.0-31.0) Mean Corpuscular Hemoglobin Concent 31.9 G/DL (32.0-36.0) Red Cell Distribution Width 16.8 % (11.6-14.8) Platelet Count 27 K/UL (150-450) Mean Platelet Volume 8.5 FL (6.5-10.1) Neutrophils (%) (Auto) % (45.0-75.0) Lymphocytes (%) (Auto) % (20.0-45.0) Monocytes (%) (Auto) % (1.0-10.0) Eosinophils (%) (Auto) % (0.0-3.0) Basophils (%) (Auto) % (0.0-2.0) Differential Total Cells Counted 100 Neutrophils % (Manual) 80 % (45-75) Lymphocytes % (Manual) 5 % (20-45) Monocytes % (Manual) 6 % (1-10) Eosinophils % (Manual) 0 % (0-3) Basophils % (Manual) 0 % (0-2) Band Neutrophils 9 % (0-8) Platelet Estimate Decreased Platelet Morphology Normal Hypochromasia 2+ Anisocytosis 1+ Sodium Level 137 MMOL/L (136-145) Potassium Level 5.6 MMOL/L (3.5-5.1) Chloride Level 104 MMOL/L (98-107) Carbon Dioxide Level 25 MMOL/L (21-32) Anion Gap 8 mmol/L (5-15) Blood Urea Nitrogen 85 mg/dL (7-18) Creatinine 1.6 MG/DL (0.55-1.30) Estimat Glomerular Filtration Rate 46.8 mL/min (>60) Glucose Level 78 MG/DL (74-106) Uric Acid 7.3 MG/DL (2.6-7.2) Calcium Level 7.7 MG/DL (8.5-10.1) Phosphorus Level 6.5 MG/DL (2.5-4.9) Magnesium Level 2.3 MG/DL (1.8-2.4) Total Bilirubin 1.0 MG/DL (0.2-1.0) Gamma Glutamyl Transpeptidase 79 U/L (5-85) Aspartate Amino Transf (AST/SGOT) 196 U/L (15-37) Alanine Aminotransferase (ALT/SGPT) 98 U/L (12-78) Alkaline Phosphatase 279 U/L (46-116) Ammonia 85 umol/L (11-32) Total Creatine Kinase 39 U/L (26-308) Troponin I 0.136 ng/mL (0.000-0.056) C-Reactive Protein, Quantitative 22.4 mg/dL (0.00-0.90) Pro-B-Type Natriuretic Peptide > 65784 pg/mL (0-125) Total Protein 5.5 G/DL (6.4-8.2) Albumin 1.8 G/DL (3.4-5.0) Globulin 3.7 g/dL Albumin/Globulin Ratio 0.5 (1.0-2.7) Triglycerides Level 21 MG/DL (30-150) Cholesterol Level 78 MG/DL (< 200) LDL Cholesterol 39 mg/dL (<100) HDL Cholesterol 33 MG/DL (40-60) Cholesterol/HDL Ratio 2.4 (3.3-4.4) Lipase 26 U/L (73-393) Cortisol AM Sample 37.4 UG/DL Random Vancomycin Level 21.7 ug/mL Micro Microbiology Date/Time Source Procedure Growth Status 10/21/18 03:00 Sputum Induced Gram Stain - Final Resulted 10/21/18 03:00 Sputum Induced Sputum Culture Pending Resulted Height (Feet): 5 Height (Inches): 8.00 Weight (Pounds): 108 Objective Vital Signs reviewed General: no apparent distress Chest: intubated, normocephalic HEENT: normal ENT inspection Respiratory: on vent, decreased bss Gastrointestinal: ngt Robert Elam MD Oct 21, 2018 17:28
--- NOTE | 2018-10-21 17:40 | NUR ---
NURSE NOTES: Report given to DELORIS Page.
--- NOTE | 2018-10-21 17:57 | Infectious Diseases Prog Note ---
Assessment/Plan Assessment/Plan Assessment: Acute hypercapnic respiratory failure s/p intubation 10/18 Sepsis - 2ry to PNA- r/o fungal, atypical -sp cx p Dyspnea-r/o interstitial lung disease -10/19 CXR: Heterogeneous extensive consolidative opacities bilaterally presumably due to pneumonia. Correlate clinically -10/18 CXR; Endotracheal tube and nasogastric tube in good position.Worsening bilateral infiltrates currently extensive -CTA chest: No PE. Limited at the left lung base due to motion. Prominent main pulmonary artery may be pulmonary arterial hypertension. Small bilateral pleural effusions, greater on the left. Pleural effusion along the right major fissure. Septal thickening of the left lung and right lower lung. Hazy lung opacities of the left lung in a mosaic pattern, may be edema or infiltrate, consider alveolar proteinosis. Mild honeycombing of the lung and right lung peripheral opacities. Maybe fibrosis, consider eosinophilic pneumonia. Numerous small nodules of the right lung. Right anterior rib 4 permeative lesion with pathologic fracture may be subacute. -CXR: Infiltrative changes in the left lung. Could be from pneumonia. Underlying lesion not excluded. 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 Generalized atrophy of the brain. Chronic small vessel disease involving periventricular white matter. Paranasal fracture may be old. Correlate clinically -HIV ab screen neg Elevated LFts; increased- ?2ry to voriconazole -Abd US: No acute findings identified. -Acute hep panel metastatic colon on chemotherapy CHF -HIV ab screen neg Plan: -Continue empiric CEfepime #5 -d/c empiric IV Vancomycin #5 as supratherapeutic levels and TAMMY -continue azithromycin #5 /5 -switch Voriconazole #4 to Micafungin given elevated LFts -f/u cx -Monitor CBC/BMP, temperatures -f/u sp cx, Cocci ab, CrAg am, Aspergillus ag serum -aspiration precautions -f/u fungus sp cx -CXR arm Thank you for this consultation. Will continue to follow along with you. Discussed with RN. Subjective Allergies: Coded Allergies: No Known Allergies (Unverified , 10/17/18) Subjective afebrile pancytopenia Bcx NTD sp cx p remains intubated Cr increased Objective Vital Signs Last 24 Hour Vital Signs Date Time Temp Pulse Resp B/P (MAP) Pulse Ox O2 Delivery O2 Flow Rate FiO2 10/21/18 17:00 82 17 96/63 (74) 99 10/21/18 16:45 82 20 60 10/21/18 16:00 96.8 81 16 100/67 (78) 100 10/21/18 16:00 81 10/21/18 16:00 60 10/21/18 16:00 Mechanical Ventilator Mechanical Ventilator 10/21/18 15:00 79 16 86/58 (67) 100 10/21/18 14:46 79 21 60 10/21/18 14:00 96.8 77 16 91/59 (70) 99 10/21/18 13:07 80 18 60 10/21/18 13:00 73 15 97/62 (74) 99 10/21/18 12:00 73 10/21/18 12:00 60 10/21/18 12:00 96.0 74 16 93/59 (70) 99 10/21/18 11:00 74 16 87/53 (64) 99 10/21/18 10:00 77 17 97/56 (70) 98 10/21/18 09:00 80 16 92/59 (70) 95 10/21/18 08:45 82 19 60 10/21/18 08:00 Mechanical Ventilator Mechanical Ventilator 10/21/18 08:00 60 10/21/18 08:00 97.1 78 15 91/56 (68) 99 10/21/18 08:00 Mechanical Ventilator Mechanical Ventilator 10/21/18 08:00 82 10/21/18 07:18 84 20 60 10/21/18 07:00 81 15 93/63 (73) 99 10/21/18 06:00 75 17 92/53 (66) 99 10/21/18 05:14 79 16 60 10/21/18 05:11 81 18 94/53 (67) 98 10/21/18 04:00 83 10/21/18 04:00 97.5 82 18 94/60 (71) 99 10/21/18 04:00 60 10/21/18 04:00 Mechanical Ventilator 10/21/18 03:00 79 16 98/55 (69) 96 10/21/18 02:55 85 16 60 10/21/18 02:00 82 16 94/58 (70) 96 10/21/18 01:00 97.3 82 18 95/59 (71) 95 10/21/18 00:38 84 16 60 10/21/18 00:00 60 10/21/18 00:00 Mechanical Ventilator 10/21/18 00:00 85 16 93/58 (70) 94 10/21/18 00:00 83 10/20/18 23:00 85 22 100/61 (74) 94 10/20/18 22:31 82 16 60 10/20/18 22:00 84 16 102/62 (75) 94 10/20/18 21:00 85 17 114/63 (80) 96 10/20/18 20:49 84 18 60 10/20/18 20:00 84 10/20/18 20:00 97.3 84 16 111/62 (78) 95 10/20/18 20:00 60 10/20/18 20:00 Mechanical Ventilator 10/20/18 19:00 85 17 109/66 (80) 94 10/20/18 18:45 82 15 60 10/20/18 18:00 82 16 103/67 (79) 93 Height (Feet): 5 Height (Inches): 8.00 Weight (Pounds): 108 Objective General Appearance: alert, moderate distress, cachetic Head: normocephalic, atraumatic Eyes: bilateral eye PERRL, bilateral eye EOMI ENT: uvula midline, dry mucus membranes Neck: supple, thyroid normal, supple/symm/no masses Respiratory: respiratory distress, decreased breath sounds - left side, accessory muscle use Cardiovascular #1: normal peripheral pulses, regular rate, rhythm, no edema, no gallop, no murmur Gastrointestinal: non tender, soft, no guarding, no rebound, other - Ostomy bag present Musculoskeletal: normal inspection Neurologic: alert, oriented x3 Psychiatric: mood/affect normal Skin: warm/dry, other - Sacral ulcer stage I Microbiology Date/Time Source Procedure Growth Status 10/21/18 03:00 Sputum Induced Gram Stain - Final Resulted 10/21/18 03:00 Sputum Induced Sputum Culture Pending Resulted Laboratory Tests Test 10/21/18 04:00 White Blood Count 3.0 K/UL (4.8-10.8) #L Red Blood Count 3.12 M/UL (4.70-6.10) L Hemoglobin 9.2 G/DL (14.2-18.0) L Hematocrit 29.0 % (42.0-52.0) L Mean Corpuscular Volume 93 FL (80-99) Mean Corpuscular Hemoglobin 29.7 PG (27.0-31.0) Mean Corpuscular Hemoglobin Concent 31.9 G/DL (32.0-36.0) L Red Cell Distribution Width 16.8 % (11.6-14.8) H Platelet Count 27 K/UL (150-450) #L Mean Platelet Volume 8.5 FL (6.5-10.1) Neutrophils (%) (Auto) % (45.0-75.0) Lymphocytes (%) (Auto) % (20.0-45.0) Monocytes (%) (Auto) % (1.0-10.0) Eosinophils (%) (Auto) % (0.0-3.0) Basophils (%) (Auto) % (0.0-2.0) Differential Total Cells Counted 100 Neutrophils % (Manual) 80 % (45-75) H Lymphocytes % (Manual) 5 % (20-45) L Monocytes % (Manual) 6 % (1-10) Eosinophils % (Manual) 0 % (0-3) Basophils % (Manual) 0 % (0-2) Band Neutrophils 9 % (0-8) H Platelet Estimate Decreased L Platelet Morphology Normal Hypochromasia 2+ Anisocytosis 1+ Sodium Level 137 MMOL/L (136-145) Potassium Level 5.6 MMOL/L (3.5-5.1) H Chloride Level 104 MMOL/L (98-107) Carbon Dioxide Level 25 MMOL/L (21-32) Anion Gap 8 mmol/L (5-15) Blood Urea Nitrogen 85 mg/dL (7-18) H Creatinine 1.6 MG/DL (0.55-1.30) H Estimat Glomerular Filtration Rate 46.8 mL/min (>60) Glucose Level 78 MG/DL (74-106) Uric Acid 7.3 MG/DL (2.6-7.2) H Calcium Level 7.7 MG/DL (8.5-10.1) L Phosphorus Level 6.5 MG/DL (2.5-4.9) H Magnesium Level 2.3 MG/DL (1.8-2.4) Total Bilirubin 1.0 MG/DL (0.2-1.0) Gamma Glutamyl Transpeptidase 79 U/L (5-85) Aspartate Amino Transf (AST/SGOT) 196 U/L (15-37) H Alanine Aminotransferase (ALT/SGPT) 98 U/L (12-78) H Alkaline Phosphatase 279 U/L (46-116) H Ammonia 85 umol/L (11-32) H Total Creatine Kinase 39 U/L (26-308) Troponin I 0.136 ng/mL (0.000-0.056) C-Reactive Protein, Quantitative 22.4 mg/dL (0.00-0.90) H Pro-B-Type Natriuretic Peptide > 76045 pg/mL (0-125) H Total Protein 5.5 G/DL (6.4-8.2) L Albumin 1.8 G/DL (3.4-5.0) L Globulin 3.7 g/dL Albumin/Globulin Ratio 0.5 (1.0-2.7) L Triglycerides Level 21 MG/DL (30-150) L Cholesterol Level 78 MG/DL (< 200) LDL Cholesterol 39 mg/dL (<100) HDL Cholesterol 33 MG/DL (40-60) L Cholesterol/HDL Ratio 2.4 (3.3-4.4) L Lipase 26 U/L (73-393) L Cortisol AM Sample 37.4 UG/DL Random Vancomycin Level 21.7 ug/mL Current Medications Medications (Trade) Dose Ordered Sig/Onelia Route PRN Reason Start Time Stop Time Status Last Admin Dose Admin Acetaminophen (Tylenol) 650 mg Q4H PRN ORAL FEVER 10/18/18 09:45 11/16/18 17:44 Acetaminophen/ Hydrocodone Bitart ([place] 10/325) 1 tab Q6H PRN ORAL For Pain 10/20/18 13:00 10/27/18 12:59 10/20/18 21:01 Albuterol/ Ipratropium (Albuterol/ Ipratropium) 3 ml Q4H PRN HHN Shortness of Breath 10/18/18 09:45 10/22/18 17:44 Azithromycin (Zithromax) 500 mg DAILY ORAL 10/19/18 09:00 10/24/18 16:59 10/21/18 09:37 Cefepime HCl 2 gm/ Dextrose 110 ml @ 220 mls/hr QHS IV 10/21/18 21:00 10/24/18 23:00 Dextrose (Dextrose 50%) 25 ml Q30M PRN IV Hypoglycemia 10/18/18 09:45 11/16/18 17:44 Dextrose (Dextrose 50%) 50 ml Q30M PRN IV Hypoglycemia 10/18/18 09:45 11/16/18 17:44 Dextrose/Sodium Chloride 1,000 ml @ 100 mls/hr Q10H IV 10/21/18 13:30 11/20/18 13:29 10/21/18 14:13 Hydrocortisone (Solu-CORTEF) 100 mg EVERY 8 HOURS IV 10/21/18 22:00 11/20/18 13:59 Levothyroxine Sodium (Synthroid) 100 mcg DAILY IV 10/20/18 11:30 11/19/18 11:29 10/21/18 09:37 Lorazepam (Ativan 2mg/ml 1ml) 2 mg Q4H PRN IV For Anxiety 10/18/18 10:45 10/25/18 10:44 Ondansetron HCl (Zofran) 4 mg Q6H PRN IVP Nausea & Vomiting 10/18/18 09:45 11/16/18 09:44 Pantoprazole (Protonix) 40 mg Q12HR IV 10/20/18 21:00 11/18/18 08:59 10/21/18 09:37 Polyethylene Glycol (Miralax) 17 gm DAILYPRN PRN ORAL Constipation 10/18/18 09:30 11/16/18 09:29 Vancomycin HCl (Vanco rx to dose) 1 ea DAILY PRN MISC Per rx protocol 10/19/18 09:00 11/16/18 16:59 Vancomycin HCl 750 mg/Dextrose 275 ml @ 183.333 mls/hr ONCE IVPB 10/21/18 18:00 10/21/18 20:00 Voriconazole (Vfend) 200 mg EVERY 12 HOURS ORAL 10/18/18 13:45 10/25/18 13:44 10/21/18 09:37 Kaye Butcher M.D. Oct 21, 2018 17:57
[2018-10-21] MEDS ORDERED: Vancomycin 750mg/D5W 275ml IVPB SCH ×2 (18:00)
--- NOTE | 2018-10-21 18:00 | NUR ---
NURSE NOTES: Received report from Fabricio PUENTES. Pt opens eyes and follows with eyes from time to time, is slightly lethargic, remains orally intubated with vent settings AC16, VT500, Peep 5, FIO2 60% with O2sat at 99%. [employer] manager displays SR with heart rate in the 80's. OGT feeding is currently on hold due to 200ml residual; feeding on hold since 1730 per Fabricio. Pt is Pt was cleaned, gown/linens and wound dressings changed, oral care done, and pt was repositioned with bilateral extremities elevated on pillows. VS stable. Temp now above 97F axillary. Odell catheter drains 10ml yellow urine. Pt is on P200 pressure release mattress with head of bed at 30 degrees, bed in lowest position, with three side rails up.
--- NOTE | 2018-10-21 19:00 | NUR ---
RESPIRATORY NOTE: Pt recieved on set values, no SOB or discomfort noted, ett tube @ 24 lip line, 8.0 ETT tube on the right side, pt is alert, sx PRN, alarms are on x audible x vent plugged into red outlet, will continue to monitor pts progress
--- NOTE | 2018-10-21 19:25 | NUR ---
HAND-OFF: Report given to Varinder PUENTES. VS stable. Family at bedside. Endorsed plan of care.
--- NOTE | 2018-10-21 19:30 | NUR ---
NURSE NOTES: Recvd.awake,Lethargic on a Vent.orally intubated.See settings.Lungs Few scatt.Rh.Diminished BS at Bases.P.Ox-99-100%.Suctioned Tk.beige sec.NS Lavaged.IV inf.(R) FA.F/Cath patent diuresis sm.amt.OGT intact Feeding on HOLD Temp.R/T High Res.Pos.chg.Family at .
[2018-10-21] MEDS ORDERED: Micafungin 100 MG in NS 110 ML IVPB SCH (20:00)
[2018-10-21] MEDS ORDERED: Cefepime HCl 2 GM in D5W 110 ML IV SCH (21:00)
[2018-10-21] MEDS: Hydrocortisone 100mg Inj IV SCH (21:42)
--- NOTE | 2018-10-21 22:10 | NUR ---
NURSE NOTES: HS care provided.Pos.to comfort Suctioned.Rere.Vent.settings.Sat-99-100%.Due meds admin.
[2018-10-22] VITALS (15 sets, daily range): BP systolic 110–134; BP diastolic 69–90
--- NOTE | 2018-10-22 00:10 | NUR ---
NURSE NOTES: Pos.chg.Suctioned.P.Ox-99%.Tachypneic on exertion.Gastric res.checked 10cc OGT Feeding resumed at low rate.See V/S.Scope rhythm same.
--- NOTE | 2018-10-22 02:00 | NUR ---
NURSE NOTES: Repositioned,Suctioned.Kept comfortable.OGT Feeding rate inc.No Distress.Cont.Plan of care.
--- NOTE | 2018-10-22 04:10 | NUR ---
NURSE NOTES: Blood drawn for cbc/cmp/mg and phos spec.to Lab.Sheila Cano chg.Suctioned.Neuro status same.Rere.OGT Feeding rate inc.Urine output increase.See I/O.
[2018-10-22 04:55] LABS: HEMATOCRIT 27.9 % (42.0-52.0); MEAN CORPUSCULAR VOLUME 94 FL (80-99); PLATELET COUNT 14 K/UL (150-450); RED BLOOD COUNT 2.96 M/UL (4.70-6.10); RED CELL DISTRIBUTION WIDTH 16.7 % (11.6-14.8); WHITE BLOOD COUNT 7.6 K/UL (4.8-10.8)
[2018-10-22 05:27] LABS: ALANINE AMINOTRANSFERASE 130 U/L (12-78); ALBUMIN 1.9 G/DL (3.4-5.0); ALBUMIN/GLOBULIN RATIO 0.5 (1.0-2.7); ALKALINE PHOSPHATASE 297 U/L (46-116); ANION GAP 9 mmol/L (5-15); ASPARTATE AMINO TRANSFERASE 259 U/L (15-37); BILIRUBIN,TOTAL 1.3 MG/DL (0.2-1.0); BLOOD UREA NITROGEN 89 mg/dL (7-18); CALCIUM 7.7 MG/DL (8.5-10.1); CARBON DIOXIDE 25 MMOL/L (21-32); CHLORIDE 108 MMOL/L (98-107); CREATININE 1.7 MG/DL (0.55-1.30); PHOSPHORUS 5.3 MG/DL (2.5-4.9); POTASSIUM 5.1 MMOL/L (3.5-5.1); SODIUM 142 MMOL/L (136-145)
[2018-10-22 05:29] LABS: BILIRUBIN,DIRECT 0.7 MG/DL (0.0-0.3)
[2018-10-22] MEDS: Hydrocortisone 100mg Inj IV SCH ×2 (05:31→14:00)
--- NOTE | 2018-10-22 06:33 | NUR ---
RESPIRATORY NOTE: Received pt on ordered vent settings. Pt airway is patent and secured. No resp distress noted. Suctioned pt prn. Vent alarms are on and audible. Vent is plugged into red outlet. BVM at bedside. Will monitor pt progress.
--- NOTE | 2018-10-22 07:27 | NUR ---
HAND-OFF: Report given to MORIAH SORIA RN.
--- NOTE | 2018-10-22 07:28 | NUR ---
NURSE NOTES: Report received from DELORIS Cobb. Pt is sleeping in bed. Lethargic and weak. Slow to wake up and follow commands. Able to move right upper extremities. Temp 97.5 axillary. Sinus rhythm with 1 AVB on night monitor. Orally intubated. ETT 8.0/24cm at lip line. AC 16, TV 500, FiO 60%, P 5. O2 sat 98-100%. Shallow, tachypneic, and labored breathing noted. OCT in place, receiving Vital AF 1.2 at 50cc/hr. Colostomy bag and Odell in place draining to gravity. Dressing on sacrum to right perineal area dry and intact. Abdomen flat and hard to touch. IV to right FA G20, left FA G22, and right wrist G22 patent and asymptomatic. D5NS is running at 100cc/hr. Bed in lowest position. Side rails up x3. Will resume plan of care.
--- NOTE | 2018-10-22 08:30 | NUR ---
NURSE NOTES: Pt failed weaning with CPAP, PS 8. Repositioned pt. Family friend at bedside. Dr Byrd here to see the patient. Updated him with pt's current condition. No new orders. Will continue to monitor.
--- NOTE | 2018-10-22 08:43 | General Progress Note ---
Assessment/Plan Status: stable, progressing, unchanged Assessment/Plan: (1) Metastatic cancer (2) Respiratory failure (3) Pneumonia involving left lung (4) Chest pain (5) Anemia intubated s/p blood transfusion pending possible terminal extubation NGTF will start family meeting pending will adjust care based of patient and family wishes Subjective ROS Limited/Unobtainable: No Allergies: Coded Allergies: No Known Allergies (Unverified , 10/17/18) Objective Last 24 Hour Vital Signs Date Time Temp Pulse Resp B/P (MAP) Pulse Ox O2 Delivery O2 Flow Rate FiO2 10/22/18 07:00 89 22 118/80 (93) 98 10/22/18 06:33 92 21 60 40 10/22/18 06:00 91 22 130/73 (92) 98 10/22/18 05:18 89 17 60 10/22/18 05:00 90 20 119/78 (92) 99 10/22/18 04:00 Mechanical Ventilator Mechanical Ventilator 10/22/18 04:00 97.0 87 18 110/78 (89) 100 10/22/18 04:00 60 10/22/18 04:00 87 10/22/18 03:00 88 18 122/86 (98) 100 10/22/18 02:50 90 22 60 10/22/18 02:00 85 19 117/69 (85) 99 10/22/18 01:42 88 18 60 10/22/18 01:00 88 18 115/78 (90) 99 10/22/18 00:00 88 10/22/18 00:00 Mechanical Ventilator Mechanical Ventilator 10/22/18 00:00 60 10/22/18 00:00 97.1 88 17 117/81 (93) 99 10/21/18 23:14 87 19 60 10/21/18 23:00 89 22 119/79 (92) 100 10/21/18 22:00 87 22 116/83 (94) 99 10/21/18 21:00 83 18 102/69 (80) 98 10/21/18 20:48 89 22 60 10/21/18 20:00 96.7 86 17 120/74 (89) 99 10/21/18 20:00 Mechanical Ventilator Mechanical Ventilator 10/21/18 20:00 60 10/21/18 20:00 86 10/21/18 19:30 86 16 111/69 (83) 99 10/21/18 19:02 89 22 60 10/21/18 19:00 86 16 110/69 (83) 100 10/21/18 18:00 97.2 87 21 115/75 (88) 99 10/21/18 17:00 82 17 96/63 (74) 99 10/21/18 16:45 82 20 60 10/21/18 16:00 96.8 81 16 100/67 (78) 100 10/21/18 16:00 81 10/21/18 16:00 60 10/21/18 16:00 Mechanical Ventilator Mechanical Ventilator 10/21/18 15:00 79 16 86/58 (67) 100 10/21/18 14:46 79 21 60 10/21/18 14:00 96.8 77 16 91/59 (70) 99 10/21/18 13:07 80 18 60 10/21/18 13:00 73 15 97/62 (74) 99 10/21/18 12:00 73 10/21/18 12:00 60 10/21/18 12:00 96.0 74 16 93/59 (70) 99 10/21/18 11:00 74 16 87/53 (64) 99 10/21/18 10:00 77 17 97/56 (70) 98 10/21/18 09:00 80 16 92/59 (70) 95 10/21/18 08:45 82 19 60 Intake and Output 10/21/18 10/22/18 19:00 07:00 Intake Total 1325 ml 1660 ml Output Total 310 ml 320 ml Balance 1015 ml 1340 ml IV Total 1110 ml 1420 ml Tube Feeding 75 ml 240 ml Other 140 ml Output Urine Total 310 ml 260 ml Stool Total 0 ml 60 ml Laboratory Tests 10/22/18 04:00: White Blood Count 7.6#, Red Blood Count 2.96L, Hemoglobin 9.0L, Hematocrit 27.9L , Mean Corpuscular Volume 94, Mean Corpuscular Hemoglobin 30.3, Mean Corpuscular Hemoglobin Concent 32.2, Red Cell Distribution Width 16.7H, Platelet Count 14L, Mean Platelet Volume 10.4H, Neutrophils (%) (Auto) , Lymphocytes (%) (Auto) , Monocytes (%) (Auto) , Eosinophils (%) (Auto) , Basophils (%) (Auto) , Neutrophils % (Manual) [Pending], Lymphocytes % (Manual) [Pending], Platelet Estimate [Pending], Platelet Morphology [Pending], Sodium Level 142, Potassium Level 5.1, Chloride Level 108H, Carbon Dioxide Level 25, Anion Gap 9, Blood Urea Nitrogen 89H, Creatinine 1.7H, Estimat Glomerular Filtration Rate 43.6, Glucose Level 168H, Calcium Level 7.7L, Phosphorus Level 5.3H, Magnesium Level 2.5H, Total Bilirubin 1.3H, Direct Bilirubin 0.7H, Aspartate Amino Transf (AST/SGOT) 259H, Alanine Aminotransferase (ALT/SGPT) 130H , Alkaline Phosphatase 297H, Total Protein 5.8L, Albumin 1.9L, Globulin 3.9, Albumin/Globulin Ratio 0.5L Height (Feet): 5 Height (Inches): 8.00 Weight (Pounds): 137 General Appearance: lethargic EENT: normal ENT inspection Neck: normal alignment Cardiovascular: normal rate Respiratory/Chest: decreased breath sounds Abdomen: normal bowel sounds, non tender, soft Extremities: non-tender Myles Arellano MD Oct 22, 2018 08:43
--- NOTE | 2018-10-22 09:15 | General Progress Note ---
Assessment/Plan Problem List: (1) Malnutrition ICD Codes: E46 - Unspecified protein-calorie malnutrition SNOMED: 95245773 (2) Decubital ulcer ICD Codes: L89.90 - Pressure ulcer of unspecified site, unspecified stage SNOMED: 465938562 (3) Anemia ICD Codes: D64.9 - Anemia, unspecified SNOMED: 774742051 (4) Acute respiratory failure ICD Codes: J96.00 - Acute respiratory failure, unspecified whether with hypoxia or hypercapnia SNOMED: 97021433 (5) Sepsis ICD Codes: A41.9 - Sepsis, unspecified organism SNOMED: 62872340 Qualifiers: Qualified Codes: A41.9 - Sepsis, unspecified organism (6) Pneumonia involving left lung ICD Codes: J18.9 - Pneumonia, unspecified organism SNOMED: 563488183 Qualifiers: Qualified Codes: J18.9 - Pneumonia, unspecified organism (7) Metastatic cancer ICD Codes: C79.9 - Secondary malignant neoplasm of unspecified site SNOMED: 993568128 Status: unchanged Assessment/Plan: vent abx pain control cbc bmp am Subjective Constitutional: Reports: weakness Allergies: Coded Allergies: No Known Allergies (Unverified , 10/17/18) All Systems: reviewed and negative except above Subjective intubated sedated in icu Objective Last 24 Hour Vital Signs Date Time Temp Pulse Resp B/P (MAP) Pulse Ox O2 Delivery O2 Flow Rate FiO2 10/22/18 07:00 89 22 118/80 (93) 98 10/22/18 06:33 92 21 60 40 10/22/18 06:00 91 22 130/73 (92) 98 10/22/18 05:18 89 17 60 10/22/18 05:00 90 20 119/78 (92) 99 10/22/18 04:00 Mechanical Ventilator Mechanical Ventilator 10/22/18 04:00 97.0 87 18 110/78 (89) 100 10/22/18 04:00 60 10/22/18 04:00 87 10/22/18 03:00 88 18 122/86 (98) 100 10/22/18 02:50 90 22 60 10/22/18 02:00 85 19 117/69 (85) 99 10/22/18 01:42 88 18 60 10/22/18 01:00 88 18 115/78 (90) 99 10/22/18 00:00 88 10/22/18 00:00 Mechanical Ventilator Mechanical Ventilator 10/22/18 00:00 60 10/22/18 00:00 97.1 88 17 117/81 (93) 99 10/21/18 23:14 87 19 60 10/21/18 23:00 89 22 119/79 (92) 100 10/21/18 22:00 87 22 116/83 (94) 99 10/21/18 21:00 83 18 102/69 (80) 98 10/21/18 20:48 89 22 60 10/21/18 20:00 96.7 86 17 120/74 (89) 99 10/21/18 20:00 Mechanical Ventilator Mechanical Ventilator 10/21/18 20:00 60 10/21/18 20:00 86 10/21/18 19:30 86 16 111/69 (83) 99 10/21/18 19:02 89 22 60 10/21/18 19:00 86 16 110/69 (83) 100 10/21/18 18:00 97.2 87 21 115/75 (88) 99 10/21/18 17:00 82 17 96/63 (74) 99 10/21/18 16:45 82 20 60 10/21/18 16:00 96.8 81 16 100/67 (78) 100 10/21/18 16:00 81 10/21/18 16:00 60 10/21/18 16:00 Mechanical Ventilator Mechanical Ventilator 10/21/18 15:00 79 16 86/58 (67) 100 10/21/18 14:46 79 21 60 10/21/18 14:00 96.8 77 16 91/59 (70) 99 10/21/18 13:07 80 18 60 10/21/18 13:00 73 15 97/62 (74) 99 10/21/18 12:00 73 10/21/18 12:00 60 10/21/18 12:00 96.0 74 16 93/59 (70) 99 10/21/18 11:00 74 16 87/53 (64) 99 10/21/18 10:00 77 17 97/56 (70) 98 Intake and Output 10/21/18 10/22/18 19:00 07:00 Intake Total 1325 ml 1660 ml Output Total 310 ml 320 ml Balance 1015 ml 1340 ml IV Total 1110 ml 1420 ml Tube Feeding 75 ml 240 ml Other 140 ml Output Urine Total 310 ml 260 ml Stool Total 0 ml 60 ml Laboratory Tests 10/22/18 04:00: White Blood Count 7.6#, Red Blood Count 2.96L, Hemoglobin 9.0L, Hematocrit 27.9L , Mean Corpuscular Volume 94, Mean Corpuscular Hemoglobin 30.3, Mean Corpuscular Hemoglobin Concent 32.2, Red Cell Distribution Width 16.7H, Platelet Count 14L, Mean Platelet Volume 10.4H, Neutrophils (%) (Auto) , Lymphocytes (%) (Auto) , Monocytes (%) (Auto) , Eosinophils (%) (Auto) , Basophils (%) (Auto) , Neutrophils % (Manual) [Pending], Lymphocytes % (Manual) [Pending], Platelet Estimate [Pending], Platelet Morphology [Pending], Sodium Level 142, Potassium Level 5.1, Chloride Level 108H, Carbon Dioxide Level 25, Anion Gap 9, Blood Urea Nitrogen 89H, Creatinine 1.7H, Estimat Glomerular Filtration Rate 43.6, Glucose Level 168H, Calcium Level 7.7L, Phosphorus Level 5.3H, Magnesium Level 2.5H, Total Bilirubin 1.3H, Direct Bilirubin 0.7H, Aspartate Amino Transf (AST/SGOT) 259H, Alanine Aminotransferase (ALT/SGPT) 130H , Alkaline Phosphatase 297H, Total Protein 5.8L, Albumin 1.9L, Globulin 3.9, Albumin/Globulin Ratio 0.5L Height (Feet): 5 Height (Inches): 8.00 Weight (Pounds): 137 General Appearance: lethargic EENT: normal ENT inspection Neck: normal alignment Cardiovascular: normal peripheral pulses, normal rate, regular rhythm Respiratory/Chest: chest wall non-tender, lungs clear, normal breath sounds Abdomen: normal bowel sounds, non tender, soft Extremities: normal inspection Edema: 1+ Arm (L), 1+ Arm (R), 1+ Leg (L), 1+ Leg (R), 1+ Pedal (L), 1+ Pedal ( R), 1+ Generalized Edema: trace edema Neurologic: motor weakness Skin: normal pigmentation, warm/dry Hans Rivera DO Oct 22, 2018 09:15
--- NOTE | 2018-10-22 09:30 | NUR ---
RADIOLOGY DEPT., CHEST X-RAY DONE.-P.DYE
[2018-10-22] MEDS: Pantoprazole Inj IV SCH (09:35)
[2018-10-22] MEDS: D5NS 1,000 ML IV SCH (09:36)
--- NOTE | 2018-10-22 10:00 | Infectious Diseases Prog Note ---
Assessment/Plan Assessment/Plan Assessment: Acute hypercapnic respiratory failure s/p intubation 10/18 Sepsis - 2ry to PNA- r/o fungal, atypical -sp cx p -Bcx NTD Dyspnea-r/o interstitial lung disease -10/19 CXR: Heterogeneous extensive consolidative opacities bilaterally presumably due to pneumonia. Correlate clinically -10/18 CXR; Endotracheal tube and nasogastric tube in good position.Worsening bilateral infiltrates currently extensive -CTA chest: No PE. Limited at the left lung base due to motion. Prominent main pulmonary artery may be pulmonary arterial hypertension. Small bilateral pleural effusions, greater on the left. Pleural effusion along the right major fissure. Septal thickening of the left lung and right lower lung. Hazy lung opacities of the left lung in a mosaic pattern, may be edema or infiltrate, consider alveolar proteinosis. Mild honeycombing of the lung and right lung peripheral opacities. Maybe fibrosis, consider eosinophilic pneumonia. Numerous small nodules of the right lung. Right anterior rib 4 permeative lesion with pathologic fracture may be subacute. -CXR: Infiltrative changes in the left lung. Could be from pneumonia. Underlying lesion not excluded. 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 Generalized atrophy of the brain. Chronic small vessel disease involving periventricular white matter. Paranasal fracture may be old. Correlate clinically -HIV ab screen neg Elevated LFts; increased- ?2ry to voriconazole -Abd US: No acute findings identified. -Acute hep panel metastatic colon on chemotherapy CHF -HIV ab screen neg Plan: -Continue empiric CEfepime #6 -Cont Micafungin #2 (abx d#5) given elevated LFts -10/21 SP voriconazole #4, azithromycin #5, IV Vancomycin #5 -f/u cx -Monitor CBC/BMP, temperatures -f/u sp cx, Cocci ab, CrAg am, Aspergillus ag serum -aspiration precautions -f/u fungus sp cx -f/u CXR Thank you for this consultation. Will continue to follow along with you. Discussed with RN. Subjective Allergies: Coded Allergies: No Known Allergies (Unverified , 10/17/18) Subjective afebrile pancytopenia Bcx NTD sp cx p remains intubated Cr increased Objective Vital Signs Last 24 Hour Vital Signs Date Time Temp Pulse Resp B/P (MAP) Pulse Ox O2 Delivery O2 Flow Rate FiO2 10/22/18 07:00 89 22 118/80 (93) 98 10/22/18 06:33 92 21 60 40 10/22/18 06:00 91 22 130/73 (92) 98 10/22/18 05:18 89 17 60 10/22/18 05:00 90 20 119/78 (92) 99 10/22/18 04:00 Mechanical Ventilator Mechanical Ventilator 10/22/18 04:00 97.0 87 18 110/78 (89) 100 10/22/18 04:00 60 10/22/18 04:00 87 10/22/18 03:00 88 18 122/86 (98) 100 10/22/18 02:50 90 22 60 10/22/18 02:00 85 19 117/69 (85) 99 10/22/18 01:42 88 18 60 10/22/18 01:00 88 18 115/78 (90) 99 10/22/18 00:00 88 10/22/18 00:00 Mechanical Ventilator Mechanical Ventilator 10/22/18 00:00 60 10/22/18 00:00 97.1 88 17 117/81 (93) 99 10/21/18 23:14 87 19 60 10/21/18 23:00 89 22 119/79 (92) 100 10/21/18 22:00 87 22 116/83 (94) 99 10/21/18 21:00 83 18 102/69 (80) 98 10/21/18 20:48 89 22 60 10/21/18 20:00 96.7 86 17 120/74 (89) 99 10/21/18 20:00 Mechanical Ventilator Mechanical Ventilator 10/21/18 20:00 60 10/21/18 20:00 86 10/21/18 19:30 86 16 111/69 (83) 99 10/21/18 19:02 89 22 60 10/21/18 19:00 86 16 110/69 (83) 100 10/21/18 18:00 97.2 87 21 115/75 (88) 99 10/21/18 17:00 82 17 96/63 (74) 99 10/21/18 16:45 82 20 60 10/21/18 16:00 96.8 81 16 100/67 (78) 100 10/21/18 16:00 81 10/21/18 16:00 60 10/21/18 16:00 Mechanical Ventilator Mechanical Ventilator 10/21/18 15:00 79 16 86/58 (67) 100 10/21/18 14:46 79 21 60 10/21/18 14:00 96.8 77 16 91/59 (70) 99 10/21/18 13:07 80 18 60 10/21/18 13:00 73 15 97/62 (74) 99 10/21/18 12:00 73 10/21/18 12:00 60 10/21/18 12:00 96.0 74 16 93/59 (70) 99 10/21/18 11:00 74 16 87/53 (64) 99 10/21/18 10:00 77 17 97/56 (70) 98 Height (Feet): 5 Height (Inches): 8.00 Weight (Pounds): 137 Objective General Appearance: alert, moderate distress, cachetic Head: normocephalic, atraumatic Eyes: bilateral eye PERRL, bilateral eye EOMI ENT: uvula midline, dry mucus membranes Neck: supple, thyroid normal, supple/symm/no masses Respiratory: respiratory distress, decreased breath sounds - left side, accessory muscle use Cardiovascular #1: normal peripheral pulses, regular rate, rhythm, no edema, no gallop, no murmur Gastrointestinal: non tender, soft, no guarding, no rebound, other - Ostomy bag present Musculoskeletal: normal inspection Neurologic: alert, oriented x3 Psychiatric: mood/affect normal Skin: warm/dry, other - Sacral ulcer stage I Microbiology Date/Time Source Procedure Growth Status 10/21/18 03:00 Sputum Induced Gram Stain - Final Resulted 10/21/18 03:00 Sputum Induced Sputum Culture Pending Resulted Laboratory Tests Test 10/22/18 04:00 White Blood Count 7.6 K/UL (4.8-10.8) # Red Blood Count 2.96 M/UL (4.70-6.10) L Hemoglobin 9.0 G/DL (14.2-18.0) L Hematocrit 27.9 % (42.0-52.0) L Mean Corpuscular Volume 94 FL (80-99) Mean Corpuscular Hemoglobin 30.3 PG (27.0-31.0) Mean Corpuscular Hemoglobin Concent 32.2 G/DL (32.0-36.0) Red Cell Distribution Width 16.7 % (11.6-14.8) H Platelet Count 14 K/UL (150-450) L Mean Platelet Volume 10.4 FL (6.5-10.1) H Neutrophils (%) (Auto) % (45.0-75.0) Lymphocytes (%) (Auto) % (20.0-45.0) Monocytes (%) (Auto) % (1.0-10.0) Eosinophils (%) (Auto) % (0.0-3.0) Basophils (%) (Auto) % (0.0-2.0) Neutrophils % (Manual) Pending Lymphocytes % (Manual) Pending Platelet Estimate Pending Platelet Morphology Pending Sodium Level 142 MMOL/L (136-145) Potassium Level 5.1 MMOL/L (3.5-5.1) Chloride Level 108 MMOL/L (98-107) H Carbon Dioxide Level 25 MMOL/L (21-32) Anion Gap 9 mmol/L (5-15) Blood Urea Nitrogen 89 mg/dL (7-18) H Creatinine 1.7 MG/DL (0.55-1.30) H Estimat Glomerular Filtration Rate 43.6 mL/min (>60) Glucose Level 168 MG/DL (74-106) H Calcium Level 7.7 MG/DL (8.5-10.1) L Phosphorus Level 5.3 MG/DL (2.5-4.9) H Magnesium Level 2.5 MG/DL (1.8-2.4) H Total Bilirubin 1.3 MG/DL (0.2-1.0) H Direct Bilirubin 0.7 MG/DL (0.0-0.3) H Aspartate Amino Transf (AST/SGOT) 259 U/L (15-37) H Alanine Aminotransferase (ALT/SGPT) 130 U/L (12-78) H Alkaline Phosphatase 297 U/L (46-116) H Total Protein 5.8 G/DL (6.4-8.2) L Albumin 1.9 G/DL (3.4-5.0) L Globulin 3.9 g/dL Albumin/Globulin Ratio 0.5 (1.0-2.7) L Current Medications Medications (Trade) Dose Ordered Sig/Onelia Route PRN Reason Start Time Stop Time Status Last Admin Dose Admin Acetaminophen (Tylenol) 650 mg Q4H PRN ORAL FEVER 10/18/18 09:45 11/16/18 17:44 Acetaminophen/ Hydrocodone Bitart ([place] 10/325) 1 tab Q6H PRN ORAL For Pain 10/20/18 13:00 10/27/18 12:59 10/20/18 21:01 Albuterol/ Ipratropium (Albuterol/ Ipratropium) 3 ml Q4H PRN HHN Shortness of Breath 10/18/18 09:45 10/22/18 17:44 Cefepime HCl 2 gm/ Dextrose 110 ml @ 220 mls/hr QHS IV 10/21/18 21:00 10/24/18 23:00 10/21/18 20:38 Dextrose (Dextrose 50%) 25 ml Q30M PRN IV Hypoglycemia 10/18/18 09:45 11/16/18 17:44 Dextrose (Dextrose 50%) 50 ml Q30M PRN IV Hypoglycemia 10/18/18 09:45 11/16/18 17:44 Dextrose/Sodium Chloride 1,000 ml @ 100 mls/hr Q10H IV 10/21/18 13:30 11/20/18 13:29 10/22/18 09:36 Hydrocortisone (Solu-CORTEF) 100 mg EVERY 8 HOURS IV 10/21/18 22:00 11/20/18 13:59 10/22/18 05:31 Levothyroxine Sodium (Synthroid) 100 mcg DAILY IV 10/20/18 11:30 11/19/18 11:29 10/22/18 09:36 Lorazepam (Ativan 2mg/ml 1ml) 2 mg Q4H PRN IV For Anxiety 10/18/18 10:45 10/25/18 10:44 Micafungin Sodium 100 mg/Sodium Chloride 110 ml @ 110 mls/hr Q24H IVPB 10/21/18 20:00 10/28/18 19:59 10/21/18 20:33 Ondansetron HCl (Zofran) 4 mg Q6H PRN IVP Nausea & Vomiting 10/18/18 09:45 11/16/18 09:44 Pantoprazole (Protonix) 40 mg Q12HR IV 10/20/18 21:00 11/18/18 08:59 10/22/18 09:35 Polyethylene Glycol (Miralax) 17 gm DAILYPRN PRN ORAL Constipation 10/18/18 09:30 11/16/18 09:29 Kaye Butcher M.D. Oct 22, 2018 10:00
--- NOTE | 2018-10-22 10:48 | Pulmonolgy Critical Care Note ---
Critical Care - Asmt/Plan Problems: (1) Acute respiratory failure (2) Metastatic cancer (3) Pneumonia involving left lung (4) ATN (acute tubular necrosis) Respiratory: monitor respiratory rate, adjust FIO2, CXR Cardiac: continue to monitor HR/BP Renal: F/U I&O, keep IV fluid Infectious Disease: check cultures Gastrointestinal: continue feedings/current rate, hold feedings Endocrine: check TSH, check HgA1C Hematologic: transfuse if hgb<8.5 Neurologic: PRN Ativan, keep patient comfortable Prophylaxis: Protonix, Heparin Time Spent (Minutes): 40 Notes Reviewed: cardio Discussed with: nurses, consultants, casework specialistmanager of construction - Objective Last 24 Hour Vital Signs Date Time Temp Pulse Resp B/P (MAP) Pulse Ox O2 Delivery O2 Flow Rate FiO2 10/22/18 10:00 86 18 122/83 (96) 100 10/22/18 09:55 84 16 60 10/22/18 09:00 92 21 128/83 (98) 98 10/22/18 08:35 94 20 60 10/22/18 08:35 97 10/22/18 08:00 Mechanical Ventilator Mechanical Ventilator 10/22/18 08:00 60 10/22/18 08:00 97.5 89 20 123/77 (92) 97 10/22/18 07:18 90 10/22/18 07:00 89 22 118/80 (93) 98 10/22/18 06:33 92 21 60 40 10/22/18 06:00 91 22 130/73 (92) 98 10/22/18 05:18 89 17 60 10/22/18 05:00 90 20 119/78 (92) 99 10/22/18 04:00 Mechanical Ventilator Mechanical Ventilator 10/22/18 04:00 97.0 87 18 110/78 (89) 100 10/22/18 04:00 60 10/22/18 04:00 87 10/22/18 03:00 88 18 122/86 (98) 100 10/22/18 02:50 90 22 60 10/22/18 02:00 85 19 117/69 (85) 99 10/22/18 01:42 88 18 60 10/22/18 01:00 88 18 115/78 (90) 99 10/22/18 00:00 88 10/22/18 00:00 Mechanical Ventilator Mechanical Ventilator 10/22/18 00:00 60 10/22/18 00:00 97.1 88 17 117/81 (93) 99 10/21/18 23:14 87 19 60 10/21/18 23:00 89 22 119/79 (92) 100 10/21/18 22:00 87 22 116/83 (94) 99 10/21/18 21:00 83 18 102/69 (80) 98 10/21/18 20:48 89 22 60 10/21/18 20:00 96.7 86 17 120/74 (89) 99 10/21/18 20:00 Mechanical Ventilator Mechanical Ventilator 10/21/18 20:00 60 10/21/18 20:00 86 10/21/18 19:30 86 16 111/69 (83) 99 10/21/18 19:02 89 22 60 10/21/18 19:00 86 16 110/69 (83) 100 10/21/18 18:00 97.2 87 21 115/75 (88) 99 10/21/18 17:00 82 17 96/63 (74) 99 10/21/18 16:45 82 20 60 10/21/18 16:00 96.8 81 16 100/67 (78) 100 10/21/18 16:00 81 10/21/18 16:00 60 10/21/18 16:00 Mechanical Ventilator Mechanical Ventilator 10/21/18 15:00 79 16 86/58 (67) 100 10/21/18 14:46 79 21 60 10/21/18 14:00 96.8 77 16 91/59 (70) 99 10/21/18 13:07 80 18 60 10/21/18 13:00 73 15 97/62 (74) 99 10/21/18 12:00 73 10/21/18 12:00 60 10/21/18 12:00 96.0 74 16 93/59 (70) 99 10/21/18 11:00 74 16 87/53 (64) 99 Status: awake Condition: critical, grave Neck: full ROM Lungs: chest wall tender Heart: HR/BP stable, regular Abdomen: non-tender, active bowel sounds, feeding tube Extremities: edema Micro: Microbiology Date/Time Source Procedure Growth Status 10/21/18 03:00 Sputum Induced Gram Stain - Final Resulted 10/21/18 03:00 Sputum Induced Sputum Culture Pending Resulted Critical Care - Subjective ROS Limited/Unobtainable: Yes Condition: critical EKG Rhythm: Sinus Rhythm FI02: 60 Vent Support Breath Rate: 16 Vent Support Mode: AC Vent Tidal Volume: 500 Sputum Amount: Small PEEP: 5.0 PIP: 20 Tube Feeding Amount: 50 I&O: Intake and Output 10/21/18 10/22/18 19:00 07:00 Intake Total 1325 ml 1660 ml Output Total 310 ml 320 ml Balance 1015 ml 1340 ml IV Total 1110 ml 1420 ml Tube Feeding 75 ml 240 ml Other 140 ml Output Urine Total 310 ml 260 ml Stool Total 0 ml 60 ml ET-Tube: 8.0 ET Position: 24 Labs: Laboratory Tests Test 10/22/18 04:00 White Blood Count 7.6 K/UL (4.8-10.8) # Red Blood Count 2.96 M/UL (4.70-6.10) L Hemoglobin 9.0 G/DL (14.2-18.0) L Hematocrit 27.9 % (42.0-52.0) L Mean Corpuscular Volume 94 FL (80-99) Mean Corpuscular Hemoglobin 30.3 PG (27.0-31.0) Mean Corpuscular Hemoglobin Concent 32.2 G/DL (32.0-36.0) Red Cell Distribution Width 16.7 % (11.6-14.8) H Platelet Count 14 K/UL (150-450) L Mean Platelet Volume 10.4 FL (6.5-10.1) H Neutrophils (%) (Auto) % (45.0-75.0) Lymphocytes (%) (Auto) % (20.0-45.0) Monocytes (%) (Auto) % (1.0-10.0) Eosinophils (%) (Auto) % (0.0-3.0) Basophils (%) (Auto) % (0.0-2.0) Differential Total Cells Counted 100 Neutrophils % (Manual) 85 % (45-75) H Lymphocytes % (Manual) 2 % (20-45) L Monocytes % (Manual) 0 % (1-10) L Eosinophils % (Manual) 0 % (0-3) Basophils % (Manual) 0 % (0-2) Band Neutrophils 13 % (0-8) H Platelet Estimate Decreased L Platelet Morphology Normal Anisocytosis 1+ Sodium Level 142 MMOL/L (136-145) Potassium Level 5.1 MMOL/L (3.5-5.1) Chloride Level 108 MMOL/L (98-107) H Carbon Dioxide Level 25 MMOL/L (21-32) Anion Gap 9 mmol/L (5-15) Blood Urea Nitrogen 89 mg/dL (7-18) H Creatinine 1.7 MG/DL (0.55-1.30) H Estimat Glomerular Filtration Rate 43.6 mL/min (>60) Glucose Level 168 MG/DL (74-106) H Calcium Level 7.7 MG/DL (8.5-10.1) L Phosphorus Level 5.3 MG/DL (2.5-4.9) H Magnesium Level 2.5 MG/DL (1.8-2.4) H Total Bilirubin 1.3 MG/DL (0.2-1.0) H Direct Bilirubin 0.7 MG/DL (0.0-0.3) H Aspartate Amino Transf (AST/SGOT) 259 U/L (15-37) H Alanine Aminotransferase (ALT/SGPT) 130 U/L (12-78) H Alkaline Phosphatase 297 U/L (46-116) H Total Protein 5.8 G/DL (6.4-8.2) L Albumin 1.9 G/DL (3.4-5.0) L Globulin 3.9 g/dL Albumin/Globulin Ratio 0.5 (1.0-2.7) L Sasha Victor MD Oct 22, 2018 10:48
[2018-10-22] MEDS ORDERED: D5NS 1000ml IV ONE (10:55)
[2018-10-22] MEDS ORDERED: Tubing IV Secondary IV ONE (10:55)
--- NOTE | 2018-10-22 11:00 | NUR ---
NURSE NOTES: Sisters at bedside, talking to Dr Valente samuel pt's condition. Family will wait for pt's father to arrive and decide what to do regarding code status. Pt is severely lethargic at this time. Eyes are not able to focus and pt not able to follow commands.
--- NOTE | 2018-10-22 13:37 | Nephrology Progress Note ---
Assessment/Plan Problem List: (1) ATN (acute tubular necrosis) (2) Pneumonia involving left lung (3) Acute respiratory failure (4) Sepsis Assessment: shock (5) Metastatic cancer (6) Hypothyroidism Assessment Acute respiratory Failure Acute Renal failure- Cr up 1.6 HypoThyroid: TSH 76 Anemia Metastatic Ca Pneumonia left lung Severe Malnutrition rising troponin I Plan IV fluid- IV Synthroid Keep lytes and BP in check Avoid Nephrotoxics monitor LFTs remains full code kayexelate OG IV Hydrocortisone trial Subjective ROS Limited/Unobtainable: Yes Objective Objective Last 24 Hour Vital Signs Date Time Temp Pulse Resp B/P (MAP) Pulse Ox O2 Delivery O2 Flow Rate FiO2 10/22/18 10:00 86 18 122/83 (96) 100 10/22/18 09:55 84 16 60 10/22/18 09:00 92 21 128/83 (98) 98 10/22/18 08:35 94 20 60 10/22/18 08:35 97 10/22/18 08:00 Mechanical Ventilator Mechanical Ventilator 10/22/18 08:00 60 10/22/18 08:00 97.5 89 20 123/77 (92) 97 10/22/18 07:18 90 10/22/18 07:00 89 22 118/80 (93) 98 10/22/18 06:33 92 21 60 40 10/22/18 06:00 91 22 130/73 (92) 98 10/22/18 05:18 89 17 60 10/22/18 05:00 90 20 119/78 (92) 99 10/22/18 04:00 Mechanical Ventilator Mechanical Ventilator 10/22/18 04:00 97.0 87 18 110/78 (89) 100 10/22/18 04:00 60 10/22/18 04:00 87 10/22/18 03:00 88 18 122/86 (98) 100 10/22/18 02:50 90 22 60 10/22/18 02:00 85 19 117/69 (85) 99 10/22/18 01:42 88 18 60 10/22/18 01:00 88 18 115/78 (90) 99 10/22/18 00:00 88 10/22/18 00:00 Mechanical Ventilator Mechanical Ventilator 10/22/18 00:00 60 10/22/18 00:00 97.1 88 17 117/81 (93) 99 10/21/18 23:14 87 19 60 10/21/18 23:00 89 22 119/79 (92) 100 10/21/18 22:00 87 22 116/83 (94) 99 10/21/18 21:00 83 18 102/69 (80) 98 10/21/18 20:48 89 22 60 10/21/18 20:00 96.7 86 17 120/74 (89) 99 10/21/18 20:00 Mechanical Ventilator Mechanical Ventilator 10/21/18 20:00 60 10/21/18 20:00 86 10/21/18 19:30 86 16 111/69 (83) 99 10/21/18 19:02 89 22 60 10/21/18 19:00 86 16 110/69 (83) 100 10/21/18 18:00 97.2 87 21 115/75 (88) 99 10/21/18 17:00 82 17 96/63 (74) 99 10/21/18 16:45 82 20 60 10/21/18 16:00 96.8 81 16 100/67 (78) 100 10/21/18 16:00 81 10/21/18 16:00 60 10/21/18 16:00 Mechanical Ventilator Mechanical Ventilator 10/21/18 15:00 79 16 86/58 (67) 100 10/21/18 14:46 79 21 60 10/21/18 14:00 96.8 77 16 91/59 (70) 99 Intake and Output 10/21/18 10/22/18 19:00 07:00 Intake Total 1325 ml 1660 ml Output Total 310 ml 320 ml Balance 1015 ml 1340 ml IV Total 1110 ml 1420 ml Tube Feeding 75 ml 240 ml Other 140 ml Output Urine Total 310 ml 260 ml Stool Total 0 ml 60 ml Laboratory Tests 10/22/18 04:00: White Blood Count 7.6#, Red Blood Count 2.96L, Hemoglobin 9.0L, Hematocrit 27.9L , Mean Corpuscular Volume 94, Mean Corpuscular Hemoglobin 30.3, Mean Corpuscular Hemoglobin Concent 32.2, Red Cell Distribution Width 16.7H, Platelet Count 14L, Mean Platelet Volume 10.4H, Neutrophils (%) (Auto) , Lymphocytes (%) (Auto) , Monocytes (%) (Auto) , Eosinophils (%) (Auto) , Basophils (%) (Auto) , Differential Total Cells Counted 100, Neutrophils % ( Manual) 85H, Lymphocytes % (Manual) 2L, Monocytes % (Manual) 0L, Eosinophils % ( Manual) 0, Basophils % (Manual) 0, Band Neutrophils 13H, Platelet Estimate DecreasedL, Platelet Morphology Normal, Anisocytosis 1+, Sodium Level 142, Potassium Level 5.1, Chloride Level 108H, Carbon Dioxide Level 25, Anion Gap 9, Blood Urea Nitrogen 89H, Creatinine 1.7H, Estimat Glomerular Filtration Rate 43.6, Glucose Level 168H, Calcium Level 7.7L, Phosphorus Level 5.3H, Magnesium Level 2.5H, Total Bilirubin 1.3H, Direct Bilirubin 0.7H, Aspartate Amino Transf (AST/SGOT) 259H, Alanine Aminotransferase (ALT/SGPT) 130H, Alkaline Phosphatase 297H, Total Protein 5.8L, Albumin 1.9L, Globulin 3.9, Albumin/Globulin Ratio 0.5L Height (Feet): 5 Height (Inches): 8.00 Weight (Pounds): 137 EENT: other - vented Cardiovascular: normal rate Respiratory/Chest: decreased breath sounds Abdomen: soft Jamar Byrd MD Oct 22, 2018 13:37
--- NOTE | 2018-10-22 13:40 | Cardiac Electrophysiology PN ---
Assessment/Plan Assessment/Plan 1. CHF and BNP of more than 26,000 . EF 55% to 60%, likely due to diastolic dysfunction. Already sevrely azotemic. Off on Lasix at this time. 2. Respiratory failure, on ventilator.TErminal extubation pending 3. Troponin leak nonspecific 4. Metastatic colorectal cancer, status post chemotherapy and radiation at [facility]. 5. Pancytopenia with severe anemia, hemoglobin of 6 as well as severe thrombocytopenia, likely related to chemotherapeutic agents. Ultrasound of abdomen to evaluate for cirrhosis was performed. Further evaluation by Dr. Elam. 6. Left lung pneumonia. 7. Chest pain due to malignancy and respiratory failure. 8. Sepsis and pneumonia, on IV antibiotics. ALEXIS RN Subjective Subjective In ICU on the vent. Off pressors in SR. Family at bedside. Terminal extubation pending. Objective Last 24 Hour Vital Signs Date Time Temp Pulse Resp B/P (MAP) Pulse Ox O2 Delivery O2 Flow Rate FiO2 10/22/18 10:00 86 18 122/83 (96) 100 10/22/18 09:55 84 16 60 10/22/18 09:00 92 21 128/83 (98) 98 10/22/18 08:35 94 20 60 10/22/18 08:35 97 10/22/18 08:00 Mechanical Ventilator Mechanical Ventilator 10/22/18 08:00 60 10/22/18 08:00 97.5 89 20 123/77 (92) 97 10/22/18 07:18 90 10/22/18 07:00 89 22 118/80 (93) 98 10/22/18 06:33 92 21 60 40 10/22/18 06:00 91 22 130/73 (92) 98 10/22/18 05:18 89 17 60 10/22/18 05:00 90 20 119/78 (92) 99 10/22/18 04:00 Mechanical Ventilator Mechanical Ventilator 10/22/18 04:00 97.0 87 18 110/78 (89) 100 10/22/18 04:00 60 10/22/18 04:00 87 10/22/18 03:00 88 18 122/86 (98) 100 10/22/18 02:50 90 22 60 10/22/18 02:00 85 19 117/69 (85) 99 10/22/18 01:42 88 18 60 10/22/18 01:00 88 18 115/78 (90) 99 10/22/18 00:00 88 10/22/18 00:00 Mechanical Ventilator Mechanical Ventilator 10/22/18 00:00 60 10/22/18 00:00 97.1 88 17 117/81 (93) 99 10/21/18 23:14 87 19 60 10/21/18 23:00 89 22 119/79 (92) 100 10/21/18 22:00 87 22 116/83 (94) 99 10/21/18 21:00 83 18 102/69 (80) 98 10/21/18 20:48 89 22 60 10/21/18 20:00 96.7 86 17 120/74 (89) 99 10/21/18 20:00 Mechanical Ventilator Mechanical Ventilator 10/21/18 20:00 60 10/21/18 20:00 86 10/21/18 19:30 86 16 111/69 (83) 99 10/21/18 19:02 89 22 60 10/21/18 19:00 86 16 110/69 (83) 100 10/21/18 18:00 97.2 87 21 115/75 (88) 99 10/21/18 17:00 82 17 96/63 (74) 99 10/21/18 16:45 82 20 60 10/21/18 16:00 96.8 81 16 100/67 (78) 100 10/21/18 16:00 81 10/21/18 16:00 60 10/21/18 16:00 Mechanical Ventilator Mechanical Ventilator 10/21/18 15:00 79 16 86/58 (67) 100 10/21/18 14:46 79 21 60 10/21/18 14:00 96.8 77 16 91/59 (70) 99 Intake and Output 10/21/18 10/22/18 19:00 07:00 Intake Total 1325 ml 1660 ml Output Total 310 ml 320 ml Balance 1015 ml 1340 ml IV Total 1110 ml 1420 ml Tube Feeding 75 ml 240 ml Other 140 ml Output Urine Total 310 ml 260 ml Stool Total 0 ml 60 ml Laboratory Tests Test 10/22/18 04:00 White Blood Count 7.6 K/UL (4.8-10.8) # Red Blood Count 2.96 M/UL (4.70-6.10) L Hemoglobin 9.0 G/DL (14.2-18.0) L Hematocrit 27.9 % (42.0-52.0) L Mean Corpuscular Volume 94 FL (80-99) Mean Corpuscular Hemoglobin 30.3 PG (27.0-31.0) Mean Corpuscular Hemoglobin Concent 32.2 G/DL (32.0-36.0) Red Cell Distribution Width 16.7 % (11.6-14.8) H Platelet Count 14 K/UL (150-450) L Mean Platelet Volume 10.4 FL (6.5-10.1) H Neutrophils (%) (Auto) % (45.0-75.0) Lymphocytes (%) (Auto) % (20.0-45.0) Monocytes (%) (Auto) % (1.0-10.0) Eosinophils (%) (Auto) % (0.0-3.0) Basophils (%) (Auto) % (0.0-2.0) Differential Total Cells Counted 100 Neutrophils % (Manual) 85 % (45-75) H Lymphocytes % (Manual) 2 % (20-45) L Monocytes % (Manual) 0 % (1-10) L Eosinophils % (Manual) 0 % (0-3) Basophils % (Manual) 0 % (0-2) Band Neutrophils 13 % (0-8) H Platelet Estimate Decreased L Platelet Morphology Normal Anisocytosis 1+ Sodium Level 142 MMOL/L (136-145) Potassium Level 5.1 MMOL/L (3.5-5.1) Chloride Level 108 MMOL/L (98-107) H Carbon Dioxide Level 25 MMOL/L (21-32) Anion Gap 9 mmol/L (5-15) Blood Urea Nitrogen 89 mg/dL (7-18) H Creatinine 1.7 MG/DL (0.55-1.30) H Estimat Glomerular Filtration Rate 43.6 mL/min (>60) Glucose Level 168 MG/DL (74-106) H Calcium Level 7.7 MG/DL (8.5-10.1) L Phosphorus Level 5.3 MG/DL (2.5-4.9) H Magnesium Level 2.5 MG/DL (1.8-2.4) H Total Bilirubin 1.3 MG/DL (0.2-1.0) H Direct Bilirubin 0.7 MG/DL (0.0-0.3) H Aspartate Amino Transf (AST/SGOT) 259 U/L (15-37) H Alanine Aminotransferase (ALT/SGPT) 130 U/L (12-78) H Alkaline Phosphatase 297 U/L (46-116) H Total Protein 5.8 G/DL (6.4-8.2) L Albumin 1.9 G/DL (3.4-5.0) L Globulin 3.9 g/dL Albumin/Globulin Ratio 0.5 (1.0-2.7) L Microbiology Date/Time Source Procedure Growth Status 10/21/18 03:00 Sputum Induced Gram Stain - Final Resulted 10/21/18 03:00 Sputum Induced Sputum Culture Pending Resulted Objective HEAD AND NECK: Positive JVD. He is orally intubated. LUNGS: Coarse rhonchi. CARDIOVASCULAR: Regular S1 and S2 with no gallop. ABDOMEN: Soft. EXTREMITIES: He has 1+ pitting edema. Indio Reis MD Oct 22, 2018 13:40
--- NOTE | 2018-10-22 13:47 | NUR ---
NURSE NOTES: Family all together decided to do terminal extubation. Dr Victor will be here shortly to discuss terminal extubation and code change. Pale looking and labored breathing noted. VSS.
--- NOTE | 2018-10-22 13:48 | Diagnostic Imaging Report ---
Indication: Dyspnea Technique: XRAY Chest 1v Comparison: 10/19/2018 Findings: Heart size and mediastinal contours stable. Enteric and endotracheal tubes stable and satisfactory positioning. Interstitial and bilateral airspace opacities are again noted, left greater than right. Small layering pleural effusions also suggested. There is no evidence of pneumothorax. Osseous structures are stable. Impression: Extensive bilateral airspace opacities, left greater than right, not significantly changed compared to the prior exam. Support lines and tubes in stable and satisfactory positioning.
[2018-10-22] MEDS ORDERED: Glycopyrrolate 0.2mg/ml 1ml Vial IV PRN (14:30)
[2018-10-22] MEDS ORDERED: Morphine Sulfate 10mg/ml Inj IVP SCH (14:30)
[2018-10-22] MEDS ORDERED: Artificial Tears 1.4% Op Soln BOTH EYES PRN (14:30)
[2018-10-22] MEDS ORDERED: Haloperidol 5mg/ml Inj IM PRN (14:30)
[2018-10-22] MEDS ORDERED: Prochlorperazine 10mg tab ORAL PRN (14:30)
--- NOTE | 2018-10-22 14:50 | NUR ---
NURSE NOTES: Orders received from Dr Victor. Morphine 10mg IVP once dose given before extubation, as per order. Pt got extubated at 1450. Family members at bedside, watching the patient.
[2018-10-22] MEDS ORDERED: Rate Change Narcotic Drip MISC PRN (15:15)
[2018-10-22] MEDS ORDERED: PCA Morphine 1mg/ml 30 ML IV PRN (15:15)
--- NOTE | 2018-10-22 15:20 | NUR ---
NURSE NOTES: Pt was . Asystole on monitoring analyst. No spontaneous breathing noted. Family members present at bedside. Notified charge nurse. Notified Dr Victor. Will call [facility] for . Post mortem care done.
--- NOTE | 2018-10-22 15:35 | NUR ---
PRONOUNCEMENT: No Code( DNR /DNI) Called to pronounce patient. Absence of spontaneous respirations, no cardiac or breath sounds on auscultation. Pupils fixed and dilated. No carotid pulse or chest movement. Patient at 1520. DR Victor notified via phone at 1525. Family was notified [id number].Family at the bedside when patient .
[2018-10-22] MEDS ORDERED: Narcotic Shift Volume MISC SCH (19:00)
--- NOTE | 2018-10-22 19:15 | Surgery Progress Note ---
Surgery Progress Note Subjective Additional Comments late entry as patient seen earlier today. unfortunately since he has passed. patient was ill appearing today as prior but less responsive. labs noted exam unchanged. patient lost vitals and no code and . Objective Last 24 Hour Vital Signs Date Time Temp Pulse Resp B/P (MAP) Pulse Ox O2 Delivery O2 Flow Rate FiO2 10/22/18 15:04 0 0 55 10/22/18 14:00 92 22 129/90 (103) 100 10/22/18 13:00 86 16 60 10/22/18 13:00 92 23 127/90 (102) 99 10/22/18 12:00 92 28 134/81 (98) 100 10/22/18 12:00 60 10/22/18 12:00 Mechanical Ventilator Mechanical Ventilator 10/22/18 11:46 90 10/22/18 11:00 92 21 129/86 (100) 99 10/22/18 10:00 86 18 122/83 (96) 100 10/22/18 09:55 84 16 60 10/22/18 09:00 92 21 128/83 (98) 98 10/22/18 08:35 94 20 60 10/22/18 08:35 97 10/22/18 08:00 Mechanical Ventilator Mechanical Ventilator 10/22/18 08:00 60 10/22/18 08:00 97.5 89 20 123/77 (92) 97 10/22/18 07:18 90 10/22/18 07:00 89 22 118/80 (93) 98 10/22/18 06:33 92 21 60 40 10/22/18 06:00 91 22 130/73 (92) 98 10/22/18 05:18 89 17 60 10/22/18 05:00 90 20 119/78 (92) 99 10/22/18 04:00 Mechanical Ventilator Mechanical Ventilator 10/22/18 04:00 97.0 87 18 110/78 (89) 100 10/22/18 04:00 60 10/22/18 04:00 87 10/22/18 03:00 88 18 122/86 (98) 100 10/22/18 02:50 90 22 60 10/22/18 02:00 85 19 117/69 (85) 99 10/22/18 01:42 88 18 60 10/22/18 01:00 88 18 115/78 (90) 99 10/22/18 00:00 88 10/22/18 00:00 Mechanical Ventilator Mechanical Ventilator 10/22/18 00:00 60 10/22/18 00:00 97.1 88 17 117/81 (93) 99 10/21/18 23:14 87 19 60 10/21/18 23:00 89 22 119/79 (92) 100 10/21/18 22:00 87 22 116/83 (94) 99 10/21/18 21:00 83 18 102/69 (80) 98 10/21/18 20:48 89 22 60 10/21/18 20:00 96.7 86 17 120/74 (89) 99 10/21/18 20:00 Mechanical Ventilator Mechanical Ventilator 10/21/18 20:00 60 10/21/18 20:00 86 10/21/18 19:30 86 16 111/69 (83) 99 I&O Intake and Output 10/21/18 10/22/18 19:00 07:00 Intake Total 1325 ml 1660 ml Output Total 310 ml 320 ml Balance 1015 ml 1340 ml IV Total 1110 ml 1420 ml Tube Feeding 75 ml 240 ml Other 140 ml Output Urine Total 310 ml 260 ml Stool Total 0 ml 60 ml Dressing: other Wound: other Cardiovascular: RSR Respiratory: decreased breath sounds Abdomen: soft, other Extremities: no cyanosis Laboratory Tests Test 10/22/18 04:00 White Blood Count 7.6 K/UL (4.8-10.8) # Red Blood Count 2.96 M/UL (4.70-6.10) L Hemoglobin 9.0 G/DL (14.2-18.0) L Hematocrit 27.9 % (42.0-52.0) L Mean Corpuscular Volume 94 FL (80-99) Mean Corpuscular Hemoglobin 30.3 PG (27.0-31.0) Mean Corpuscular Hemoglobin Concent 32.2 G/DL (32.0-36.0) Red Cell Distribution Width 16.7 % (11.6-14.8) H Platelet Count 14 K/UL (150-450) L Mean Platelet Volume 10.4 FL (6.5-10.1) H Neutrophils (%) (Auto) % (45.0-75.0) Lymphocytes (%) (Auto) % (20.0-45.0) Monocytes (%) (Auto) % (1.0-10.0) Eosinophils (%) (Auto) % (0.0-3.0) Basophils (%) (Auto) % (0.0-2.0) Differential Total Cells Counted 100 Neutrophils % (Manual) 85 % (45-75) H Lymphocytes % (Manual) 2 % (20-45) L Monocytes % (Manual) 0 % (1-10) L Eosinophils % (Manual) 0 % (0-3) Basophils % (Manual) 0 % (0-2) Band Neutrophils 13 % (0-8) H Platelet Estimate Decreased L Platelet Morphology Normal Anisocytosis 1+ Sodium Level 142 MMOL/L (136-145) Potassium Level 5.1 MMOL/L (3.5-5.1) Chloride Level 108 MMOL/L (98-107) H Carbon Dioxide Level 25 MMOL/L (21-32) Anion Gap 9 mmol/L (5-15) Blood Urea Nitrogen 89 mg/dL (7-18) H Creatinine 1.7 MG/DL (0.55-1.30) H Estimat Glomerular Filtration Rate 43.6 mL/min (>60) Glucose Level 168 MG/DL (74-106) H Calcium Level 7.7 MG/DL (8.5-10.1) L Phosphorus Level 5.3 MG/DL (2.5-4.9) H Magnesium Level 2.5 MG/DL (1.8-2.4) H Total Bilirubin 1.3 MG/DL (0.2-1.0) H Direct Bilirubin 0.7 MG/DL (0.0-0.3) H Aspartate Amino Transf (AST/SGOT) 259 U/L (15-37) H Alanine Aminotransferase (ALT/SGPT) 130 U/L (12-78) H Alkaline Phosphatase 297 U/L (46-116) H Total Protein 5.8 G/DL (6.4-8.2) L Albumin 1.9 G/DL (3.4-5.0) L Globulin 3.9 g/dL Albumin/Globulin Ratio 0.5 (1.0-2.7) L Plan Problems: (1) Chest pain (2) Pneumonia involving left lung (3) Respiratory distress (4) Sepsis Assessment & Plan: This is a cachectic unfortunate 47-year-old male with metastatic colorectal cancer who presented with shortness of breath. Patient noted to have a leukocytosis, abnormal labs, dehydration, respiratory distress. Patient currently intubated in intensive care unit. Patient alert awake and responsive. States that pain improved but still with respiratory discomfort on ventilatory support. Labs noted. Abdominal exam with fullness in the lower abdomen pelvic region and soft in the upper regions. The fullness that appears to be tumor burden. Patient has a diverting colostomy on the left side of his abdomen which appears to be a loop colostomy. There is gas and stool in the colostomy bag. No acute surgical intervention recommended at this time. NG tube is been placed. Okay to start feeds via NG tube patient is very cachectic and requires significant nutritional improvement. Continue with IV fluid resuscitation. Antibiotics as per infectious disease. Trend labs. Follow-up will follow with serial examinations and recommendations. Thank you for allowing me to participate in patient's care patient passed (5) Acute respiratory failure (6) Metastatic cancer Assessment & Plan: Patient with metastatic colorectal cancer. Patient identified to have abnormal wounds in the perirectal area. On examination was identified to be tumor burden is the tumors extending from the colorectal region out. Multiple open areas with tumor burden but no active infection identified. Patient has diverting colostomy. Will continue with local wound care Xeroform and ABD dressing for now. Brent Medeiros Oct 22, 2018 19:15
--- NOTE | 2018-10-24 15:43 | Discharge Summary ---
Discharge Summary Discharge Summary _ DATE OF ADMISSION: 10/17/2018 DATE OF DISCHARGE: 10/22/2018 BRIEF SUMMARY: Patient is an unfortunate 47-year-old male with history of metastatic colon CA presented to ED with complaints of shortness of breath for 4 days. He denied any aggravating or relieving factors. There was no nausea, no vomiting, no fever, no chills. He denied dysuria. He was undergoing chemotherapy. On arrival to ED, he was hypotensive. He was given normal saline with improvement in blood pressure. Blood work showed WBC of 14, hemoglobin 7, hematocrit 22. Platelet count 18. Electrolytes were normal. Troponin was negative. proBNP 2615. Urinalysis essentially negative. EKG showed normal sinus rhythm with no acute changes. Chest x-ray showed infiltrative changes in the left lung. CTA of the chest with contrast was negative for PE. Extensive pulmonary infiltrates with left groundglass opacification and patchy reticular densities bilaterally. There was presence of small left pleural effusion. Ascites. Acute to subacute fracture of the right fourth rib. Confluent adenopathy in the mediastinum. 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 Chronic small vessel disease involving periventricular white matter. Septic work-up was started. GI evaluation was done as patient desaturated and required BiPAP. He was then admitted for evaluation of sepsis and dyspnea. He was admitted to [facility]. He was started empirically on cefepime and vancomycin. Azithromycin was added to cover for atypicals. He was noted to have more tachypnea. ABG showed pH 6.9 and CO2 136. He required emergent intubation and was transferred to ICU. Voriconazole was added for fungal coverage. He was noted to have abnormal wounds on the buttocks as well as abdominal distention with tenderness. Surgery was called to evaluate and assist with care. Abdominal exam showed fullness in the lower abdomen pelvic region and soft in the upper regions. The fullness appeared to be 2 more burden. Patient had diverting colostomy on the left side. There was presence of gas and stool in the colostomy bag. NG tube was placed. He was started on NG tube feeding. He also had abnormal wounds in the perirectal area. On examination, was identified to be tumor burden with tumors extending from the colorectal region out. Patient had multiple areas with tumor burden but no active infection identified. He was given local wound care. He presented with thrombocytopenia, multifactorial, and most likely related to use of chemotherapeutic agents. HIV and hepatitis panel negative. Hemoglobin dropped. He required 3 units packed RBC blood transfusion. He had frequent arrhythmias, mostly in the form of bigeminal PACs and PVCs. BNP was elevated. Echocardiogram showed ejection fraction of 55 to 60%, likely due to to diastolic dysfunction. He had azotemia, per sales operations associate hold off on Lasix. LFTs were rising. Voriconazole, azithromycin, and vancomycin were discontinued. Antibiotic was changed to micafungin. Kidney function was guarded. Creatinine levels were rising. TSH was elevated to 76. He was given IV Synthroid. Plan of care, goals of care, quality of life and comfort measures were discussed. Patient appeared ill appearing. He was not able to be weaned off ventilator. Family decided for comfort care. Patient CODE STATUS was changed to DNR. He was terminally extubated. He eventually . FINAL DIAGNOSES: Sepsis Acute respiratory failure required intubation Pneumonia involving the left lung Metastatic colorectal cancer Acute diastolic CHF Troponin leak, nonspecific Pancytopenia with severe anemia Drop in hemoglobin required blood transfusion Chest pain due to malignancy and respiratory failure Acute renal failure Acute tubular necrosis Hypothyroidism Severe malnutrition Elevated liver transaminases Terminal care/comfort care/palliative care DISPOSITION: Patient . I have been assigned to complete a discharge summary on this account, I was not involved with the patient's management.--BO Webber Jacqueline Robles NP Oct 24, 2018 15:43
--- NOTE | 2018-10-25 16:54 | NUR ---
*-* INSURANCE *-* ALL CLINICALS AND REVIEW HAVE BEEN FAXED TO: [facility] NO FEATHER CURLING MACHINE OPERATOR ASSIGNED AT THIS TIME PLEASE FAX THE REVIEW/CLINICAL P- [phone] F- [phone]...REVIEW/CLINICAL
== END 2018-10-22 15:20 | disposition expired | DRG 720 ==
LOC: EDBD 11:40 → EMR 13:37 → EDBEDREQ 15:06 → 2W 15:13 → ICU 10-18 09:00
PROC: 0BH17EZ Insertion of Endotracheal Airway into Trachea, Via Natural or Artificial Opening (ICD-10-PCS; principal; 2018-10-18)
PROC: 5A1955Z Respiratory Ventilation, Greater than 96 Consecutive Hours (ICD-10-PCS; principal; 2018-10-18)
DX: A41.9 Sepsis, unspecified organism (principal); J18.9 Pneumonia, unspecified organism; C18.9 Malignant neoplasm of colon, unspecified; C79.9 Secondary malignant neoplasm of unspecified site; I50.31 Acute diastolic (congestive) heart failure; I63.9 Cerebral infarction, unspecified; N17.0 Acute kidney failure with tubular necrosis; D63.0 Anemia in neoplastic disease; J96.01 Acute respiratory failure with hypoxia; D69.6 Thrombocytopenia, unspecified; D61.810 Antineoplastic chemotherapy induced pancytopenia; J96.02 Acute respiratory failure with hypercapnia; R79.89 Other specified abnormal findings of blood chemistry; R57.9 Shock, unspecified; E43 Unspecified severe protein-calorie malnutrition; Z68.20 Body mass index [BMI] 20.0-20.9, adult; Z93.3 Colostomy status; E87.1 Hypo-osmolality and hyponatremia; E03.9 Hypothyroidism, unspecified; L89.90 Pressure ulcer of unspecified site, unspecified stage; T36.8X5A Adverse effect of other systemic antibiotics, initial encounter; Y92.230 Patient room in hospital as the place of occurrence of the external cause; S22.31XA Fracture of one rib, right side, initial encounter for closed fracture; X58.XXXA Exposure to other specified factors, initial encounter; Y92.9 Unspecified place or not applicable
CPT/HCPCS: 31500; 36415; 36600; 70450; 71045; 71275; 74018; 76700; 80048; 80053; 80061; 80069; 80202; 81003; 82140; 82164; 82248; 82533; 82550; 82553; 82607; 82728; 82746; 82803; 82977; 83540; 83550; 83605; 83690; 83735; 83880; 84100; 84439; 84443; 84484; 84550; 85007; 85025; 85044; 85610; 85730; 86140; 86606; 86635; 86703; 86705; 86709; 86803; 86850; 86900; 86901; 86920; 87040; 87070; 87205; 87340; 87449; 93005; 93306; 93970; 94002; 94003; 94640; 94660; 94664; 96365; 96366; 96368; 97803; 99291; J2405; J7620